=== PATIENT | male | born 1955 | race Caucasian/White ===

== ENCOUNTER 2020-02-04 09:23 | Outpatient (REF) | payer BC, SELFPAY ==
[2020-02-04 11:02] LABS: MANUAL DIFF FLAG NO
[2020-02-04 11:05] LABS: Basophils Percent Auto 0.7 % (0-2); Eosinophils Absolute Auto 0.2 X10*3/uL (0.0-0.4); Eosinophils Percent Auto 2.6 % (0-4); Hematocrit 45.9 % (42-52); Hemoglobin 15.1 g/dl (14.0-18.0); Imm Gran Abs Auto 0.02 X10*3/uL (0.00-0.03); Imm Gran Pct Auto 0.3 % (0.0-0.4); Lymphocytes Absolute Auto 1.7 X10*3/uL (1.2-4.9); Lymphocytes Percent Auto 28.7 % (20-40); Mean Corpuscular HGB Conc 32.9 g/dl (31.0-36.0); Mean Corpuscular Hemoglobin 30.3 pg (27.0-33.0); Mean Corpuscular Volume 92.2 fL (80-98); Mean Platelet Volume 10.2 fL (9.4-12.4); Monocytes Absolute Auto 0.4 X10*3/uL (0.1-1.2); Monocytes Percent Auto 7.5 % (2-11); Neutrophils Absolute Auto 3.5 X10*3/uL (2.0-8.3); Neutrophils Percent Auto 60.2 % (45-73); Platelet Count 211 X10*3/uL (160-400); Red Blood Count 4.98 X10*6/uL (4.60-5.80); Red Cell Distribution Width 12.8 % (11.0-16.0); White Blood Count 5.9 X10*3/uL (4.8-10.8)
[2020-02-04 11:53] LABS: Alanine Aminotransferase 28 U/L (0-40); Albumin Level 4.2 g/dL (3.5-5.0); Alkaline Phosphatase 70 U/L (39-117); Anion Gap 12 (12-20); Aspartate Amino Transferase 19 U/L (5-37); Bilirubin Total 1.1 mg/dL (0.0-1.0); Blood Urea Nitrogen 12 mg/dL (9-16); Calcium 8.8 mg/dL (8.4-10.2); Carbon Dioxide 27 mmol/L (22-29); Chloride 106 mmol/L (96-108); Cholesterol 238 mg/dL; Estimated Glomerular Filt Rate > 60; Glucose Fasting 109 mg/dL (60-99); HDL Cholesterol 40 mg/dL; LDL Cholesterol Calculated 152 mg/dl; Potassium 4.1 mmol/l (3.3-5.1); Sodium 141 mmol/L (135-145); Total Protein 6.6 g/dL (6.5-8.0); Triglycerides 233 mg/dL
[2020-02-04 12:15] LABS: Creatinine Urine 189.55 mg/dL; Microalbum/Creatinine Ratio Ur 2.6 ug/mg cr
[2020-02-04 12:16] LABS: Prostate Specific Antigen Scr 0.85 ng/mL (<0.05-4.0); TSH reflex Free T4 2.68 mIU/mL (0.32-4.0)
== END 2020-02-04 09:24 | disposition home or self-care (01) ==
LOC: HO.WFDLDS 09:23
PROVIDERS: Visit Provider Family Medicine
DX: K92.1 Melena (principal); Z00.00 Encounter for general adult medical examination without abnormal findings; E78.00 Pure hypercholesterolemia, unspecified; R73.03 Prediabetes; I10 Essential (primary) hypertension; Z12.5 Encounter for screening for malignant neoplasm of prostate
CPT/HCPCS: 36415; 80053; 80061; 82043; 84153; 84443; 85025

== ENCOUNTER 2020-03-07 10:31 | Outpatient (REF) | payer BC, SELFPAY | END 2020-03-07 10:32 | disposition home or self-care (01) | LOC: HO.LAB 10:31 | PROVIDERS: Visit Provider Internal Medicine | DX: Z20.822 Contact with and (suspected) exposure to COVID-19 (principal) | CPT/HCPCS: 36415; C9803; U0003 ==

== ENCOUNTER 2020-04-21 13:48 | Outpatient (REF) | payer BC, SELFPAY ==
[2020-04-21 14:44] LABS: Creatinine Urine 88.55 mg/dL; Microalbumin Urine < 5.0 mg/L
== END 2020-04-21 13:49 | disposition home or self-care (01) ==
LOC: HO.LNP 13:48
PROVIDERS: Visit Provider Family Medicine
DX: R73.03 Prediabetes (principal)
CPT/HCPCS: 82043

== ENCOUNTER 2020-07-22 12:37 | Outpatient (REF) | payer BC, SELFPAY ==
[2020-07-22 13:40] LABS: MANUAL DIFF FLAG NO
[2020-07-22 13:43] LABS: Basophils Percent Auto 0.5 % (0-2); Eosinophils Absolute Auto 0.1 X10*3/uL (0.0-0.4); Eosinophils Percent Auto 1.9 % (0-4); Hematocrit 45.3 % (42-52); Hemoglobin 14.9 g/dl (14.0-18.0); Imm Gran Abs Auto 0.02 X10*3/uL (0.00-0.03); Imm Gran Pct Auto 0.3 % (0.0-0.4); Lymphocytes Absolute Auto 1.7 X10*3/uL (1.2-4.9); Lymphocytes Percent Auto 28.6 % (20-40); Mean Corpuscular HGB Conc 32.9 g/dl (31.0-36.0); Mean Corpuscular Hemoglobin 29.9 pg (27.0-33.0); Mean Platelet Volume 10.4 fL (9.4-12.4); Monocytes Absolute Auto 0.4 X10*3/uL (0.1-1.2); Monocytes Percent Auto 7.3 % (2-11); Neutrophils Absolute Auto 3.6 X10*3/uL (2.0-8.3); Neutrophils Percent Auto 61.4 % (45-73); Platelet Count 185 X10*3/uL (160-400); Red Blood Count 4.98 X10*6/uL (4.60-5.80); Red Cell Distribution Width 13.1 % (11.0-16.0); White Blood Count 5.9 X10*3/uL (4.8-10.8)
[2020-07-22 13:53] LABS: Partial Thromboplastin Time 32.9 SEC (24.1-38.0)
[2020-07-22 14:18] LABS: Alanine Aminotransferase 42 U/L (0-40); Albumin Level 4.4 g/dL (3.5-5.0); Alkaline Phosphatase 79 U/L (39-117); Anion Gap 13 (12-20); Aspartate Amino Transferase 29 U/L (5-37); Bilirubin Total 1.3 mg/dL (0.0-1.0); Blood Urea Nitrogen 14 mg/dL (9-16); Calcium 9.4 mg/dL (8.4-10.2); Carbon Dioxide 27 mmol/L (22-29); Chloride 106 mmol/L (96-108); Cholesterol 157 mg/dL; Estimated Glomerular Filt Rate > 60; Glucose Random 108 mg/dL (60-115); HDL Cholesterol 49 mg/dL; LDL Cholesterol Calculated 81 mg/dl; Potassium 4.3 mmol/L (3.3-5.1); Sodium 142 mmol/L (135-145); Total Protein 6.9 g/dL (6.5-8.0); Triglycerides 137 mg/dL
[2020-07-23 07:37] LABS: LDL Cholesterol Direct 83 mg/dL (<100)
== END 2020-07-22 12:38 | disposition home or self-care (01) ==
LOC: HO.WFDLDS 12:37
PROVIDERS: Visit Provider Family Medicine
DX: Z01.810 Encounter for preprocedural cardiovascular examination (principal); E78.00 Pure hypercholesterolemia, unspecified
CPT/HCPCS: 36415; 80053; 80061; 83721; 85025; 85610; 85730

== ENCOUNTER 2022-02-12 09:05 | Outpatient (REF) | payer BC, SELFPAY ==
[2022-02-12 11:22] LABS: MANUAL DIFF FLAG NO
[2022-02-12 11:29] LABS: Basophils Percent Auto 0.8 % (0-2); Eosinophils Absolute Auto 0.2 X10*3/uL (0.0-0.4); Eosinophils Percent Auto 3.1 % (0-4); Hematocrit 43.2 % (42.0-52.0); Hemoglobin 14.2 g/dl (14.0-18.0); Imm Gran Abs Auto 0.03 X10*3/uL (0.00-0.03); Imm Gran Pct Auto 0.6 % (0.0-0.4); Lymphocytes Absolute Auto 1.5 X10*3/uL (1.2-4.9); Lymphocytes Percent Auto 28.5 % (20-40); Mean Corpuscular HGB Conc 32.9 g/dl (31.0-36.0); Mean Corpuscular Hemoglobin 29.8 pg (27.0-33.0); Mean Corpuscular Volume 90.8 fL (80.0-98.0); Mean Platelet Volume 10.9 fL (9.4-12.4); Monocytes Absolute Auto 0.4 X10*3/uL (0.1-1.2); Monocytes Percent Auto 7.6 % (2-11); Neutrophils Absolute Auto 3.1 x10*3/uL (2.0-8.3); Neutrophils Percent Auto 59.4 % (45-73); Platelet Count 215 X10*3/uL (160-400); Red Blood Count 4.76 X10*6/uL (4.60-5.80); Red Cell Distribution Width 12.9 % (11.0-16.0); White Blood Count 5.2 X10*3/uL (4.8-10.8)
[2022-02-12 11:31] LABS: Appearance Urine Clear; Color Urine Yellow; Glucose Urine UA Negative (Negative); Leukocyte Esterase Urine Negative (Negative); Nitrite Urine Negative (Negative); Urine Blood Negative (Negative); Urine Ketones Negative (Negative); Urine Protein Negative (Neg-Trace)
[2022-02-12 11:35] LABS: Estimated Average Glucose 117 mg/dL; Hemoglobin A1c % 5.7 %
[2022-02-12 12:07] LABS: Alanine Aminotransferase 42 U/L (0-40); Albumin Level 4.1 g/dL (3.5-5.0); Alkaline Phosphatase 71 U/L (39-117); Anion Gap 14 (12-20); Aspartate Amino Transferase 23 U/L (5-37); Bilirubin Total 1.1 mg/dL (0.0-1.0); Blood Urea Nitrogen 13 mg/dL (9-16); Carbon Dioxide 23 mmol/L (22-29); Chloride 109 mmol/L (96-108); Cholesterol 161 mg/dL; Estimated Glomerular Filt Rate > 60; Glucose Fasting 117 mg/dL (60-99); HDL Cholesterol 44 mg/dL; LDL Cholesterol Calculated 97 mg/dl; Potassium 4.1 mmol/L (3.3-5.1); Prostate Specific Antigen Scr 0.99 ng/mL (<0.05-4.0); Sodium 142 mmol/L (135-145); TSH reflex Free T4 3.09 uIU/mL (0.32-4.0); Total Protein 6.3 g/dL (6.5-8.0); Triglycerides 103 mg/dL
[2022-02-12 12:08] LABS: Creatinine Urine 158.46 mg/dL; Microalbum/Creatinine Ratio Ur 3.7 ug/mg cr
== END 2022-02-12 09:06 | disposition home or self-care (01) ==
LOC: HO.WFDLDS 09:05
PROVIDERS: Visit Provider Family Medicine
DX: Z00.00 Encounter for general adult medical examination without abnormal findings (principal); Z12.5 Encounter for screening for malignant neoplasm of prostate; R73.01 Impaired fasting glucose; I10 Essential (primary) hypertension
CPT/HCPCS: 36415; 80053; 80061; 81003; 82043; 83036; 84153; 84443; 85025

== ENCOUNTER 2022-03-03 13:49 | Outpatient (RCR) | payer BC, SELFPAY ==
--- NOTE | 2022-03-03 15:39 | MHC.PT.EP ---
[facility] [place] [facility] [place] [facility] [place] [facility] [address] Scarlett Moreno [address] [phone] F: [phone] F: [phone] F: [phone] F: [phone] Physical Therapy Plan of Care Date of Evaluation: Date of Surgery: NA Diagnosis: PAIN IN R SHOULDER Assessment: Pt IS 66 YO M REFERRED TO PT FROM DR MARTINEZ WITH R SHLDER PAIN. Pt REPORTS 3 DIFFERENT INSTANCES OF R SHLDER INJURIES S/P FALLS THE LAST ABOUT 1 MONTH AGO IN [facility]. PRESENTS WITH SIGNIFICANTLY DECREASED R SHLDER ROM, DECREASED CERVICAL ROM, R UE RADICULOPATHY (RADIAL DISTRIBUTION..OF NOTE, Pt FOLLOWED FOR POSSIBLE CTS), DECREASED R UE STRENGTH AND PAIN LIMITING ADLS. SPOKE WITH DR MARTINEZ ABOUT POSSIBLE REFERRAL TO ORTHO/CORTISONE INJECTION AND FOLLOW FOR POSSIBLE RADICULOPATHY/CERVICAL INVOLVEMENT. OF NOTE, Pt HAS 30 DOLLAR CO-PAY AND DID NOT WANT TO HAVE ALOT OF PT. AGREED TO FU IN 2 WKS TO ASSESS AND PROGRESS MEGAN Frequency and Duration: The patient will be seen 1X/WK X 6 WKS Short Term Goals: 1. INCREASED AWARENESS POSTURE AND SHLDER CARE 2. 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 I HEP WITH DC EX PLAN 2. INCREASED R SHLDER ROM 20-30 DEGREES FOR SHLDER FLEX AND ABDUCTION 3. DECREASED R SHLDER PAIN AT LEAST 50% WITH ADLS Treatment Plan: Modalities to reduce pain, spasms and effusion. Manual therapy to restore motion and function. Therapeutic exercise to improve strength and flexibility. Neuromuscular re-education for posture and balance. Therapeutic activities to return to functional activities of daily living. Electronically signed by: DANIEL STEIN PT Please sign and return to therapist. Thank you for your referral.
== END 2022-04-15 08:11 | disposition home or self-care (01) ==
LOC: HO.PTWFD 13:49
PROVIDERS: PCP Family Medicine; Visit Provider Family Medicine
DX: M25.511 Pain in right shoulder (principal)
CPT/HCPCS: 97110; 97162; 97535

== ENCOUNTER 2022-03-24 10:01 | Outpatient (REF) | payer BC, SELFPAY ==
--- NOTE | ~2022-03-24 | XR_ITS ---
EXAMINATION: XR HAND, RIGHT CLINICAL INFORMATION: Pain right hand COMPARISON: None TECHNIQUE: PA, lateral, and oblique views of the right hand. FINDINGS: There is loss of PIP, DIP and MCP joint space without bony erosive changes. There is an enthesophyte along the third metacarpal head. Tiny subchondral cystic spaces are seen along the first MCP joint. There is a soft tissue foreign body seen along the proximal phalanx first digit. No acute fracture or dislocation seen. XR/XR hand RT min 3V IMPRESSION: 1. Degenerative arthritic changes PIP, DIP and MCP joints. 2. There is a soft tissue radiopaque foreign body along the proximal phalanx first digit. 3. No acute fracture or dislocation seen. 4. Mild degenerative arthritic changes involving the right hand
== END 2022-03-24 10:02 | disposition home or self-care (01) ==
LOC: HO.HOSX 10:01
PROVIDERS: Visit Provider Orthopaedic Surgery
DX: G56.01 Carpal tunnel syndrome, right upper limb (principal); R20.0 Anesthesia of skin
CPT/HCPCS: 73130

== ENCOUNTER 2022-04-01 10:13 | Outpatient (REF) | payer BC, SELFPAY ==
--- NOTE | ~2022-04-01 | XR_ITS ---
EXAMINATION: XR SHOULDER, RIGHT CLINICAL INFORMATION: Right shoulder pain COMPARISON: None TECHNIQUE: AP external rotation, Grashey, scapular Y, and axillary views of the right shoulder. FINDINGS: No acute fracture or dislocation. Severe degenerative changes of the right shoulder joint with joint space narrowing and subchondral cystic changes. Severe degenerative changes of the acromioclavicular joint. XR/XR shoulder RT min 2V IMPRESSION: Severe degenerative changes of the right shoulder joint.
--- NOTE | ~2022-04-01 | US_ITS ---
EXAMINATION: US ABDOMEN LIMITED WITH LIVER ELASTOGRAPHY CLINICAL INFORMATION: Abnormal liver enzymes COMPARISON: Previous CT of the abdomen and pelvis July 2010 TECHNIQUE: Real-time imaging of the abdominal viscera. Noninvasive ultrasound liver fibrosis assessment is performed using Cyndi ElastPQ point quantification shear wave elastography (2D-SWE) with a C5-2 MHz transducer. Multiple elastography samples are obtained. FINDINGS: PANCREAS: The head of the pancreas is normal. The body and tail are not well visualized. LIVER: Normal. The liver demonstrates normal size, contour and echogenicity. No focal lesion or intrahepatic biliary duct dilatation. The right lobe measures 17 cm in length. The left lobe measures 11 cm in length. Portal flow is normal/hepatopedal Shear wave liver elastography median stiffness is 1.8 m/s (reference: normal median stiffness is 1.3 m/s or less). IQR/median stiffness to assess sampling precision is 0.06 (reference: good quality data set is IQR/median stiffness of 0.15 or less). GALLBLADDER: Normal. The gallbladder is physiologically distended without evidence of stones, sludge, polyps, wall thickening or pericholecystic fluid. COMMON BILE DUCT: Normal in caliber measuring 0.5 cm in diameter. RIGHT KIDNEY: Normal. No hydronephrosis. No renal calculi or focal parenchymal lesions. The kidney measures 12.3 cm in maximum dimension. FREE FLUID: None. US/US abdomen pizano w elastography IMPRESSION: 1. Impression: Morphologically normal liver. Limited visualization of the pancreas. 2. Liver elastography: Slightly elevated liver stiffness. Adequate liver sampling. REFERENCE: Society of Radiologists in Ultrasound Liver Stiffness Thresholds (2020): LIVER STIFFNESS THRESHOLDS: *Liver Stiffness equal or less than 1.3 m/s: High probability of being normal. *Liver Stiffness less than 1.7 m/s: In the absence of other known clinical signs, rules out compensated advanced chronic liver disease. *Liver Stiffness 1.7-2.1 m/s: Suggestive of compensated advanced chronic liver disease but need further test for confirmation. *Liver Stiffness over 2.1 m/s: Rules in compensated advanced chronic liver disease. *Liver Stiffness over 2.4 m/s: Suggestive of clinically significant portal hypertension. QUALITY OF DATA SET: *IQR/Median value equal or less than 0.15 implies a quality data set. *IQR/Median value over 0.15 implies a poor quality data set. SIGNIFICANT CHANGE FROM PRIOR EXAM: Significant change if liver stiffness measurement is 10% or greater from prior exam. OTHER CONSIDERATIONS: The stage of liver fibrosis may be overestimated in the setting of acute hepatitis, liver inflammation, elevated liver function tests, hepatic vascular congestion, obstructive cholestasis, non-fasting state, and infiltrative diseases such as amyloidosis and lymphoma. In some patients with NAFLD, the liver stiffness thresholds for compensated advanced chronic liver disease may be lower. In causes other than viral hepatitis and NAFLD, liver stiffness thresholds are not well established.
== END 2022-04-01 10:14 | disposition home or self-care (01) ==
LOC: HO.US 10:13
PROVIDERS: PCP Family Medicine; Visit Provider Family Medicine
DX: R74.8 Abnormal levels of other serum enzymes (principal); M25.511 Pain in right shoulder
CPT/HCPCS: 73030; 76705; 76981

== ENCOUNTER 2022-04-06 12:54 | Outpatient (REF) | payer BC, SELFPAY ==
[2022-04-06 15:21] LABS: Alanine Aminotransferase 109 U/L (0-40); Albumin Level 4.1 g/dL (3.5-5.0); Alkaline Phosphatase 85 U/L (39-117); Anion Gap 14 (12-20); Aspartate Amino Transferase 46 U/L (5-37); Bilirubin Total 1.3 mg/dL (0.0-1.0); Blood Urea Nitrogen 12 mg/dL (9-16); Calcium 8.9 mg/dL (8.4-10.2); Carbon Dioxide 24 mmol/L (22-29); Chloride 107 mmol/L (96-108); Estimated Glomerular Filt Rate > 60; Glucose Random 96 mg/dL (60-115); Potassium 4.2 mmol/L (3.3-5.1); Sodium 141 mmol/L (135-145); Total Protein 6.3 g/dL (6.5-8.0)
== END 2022-04-06 12:55 | disposition home or self-care (01) ==
LOC: HO.WFDLDS 12:54
PROVIDERS: Visit Provider Family Medicine
DX: R74.8 Abnormal levels of other serum enzymes (principal)
CPT/HCPCS: 36415; 80053

== ENCOUNTER → 2022-05-10 11:55 | Outpatient (BNVA) | payer BC, SELFPAY | PROVIDERS: PCP Family Medicine; Visit Provider Orthopaedic Surgery | DX: Z13.89 Encounter for screening for other disorder (principal) ==

== ENCOUNTER 2022-06-16 12:54 | Outpatient (REF) | payer BC, SELFPAY ==
--- NOTE | 2022-06-16 09:00 | EMG_ITS ---
Please see scanned EMG / Nerve Conduction Report. MTDD
== END 2022-06-16 12:55 | disposition home or self-care (01) ==
LOC: HO.NEURO 12:54
PROVIDERS: PCP Family Medicine; Visit Provider Orthopaedic Surgery
DX: R20.0 Anesthesia of skin (principal)
CPT/HCPCS: 95885; 95913

== ENCOUNTER 2022-06-17 11:14 | Day surgery (SDC) | payer BC, SELFPAY ==
--- NOTE | 2022-06-17 09:58 | W.PM.OPN ---
Operative Note Operative Note Date of Service: 06/17/22 Narrative: Preop diagnosis: 1. Right Carpal tunnel syndrome Postop diagnosis: same Procedure: 1. Right Carpal tunnel release Surgeon: Amanda Sanchez MD Anesthesia: local block using 1% lidocaine with epinephrine Findings: Thickened transverse carpal ligament. EBL: Less than 5 mL Specimens: None Complications: None Disposition: Brought to recovery room in stable condition Plan: Follow-up for 10-14 days for wound check and suture removal Indications: The patient is 66 years old, with right carpal tunnel syndrome that has been unresponsive to nonoperative management. The risks and benefits of operative treatment including but not limited to risk of damage to blood vessels, nerves, tendons, infection, persistent pain, persistent symptoms, or possible need for additional surgery were discussed with the patient and the patient wishes to proceed with surgery. Procedure: Once consent was obtained a local block was performed using a combination of 1% lidocaine with epinephrine. The patient was then brought back to the operating suite and placed on the operative table in supine position. The right upper extremity was prepped and draped in a standard surgical fashion. Once assured that we had a good block, a 2.0 cm longitudinal incision was made centered over the carpal tunnel. The incision was made through the skin to the subcutaneous tissues using a #15 blade. Dissection was made down to the level of the transverse carpal ligament with care being taken to protect the palmar cutaneous nerve. Once the transverse carpal ligament was clearly visualized, a longitudinal incision was made in the transverse carpal ligament 1st using a #15 blade, then using tenotomy scissors under direct visualization. Care was taken to look for and protect the motor branch of the median nerve when seen in this area. Once satisfied with our carpal tunnel release the wound was copiously irrigated with normal saline and hemostasis was obtained with a brief period of local pressure. The skin edges were reapproximated with some 5.0 nylon suture material and a sterile dressing was applied. The patient appears to have tolerated the procedure well and with no complications. All digits were well vascularized at the conclusion of the case.
[2022-06-17 11:47] VITALS: BMI 31.1
--- NOTE | 2022-06-17 13:15 | MHC.SHP ---
Pre-Procedural Eval Section A Date of Service: 06/17/22 The patient is an INPATIENT: No Changes since office visit: No Cold of Flu in the past 2 weeks, No New Medical Problems, No Changes in Medication and No Patient answered all questions The History & Physical has been completed within 30 days and I have reviewed it.: Yes Section B Chief Complaint: Carpal tunnel syndrome, right upper limb Allergies: Allergies Allergy/AdvReac Type Severity Reaction Status Date / Time No Known Allergies Allergy Verified 05/10/22 12:02 Plan I have reviewed the history and physical and performed a pertinent physical examination on my patient. No changes have occurred unless specified. Time Spent With Patient Time: Total time managing care of this patient today ____ minutes.
[2022-06-17 15:35] VITALS: BP 120/84; PULSE 65; RESP 18; TEMP 36.6; O2SAT 98
== END 2022-06-17 15:39 | disposition home or self-care (01) ==
PROVIDERS: PCP Family Medicine; Visit Provider Orthopaedic Surgery
PROC: (CPT 64721; principal; 2022-06-17 12:20)
DX: G56.01 Carpal tunnel syndrome, right upper limb (principal); M79.641 Pain in right hand; R20.0 Anesthesia of skin; R20.2 Paresthesia of skin
CPT/HCPCS: 64721; J0171

== ENCOUNTER → 2022-06-30 14:10 | Outpatient (BNVA) | payer BC, SELFPAY | PROVIDERS: PCP Family Medicine; Visit Provider Orthopaedic Surgery ==

== ENCOUNTER 2022-07-06 15:50 | Emergency (ER) | payer BC, SELFPAY ==
[2022-07-06 16:01] VITALS: BP 126/79; PULSE 71; RESP 18; TEMP 36.8; O2SAT 95; BMI 31.2
--- NOTE | 2022-07-06 16:15 | ED.GENADULT ---
HPI - General Adult General Chief complaint: Eye Problems Stated complaint: L eye redness Time Seen by Provider: 07/06/22 16:14 Source: patient Mode of arrival: ambulatory Limitations: no limitations History of Present Illness HPI narrative: Patient is a 66-year-old male presenting with left eye pain and redness since . He reports he was driving in his convertible on Tuesday and then woke with the irritation on morning. He states that Tuesday he felt as though his symptoms were improving but then Tuesday his eye became more painful again. He reports foreign body sensation to left eye. He has been using Visine eye drops with little change in symptoms. He reports some blurred vision in the affected eye which began yesterday. He does not use contacts for prescription glasses but does use reading glasses occasionally. He denies pain with eye movement. He denies any discharge or drainage from his eye. He reports that he has been rubbing his eye due to irritation. He went to his PCP earlier today for evaluation of the same symptoms but was referred here as his PCP did not have proper equipment for full evaluation. Related Data Previous Rx's Medication Instructions Recorded atorvastatin 20 mg tablet 20 mg PO DAILY 90 days #90 tabs 12/30/21 Brace,wrist (Wrist Brace - one) #1 ea 02/08/22 erythromycin 5 mg/gram (0.5 %) eye 1 appl ophthalmic-Left QID 5 days 07/06/22 ointment #3.5 grams Allergies Allergy/AdvReac Type Severity Reaction Status Date / Time No Known Allergies Allergy Verified 07/06/22 16:10 Review of Systems Review of Systems: As per HPI Yes all other systems are reviewed and are negative Constitutional: Constitutional: Reports as per HPI Eyes: Eyes: Reports blurry vision, Denies exophthalmos, Denies diplopia, Denies eye discharge, Denies floaters, Reports irritation, Reports eye pain, Denies requires corrective lenses, Denies seeing flashes and Denies spots in vision PMFSH Past Medical History Medical History (Updated 07/06/22 @ 16:40 by Madyson Fields NP) History of diverticulitis Surgical History History of bilateral knee replacement History of carpal tunnel release History of dental surgery History of inguinal hernia Family History Family History Father Unknown family medical history Mother Diabetes mellitus Brother No problems noted. Brother No problems noted. Sister No problems noted. Sister No problems noted. Sister No problems noted. Son No problems noted. Son No problems noted. Son No problems noted. 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 occupational exposures/hazards: No Cognitive needs: No Hearing needs: No Vision needs: No Physical Exam ED Vital Signs: Vital Signs - 24 hr 07/06/22 16:01 Temperature 98.3 F Pulse Rate 71 Respiratory Rate 18 Blood Pressure 126/79 Pulse Oximetry 95 Oxygen Delivery Method Room Air BMI result Body Mass Index 31.2 Const General: cooperative, healthy appearing and no acute distress Orientation/consciousness: oriented to person, oriented to place, oriented to time and patient oriented x3 Limitations: no limitations HENMT Head: Yes normocephalic and Yes atraumatic Ears: external ears normal General nose exam: Normal external nose present Face and sinus: Yes face symmetric Mouth: oropharynx normal and moist mucous membranes Throat: Yes uvula midline Eyes Visual Solorzano: normal visual solorzano by confrontation Alignment and Position: alignment normal and position normal Periorbital: periorbital findings normal Eyelids: Yes eyelids normal Conjunctivae: conjunctival abnormal left conjunctival injection diffuse Sclerae: scleral abnormal left scleral injection diffuse; not on the right Corneas: corneas abnormal on the left fluorescein used and abrasion at the following clock position (7:00); without dendrites present and fluorescein used Pupils: Equal, round and reactive pupils present, Pupils normal by confrontation and Pupil accommodation reflex normal EOM: EOMs intact bilaterally and No Nystagmus present Neck Neck: Yes normal visual inspection and Yes supple Resp Effort & Inspection: normal respiratory effort and able to speak in complete sentences Auscultation: clear to auscultation bilaterally Cardio Rate: regular rate Rhythm: regular rhythm Heart sounds: S1 normal heart sound present and S2 normal heart sound present Skin General skin exam: elasticity normal and turgor normal Neuro General: oriented to person, oriented to place, oriented to time, patient oriented x3, moves all extremities, no focal motor deficits and CN's II-XI intact bilaterally Cranial nerves: Yes Equal, round and reactive pupils present and No Nystagmus present Cognition (Neuro): normal cognition Extrem General: Yes full ROM Psych Mental Status: mental status grossly normal Affect: normal affect Thought process: Normal thought process present Medical Decision Making Medical Decision Making MDM Narrative: Patient is a 66-year-old male presenting with left eye pain and redness since . On exam patient is awake, A+Ox3, nontoxic appearing in no acute distress, left conjunctiva and sclera injected, with corneal abrasion visible at 7:00 on Daigle lamp exam under fluorescein stain. Visual acuity is WNL. Considered conjunctivitis, hordeolum, uveitis. No corneal ulcer visualized on exam, no dendritic lesions suggestive of herpes zoster ophthalmicus. Will discharge patient home with erythromycin ointment, instructed him to immediately discontinue use of Visine eyedrops, can apply cool compresses, avoid rubbing eye. Strict return precautions discussed at bedside. Differential Diagnosis Differential Diagnoses: The differential diagnosis associated with the presentation includes As above. External Record Review External record reviewed: Inpatient record, Office record and Outpatient record Prescription Management I considered prescription management with: Antibiotic (erythromycin ointment) Discharge Plan Discharge Clinical Impression: Abrasion, corneal Patient Disposition: Home, Self-Care Instructions: Corneal Abrasion (DC) Additional Instructions: You were evaluated in the emergency department for left eye redness and irritation. Your exam revealed that you have a corneal abrasion to your left eye. You are being prescribed an ointment to prevent infection but your cornea should heal on its own in a few days. Discontinue use of the Visine eyedrops. Avoid rubbing or touching your eye. Can apply cool compresses for relief of discomfort. Return to the emergency department if you develop worsening eye pain or changes in vision, discharge or drainage from your eye, or other concerning symptoms. Prescriptions: New erythromycin 5 mg/gram (0.5 %) ointment 1 appl ophthalmic-Left QID 5 Days Qty: 3.5 0RF No Action atorvastatin 20 mg tablet 20 mg PO DAILY 90 Days Qty: 90 3RF (DME) Wrist Brace - one Misc See Rx Instructions .Route Qty: 1 0RF Rx Instructions: Daily As directed, Large. 45 days
== END 2022-07-06 17:08 | disposition home or self-care (01) ==
PROVIDERS: Emergency Provider Emergency Medicine; PCP Nurse Practitioner Family
DX: S05.02XA Injury of conjunctiva and corneal abrasion without foreign body, left eye, initial encounter (principal); X58.XXXA Exposure to other specified factors, initial encounter; Y93.89 Activity, other specified; Y92.810 Car as the place of occurrence of the external cause; Y99.9 Unspecified external cause status; Z79.02 Long term (current) use of antithrombotics/antiplatelets; Z79.899 Other long term (current) drug therapy
CPT/HCPCS: 99282; 99283

== ENCOUNTER 2022-11-04 07:57 | Outpatient (REF) | payer BC, SELFPAY ==
[2022-11-04 12:25] LABS: Alanine Aminotransferase 28 U/L (0-40); Alkaline Phosphatase 75 U/L (39-117); Anion Gap 12 (12-20); Aspartate Amino Transferase 21 U/L (5-37); Bilirubin Total 0.9 mg/dL (0.0-1.0); Blood Urea Nitrogen 12 mg/dL (9-16); Calcium 9.5 mg/dL (8.4-10.2); Carbon Dioxide 26 mmol/L (22-29); Chloride 108 mmol/L (96-108); Cholesterol 137 mg/dL (<200); Estimated Glomerular Filt Rate > 60; Glucose Fasting 112 mg/dL (60-99); HDL Cholesterol 48 mg/dL (>40); LDL Cholesterol Calculated 71 mg/dL (<100); Potassium 4.4 mmol/L (3.3-5.1); Sodium 142 mmol/L (135-145); Total Protein 6.6 g/dL (6.5-8.0); Triglycerides 92 mg/dL (<150)
[2022-11-04 13:02] LABS: Creatinine Urine 156.56 mg/dL; Microalbumin Urine < 5.0 mg/L
== END 2022-11-04 07:58 | disposition home or self-care (01) ==
LOC: HO.WFDLDS 07:57
PROVIDERS: Visit Provider Family Medicine
DX: Z00.00 Encounter for general adult medical examination without abnormal findings (principal); I10 Essential (primary) hypertension
CPT/HCPCS: 36415; 80053; 80061; 82043; 82570

== ENCOUNTER 2022-11-10 10:26 | Outpatient (AMB) | payer BC, SELFPAY ==
[2022-11-10 10:34] VITALS: BP 124/72; PULSE 74; O2SAT 96; BMI 31.8
--- NOTE | 2022-11-10 10:34 | A.OFFPC_ITS ---
Vital Signs 11/10/22 10:34 Height 5 ft 8 in Weight 209 lb 4 oz BMI 31.8 BP 124/72 Blood Pressure Location Lt brachial Position Sitting Pulse 74 Pulse Source Pulse Oximeter Pulse Oximetry (%) 96 Intake Visit Reasons: f/u chronic conditions Intake Note: Patient is here to follow up on chronic conditions. He is concerned about testicles. he states he is also concerned about his right eye. Allergies No Known Allergies Allergy (Verified 11/10/22 10:39) Tobacco use date assessed: 11/10/22 Fall risk assessment: No Falls in past year Last assessed Fall Risk: 11/10/22 Dental Screening Dental Screen Date: 11/10/22 Did you have a dental visit in the last 12 months?: Yes Did you have a dental problem in the last 6 months where you did not have access to dental care?: No Was dental information given to patient?: Patient has dentist HPI f/u chronic conditions HPI Details 67 y/o male presents to f/u chronic [facility]. Pt reports corneal abrasion and had been sent to the ED. He notes he had been given a cream but he states emergency department had given him the wrong gel which his eye doctor said was the cause of his significant eye pain. He reports pain improved after eye doctor prescribed him another gel. Labs were drawn 11/04/22. Reviwed labs with pt. Triglycerides 92. TC 137. LDL 71. HDL 48. Elevated fasting glucose of 112 and hx of pre-diabetes. A1c today 11/10/22 is 6.1%. Pt reports mild scrotal pain. [facility] Medical History History of diverticulitis Surgical History History of carpal tunnel release History of dental surgery History of inguinal hernia History of bilateral knee replacement Family History Father Unknown family medical history Mother Diabetes mellitus Brother No problems noted. Brother No problems noted. Sister No problems noted. Sister No problems noted. Sister No problems noted. Son No problems noted. Son No problems noted. Son No problems noted. 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 Pastor Arce, Bushra Mars, Weston Hinton and colleagues, with an educational stefano from [employer]. Review of Systems Const Denies chills, Denies fatigue, Denies fever(s), Denies headache(s) and Denies weakness ENT Denies dizziness and Denies headache(s) Card Denies dyspnea Resp Denies cough, Denies dyspnea, Denies wheezing and Denies other (shortness of breath) Musc Denies numbness and Denies tingling Neuro Denies dizziness, Denies headache(s), Denies numbness, Denies tingling and Denies weakness Psych Denies anxiety and Denies depression Endo Denies fatigue Aller/Immun Denies wheezing Physical exam (Primary Care) Vital Signs: Last Vital Signs Pulse 74 11/10/22 10:34 BP 124/72 11/10/22 10:34 Pulse Ox 96 11/10/22 10:34 BMI result Body Mass Index 31.8 Tobacco/Smoking Status: Tobacco use Status Tobacco use date assessed 11/10/22 11/10/22 10:45 Patient Tobacco Use Status Never used Tobacco 11/10/22 10:45 e-Cigarette/Vaping Use Never Used 11/10/22 10:45 Thrive Assessment: Date of Thrive Assessment Date Thrive assessed 04/06/22 11/10/22 10:45 Const General: well developed; No acute distress Nutritional Appearance: well nourished Orientation/consciousness: patient oriented x3 HENMT Head: Yes normocephalic and Yes atraumatic Eyes General: appearance normal, both eyes and all related structures Pupils: Equal, round and reactive pupils present EOM: EOMs intact bilaterally Resp Effort & Inspection: normal respiratory effort Neuro General: patient oriented x3 and gait normal Cranial nerves: Yes Equal, round and reactive pupils present Psych Affect: normal affect Results AMB Hemoglobin A1c AMB Hemoglobin A1c 6.1 % Last Edit by Oksana Natarajan CMA on 11/10/22 11:40 Assessment and Plan Assessment & Plan (1) Hypercholesterolemia: Code(s): E78.00 - Pure hypercholesterolemia, unspecified Plan: Lipids appear well controlled on atorvastatin 20 mg daily Continue current medication (2) Pre-diabetes: Code(s): R73.03 - Prediabetes Plan: A1c has increased to 6.1%. Worsening pre diabetes Recommended working harder on diet low in sugars and starches Will continue to monitor (3) Scrotal pain: Code(s): N50.82 - Scrotal pain Plan: Mild Scrotal pain and swelling bilaterally Unclear cause. 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
== END 2022-11-10 11:32 | disposition home or self-care (01) ==
PROVIDERS: PCP Nurse Practitioner Family; Visit Provider Family Medicine
DX: E78.00 Pure hypercholesterolemia, unspecified (principal); R73.03 Prediabetes; N50.82 Scrotal pain; N50.89 Other specified disorders of the male genital organs; H57.10 Ocular pain, unspecified eye
CPT/HCPCS: 83036; 99214

== ENCOUNTER 2022-12-15 13:02 | Outpatient (AMB) | payer BC, SELFPAY ==
--- NOTE | 2022-12-15 13:06 | MHC.OFFVIS ---
Intake Intake Visit Reasons: Scrotal pain Intake Note: New Patient presents for initial visit for Scrotal Pain Urology Medications: none Blood Thinner: none Lining Brusher Required: No Allergies No Known Allergies Allergy (Verified 12/16/22 14:23) Medication List - Last Reconciled 12/16/22 by MARIBELL Robertson atorvastatin 20 mg PO DAILY 90 days Brace,wrist (Wrist Brace - one) Daily As directed, Large. 45 days HPI HPI Comments History of Present Illness Details Ke is a very pleasant 67-year-old male patient of . He has a past medical history of diverticulitis. He presents to the office today as a new patient for right-sided hydrocele. In discussion with the patient today reports to be doing and feeling well. He reports noting increased scrotal/testicular swelling for over a year. He discusses feeling the larger scrotum is getting it is affecting his ADLs and is experiencing pain at times. He denies any previous known trauma to the area. In assessment of the patient today moderate to large sized right-sided hydrocele. Discussed at length potential causes of hydroceles as well as further intervention with surveillance monitoring verses in office drainage verses surgical intervention. Discussed risks and benefits of these interventions at length. When asked patient does report episodes of nocturia as well as urinary frequency however does not find this bothersome as he feels it is self induced with fluid intake. He also reports feeling no sexual desire. He otherwise denies incontinence, hematuria, dysuria, foul smelling urine, changes to urinary stream, flank pain, fever, and or chills. He is happy with his current voiding parameters. [facility] Medical History History of diverticulitis Surgical History History of carpal tunnel release History of dental surgery History of inguinal hernia History of bilateral knee replacement Family History Father Unknown family medical history Mother Diabetes mellitus Brother No problems noted. Brother No problems noted. Sister No problems noted. Sister No problems noted. Sister No problems noted. Son No problems noted. Son No problems noted. Son No problems noted. 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 occupational exposures/hazards: No Cognitive needs: No Hearing needs: No Vision needs: No Review of Systems Const All systems reviewed & are unremarkable except as noted in HPI and below Physical Exam Const General: cooperative, healthy appearing, comfortable, no acute distress, well developed, alert and awake Orientation/consciousness: patient oriented x3 Limitations: no limitations HEENT Head: Yes normal to inspection, Yes normocephalic and Yes atraumatic Ears: hearing grossly normal bilaterally Eyes General: appearance normal, both eyes and all related structures Neck Neck: Yes normal visual inspection and Yes trachea midline Chest Chest palpation & inspection: normal inspection of the chest Resp Effort & Inspection: normal respiratory effort and able to speak in complete sentences Cardio Rate: regular rate GI Inspection: Yes normal to inspection General: Yes no CVA tenderness Penis: normal penis and circumcised Meatus: meatus normal Scrotum: Hydrocele present (moderate/large) on the right Back/Spine/Pelvis Back: no CVA tenderness Skin General skin exam: no rashes or lesions noted Neuro General: patient oriented x3 Extrem General: Yes normal to inspection Psych Appearance: grossly normal and well kempt Mental Status: mental status grossly normal Speech and movement: Normal speech and movement present and Clear speech present Affect: normal affect Attitude: cooperative Thought process: Normal thought process present Thought content: Normal thought content present Insight: Good insight present (Psych) Judgement: Good judgement present (Psych) Results AMB Urinalysis, Automated UA Leukoctes 0 Mari/uL Last Edit by Jack Martinez on 12/15/22 13:16 UA Nitrite Negative Last Edit by Jack Martinez on 12/15/22 13:16 UA Urobilinogen 0.2 mg/dL Last Edit by Jack Martinez on 12/15/22 13:16 UA Protein 0 mg/dL Last Edit by Jack Martinez on 12/15/22 13:16 UA pH 6.0 Last Edit by Jack Martinez on 12/15/22 13:16 UA Blood 0 Marcial/uL Last Edit by Jack Martinez on 12/15/22 13:16 UA Specific [place] 1.025 Last Edit by Jack Martinez on 12/15/22 13:16 UA Ketone Negative Last Edit by Jack Martinez on 12/15/22 13:16 UA Bilirubin 0 mg/dL Last Edit by Jack Martinez on 12/15/22 13:16 UA Glucose 0 mg/dL Last Edit by Jack Martinez on 12/15/22 13:16 Results Reviewed Results Reviewed: Laboratory Last Values Urine pH (Auto) 6.0 12/15/22 13:14 Specific [place] (Auto) 1.025 12/15/22 13:14 Urine Protein (Auto) 0 mg/dL 12/15/22 13:14 Glucose (UA)(Auto) 0 mg/dL 12/15/22 13:14 Urine Ketones (Auto) Negative 12/15/22 13:14 Urine Blood (Auto) 0 Marcial/uL 12/15/22 13:14 Urine Nitrite (Auto) Negative 12/15/22 13:14 Urine Bilirubin (Auto) 0 mg/dL 12/15/22 13:14 Urine Urobilinogen (Auto) 0.2 mg/dL 12/15/22 13:14 Leukocyte Esterase (Auto) 0 Mari/uL 12/15/22 13:14 Assessment & Plan Assessment & Plan (1) Low libido: Code(s): R68.82 - Decreased libido (2) Hydrocele: Code(s): N43.3 - Hydrocele, unspecified Plan: Risks, benefits and alternatives to therapy were discussed. These include but are not limited to infection, bleeding, damage to local organs and tissues, need for further interventions. ? Anesthetic risks regarding cardiac arrhythmia, blood clots, and potential mortality were discussed. The patient understands the typical recovery time and the outpatient nature of the procedure. After consideration of these risks the patient gives full informed consent and they wish to move ahead with the procedure. (3) Erectile dysfunction: Code(s): N52.9 - Male erectile dysfunction, unspecified Plan In office urinalysis results reviewed with the patient today; as noted above. Discussed at length potential causes of hydroceles. Discussed surveillance monitoring verses in office drainage verses right-sided hydrocelectomy; discussed risks and benefits of these interventions Patient denies any bothersome urinary issues He is happy with his current voiding parameters Will obtain testosterone for further assessment evaluation. Schedule for right-sided hydrocelectomy with Dr. Deluca as discussed Follow-up status post surgical intervention per Dr. Deluca's orders; or sooner with any issues, concerns, and or questions. Orders: Orders AMB Urinalysis Automated 12/15/22 Z13.9 - Encounter for screening, unspecified Testosterone, Free/Total 12/15/22 R68.82 - Decreased libido Patient Instructions: The patient had an opportunity to ask questions regarding the treatment plan. All questions were answered. Physical exam, labs, and imaging were discussed and reviewed in detail. As well as risks, benefits, and discussion of treatment choices. No major barriers to understanding were identified. The patient expressed understanding and agreement with the above treatment plan. The patient was made aware they should contact our office by phone for worsening of their current condition, the appearance of new symptoms, or with any questions or concerns. Compliance is encouraged with any medications and follow up testing that is ordered. It is a privilege to be allowed the opportunity to participate in? your urological care.? Again, if you have any questions or concerns If you have any questions or concerns please do not hesitate to contact me. The office is [phone]. This note is constructed using voice recognition software. While every effort has been made to ensure accuracy punching machine operator errors may have been included. Yours sincerely, MARIBELL Robertson Coding Level of Care Code New Pt Level 4 (51319) Diagnoses Low libido R68.82 Hydrocele N43.3 Erectile dysfunction N52.9
== END 2022-12-15 13:55 | disposition home or self-care (01) ==
PROVIDERS: PCP Nurse Practitioner Family; Visit Provider Nurse Practitioner Family
DX: R68.82 Decreased libido (principal); N43.3 Hydrocele, unspecified; N52.9 Male erectile dysfunction, unspecified
CPT/HCPCS: 99204

== ENCOUNTER → 2022-12-15 13:02 | Outpatient (BNVA) | payer BC, SELFPAY | PROVIDERS: PCP Nurse Practitioner Family; Visit Provider Nurse Practitioner Family | DX: R68.82 Decreased libido (principal); N43.3 Hydrocele, unspecified; N52.9 Male erectile dysfunction, unspecified | CPT/HCPCS: 81003 ==

== ENCOUNTER 2022-12-21 12:53 | Outpatient (REF) | payer BC, SELFPAY ==
--- NOTE | ~2022-12-21 | US_ITS ---
EXAMINATION: US SCROTUM CLINICAL INFORMATION: Scrotal pain. COMPARISON: None available. TECHNIQUE: A sonogram of the scrotum was performed assessing aguilar-scale appearance and color Doppler flow. Spectral Doppler analysis of the arterial and venous flow were performed in the testes bilaterally. FINDINGS: RIGHT: Right testicle measures 5.3 x 3.2 x 3.1 cm, volume 28.0 mL. No focal testicular parenchymal lesions are visualized. Spectral Doppler analysis of the arterial and venous flow is normal in the right testis. Echogenic focus characteristic of right testicular appendix. Right epididymal head is difficult to visualize due to moderate right hydrocele. No right varicocele is seen. Moderate right hydrocele. Right epididymal Doppler flow is normal. LEFT: Left testicle measures 3.9 x 2.4 x 3.1 cm, volume 14.5 mL. No focal testicular parenchymal lesions are visualized. Spectral Doppler analysis of the arterial and venous flow is normal in the left testis. Left tubular ectasia. Left epididymal head is normal in size. No left varicocele is seen. Small left hydrocele. Left epididymal Doppler flow is normal. US/US scrotum IMPRESSION: 1. Bilateral hydroceles, right greater than left. Right epididymis difficult to visualize due to the moderate right hydrocele. 2. Right testicular appendix. 3. Left tubular ectasia.
== END 2022-12-21 12:54 | disposition home or self-care (01) ==
LOC: HO.US 12:53
PROVIDERS: Visit Provider Family Medicine
DX: N50.82 Scrotal pain (principal); N50.89 Other specified disorders of the male genital organs
CPT/HCPCS: 76870

== ENCOUNTER 2023-01-31 11:17 | Day surgery (SDC) | payer BC, SELFPAY ==
--- NOTE | 2023-01-28 11:04 | HO.ANESPROP2 ---
Documented by User: Mitzi Gould NP 01/28/23 11:05 HPI - Anesthesia Eval Consult details Narrative: 67yo M for Hydrocele Repair PMFSH Active Problems Active Problems: All Active Problems (Updated 12/16/22 @ 14:31 by Mayra Andrade [facility]) Erectile dysfunction (Acute) Hydrocele (Acute) Low libido (Acute) Scrotal pain (Acute) Eye pain (Acute) Acute left eye pain (Acute) Carpal tunnel syndrome of left wrist (Acute) Osteoarthritis of right shoulder (Acute) Numbness of left hand (Acute) Carpal tunnel syndrome of right wrist (Acute) Urinary frequency (Acute) Elevated liver enzymes (Acute) Adult general medical examination (Acute) Hiatal hernia (Acute) GERD (gastroesophageal reflux disease) (Acute) Frequent urination (Acute) Right shoulder pain (Acute) Right wrist pain (Acute) Preop cardiovascular exam (Acute) Cervical radiculopathy (Acute) Blood in stool (Acute) Back strain (Acute) Screening for colon cancer (Acute) Screening for prostate cancer (Acute) Hypercholesterolemia (Acute) Pre-diabetes (Acute) Annual physical exam (Acute) Past Medical History Medical History (Updated 01/31/23 @ 11:43 by Kasia Pimentel RN) Elevated cholesterol History of diverticulitis Family History Family History Father Unknown family medical history Mother Diabetes mellitus Brother No problems noted. Brother No problems noted. Sister No problems noted. Sister No problems noted. Sister No problems noted. Son No problems noted. Son No problems noted. Son No problems noted. Surgical History Surgical History (Updated 01/31/23 @ 11:44 by Kasia Pimentel RN) H/O colonoscopy History of total right knee replacement History of carpal tunnel release History of dental surgery History of inguinal hernia Social History Social History Housing: House Alcohol intake: current Alcohol intake frequency: holidays/special occasions only Patient Tobacco Use Status: Never used Tobacco e-Cigarette/Vaping Use: Never Used Second Hand Smoke Exposure: No Use of substances other than those prescribed or required for medical reasons: Yes Substance Use Frequency: Occasionally Are you DNR?: No Advance Directives: No Advance Directives Information Provided: Yes 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 occupational exposures/hazards: No Cognitive needs: No Hearing needs: No Vision needs: No Meds Allergies Allergy/AdvReac Type Severity Reaction Status Date / Time No Known Allergies Allergy Verified 01/31/23 11:45 Home Medications Medication Instructions Recorded Confirmed Last Taken Type cholecalciferol (vitamin D3) 125 125 mcg PO DAILY 01/31/23 01/31/23 Unknown History mcg (5,000 unit) tablet (Vitamin D3) Exam Pertinent Lab Results Pertinent Lab Results: Laboratory Tests 02/12/22 11/04/22 09:10 07:59 WBC 5.2 Hgb 14.2 Hct 43.2 Plt Count 215 Sodium 142 Potassium 4.4 Chloride 108 Carbon Dioxide 26 BUN 12 Creatinine 0.77 Assessment and Plan Assessment Anesthesia Assessment: Chart Reviewed Documented by User: Pauly Wang MD 01/31/23 14:37 [facility] Past Medical History Medical History (Updated 01/31/23 @ 11:43 by Kasia Pimentel, RN) Elevated cholesterol History of diverticulitis Family History Family History Father Unknown family medical history Mother Diabetes mellitus Brother No problems noted. Brother No problems noted. Sister No problems noted. Sister No problems noted. Sister No problems noted. Son No problems noted. Son No problems noted. Son No problems noted. Family history of problems with anesthesia: No Surgical History Surgical History (Updated 01/31/23 @ 11:44 by Kasia Pimentel, RN) H/O colonoscopy History of total right knee replacement History of carpal tunnel release History of dental surgery History of inguinal hernia History of Problems with Anesthesia: No Social History Social History Housing: House Alcohol intake: current Alcohol intake frequency: holidays/special occasions only Patient Tobacco Use Status: Never used Tobacco e-Cigarette/Vaping Use: Never Used Second Hand Smoke Exposure: No Use of substances other than those prescribed or required for medical reasons: Yes Substance Use Frequency: Occasionally Are you DNR?: No Advance Directives: No Advance Directives Information Provided: Yes 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 occupational 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/hazards: No Cognitive needs: No Hearing needs: No Vision needs: No Meds Allergies Allergy/AdvReac Type Severity Reaction Status Date / Time No Known Allergies Allergy Verified 01/31/23 11:45 Home Medications Medication Instructions Recorded Confirmed Last Taken Type cholecalciferol (vitamin D3) 125 125 mcg PO DAILY 01/31/23 01/31/23 Unknown History mcg (5,000 unit) tablet (Vitamin D3) Exam Airway Mallampati Class: II (all implants) TM Dist: >3cm Neck ROM: Full Heart: rrr Lungs: cta Assessment and Plan Assessment Anesthesia Assessment: Anesthesia Plan Discussed Final Anesthetic Review Family History of Problems with Anesthesia: No History of Problems with Anesthesia: No NPO: Yes ASA Class: II Final Preanesthetic Review: No Changes in Pt Med Stat, Meds/Allgs Chart Reviewed and Consent Obtained/Reviewed Patient Risk: Intermediate Procedure Risk: Intermediate Anesthetic Plan Anesthetic Plan: GA Disposition: Standard PACU
[2023-01-31 11:46] VITALS: BMI 32.5
[2023-01-31 11:51] VITALS: BP 114/71; PULSE 57; RESP 15; TEMP 36.7; O2SAT 96
[2023-01-31] MEDS: Lactated Ringers 1,000 ML 100 ML IVCONT (12:04)
--- NOTE | 2023-01-31 14:28 | MHC.SHP ---
Pre-Procedural Eval Section A Date of Service: 01/31/23 The patient is an INPATIENT: No Changes since office visit: No Cold of Flu in the past 2 weeks, No New Medical Problems, No Changes in Medication and No Patient answered all questions The History & Physical has been completed within 30 days and I have reviewed it.: No Section B Chief Complaint: Hydrocele, unspecified Details of Present Illness: right hydrocele progressive Relevant Family History (Specify if Yes): No Relevant Social History: None Present Medications: see Short Stay Collaborative assessment Medical History: No relevant PMH History of Previous Operations: Relevant previous surgery/procedure and date(s) Allergies: Allergies Allergy/AdvReac Type Severity Reaction Status Date / Time No Known Allergies Allergy Verified 01/31/23 11:45 Review of Systems Sugical H&P ROS: Negative: Constitution, Cardiovascular, Respiratory, Neurological, Psychiatric, Hem-Onc, Allergic/Immunologic, Gastrointestinal, Genitourinary, Musculoskeletal, Integumentary, Endocrine and Eyes/Ears/Nose/Throat Exam Surgical H&P Exam: Normal: HEENT, Normal: Heart, Normal: Lungs, Normal: Extremities, Normal: Abdomen, Normal: Skin and Normal: Neurological Plan Diagnosis/Plan: Unchanged ( right hydrocelectomy) I have reviewed the history and physical and performed a pertinent physical examination on my patient. No changes have occurred unless specified. Time Spent With Patient Time: Total time managing care of this patient today ____ minutes.
[2023-01-31 15:38] VITALS: BP 112/70; PULSE 71; RESP 16; TEMP 36.8; O2SAT 95
[2023-01-31 15:43] VITALS: BP 115/70; PULSE 65; RESP 18; O2SAT 95
[2023-01-31 15:48] VITALS: BP 115/69; PULSE 72; RESP 20; TEMP 36.3; O2SAT 98
[2023-01-31] MEDS: oxyCODONE HCl Immed Release 5 MG TABLET PO (15:50)
[2023-01-31 15:53] VITALS: BP 113/72; PULSE 66; RESP 20; O2SAT 97
--- NOTE | 2023-01-31 16:01 | W.PM.OPN ---
Operative Note Operative Note Date of Service: 01/31/23 Narrative: PreOperative Diagnosis: right hydrocele Post Operative Diagnosis: right hydrocele Procedure: Hydrocelectomy Surgeon: Dr Ralph Deluca Anesthesia: General Indications for procedure: right hydrocele with persistent discomfort Procedure: After informed consent was verified the patient was brought to the operating room and placed in a supine position. Anesthesia was administered per protocol. Patient was appropriately shaved and genitals were prepped and draped in sterile fashion. Safety pause time-out was performed. Antibiotics being given. Local anesthetic was infiltrated under the skin in a horizontal fashion on the scrotum. Skin incision was made using a blade through the subdermal layer. The tunica around the testicle was elevated and dissected free from surrounding tissue. The avascular plane around the tunica was entered and using a wet sponge blunt dissection was performed. Any small bleeding perforators were cauterized. The testicle was delivered out of the scrotum and opened in a longitudinal fashion. 250 cc Fluid was removed. The testicle sac was inverted. Excess thickened sac was dissected and removed using a Thunderbeat cautery instrument to minimize porst procedure bleeding. A bottle neck procedure was performed to approximate edges using a running 3-0 Vicryl suture. Skin edges of the tunica were cauterized carefully in order to try to minimize postprocedure hematoma. Small accessory appendices were removed from the head of epididymis. The testicle with resected sac was placed back into a dependent portion of the scrotum. due to the size of the hydrocele a decision was made to place a [place] drain. The drain was brought through the dependent portion of the scrotum. 3 in was left within the scrotum. Overlying skin fascia layer was closed with a running 3-0 Vicryl suture. Skin was closed with interrupted 4-0 chromic sutures. Soft fluff sponges were placed with mesh pants as dressing. One of the soft sponges with someone to the drain to allow removal at home in 2 days. Local anesthetic was placed in inguinal cord for post procedure pain relief. Patient tolerated procedure well was extubated in operating room transferred in stable condition to the recovery area Pathology: Hydrocele sac Drains [place] Drain
[2023-01-31 16:08] VITALS: BP 119/77; PULSE 61; RESP 20; TEMP 36.1; O2SAT 95
== END 2023-01-31 16:30 | disposition home or self-care (01) ==
PROVIDERS: PCP Nurse Practitioner Family; Visit Provider Urology
PROC: (CPT 55060; principal; 2023-01-31 13:30)
DX: N43.3 Hydrocele, unspecified (principal); R68.82 Decreased libido; N52.9 Male erectile dysfunction, unspecified; N50.82 Scrotal pain; R73.03 Prediabetes; E78.00 Pure hypercholesterolemia, unspecified; K21.9 Gastro-esophageal reflux disease without esophagitis; Z79.02 Long term (current) use of antithrombotics/antiplatelets
CPT/HCPCS: 55040; 88302; J0131; J0690; J1100; J2405; J2704; J2795; J3010

== ENCOUNTER → 2023-01-31 11:17 | Outpatient (BNV) | payer BC, SELFPAY | PROVIDERS: PCP Nurse Practitioner Family; Visit Provider Urology | DX: N43.3 Hydrocele, unspecified (principal) | CPT/HCPCS: 55040 ==

== ENCOUNTER 2023-03-01 13:13 | Outpatient (AMB) | payer BC, SELFPAY ==
--- NOTE | 2023-03-01 13:19 | A.OFFVIS_ITS ---
Intake Intake Visit Reasons: S/P 4 weeks (hydrocelectomy) Intake Note: Patient presents for follow up visit for Scrotal Pain Urology Medications: none Blood Thinner: none Machine Tracer Required: No Accompanied by: Self / Same As Patient Allergies No Known Allergies Allergy (Verified 03/01/23 21:14) Medication List - Last Reconciled 03/01/23 by MARIBELL Robertson atorvastatin 20 mg PO DAILY 90 days Brace,wrist (Wrist Brace - one) Daily As directed, Large. 45 days cholecalciferol (vitamin D3) (Vitamin D3) 125 mcg PO DAILY naproxen 500 mg PO BID PRN 7 days oxycodone-acetaminophen 5-325 mg 1 tab PO Q4H PRN 7 days HPI HPI Comments History of Present Illness Details Ke is a very pleasant 67-year-old male patient of . He has a past medical history of diverticulitis. He presents to the office today for follow-up. Of note, patient underwent right-sided hydrocelectomy with Dr. Deluca on 01/31/2023. In discussion with the patient today he reports to be doing and feeling well. He reports to have had no issues since his surgical procedure. In assessment of the patient today incision to right side of the scrotum appears to be healing well. No open areas, redness, and or drainage noted. The right side of the scrotum is still mildly enlarged however discussed patient is 4 weeks status post procedure will continue with healing process. During initial office visit patient did report noting low libido and feeling no sexual desire. A testosterone was ordered for further assessment evaluation however patient did not have this test performed. He would like to undergo further workup. Will obtain testosterone as well as PSA for further assessment evaluation. He otherwise denies incontinence, hematuria, dysuria, foul smelling urine, changes to urinary stream, flank pain, fever, and or chills. He is happy with his current voiding parameters. In office urinaly sis results reviewed with the patient today. PFSH Medical History Elevated cholesterol History of diverticulitis Surgical History H/O colonoscopy History of total right knee replacement History of carpal tunnel release History of dental surgery History of inguinal hernia Family History Father Unknown family medical history Mother Diabetes mellitus Brother No problems noted. Brother No problems noted. Sister No problems noted. Sister No problems noted. Sister No problems noted. Son No problems noted. Son No problems noted. Son No problems noted. 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 occupational exposures/hazards: No Cognitive needs: No Hearing needs: No Vision needs: No Review of Systems Const All systems reviewed & are unremarkable except as noted in HPI and below Physical Exam Const General: cooperative, healthy appearing, comfortable, no acute distress, well developed, alert and awake Orientation/consciousness: patient oriented x3 Limitations: no limitations HEENT Head: Yes normal to inspection, Yes normocephalic and Yes atraumatic Ears: hearing grossly normal bilaterally Eyes General: appearance normal, both eyes and all related structures Neck Neck: Yes normal visual inspection and Yes trachea midline Chest Chest palpation & inspection: normal inspection of the chest Resp Effort & Inspection: normal respiratory effort and able to speak in complete sentences Cardio Rate: regular rate GI Inspection: Yes normal to inspection General: Yes no CVA tenderness Penis: normal penis and circumcised Meatus: meatus normal Scrotum: other (per HPI) Back/Spine/Pelvis Back: no CVA tenderness Skin General skin exam: no rashes or lesions noted Neuro General: patient oriented x3 Extrem General: Yes normal to inspection Psych Appearance: grossly normal and well kempt Mental Status: mental status grossly normal Speech and movement: Normal speech and movement present and Clear speech present Affect: normal affect Attitude: cooperative Thought process: Normal thought process present Thought content: Normal thought content present Insight: Good insight present (Psych) Judgement: Good judgement present (Psych) Results AMB Urinalysis, Automated UA Leukoctes 0 Mari/uL Last Edit by Kenji Junior on 03/01/23 13:30 UA Nitrite Negative Last Edit by Kenji Junior on 03/01/23 13:30 UA Urobilinogen 0.2 mg/dL Last Edit by Kenji Junior on 03/01/23 13:30 UA Protein 0 mg/dL Last Edit by Kenji Junior on 03/01/23 13:30 UA pH 5.5 Last Edit by Kenji Junior on 03/01/23 13:30 UA Blood 0 Marcial/uL Last Edit by Kenji Junior on 03/01/23 13:30 UA Specific [place] 1.015 Last Edit by Kenji Junior on 03/01/23 13:30 UA Ketone Negative Last Edit by Kenji Junior on 03/01/23 13:30 UA Bilirubin 1 mg/dL Last Edit by Kenji Junior on 03/01/23 13:30 UA Glucose 0 mg/dL Last Edit by Kenji Junior on 03/01/23 13:30 Results Reviewed Results Reviewed: Laboratory Last Values Urine pH (Auto) 5.5 03/01/23 13:20 Specific [place] (Auto) 1.015 03/01/23 13:20 Urine Protein (Auto) 0 mg/dL 03/01/23 13:20 Glucose (UA)(Auto) 0 mg/dL 03/01/23 13:20 Urine Ketones (Auto) Negative 03/01/23 13:20 Urine Blood (Auto) 0 Marcial/uL 03/01/23 13:20 Urine Nitrite (Auto) Negative 03/01/23 13:20 Urine Bilirubin (Auto) 1 mg/dL 03/01/23 13:20 Urine Urobilinogen (Auto) 0.2 mg/dL 03/01/23 13:20 Leukocyte Esterase (Auto) 0 Mari/uL 03/01/23 13:20 Assessment & Plan Assessment & Plan (1) Low libido: Code(s): R68.82 - Decreased libido (2) Hydrocele: Code(s): N43.3 - Hydrocele, unspecified Plan: ? (3) Erectile dysfunction: Code(s): N52.9 - Male erectile dysfunction, unspecified Plan In office urinalysis results reviewed with the patient today; as noted above. Patient denies any bothersome urinary issues He is happy with his current voiding parameters Denies any postsurgical issues or concerns Will obtain testosterone and PSA for further assessment evaluation. Right-sided hydrocelectomy appears to be healing well; no drainage, redness, and or redness noted. Reassurance provided. Follow-up in 1-2 months with lab to be completed prior; or sooner with any issues, concerns, and or questions. Orders: Orders AMB Urinalysis Automated Today Z13.9 - Encounter for screening, unspecified Prostate Specific Antigen Today N40.0 - Benign prostatic hyperplasia without lower urinary tract symptoms Patient Instructions: The patient had an opportunity to ask questions regarding the treatment plan. All questions were answered. Physical exam, labs, and imaging were discussed and reviewed in detail. As well as risks, benefits, and discussion of treatment choices. No major barriers to understanding were identified. The patient expressed understanding and agreement with the above treatment plan. The patient was made aware they should contact our office by phone for worsening of their current condition, the appearance of new symptoms, or with any questions or concerns. Compliance is encouraged with any medications and follow up testing that is ordered. It is a privilege to be allowed the opportunity to participate in? your urological care.? Again, if you have any questions or concerns If you have any questions or concerns please do not hesitate to contact me. The office is [phone]. This note is constructed using voice recognition software. While every effort has been made to ensure accuracy competitive intelligence analyst errors may have been included. Yours sincerely, MARIBELL Robertson Coding Level of Care Code Est Pt Level 3 (43079) Diagnoses Low libido R68.82 Hydrocele N43.3 Erectile dysfunction N52.9
== END 2023-03-01 14:00 | disposition home or self-care (01) ==
PROVIDERS: PCP Nurse Practitioner Family; Visit Provider Nurse Practitioner Family
DX: R68.82 Decreased libido (principal); N43.3 Hydrocele, unspecified; N52.9 Male erectile dysfunction, unspecified
CPT/HCPCS: 99024

== ENCOUNTER → 2023-03-01 13:13 | Outpatient (BNVA) | payer BC, SELFPAY | PROVIDERS: PCP Nurse Practitioner Family; Visit Provider Nurse Practitioner Family | DX: R68.82 Decreased libido (principal); N52.9 Male erectile dysfunction, unspecified; Z87.438 Personal history of other diseases of male genital organs; Z98.890 Other specified postprocedural states | CPT/HCPCS: 81003 ==

== ENCOUNTER 2023-03-11 11:18 | Outpatient (REF) | payer BC, SELFPAY ==
[2023-03-11 14:19] LABS: Prostate Specific Antigen 1.18 ng/mL (<0.05-4.0)
[2023-03-16 08:29] LABS: Testosterone, Free 104.5 pg/mL (35.0-155.0); Testosterone, Total 565 ng/dL (250-1100)
== END 2023-03-11 11:19 | disposition home or self-care (01) ==
LOC: HO.LAB 11:18
PROVIDERS: PCP Nurse Practitioner Family; Visit Provider Nurse Practitioner Family
DX: Z12.5 Encounter for screening for malignant neoplasm of prostate (principal); R68.82 Decreased libido; N40.0 Benign prostatic hyperplasia without lower urinary tract symptoms
CPT/HCPCS: 36415; 84153; 84402; 84403

== ENCOUNTER 2023-03-29 11:18 | Outpatient (AMB) | payer BC, SELFPAY ==
--- NOTE | 2023-03-29 12:08 | MHC.OFFVIS ---
Intake Intake Visit Reasons: 4w/testo Intake Note: Patient presents today for a follow-up Meds- None Allergies to Antibiotic- No Known Allergies Blood Thinner- None Executive Team Leader Required: No Accompanied by: Self / Same As Patient Allergies No Known Allergies Allergy (Verified 03/29/23 21:34) Medication List - Last Reconciled 03/29/23 by MARIBELL Robertson atorvastatin 20 mg PO DAILY 90 days Brace,wrist (Wrist Brace - one) Daily As directed, Large. 45 days cholecalciferol (vitamin D3) (Vitamin D3) 125 mcg PO DAILY naproxen 500 mg PO BID PRN 7 days HPI HPI Comments History of Present Illness Details Ke is a very pleasant 67-year-old male patient of . He has a past medical history of diverticulitis. He presents to the office today for follow-up. Of note, patient underwent right-sided hydrocelectomy with Dr. Deluca on 01/31/2023. He was last seen approximately 1 month ago status post right-sided hydrocelectomy at which time incision to right side of the scrotum appeared to be healing well there were no open areas, redness, and or drainage noted. The right side of the scrotum was still mildly enlarged however today this appears well healed and with minimal swelling. During last office visit patient reported low libido and sexual desire at which time a testosterone was ordered for further assessment evaluation. These results reviewed with the patient today. PSA 03/16--1.2 Total Testosterone 03/16--565 Free testosterone 03/16- 104.5 Discussed at length potential causes for low libido. Discuss further workup and or trial of medications however patient does not feel this is bothersome at this time. He otherwise denies any bothersome urinary issues or concerns. He denies incontinence, hematuria, dysuria, foul smelling urine, changes to urinary stream, flank pain, fever, and or chills. He is happy with his current voiding parameters. In office urinalysis results reviewed with the patient today. 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 He also reports to have just received a Peloton from his son and has been finding this helpful to assist with his endurance. He otherwise offers no other issues or concerns at this time. [facility] [place] Medical History Elevated cholesterol History of diverticulitis Surgical History H/O colonoscopy History of total right knee replacement History of carpal tunnel release History of dental surgery History of inguinal hernia Family History Father Unknown family medical history Mother Diabetes mellitus Brother No problems noted. Brother No problems noted. Sister No problems noted. Sister No problems noted. Sister No problems noted. Son No problems noted. Son No problems noted. Son No problems noted. 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 occupational exposures/hazards: No Cognitive needs: No Hearing needs: No Vision needs: No Review of Systems Const All systems reviewed & are unremarkable except as noted in HPI and below Physical Exam Const General: cooperative, healthy appearing, comfortable, no acute distress, well developed, alert and awake Orientation/consciousness: patient oriented x3 Limitations: no limitations HEENT Head: Yes normal to inspection, Yes normocephalic and Yes atraumatic Ears: hearing grossly normal bilaterally Eyes General: appearance normal, both eyes and all related structures Neck Neck: Yes normal visual inspection and Yes trachea midline Chest Chest palpation & inspection: normal inspection of the chest Resp Effort & Inspection: normal respiratory effort and able to speak in complete sentences Cardio Rate: regular rate GI Inspection: Yes normal to inspection General: Yes no CVA tenderness Penis: normal penis and circumcised Meatus: meatus normal Scrotum: other (per HPI) Back/Spine/Pelvis Back: no CVA tenderness Skin General skin exam: no rashes or lesions noted Neuro General: patient oriented x3 Extrem General: Yes normal to inspection Psych Appearance: grossly normal and well kempt Mental Status: mental status grossly normal Speech and movement: Normal speech and movement present and Clear speech present Affect: normal affect Attitude: cooperative Thought process: Normal thought process present Thought content: Normal thought content present Insight: Good insight present (Psych) Judgement: Good judgement present (Psych) Results AMB Urinalysis, Automated UA Leukoctes 0 Mari/uL Last Edit by [facility], [facility] on 03/29/23 12:12 UA Nitrite Negative Last Edit by [facility], [facility] on 03/29/23 12:12 UA Urobilinogen 0.2 mg/dL Last Edit by [facility], [facility] on 03/29/23 12:12 UA Protein 0 mg/dL Last Edit by [facility], [facility] on 03/29/23 12:12 UA pH 6.0 Last Edit by [facility], [facility] on 03/29/23 12:12 UA Blood 0 Marcial/uL Last Edit by [facility], [facility] on 03/29/23 12:12 UA Specific [place] 1.010 Last Edit by [facility], [facility] on 03/29/23 12:12 UA Ketone Negative Last Edit by [facility], [facility] on 03/29/23 12:12 UA Bilirubin 0 mg/dL Last Edit by [facility], [facility] on 03/29/23 12:12 UA Glucose 0 mg/dL Last Edit by [facility], [facility] on 03/29/23 12:12 Results Reviewed Results Reviewed: Laboratory Last Values Urine pH (Auto) 6.0 03/29/23 12:10 Specific [place] (Auto) 1.010 03/29/23 12:10 Urine Protein (Auto) 0 mg/dL 03/29/23 12:10 Glucose (UA)(Auto) 0 mg/dL 03/29/23 12:10 Urine Ketones (Auto) Negative 03/29/23 12:10 Urine Blood (Auto) 0 Marcial/uL 03/29/23 12:10 Urine Nitrite (Auto) Negative 03/29/23 12:10 Urine Bilirubin (Auto) 0 mg/dL 03/29/23 12:10 Urine Urobilinogen (Auto) 0.2 mg/dL 03/29/23 12:10 Leukocyte Esterase (Auto) 0 Mari/uL 03/29/23 12:10 Assessment & Plan Assessment & Plan (1) Hydrocele: Code(s): N43.3 - Hydrocele, unspecified (2) Low libido: Code(s): R68.82 - Decreased libido (3) Erectile dysfunction: Code(s): N52.9 - Male erectile dysfunction, unspecified Plan In office urinalysis results reviewed with the patient today; as noted above. Recent right-sided hydrocelectomy site appears well healed as noted per HPI. He currently denies any bothersome urinary issues. Recent testosterone and PSA results reviewed with the patient today; as noted above. Discussed at length potential causes for low libido and erectile dysfunction discussed further workup and or trial of medication however patient declines at this time as he does not feel this is bothersome. Patient reports be happy with current voiding parameters. Follow-up in 6 months; or sooner with any issues, concerns, and or questions. Orders: Orders AMB Urinalysis Automated Today R33.9 - Retention of urine, unspecified Patient Instructions: The patient had an opportunity to ask questions regarding the treatment plan. All questions were answered. Physical exam, labs, and imaging were discussed and reviewed in detail. As well as risks, benefits, and discussion of treatment choices. No major barriers to understanding were identified. The patient expressed understanding and agreement with the above treatment plan. The patient was made aware they should contact our office by phone for worsening of their current condition, the appearance of new symptoms, or with any questions or concerns. Compliance is encouraged with any medications and follow up testing that is ordered. It is a privilege to be allowed the opportunity to participate in? your urological care.? Again, if you have any questions or concerns If you have any questions or concerns please do not hesitate to contact me. The office is [phone]. This note is constructed using voice recognition software. While every effort has been made to ensure accuracy telephone lines repairer errors may have been included. Yours sincerely, MARIBELL Robertson Coding Level of Care Code Est Pt Level 3 (96205) Diagnoses Hydrocele N43.3 Low libido R68.82 Erectile dysfunction N52.9
== END 2023-03-29 12:28 | disposition home or self-care (01) ==
PROVIDERS: PCP Nurse Practitioner Family; Visit Provider Nurse Practitioner Family
DX: N43.3 Hydrocele, unspecified (principal); R68.82 Decreased libido; N52.9 Male erectile dysfunction, unspecified
CPT/HCPCS: 99024

== ENCOUNTER → 2023-03-29 11:18 | Outpatient (BNVA) | payer BC, SELFPAY | PROVIDERS: PCP Nurse Practitioner Family; Visit Provider Nurse Practitioner Family | DX: N52.9 Male erectile dysfunction, unspecified (principal); R68.82 Decreased libido; Z87.438 Personal history of other diseases of male genital organs | CPT/HCPCS: 81003 ==

== ENCOUNTER 2023-08-03 10:54 | Outpatient (REF) | payer BC, SELFPAY ==
[2023-08-03 14:40] LABS: MANUAL DIFF FLAG NO
[2023-08-03 14:45] LABS: Basophils Percent Auto 0.7 % (0-2); Eosinophils Absolute Auto 0.1 X10*3/uL (0.0-0.4); Eosinophils Percent Auto 1.1 % (0-4); Hematocrit 43.8 % (42.0-52.0); Hemoglobin 14.5 g/dl (14.0-18.0); Imm Gran Abs Auto 0.02 X10*3/uL (0.00-0.03); Imm Gran Pct Auto 0.4 % (0.0-0.4); Lymphocytes Absolute Auto 1.1 X10*3/uL (1.2-4.9); Lymphocytes Percent Auto 20.4 % (20-40); Mean Corpuscular HGB Conc 33.1 g/dl (31.0-36.0); Mean Corpuscular Volume 90.5 fL (80.0-98.0); Mean Platelet Volume 10.6 fL (9.4-12.4); Monocytes Absolute Auto 0.5 X10*3/uL (0.1-1.2); Monocytes Percent Auto 8.5 % (2-11); Neutrophils Absolute Auto 3.7 x10*3/uL (2.0-8.3); Neutrophils Percent Auto 68.9 % (45-73); Platelet Count 212 X10*3/uL (160-400); Red Blood Count 4.84 X10*6/uL (4.60-5.80); Red Cell Distribution Width 13.5 % (11.0-16.0); White Blood Count 5.4 X10*3/uL (4.8-10.8)
[2023-08-03 14:46] LABS: Appearance Urine Clear; Color Urine Yellow; Glucose Urine UA Negative (Negative); Leukocyte Esterase Urine Negative (Negative); Nitrite Urine Negative (Negative); Urine Blood Negative (Negative); Urine Ketones Negative (Negative); Urine Protein Negative (Neg-Trace)
[2023-08-03 15:02] LABS: Alanine Aminotransferase 30 U/L (0-40); Albumin Level 4.2 g/dL (3.5-5.0); Alkaline Phosphatase 69 U/L (39-117); Anion Gap 11 (12-20); Aspartate Amino Transferase 27 U/L (5-37); Bilirubin Total 1.2 mg/dL (0.0-1.0); Blood Urea Nitrogen 12 mg/dL (9-16); Carbon Dioxide 27 mmol/L (22-29); Chloride 107 mmol/L (96-108); Cholesterol 123 mg/dL (<200); Estimated Glomerular Filt Rate > 60; Glucose Fasting 120 mg/dL (60-99); HDL Cholesterol 49 mg/dL (>40); LDL Cholesterol Calculated 61 mg/dL (<100); Potassium 4.2 mmol/L (3.3-5.1); Sodium 141 mmol/L (135-145); Triglycerides 65 mg/dL (<150)
[2023-08-03 15:13] LABS: Prostate Specific Antigen Scr 1.39 ng/mL (<0.05-4.0)
[2023-08-03 15:17] LABS: TSH reflex Free T4 1.76 uIU/mL (0.32-4.0); Vitamin D 25-OH Total 59.8 ng/mL (>30)
[2023-08-03 15:24] LABS: Creatinine Urine 121.34 mg/dL; Microalbum/Creatinine Ratio Ur 7.4 ug/mg cr (<30)
== END 2023-08-03 10:55 | disposition home or self-care (01) ==
LOC: HO.WFDLDS 10:54
PROVIDERS: Visit Provider Family Medicine
DX: Z00.00 Encounter for general adult medical examination without abnormal findings (principal); E55.9 Vitamin D deficiency, unspecified; I10 Essential (primary) hypertension; Z12.5 Encounter for screening for malignant neoplasm of prostate
CPT/HCPCS: 36415; 80053; 80061; 81003; 82043; 82306; 82570; 84153; 84443; 85025

== ENCOUNTER 2023-08-05 08:54 | Outpatient (AMB) | payer BC, SELFPAY ==
[2023-08-05 08:57] VITALS: BP 116/70; PULSE 71; O2SAT 96; BMI 28.9
--- NOTE | 2023-08-05 08:57 | A.OFFPC_ITS ---
Vital Signs 08/05/23 08:57 Height 5 ft 8 in Weight 190 lb 6 oz BMI 28.9 BP 116/70 Blood Pressure Location Lt brachial Position Sitting Pulse 71 Pulse Source Pulse Oximeter Pulse Oximetry (%) 96 Oxygen Delivery Method Room Air Intake Visit Reasons: CPE Intake Note: Patient is here for his physical today. Patient states he fell in the end of March, and he hurt his lower left side back. Allergies No Known Allergies Allergy (Verified 08/05/23 08:59) Medication List - Last Reconciled 08/05/23 by Ke Mcelroy MD atorvastatin 20 mg PO DAILY 90 days Brace,wrist (Wrist Brace - one) Daily As directed, Large. 45 days cholecalciferol (vitamin D3) (Vitamin D3) 125 mcg PO DAILY naproxen 500 mg PO BID PRN 7 days Tobacco use date assessed: 08/05/23 Fall risk assessment: 1 Fall in past year Last assessed Fall Risk: 08/05/23 Dental Screening Dental Screen Date: 08/05/23 Did you have a dental visit in the last 12 months?: Yes Did you have a dental problem in the last 6 months where you did not have access to dental care?: No Was dental information given to patient?: Patient has dentist HPI CPE HPI Details 68 y/o male presents for a CPE with f/u labs and health maintenance. Labs were drawn 08/03/23. Reviewed labs with pt. Elevated fasting glucose of 120. TC 123. LDL 61. HDL 49. He is on artovastatin 20mg daily. Pt reports a fall at the end of March and reports left low back pain. A1c today 08/05/23 6.0% - prediabetes and has been in this range before. He gets plenty of exercise. [facility] Medical History Elevated cholesterol History of diverticulitis Surgical History H/O colonoscopy History of total right knee replacement History of carpal tunnel release History of dental surgery History of inguinal hernia Family History (Updated 08/05/23 @ 09:07 by Oksana Natarajan CMA) Father Unknown family medical history Mother Diabetes mellitus Brother No problems noted. Brother No problems noted. Sister No problems noted. Sister No problems noted. Sister No problems noted. Son No problems noted. Son No problems noted. Son No problems noted. 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 1. Little interest or pleasure in doing things: not at all 2. Feeling down, depressed, or hopeless: not at all 3. Trouble falling or staying asleep, or sleeping too much: not at all 4. Feeling tired or having little energy: not at all 5. Poor appetite or overeating: not at all 6. Feeling bad about yourself - or that you are a failure or have let yourself or your family down: not at all 7. Trouble concentrating on things, such as reading the newspaper or watching television: not at all 8. Moving or speaking so slowly that other people could have noticed. Or the opposite - being so fidgety or restless that you have been moving around a lot more than usual: not at all 9. Thoughts that you would be better off or of hurting yourself in some way: not at all Total score: 0 Depression Screening Interpretation: Negative Depression Screening Done: Yes 61173 - PHQ-9 Billing: Yes Source: Developed by Drs. Pastor Arce, Bushra Mars, Weston Hinton and colleagues, with an educational stefano from [employer]. Thrive Questionnaire Date Thrive assessed: 08/05/23 I am a: Patient What is your living situation today?: I have a steady place to live Within the past 12 months, did the food you bought not last and you didn't have the money to get more?: Never true Within the past 12 months, did you worry whether your food would run out before you got money to buy more?: Never true Do you have trouble paying for medicines?: No Do you have trouble getting transportation to medical appointments?: No Do you have trouble paying your heating and electricity bill?: No Do you have trouble taking care of your child, family member or friend?: No Do you have trouble with day-to-day activities such as bathing, preparing meals, shopping, managing finances, etc.?: No Are you currently unemployed and looking for a job?: No Are you interested in more education?: No THRIVE Score: 0 AUDIT C Alcohol Use Questionnaire (AUDIT-C) 1. How often do you have a drink containing alcohol?: Monthly or less 2. How many drinks containing alcohol do you have on a typical day when you are drinking?: 1 or 2 3. How often do you have six or more drinks on one occasion?: Never Total Score: 1 NILDA-7 AMB Questionnaire NILDA-7 Date NILDA - 7 assessed: 08/05/23 Feeling nervous, anxious, or on edge: 0 = Not at all Not being able to stop or control worryin = Not at all Worrying too much about different things: 0 = Not at all Trouble relaxin = Not at all Being so restless that it is hard to sit still: 0 = Not at all Becoming easily annoyed or irritable: 0 = Not at all Feeling afraid as if something awful might happen: 0 = Not at all Total NILDA-7 score (0-4 normal; 5-9 mild; 10-14 moderate; 15-21 severe): 0 Source: Developed by Drs. Pastor Arce, Bushra Mars, Weston Hinton and colleagues, with an educational stefano from [employer]. NILDA-7 Assessment Billing NILDA-7 Assessment Tool: NILDA-7 Assessment 59784 Review of Systems Const Denies chills, Denies fatigue, Denies fever(s), Denies headache(s) and Denies weakness Eyes Denies change in vision ENT Denies dizziness, Denies headache(s), Denies hearing loss, Denies nasal congestion, Denies sinus pain, Denies sinus pressure and Denies sore throat Card Denies chest pain, Denies lightheadedness, Denies dyspnea and Denies other (palpitations) Resp Denies cough, Denies dyspnea and Denies wheezing GI Denies abdominal pain, Denies melena, Denies hematochezia, Denies change in bowel habits, Denies dyspepsia and Denies nausea Denies hematuria and Denies dysuria Musc Denies abnormal gait, Denies myalgias, Denies arthralgias, Denies numbness and Denies tingling Skin/Breast Denies rash, Denies unusual bruising and Denies wounds Neuro Denies abnormal gait, Denies dizziness, Denies headache(s), Denies memory loss, Denies numbness, Denies Sensory deficit (Neuro), Denies tingling and Denies weakness Psych Denies anxiety, Denies depression and Denies memory loss Endo Denies cold intolerance, Denies fatigue, Denies heat intolerance, Denies polydipsia and Denies polyuria Yosef/Lymph Denies easy bleeding and Denies easy bruising Aller/Immun Denies wheezing Physical exam (Primary Care) Vital Signs: Last Vital Signs Pulse 71 08/05/23 08:57 BP 116/70 08/05/23 08:57 Pulse Ox 96 08/05/23 08:57 Oxygen Delivery Method Room Air 08/05/23 08:57 BMI result Body Mass Index 28.9 Tobacco/Smoking Status: Tobacco use Status Tobacco use date assessed 08/05/23 08/05/23 09:10 Patient Tobacco Use Status Never used Tobacco 08/05/23 08:58 e-Cigarette/Vaping Use Never Used 08/05/23 08:58 PHQ-9: PHQ-9 Score PHQ-9: Total score 0 08/05/23 09:21 Depression Screening Interpretation: Negative Thrive Assessment: Date of Thrive Assessment Date Thrive assessed 08/05/23 08/05/23 09:10 Const General: no acute distress, well developed, alert and awake Nutritional Appearance: well nourished Orientation/consciousness: patient oriented x3 HENMT Head: Yes normocephalic and Yes atraumatic Ears: hearing grossly normal bilaterally and TM's normal bilaterally General nose exam: Normal external nose present and Normal nares present Mouth: Normal oral and palatal mucosa present and moist mucous membranes Teeth and gingiva: dentition normal Throat: Yes posterior oropharynx normal Eyes General: appearance normal, both eyes and all related structures Pupils: Equal, round and reactive pupils present and Pupil accommodation reflex normal EOM: EOMs intact bilaterally Neck Neck: Yes normal visual inspection, Yes no lymphadenopathy and Yes trachea midline Thyroid: Thyroid normal Carotids: no bruits Lymphatic: no lymphadenopathy noted Chest Chest palpation & inspection: normal inspection of the chest Resp Effort & Inspection: normal respiratory effort Auscultation: clear to auscultation bilaterally Cardio Rate: regular rate Rhythm: regular rhythm Heart sounds: S1 normal heart sound present, S2 normal heart sound present, no gallops, no murmurs and no rubs Bruits: no abdominal aortic bruits and no carotid bruits GI Palpation (GI): No Abdominal aortic bruit present, Soft to palpation, nontender, No hepatosplenomegaly present and No Rebound tenderness present Auscultation: normal bowel sounds General: Yes no CVA tenderness Back/Spine/Pelvis Back: no CVA tenderness Cervical Spine: cervical ROM normal and No Cervical spine tenderness Thoracic/Lumbar Spine: thoraco-lumbar ROM normal, No pain with thoraco-lumbar ROM, No thoracic spinal tenderness and No lumbar spinal tenderness Skin Lesions: no lesions Rashes: no rashes Trauma: no lacerations or abrasions Wounds: no wounds Nails: normal Neuro General: patient oriented x3 Cranial nerves: Yes Equal, round and reactive pupils present Cognition (Neuro): normal cognition Gait exam (Neuro): Normal gait present Motor exam (neuro): 5/5 motor strength present throughout Sensory Exam: No Sensory deficit (Neuro) Deep tendon reflexes (DTR's): Right patellar reflex intensity grade: 2+ and Left patellar reflex intensity grade: 2+ Extrem General: Yes normal to inspection and No edema Psych Appearance: grossly normal Affect: normal affect Attitude: cooperative Thought process: Normal thought process present Results AMB Hemoglobin A1c AMB Hemoglobin A1c 6.0 % Last Edit by Oksana Natarajan CMA on 08/05/23 09:22 Results Reviewed Results Reviewed: Laboratory Last Values Hgb A1c (Clinic) 6.0 % (4.0-6.0) 08/05/23 09:19 Assessment and Plan Assessment & Plan (1) Adult general medical examination: Code(s): Z00.00 - Encounter for general adult medical examination without abnormal findings Plan: 68-year-old?male?presents?for?complete?physical?exam (2) Hypercholesterolemia: Code(s): E78.00 - Pure hypercholesterolemia, unspecified Plan: Lipids?appear?well?controlled. Continue?atorvastatin (3) Low back pain: Code(s): M54.50 - Low back pain, unspecified Plan: Patient?fell?onto?left?low?back?at?level?of?the?top?of?the?pelvic?crest Still?has?some?pain?and?also?some?ra diation?of?pain?into?leg?with?certain?movements. He?says?this?is?slowly?improving?but?has?not?stopped Check?x-rays Continue?using?heating?pad?and?Tylenol?or?NSAIDs?as?tolerated (4) Pre-diabetes: Code(s): R73.03 - Prediabetes Plan: Encouraged?diet?lower?in?sugars?and?starches Encouraged?further?weight?loss?and?exercise (5) Elevated liver enzymes: Code(s): R74.8 - Abnormal levels of other serum enzymes Plan: Patient?had?had?elevated?liver?enzymes?in?the?past?but?more?recently?had?normali zed?and?they?remain?normalized?at?most?recent?labs. (6) Screening for colon cancer: Code(s): Z12.11 - Encounter for screening for malignant neoplasm of colon Plan: Due?for?colonoscopy -?referred?back?to??Michael (7) Screening for prostate cancer: Code(s): Z12.5 - Encounter for screening for malignant neoplasm of prostate Plan: PSA?within?normal?range Patient?is?followed?by?Urology Orders: Orders XR lumbar spine 2-3V Today M54.50 - Low back pain, unspecified XR pelvis 1-2V Today M54.50 - Low back pain, unspecified AMB Hemoglobin A1c Today Z13.9 - Encounter for screening, unspecified Coding Level of Care Code Est Pt Level 3 (84566) Est Pt Prev Care >65y(97556) Diagnoses Adult general medical examination Z00.00 Hypercholesterolemia E78.00 Low back pain M54.50 Pre-diabetes R73.03 Elevated liver enzymes R74.8 Screening for colon cancer Z12.11 Screening for prostate cancer Z12.5 Additional Codes NILDA-7 Assessment Billing - NILDA-7 Assessment Tool: NILDA-7 Assessment 63508 ([id number])
== END 2023-08-05 09:45 | disposition home or self-care (01) ==
PROVIDERS: PCP Family Medicine; Visit Provider Family Medicine
DX: Z00.00 Encounter for general adult medical examination without abnormal findings (principal); M54.50 Low back pain, unspecified; E78.00 Pure hypercholesterolemia, unspecified; R73.03 Prediabetes; R74.8 Abnormal levels of other serum enzymes; Z12.11 Encounter for screening for malignant neoplasm of colon; Z12.5 Encounter for screening for malignant neoplasm of prostate
CPT/HCPCS: 83036; 99213; 99397

== ENCOUNTER 2023-09-26 11:31 | Outpatient (AMB) | payer BC, SELFPAY ==
--- NOTE | 2023-09-26 11:32 | MHC.OFFVIS ---
Intake Visit Reasons: 6m/PVR Intake Note: Patient presents today for follow up on: erectile dysfunction, hydrocele, and low libido Urology Meds: None Allergies to Antibiotic: No Known Allergies Blood Thinner: None PVR: Wagon Driver Required: No Accompanied by: Self / Same As Patient Allergies No Known Allergies Allergy (Verified 09/26/23 13:19) Medication List - Last Reconciled 09/26/23 by MARIBELL Robertson atorvastatin 20 mg PO DAILY 90 days Brace,wrist (Wrist Brace - one) Daily As directed, Large. 45 days cholecalciferol (vitamin D3) (Vitamin D3) 125 mcg PO DAILY naproxen 500 mg PO BID PRN 7 days tadalafil (Cialis) 5 mg PO DAILY 90 days tadalafil (Cialis) 20 mg PO .prn 90 days HPI Comments Details: Ke is a very pleasant 68-year-old male patient of . He has a past medical history of diverticulitis and hypercholesteremia. He presents to the office today for follow-up of his hydrocelectomy as well as erectile dysfunction. Of note, patient underwent right-sided hydrocelectomy with Dr. Deluca on 01/31/2023. With the patient today he reports to be doing and feeling well. Reports since his last office visit here 6 months ago he has had no bothersome urinary issues or concerns. He does however discuss his ongoing issues with maintaining his erections. Previous workup has included labs as noted and trended below: PSA 03/16--1.2 Total Testosterone 03/16--565 Free testosterone 03/16- 104.5 Discussed potential causes of erectile dysfunction as well as further treatment options. Risks and benefits of these interventions were discussed at length. He discusses recovering from his recent back injury in April. He denies incontinence, hematuria, dysuria, foul smelling urine, changes to urinary stream, flank pain, fever, and or chills. He is happy with his current voiding parameters. In office urinalysis results reviewed with the patient today. He discusses having lost approximately 25 lb in the last 6 months as he has been attempting to lose weight. He otherwise offers no other issues or concerns at this time. [facility] Medical History Elevated cholesterol History of diverticulitis Surgical History H/O colonoscopy History of total right knee replacement History of carpal tunnel release History of dental surgery History of inguinal hernia Family History Father Unknown family medical history Mother Diabetes mellitus Brother No problems noted. Brother No problems noted. Sister No problems noted. Sister No problems noted. Sister No problems noted. Son No problems noted. Son No problems noted. Son No problems noted. 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 occupational exposures/hazards: No Cognitive needs: No Hearing needs: No Vision needs: No Review of Systems Const All systems reviewed & are unremarkable except as noted in HPI and below Physical Exam Const General: cooperative, healthy appearing, comfortable, no acute distress, well developed, alert and awake Orientation/consciousness: patient oriented x3 Limitations: no limitations HEENT Head: Yes normal to inspection, Yes normocephalic and Yes atraumatic Ears: hearing grossly normal bilaterally Eyes General: appearance normal, both eyes and all related structures Neck Neck: Yes normal visual inspection and Yes trachea midline Chest Chest palpation & inspection: normal inspection of the chest Resp Effort & Inspection: normal respiratory effort and able to speak in complete sentences Cardio Rate: regular rate GI Inspection: Yes normal to inspection General: Yes no CVA tenderness Penis: normal penis and circumcised Meatus: meatus normal Scrotum: other (per HPI) Back/Spine/Pelvis Back: no CVA tenderness Skin General skin exam: no rashes or lesions noted Neuro General: patient oriented x3 Extrem General: Yes normal to inspection Psych Appearance: grossly normal and well kempt Mental Status: mental status grossly normal Speech and movement: Normal speech and movement present and Clear speech present Affect: normal affect Attitude: cooperative Thought process: Normal thought process present Thought content: Normal thought content present Insight: Good insight present (Psych) Judgement: Good judgement present (Psych) Office Procedures Post Void Residual Post Residual Void Post Void Residual (PVR): 12 36336-[id number] Void Residual by ultrasound Results AMB Urinalysis, Automated UA Leukoctes 0 Mari/uL Last Edit by Kenji Junior on 09/26/23 11:52 UA Nitrite Last Edit by Kenji Junior on 09/26/23 11:52 UA Urobilinogen 0.2 mg/dL Last Edit by Kenji Junior on 09/26/23 11:52 UA Protein 0 mg/dL Last Edit by Kenji Junior on 09/26/23 11:52 UA pH 6.0 Last Edit by Kenji Junior on 09/26/23 11:52 UA Blood 0 Marcial/uL Last Edit by Kenji Junior on 09/26/23 11:52 UA Specific [place] 1.020 Last Edit by Kenji Junior on 09/26/23 11:52 UA Ketone Negative Last Edit by Kenji Junior on 09/26/23 11:52 UA Bilirubin 0 mg/dL Last Edit by Kenji Junior on 09/26/23 11:52 UA Glucose 0 mg/dL Last Edit by Kenji Junior on 09/26/23 11:52 Results Reviewed Results Reviewed: Laboratory Last Values Urine pH (Auto) 6.0 09/26/23 11:39 Specific [place] (Auto) 1.020 09/26/23 11:39 Urine Protein (Auto) 0 mg/dL 09/26/23 11:39 Glucose (UA)(Auto) 0 mg/dL 09/26/23 11:39 Urine Ketones (Auto) Negative 09/26/23 11:39 Urine Blood (Auto) 0 Marcial/uL 09/26/23 11:39 Urine Bilirubin (Auto) 0 mg/dL 09/26/23 11:39 Urine Urobilinogen (Auto) 0.2 mg/dL 09/26/23 11:39 Leukocyte Esterase (Auto) 0 Mari/uL 09/26/23 11:39 Assessment & Plan Assessment & Plan (1) Hydrocele: Code(s): N43.3 - Hydrocele, unspecified Category: Medical (2) Low libido: Code(s): R68.82 - Decreased libido Category: Medical (3) Erectile dysfunction: Code(s): N52.9 - Male erectile dysfunction, unspecified Category: Medical Plan In office urinalysis results reviewed with the patient today; as noted above. Recent right-sided hydrocelectomy site appears well healed. He currently denies any bothersome urinary issues. Discussed at length potential causes for erectile dysfunction as well as further treatment options; risks and benefits of these interventions were discussed. All questions were answered. Start Cialis 5 mg daily as discussed and prescribed. Prescription provided for p.r.n. dosing 1 hour prior to sexual activity Patient reports be happy with current voiding parameters. Follow-up in 6 months; or sooner with any issues, concerns, and or questions. Orders: Orders AMB Urinalysis Automated Today Z13.9 - Encounter for screening, unspecified AMB Post Void Residual by ultrasound Today N40.0 - Benign prostatic hyperplasia without lower urinary tract symptoms Medications: New tadalafil (Cialis) [id number] [id number] 5 mg PO DAILY 90 tabs 1RF 90 days tadalafil (Cialis) Take 1 tablet as needed 1 hour prior to sexual activity not to exceed more than 3 times per week [id number] [facility] [id number] 20 mg PO .prn 45 tabs 1RF 90 days Patient Instructions: The patient had an opportunity to ask questions regarding the treatment plan. All questions were answered. Physical exam, labs, and imaging were discussed and reviewed in detail. As well as risks, benefits, and discussion of treatment choices. No major barriers to understanding were identified. The patient expressed understanding and agreement with the above treatment plan. The patient was made aware they should contact our office by phone for worsening of their current condition, the appearance of new symptoms, or with any questions or concerns. Compliance is encouraged with any medications and follow up testing that is ordered. It is a privilege to be allowed the opportunity to participate in? your urological care.? Again, if you have any questions or concerns If you have any questions or concerns please do not hesitate to contact me. The office is [phone]. This note is constructed using voice recognition software. While every effort has been made to ensure accuracy sample card maker errors may have been included. Yours sincerely, MARIBELL Robertson Coding Level of Care Code Est Pt Level 4 (09676) Complex EM visit Add On G2211 Diagnoses Hydrocele N43.3 Low libido R68.82 Erectile dysfunction N52.9 CPT Codes Post Residual Void - PVR CPT Code: 32299-Opzw Void Residual by ultrasound ([id number])
== END 2023-09-26 12:23 | disposition home or self-care (01) ==
PROVIDERS: PCP Nurse Practitioner Family; Visit Provider Nurse Practitioner Family
DX: N43.3 Hydrocele, unspecified (principal); R68.82 Decreased libido; N52.9 Male erectile dysfunction, unspecified; Z13.9 Encounter for screening, unspecified
CPT/HCPCS: 99214

== ENCOUNTER → 2023-09-26 11:31 | Outpatient (BNVA) | payer BC, SELFPAY | PROVIDERS: PCP Nurse Practitioner Family; Visit Provider Nurse Practitioner Family | DX: N52.9 Male erectile dysfunction, unspecified (principal); R68.82 Decreased libido; Z87.438 Personal history of other diseases of male genital organs | CPT/HCPCS: 51798; 81003 ==

== ENCOUNTER 2023-11-07 10:40 | Outpatient (AMB) | payer BC, SELFPAY ==
--- NOTE | 2023-11-07 10:45 | A.OFFPC_ITS ---
Vital Signs 11/07/23 10:49 Height 5 ft 8 in Weight 183 lb 4 oz BMI 27.9 BP 110/70 Blood Pressure Location Rt brachial Position Sitting Respiration 12 Pulse 61 Pulse Source Pulse Oximeter Temp 97.6 F Temp Source Tympanic Pulse Oximetry (%) 97 Oxygen Delivery Method Room Air Intake Visit Reasons: f/u hypertension, chronic conditions Intake Note: f/u HTN chronic conditions Allergies No Known Allergies Allergy (Verified 11/07/23 10:46) Medication List - Last Reconciled 11/07/23 by Ke Mcelroy MD atorvastatin 20 mg PO DAILY 90 days Brace,wrist (Wrist Brace - one) Daily As directed, Large. 45 days cholecalciferol (vitamin D3) (Vitamin D3) 125 mcg PO DAILY ibuprofen 800 mg PO Q8H PRN 14 days lidocaine 5% 1 patch topical DAILY 30 days naproxen 500 mg PO BID PRN 7 days tadalafil (Cialis) 5 mg PO DAILY 90 days tadalafil (Cialis) 20 mg PO .prn 90 days Tobacco use date assessed: 08/05/23 Dental Screening Dental Screen Date: 08/05/23 HPI f/u hypertension, chronic conditions HPI Details 68 y/o male presents to f/u pre-diabetes , chronic conditions. Last A1c 08/05/23 6.0% - pre-diabetes. A1c today 11/07/23 5.9%. Blood pressure today 110/70. 61p. Ongoing issues of back pain due to a fall. Had gotten x-rays done at an outside facility. L4-L5 spondylolisthesis. [facility] Medical History Elevated cholesterol History of diverticulitis Surgical History H/O colonoscopy History of total right knee replacement History of carpal tunnel release History of dental surgery History of inguinal hernia Family History Father Unknown family medical history Mother Diabetes mellitus Brother No problems noted. Brother No problems noted. Sister No problems noted. Sister No problems noted. Sister No problems noted. Son No problems noted. Son No problems noted. Son No problems noted. 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 How many drinks containing alcohol do you have on a typical day when you are drinking?: 1 or 2 3. How often do you have six or more drinks on one occasion?: Never Total Score: 0 NILDA-7 AMB Questionnaire NILDA-7 Date NILDA - 7 assessed: 08/05/23 Source: Developed by Drs. Pastor Arce, Bushra Mars, Weston Hinton and colleagues, with an educational stefano from [employer]. Review of Systems Const Denies chills, Denies fatigue, Denies fever(s), Denies headache(s) and Denies weakness ENT Denies dizziness and Denies headache(s) Card Denies dyspnea Resp Denies cough, Denies dyspnea, Denies wheezing and Denies other (shortness of breath) Musc Reports back pain, Denies numbness and Denies tingling Neuro Denies dizziness, Denies headache(s), Denies numbness, Denies tingling and Denies weakness Psych Denies anxiety and Denies depression Endo Denies fatigue Aller/Immun Denies wheezing Physical exam (Primary Care) Vital Signs: Last Vital Signs Temp 97.6 F 11/07/23 10:49 Pulse 61 11/07/23 10:49 Resp 12 11/07/23 10:49 BP 110/70 11/07/23 10:49 Pulse Ox 97 11/07/23 10:49 Oxygen Delivery Method Room Air 11/07/23 10:49 BMI result Body Mass Index 27.9 Tobacco/Smoking Status: Tobacco use Status Tobacco use date assessed 08/05/23 11/07/23 10:53 Patient Tobacco Use Status Never used Tobacco 11/07/23 10:53 e-Cigarette/Vaping Use Never Used 11/07/23 10:53 Thrive Assessment: Date of Thrive Assessment Date Thrive assessed 08/05/23 11/07/23 10:53 Const General: well developed; No acute distress Nutritional Appearance: well nourished Orientation/consciousness: patient oriented x3 [facility] Head: Yes normocephalic and Yes atraumatic Eyes General: appearance normal, both eyes and all related structures Pupils: Equal, round and reactive pupils present EOM: EOMs intact bilaterally Resp Effort & Inspection: normal respiratory effort Neuro General: patient oriented x3 and gait normal Cranial nerves: Yes Equal, round and reactive pupils present Psych Affect: normal affect Assessment and Plan Assessment & Plan (1) Pre-diabetes: Code(s): R73.03 - Prediabetes Plan: A1c?has?improved?from?6.0%?to?5.9%.??Still?in?pre?diabetes?range?though?slightly ?improved. Continue?working?at?diet?low?in?sugars?and?starches Exercise?as?tolerated (2) Low back pain: Code(s): M54.50 - Low back pain, unspecified Plan: See?prior?visit?note. Patient?had?a?fall?and?I?had?ordered?x-rays. Patient?did?not?get?x- rays?done?through?[facility]?but?did?get?them?done?at?an?outside?facility. He?has?brought?in?a?copy?of?1 lateral?image?of?lumbar?spine?which?appears?to?show?an?L4-5?spondylolisthesis. Also?shows?significant?degenerative?changes?with?diminished?disc?heights and?endplate?spurring. Not?original?image?and poor?quality?reproduction. Will?need?original?images?and?or?reports. Given?that?mechanism?of?injury?was?a?fall?in?a?68-year-old, and?image?shows?likely?spondylolisthesis, this?appears?to?be?a?traumatic?injury. Should?get?MRI?and will?try?to?get?this?despite?his other?healthcare?provider?being?told?he?would?need?physical?therapy?1st.??This?a ppears?to?be?a?trauma?and?should?not?require?physical?therapy?1st. Will?refer?to?orthopedics Advised?he?continue?NSAIDs?as?tolerated Orders: Orders MR lumbar spine wo con Today M43.17 - Spondylolisthesis, lumbosacral region, M48.36 - Traumatic spondylopathy, lumbar region, M54.40 - Lumbago with sciatica, unspecified side Referrals Orthopedics Referral M43.17 - Spondylolisthesis, lumbosacral region, M54.40 - Lumbago with sciatica, unspecified side Medications: Refilled lidocaine 5% leave on most painful area for up to 12 hrs 1 patch topical DAILY 30 days 30 ea 3RF Coding Level of Care Code Est Pt Level 3 (66430) Diagnoses Pre-diabetes R73.03 Low back pain M54.50
[2023-11-07 10:49] VITALS: BP 110/70; PULSE 61; RESP 12; TEMP 36.4; O2SAT 97; BMI 27.9
== END 2023-11-07 11:43 | disposition home or self-care (01) ==
PROVIDERS: PCP Nurse Practitioner Family; Visit Provider Family Medicine
DX: R73.03 Prediabetes (principal); M54.50 Low back pain, unspecified

== ENCOUNTER → 2023-11-07 10:40 | Outpatient (BNVA) | payer BC, SELFPAY | PROVIDERS: PCP Nurse Practitioner Family; Visit Provider Family Medicine | DX: R73.03 Prediabetes (principal); M54.50 Low back pain, unspecified ==

== ENCOUNTER 2023-12-13 17:53 | Outpatient (REF) | payer BC, SELFPAY ==
--- NOTE | ~2023-12-13 | MR_ITS ---
EXAMINATION: MR LUMBAR SPINE WITHOUT CONTRAST CLINICAL INFORMATION: Low back, with sciatica, unspecified site. COMPARISON: None available. TECHNIQUE: MRI of the lumbar spine was obtained using routine sequences without contrast. FINDINGS: Submitted for interpretation on January 13, 2024. Last rib-bearing vertebra labeled T12. There is a subtle bone marrow STIR signal involving the posterior inferior endplates of L4 and the posterior spinous process of L4 as well as posterior superior endplate of L5 and lamina. Multilevel marginal osteophyte formation and disc desiccation more conspicuous at L2-3 and L3-4 levels. Multilevel Modic type II endplate changes more conspicuous at L3-4. Grade 1 anterolisthesis, L4-5. Grade 1 retrolisthesis, L2-3 and L3-4. Fatty bone marrow signal in the sacrum. Conus medullaris and sad superior endplate of T12 with normal signal. T12-L1: No compression upon neural elements. L1-2: Broad-based disc bulging. Facet joint hypertrophy. Decreased AP diameter of the thecal sac. Bilateral neuroforamina narrowing more conspicuous on the left side. L2-3: Broad-based disc bulging. Facet joint and ligamentum flavum hypertrophy. Reduced AP diameter of the thecal sac and bilateral neuroforamina narrowing. L3-4: Broad-based disc bulging. Facet joint and ligamentum flavum hypertrophy. Reduced AP diameter of the thecal sac. Bilateral neuroforamina stenosis likely encroaching the neural elements. L4-5: Grade 1 anterolisthesis. Facet joint and ligamentum flavum hypertrophy resulting in CSF effacement of the thecal sac and central spinal canal and bilateral neuroforamina stenosis likely compressing the neural elements. L5-S1: Broad-based disc bulging. Facet joint hypertrophy. Reduced AP diameter of the thecal sac. Bilateral neuroforamina narrowing. No prevertebral compartment hematoma, mass or fluid collection. MR/MR lumbar spine wo con IMPRESSION: Multilevel spondylosis resulting in grade 1 anterolisthesis L4-5 with central spinal canal and bilateral neuroforamina stenosis compressing the neural elements both thecal sac and the exiting nerve roots. Electronically signed by: Deni Meléndez MD 01/13/2024 10:03 AM EST
== END 2023-12-13 17:54 | disposition home or self-care (01) ==
LOC: HO.MRI 17:53
PROVIDERS: PCP Family Medicine; Visit Provider Family Medicine
DX: M54.40 Lumbago with sciatica, unspecified side (principal); M43.17 Spondylolisthesis, lumbosacral region; M48.36 Traumatic spondylopathy, lumbar region
CPT/HCPCS: 72148

== ENCOUNTER → 2023-12-13 18:04 | Outpatient (BNV) | payer BC, SELFPAY | PROVIDERS: PCP Family Medicine; Visit Provider Radiology Diagnostic Radiology | DX: M54.40 Lumbago with sciatica, unspecified side (principal) | CPT/HCPCS: 72148 ==

== ENCOUNTER → 2024-01-16 10:56 | Outpatient (AMB) | payer BC, SELFPAY ==
--- NOTE | 2024-01-16 11:08 | MHC.PC.OV ---
Intake Visit Reasons: going over mri Allergies No Known Allergies Allergy (Verified 01/16/24 11:40) Tobacco use date assessed: 08/05/23 Dental Screening Dental Screen Date: 08/05/23 HPI going over mri HPI Details Telemedicine?appointment.??Patient?would?like?to?review?results?of?his?MRI?for?low?back?pain?after?a?fall. MRI?shows?spondylosis?and?spondylolisthesis?at?L4-L5?with?central?canal?and?foraminal?stenoses?and?compression. PFSH Medical History Elevated cholesterol History of diverticulitis Surgical History H/O colonoscopy History of total right knee replacement History of carpal tunnel release History of dental surgery History of inguinal hernia Family History Father Unknown family medical history Mother Diabetes mellitus Brother No problems noted. Brother No problems noted. Sister No problems noted. Sister No problems noted. Sister No problems noted. Son No problems noted. Son No problems noted. Son No problems noted. 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 Pastor Arce, Bushra Mars, Weston Hinton and colleagues, with an educational stefano from [employer]. Review of Systems Const Denies chills, Denies fatigue, Denies fever(s), Denies headache(s) and Denies weakness ENT Denies dizziness and Denies headache(s) Card Denies chest pain, Denies lightheadedness, Denies dyspnea and Denies other (Palpitations) Resp Denies cough, Denies dyspnea, Denies wheezing and Denies other ( shortness of breath) Musc Details: Low?back?pain Denies numbness and Denies tingling Neuro Denies dizziness, Denies headache(s), Denies numbness, Denies tingling, Denies paresthesias and Denies weakness Psych Denies anxiety and Denies depression Endo Denies fatigue Aller/Immun Denies wheezing Physical exam (Primary Care) Tobacco/Smoking Status: Tobacco use Status Tobacco use date assessed 08/05/23 01/16/24 11:10 Patient Tobacco Use Status Never used Tobacco 01/16/24 11:10 e-Cigarette/Vaping Use Never Used 01/16/24 11:10 Thrive Assessment: Date of Thrive Assessment Date Thrive assessed 08/05/23 01/16/24 11:10 Telehealth Telehealth Telehealth Platform: Telephone Location of provider rendering services: practice address Location of patient: address on file Patient Identification confirmed using: Name, : Yes Telehealth method: voice only Patient verbally consented to treatment: Yes Patient verbally consented to billing insurance company: Yes Patient informed of any privacy concerns related to visit: Yes Minutes spent on Phone/Video with Pt.: 5 Coding Level of Care Code Tele Est Pt Level 2 (13823) Diagnoses Acquired spondylolisthesis of lumbosacral region M43.17 Assessment & Plan Assessment & Plan (1) Acquired spondylolisthesis of lumbosacral region: Code(s): M43.17 - Spondylolisthesis, lumbosacral region Category: Medical Plan: Ongoing?low?back?pain, worsened?after?fall. MRIs?shows?spondylolisthesis?L4-L5?with?central?canal?stenosis?and?foraminal?stenoses?as?well. Referred[facility]to[facility]
== END ==
LOC: HO.HMCFM 10:56
PROVIDERS: PCP Family Medicine; Visit Provider Family Medicine
DX: M43.17 Spondylolisthesis, lumbosacral region (principal)

== ENCOUNTER 2024-02-01 11:56 | Day surgery (SDC) | payer BC, SELFPAY ==
--- NOTE | 2024-01-31 10:33 | P.CONAN_ITS ---
Documented by User: Mitzi Gould NP 01/31/24 10:34 HPI - Anesthesia Eval Consult details Narrative: 68yo M for Colonoscopy ERBE Jet 2 PMFSH Active Problems Active Problems: All Active Problems Traumatic spondylopathy, lumbar region (Acute) Acquired spondylolisthesis of lumbosacral region (Acute) Low back pain with sciatica (Acute) Low back pain (Acute) BPH (benign prostatic hyperplasia) (Acute) Erectile dysfunction (Acute) Hydrocele (Acute) Low libido (Acute) Scrotal pain (Acute) Eye pain (Acute) Acute left eye pain (Acute) Carpal tunnel syndrome of left wrist (Acute) Osteoarthritis of right shoulder (Acute) Numbness of left hand (Acute) Carpal tunnel syndrome of right wrist (Acute) Urinary frequency (Acute) Elevated liver enzymes (Acute) Adult general medical examination (Acute) Hiatal hernia (Acute) GERD (gastroesophageal reflux disease) (Acute) Frequent urination (Acute) Right shoulder pain (Acute) Right wrist pain (Acute) Preop cardiovascular exam (Acute) Cervical radiculopathy (Acute) Blood in stool (Acute) Back strain (Acute) Screening for colon cancer (Acute) Screening for prostate cancer (Acute) Hypercholesterolemia (Acute) Pre-diabetes (Acute) Annual physical exam (Acute) Past Medical History Medical History Elevated cholesterol History of diverticulitis Family History Family History Father Unknown family medical history Mother Diabetes mellitus Brother No problems noted. Brother No problems noted. Sister No problems noted. Sister No problems noted. Sister No problems noted. Son No problems noted. Son No problems noted. Son No problems noted. Family history of problems with anesthesia: No Surgical History Surgical History H/O colonoscopy History of total right knee replacement History of carpal tunnel release History of dental surgery History of inguinal hernia History of Problems with Anesthesia: No Social History Social History Housing: House Are you a primary child care director to a significant other at home: No Do you presently have visiting nurse or other home services: No Alcohol intake: current Alcohol intake frequency: holidays/special occasions only Comment: NONE Patient Tobacco Use Status: Never used Tobacco e-Cigarette/Vaping Use: Never Used Second Hand Smoke Exposure: No Use of substances other than those prescribed or required for medical reasons: Yes Substance Use Frequency: Occasionally Have you been hit, kicked, punched, or otherwise hurt by someone within the past year? If so, by whom?: No Are you DNR?: No Advance Directives: No Advance Directives Information Provided: Yes Recently lost weight without trying: No Nutrition Risks: No Nutritional Risk Current occupational status: employed and retired Current occupation: [employer] Current occupational exposures/hazards: No Cognitive needs: No Hearing needs: No Vision needs: No Meds Allergies Allergy/AdvReac Type Severity Reaction Status Date / Time No Known Allergies Allergy Verified 01/16/24 11:40 Home Medications ?Medication ?Instructions ?Recorded ?Confirmed ?Last Taken ?Type cholecalciferol (vitamin D3) 125 125 mcg PO DAILY 01/31/23 11/07/23 Unknown History mcg (5,000 unit) tablet (Vitamin D3) Assessment and Plan Assessment Anesthesia Assessment: Chart Reviewed Final Anesthetic Review Family History of Problems with Anesthesia: No History of Problems with Anesthesia: No Documented by User: Keshav Amezcua MD 02/01/24 12:57 [facility] Past Medical History Medical History Elevated cholesterol History of diverticulitis Family History Family History Father Unknown family medical history Mother Diabetes mellitus Brother No problems noted. Brother No problems noted. Sister No problems noted. Sister No problems noted. Sister No problems noted. Son No problems noted. Son No problems noted. Son No problems noted. Surgical History Surgical History H/O colonoscopy History of total right knee replacement History of carpal tunnel release History of dental surgery History of inguinal hernia Social History Social History Housing: House Are you a primary child care director to a significant other at home: No Do you presently have visiting nurse or other home services: No Alcohol intake: current Alcohol intake frequency: holidays/special occasions only Comment: NONE Patient Tobacco Use Status: Never used Tobacco e-Cigarette/Vaping Use: Never Used Second Hand Smoke Exposure: No Use of substances other than those prescribed or required for medical reasons: Yes Substance Use Frequency: Occasionally Have you been hit, kicked, punched, or otherwise hurt by someone within the past year? 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
--- NOTE | 2024-02-01 12:06 | MHC.SHP ---
Pre-Procedural Eval Section A - 24 Hr Update-Section A only Date of Service: 02/01/24 The patient is an INPATIENT: No Changes since office visit: No Cold of Flu in the past 2 weeks, No New Medical Problems, No Changes in Medication and No Patient answered all questions The patient has been examined within 24 hours of the surgical procedure. The History & Physical has been completed within 30 days and I have reviewed it.: Yes Section B - Complete if H&P > 30 days Chief Complaint: screening Allergies: Allergies Allergy/AdvReac Type Severity Reaction Status Date / Time No Known Allergies Allergy Verified 01/16/24 11:40 Plan I have reviewed the history and physical and performed a pertinent physical examination on my patient. No changes have occurred unless specified. Time Spent With Patient Time: Total time managing care of this patient today ____ minutes.
[2024-02-01 12:08] VITALS: BMI 28.0
[2024-02-01 12:25] VITALS: BP 112/76; PULSE 63; RESP 16; TEMP 36.4; O2SAT 97
[2024-02-01] MEDS: Lactated Ringers 1,000 ML 100 ML IVCONT (12:36)
[2024-02-01 13:40] VITALS: BP 107/64; PULSE 61; RESP 16; TEMP 36.4; O2SAT 97
--- NOTE | 2024-02-01 13:54 | OP_ITS ---
DATE OF SERVICE: 02/01/2024 SURGEON: Ankur Rodriguez MD INDICATIONS: Colon cancer screening and prior history of adenomatous colon polyps. PREOPERATIVE DIAGNOSIS: POSTOPERATIVE DIAGNOSIS: PROCEDURE PERFORMED: Colonoscopy to the terminal ileum with biopsy. ESTIMATED BLOOD LOSS: COMPLICATIONS: ANESTHESIA: Monitored anesthesia care. ASSISTANTS: SPECIMENS: DESCRIPTION OF PROCEDURE: A history and physical was performed. The risks and benefits of the procedure were explained to the patient and informed consent was obtained. The patient was placed in the left lateral decubitus position. A digital rectal exam was performed and was found to be normal. The Olympus pediatric video colonoscope was introduced into the rectum and advanced to the cecum. The cecum was identified by transillumination, palpation, and identification of the ileocecal valve. Examination was performed and the scope was removed. He tolerated the procedure well and was returned to recovery area in stable condition. FINDINGS: The terminal ileum was examined and appeared normal. The visualized colonic mucosa was normal. The quality of the prep was good. There was some liquid stool, which was washed and suctioned. There was mild sigmoid diverticulosis. Two polyps were identified, both measured less than 5 mm and removed with biopsy forceps. These were located in the cecum just above the ileocecal valve and at 20 cm. Retroflexed examination showed moderate-sized internal hemorrhoids. IMPRESSION: Colon polyps. RECOMMENDATION: Follow up the biopsy results. MD WILIAN James/KAY / [id number]
[2024-02-01 13:55] VITALS: BP 118/67; PULSE 61; RESP 17; TEMP 36.7; O2SAT 98
--- OUTSIDE RECORDS SUMMARY | 2024-02-02 01:55 | XMS_ITS ---
Author Organization [facility] Address [address] [place] [id number] Care Team Providers Care Flying Squad Salesperson Name Role Phone Ke Mcelroy Primary Care Provider Unavailab Ankur Chavez Jr [phone] ALLERGIES No Known Allergies REASON FOR VISIT Patient presents today for a recall colonoscopy MEDICATIONS Medication SIG (Take, Route, Frequency, Duration) Notes Start Date End Date Status Vitamin D 50 MCG (1999) 1 tablet Oral ly Once a day for 30 day(s) 01/23/2024 Active MiraLax (colon prep) 17 GM/SCOOP mixed with Gatorade or Crystal Light Orally begin at 5:00 p.m. the day before the procedure for 1 day 01/23/2024 Active Atorvastatin Calcium 20 MG Oral for 90 Active IMMUNIZATIONS Vaccine Route Administration Date Status Comme nts Influenza Unknown 01/23/2024 Refused PROBLEMS Problem Type ICD Code Onset Dates Problem Status W/U Status Risk SNOMED Code Notes Problem Hemorrhoids, unspecified hemorrhoid type (K64.9) Active confirmed 99293214 VITAL SIGNS BMI 29.08 kg/m2 01/23/2024 Blood pressure systolic 000 mm Hg 01/23/20 24 Blood pressure diastolic 00 mm Hg 024 Height 68 in 01/23/2024 Temperature 97.5 degrees Fahrenheit 01/23/20 24 Weight 191 lb 4 oz lbs 01/23/2024 Encounters Encounter Location Date Provider Diagnosis [facility] [address] [place] [id number] 01/23/2024 Ankur Rodriguez Jr Colon cancer screening Z12.11 and Hemorrhoids, unspecified hemorrhoid type K64.9 ASSESSMENTS Encounter Date Diagnosis Assessment Notes Treatment Notes Treatment Clinical Notes 01/23/2024 Colon cancer screening (ICD-10 - Z12.11) Colonoscopy material was printed 01/23/2024 Hemorrhoids, unspecified hemorrhoid type (ICD-10 - K64.9) PLAN OF TREATMENT Medication Medication Name Sig Start Date Stop Date Notes MiraLax (colon prep) 17 GM/SCOOP mixed with Gatorade or Crystal Light Orally begin at 5:00 p.m. the day before the procedure for 1 day 01/23/2024 Treatment Notes Assessment Notes Colon cancer screening Colonoscopy mater ial was printed Future Test Test Name Order Date COLONOSCOPY 01/23/2024 Next Appt Details Follow Up: 1 Year, Reason: Progress Notes * Examination Category Sub-Category Detail Notes General Examination GENERAL APPEARANCE: in no ac harris distress HEAD: normocephalic EYES: sclera non-icteric NECK/THYROID: no lymphadenopathy HEART: S1, S2 normal, no mu rmurs CHEST: normal shape and exp ansion LUNGS: clear to auscultatio n bilaterally ABDOMEN: soft, nontender, non distended, bowel sounds present, no organomegaly SKIN: anicteric EXTREMITIES: no clubbing, cyanosi s, or edema PSYCH: cognitive function i ntact ORAL CAVITY: mucosa moist
--- OUTSIDE RECORDS SUMMARY | 2024-02-02 01:55 | XMS_ITS ---
Author Organization [facility] Address [address] [place] [address] Care Team Providers Care Decision Science Analyst Name Role Phone Ke Mcelroy Primary Care Provider Unavailab Ankur Chavez Jr REASON FOR VISIT screening MEDICATIONS Medication SIG (Take, Route, Frequency, Duration) Notes Start Date End Date Status MiraLax (colon prep) 17 GM/SCOOP mixed with Gatorade or Crystal Light Orally begin at 5:00 p.m. the day before the procedure for 1 day 01/23/2024 Active Vitamin D 50 MCG (1999 UT) 1 tablet Oral ly Once a day for 30 day(s) 01/23/2024 Active Atorvastatin Calcium 20 MG Oral for 90 Active Encounters Encounter Location Date Provider Diagnosis [facility] [address], [place] [id number] 02/01/2024 Ankur Rodriguez Jr PLAN OF TREATMENT No Information
--- OUTSIDE RECORDS SUMMARY | 2024-02-02 01:55 | XMS_ITS | Encounter Summary ---
Author Name [facility] [place] [facility] [place] Address [address] [place] [id number] Care Team Providers Care Public Policy Manager Name Role Phone JESSICA GOODMAN Primary Care Provider ANGUS Castillo Primary Care Provider Unava ilable Insurance Providers: All historical and current Section Date Range: From patient's date of to the date document was created. This section includes the names of all active insurance providers for the patient. Insurance Provider Type of Coverage Plan Name Start of Policy Coverage End of Policy Coverage Group Number Member ID Insurance Provider's Telephone Number Policy Duran's Name Patient's Relationship to Policy Duran ISAAC BCBS CT FEDERAL PREFERRED PROVIDER ORGANIZAT ION (PPO) BASIC SELF+ ONE Feb 22, 2020 [id number] [phone] SUHAIL BOLDEN SR PATIENT ISACA BCBS CT FEDERAL PREFERRED PROVIDER ORGANIZAT ION (PPO) BASIC SELF Feb 27, 2005 [id number] [phone] SUHAIL BOLDEN SR PATIENT [place]BS [place] PREFERRED PROVIDER ORGANIZAT ION (PPO) BASIC SELF PLUS ONE Feb 22, 2020 113 [id number] [phone] BOLD[address]IL Escobar SR PATIENT BCBS JESSICA FEP PREFERRED PROVIDER ORGANIZAT ION (PPO) BASIC INDIV IDUAL Feb 27, 2005 [id number] [phone] SUHAIL BOLDEN SR PATIENT [place] FEPRX PLAN PRESCRIPT ION CAREM ARK FEPRX Feb 21, 2010 [id number] SUHAIL BOLDEN SR PATIENT CAREWILDER-F EP BCBS PRESCRIPT ION FEP KELSEY ARK Feb 21, 2010 [id number] SUHAIL BOLDEN SR PATIENT Selected Encounter This section includes the information on record at [place] for the Encounter. Date/Time Encounter Type Encounter Description Reason Pro vider Source Nov 29, 2023 12:00 AM Outpatient Encounter EVENT (HISTORICAL) IHE Encounter Template Text not used by [place] Plan of Treatment: Future Appointments (+ 6 months) and Future Tests (+/- 45 days) The Plan of Treatment section includes future care activities for the patient from all [place] treatmentfacilities. This section includes future appointments and future orders which are active, pending or scheduled. Future Appointments This section includes appointments that were scheduled to occur 6 months from the date of the Encounter, up to a maximum of 20 appointments. The data comes from all [place] treatment facilities. Appointment Date/Time Appointment Type Appointme nt Facility Name Dec 12, 2023 10:45 AM [facility] Dec 12, 2023 11:00 AM AMBULAT[facility] - MEDICINE [facility] Lab Results: +/- 30 days of the encounter This section includes the Chemistry and Hematology Lab Results on record with [place] for the patient. Radiology Reports and Pathology Reports are provided separately, in subsequent sections. Lab Results This section contains the Chemistry/Hematology Results that were resulted 30 days before or 30 daysafter the date of the Encounter. Date/Time Source Result Type Result - Unit Interpretation Reference Range Comment Dec 12, 2023 01:55 PM [place] URINE ALBUMIN, SPOT PROFILE Specimen Ty pe: URINE No comment entered. Ordering Provider: JESSICA GOODMAN Report Released Date/Time: Dec 20, 2022 01:42 PM Reporting Lab: [address] [address] Performing Lab: [address] [address] Urine ALB/CRE,SPOT-R ATIO 5 mg/g{creat} 0-29 Urine ALBUMIN,SPOT-Q NT 0.6 mg/dL CREATININE, URINE RANDOM 128.7 mg/dL >=20.0 Dec 12, 2023 01:55 PM [place] URINALYSIS,ROUTINE/ADMISSION Specimen T ype: URINE No comment entered. Ordering Provider: JESSICA GOODMAN Report Released Date/Time: Dec 20, 2022 01:42 PM Reporting Lab: [address] [address] Performing Lab: [address] [address] URINE COLOR Light-Yellow YELLOW SPECIFIC GRAVITY 1.020 1.001-1.035 UROBILINOGEN NORMAL mg/dL NORMAL URINE BILIRUBIN NEGATIVE Neg URINE KETONES NEGATIVE Neg URINE GLUCOSE NEGATIVE Neg URINE PROTEIN NEGATIVE Neg URINE pH 5.5 [pH] 5.0-8.0 APPEARANCE Clear CLEAR URINE BLOOD NEGATIVE Neg NITRITE, URINE NEGATIVE Neg LEUKOCYTE ESTERASE NEGATIVE Neg Dec 12, 2023 10:45 AM [place] HEP B SURF AB Specimen Type: SERUM Comment: Hepatitis C Ab: No HCV antibody detected. If recent infection is suspected or other evidence suggests HCV infection, consider HCV nucleic acid testing. HIV Ab/ P24 Ag Combo: A 'Nonreactive' result does not exclude acute infection. If acute HIV is suspected, consider HIV viral load testing. Hep B Surface Ab: The immune status of the individual should be further assessed by considering other factors, such as clinical status, follow-up testing, associated risk factors and use of additional diagnostic information. Ordering Provider: JESSICA GOODMAN Report Released Date/Time: Dec 20, 2022 01:42 PM Reporting Lab: [address] [address] Performing Lab: [address] [address] HEP B SURF AB GRAYZONE Non Reactive Dec 12, 2023 10:45 AM [place] HEPATITIS C Ab Specimen Type: SERUM Comment: Hepatitis C Ab: No HCV antibody detected. If recent infection is suspected or other evidence suggests HCV infection, consider HCV nucleic acid testing. HIV Ab/ P24 Ag Combo: A 'Nonreactive' result does not exclude acute infection. If acute HIV is suspected, consider HIV viral load testing. Ordering Provider: JESSICA GOODMAN Report Released Date/Time: Dec 20, 2022 01:42 PM Reporting Lab: [address] [address] Performing Lab: [address] [address] HEPATITIS C Ab Non Reactive No n Reactive Dec 12, 2023 10:45 AM [place] HIV AB/ P24 AG COMBO(HIV SCREEN) Specim en Type: SERUM Comment: Hepatitis C Ab: No HCV antibody detected. If recent infection is suspected or other evidence suggests HCV infection, consider HCV nucleic acid testing. HIV Ab/ P24 Ag Combo: A 'Nonreactive' result does not exclude acute infection. If acute HIV is suspected, consider HIV viral load testing. Ordering Provider: JESSICA GOODMAN Report Released Date/Time: Dec 20, 2022 01:42 PM Reporting Lab: [facility] [address] [address] Performing Lab: [facility] [address] [address] HIV AB/ P24 AG COMBO(HIV SCREEN) Non Reactive Non Reactive Dec 12, 2023 10:45 AM [place] CBC W/ AUTO DIFF Specimen Type: BLOOD No comment entered. Ordering Provider: JESSICA GOODMAN Report Released Date/Time: Dec 20, 2022 01:42 PM Reporting Lab: [address] [address] Performing Lab: [address] [address] WBC 5.2 10*3/uL 4.5-11.0 RBC 4.70 10*6/uL 4.23-5.66 HGB 13.7 g/dL 12.8-17.0 HCT 42.2 39.2-50.4 MCV 90 fL 82-99 MCH 29.1 pg 26.2-32.6 MCHC 32.5 g/dL 30.8-35.1 PLT 221 10*3/uL 140-360 MPV 10.1 fL 9.2-12.4 RDW 13 12-16 LYMPH % 24.3 14.0-42.3 NEUT % 62.9 43.7-75.8 MONO % 8.0 5.1-13.7 EOSIN % 3.6 0.4-6.8 BASO % 1.0 0.1-2.0 ABSOLUTE LYMPHOCYTE COUNT 1.3 10*3/uL 1.0-3.2 ABSOLUTE NEUTROPHIL COUNT 3.3 10*3/uL 2.2-7.6 IMMATURE GRAN % 0.2 0.0-0.7 NRBC/100WBC 0.0 /100{WBCs} 0.0-0.0 Dec 12, 2023 10:45 AM [facility] CHEM 7 Specimen Type: SERUM Comment: 5.7 - 6.4% Prediabetes >= 6.5% Diabetic range. If the patient has not yet been diagnosed with T2DM, see [place]/[facility] Clinical Practice Guideline for Management of T2DM (dated 05/2016) for more guidance. For patients already diagnosed with T2DM, target HbA1c values should be individualized using a Shared Decision-Making process. Ref: https://www.[facility]quality.al.gov /guidelines/CD/d iabetes/ Values obtained from A1C measurements can vary. For typical A1C assays, a reported value of 7.0 could actually be between 6.72 and 7.28 if measured by a reference method. A reported value of 9.0 could actually be between 8.73 and 9.27. Ref: [email or web address]://ngsp.org /CAPdata.asp Ordering Provider: JESSICA GOODMAN Report Released Date/Time: Dec 20, 2022 01:42 PM Reporting Lab: [address] [address] Performing Lab: [address] [address] CREATININE,SER UM 0.75 mg/dL 0.5-1.5 UREA NITROGEN, BLOOD 8 mg/dL 7-25 GLUCOSE,RANDOM 115 mg/dL H 65-100 SODIUM 141 mmol/L 135-145 POTASSIUM 4.3 mmol/L 3.5-5.0 CHLORIDE 110 mmol/L 100-110 CO2 24 meq/L 20-30 ANION GAP 7 meq/L 6-16 eGFR(CKD-EPI 2020) >90 mL/min >=60 Dec 12, 2023 10:45 AM [facility]Svbt[facility] LIVER PROFILE Specimen Type: SERUM Comment: 5.7 - 6.4% Prediabetes >= 6.5% Diabetic range. If the patient has not yet been diagnosed with T2DM, see [place] Clinical Practice Guideline for Management of T2DM (dated 05/2016) for more guidance. For patients already diagnosed with T2DM, target HbA1c values should be individualized using a Shared Decision-Making process. Ref: https://www.[facility] systemality.al.gov /guidelines/CD/d iabetes/ Values obtained from A1C measurements can vary. For typical A1C assays, a reported value of 7.0 could actually be between 6.72 and 7.28 if measured by a reference method. A reported value of 9.0 could actually be between 8.73 and 9.27. Ref: https://ngsp.org /CAPdata.asp Ordering Provider: JESSICA GOODMAN Report Released Date/Time: Dec 20, 2022 01:42 PM Reporting Lab: [place] [address] [facility] [address] Performing Lab: [address] [address] ALBUMIN 3.7 g/dL 3.5-5.0 TOT. BILIRUBIN 1.0 mg/dL 0.2-1.2 DIR. BILIRUBIN 0.4 mg/dL 0.0-0.5 ALKALINE PHOSPHATASE 67 U/L 40-150 ALT 34 U/L 7-52 AST 25 U/L 5-40 Dec 12, 2023 10:45 AM [place] LIPOPROTEIN PROFILE Specimen Type: SERUM Comment: 5.7 - 6.4% Prediabetes >= 6.5% Diabetic range. If the patient has not yet been diagnosed with T2DM, see [place] Clinical Practice Guideline for Management of T2DM (dated 05/2016) for more guidance. For patients already diagnosed with T2DM, target HbA1c values should be individualized using a Shared Decision-Making process. Ref: https://www.[facility] hospitalquality.va.gov /guidelines/CD/d iabetes/ Values obtained from A1C measurements can vary. For typical A1C assays, a reported value of 7.0 could actually be between 6.72 and 7.28 if measured by a reference method. A reported value of 9.0 could actually be between 8.73 and 9.27. Ref: [email or web address]://ngsp.org /CAPdata.asp Ordering Provider: JESSICA GOODMAN Report Released Date/Time: Dec 20, 2022 01:42 PM Reporting Lab: [place] [address] [facility] [address] Performing Lab: [address] [address] CHOLESTEROL 128 mg/dL 0-199 TRIGLYCERIDE 51 mg/dL 0-199 HDL 45 mg/dL >=40 LDL 73 mg/dL 0-129 Dec 12, 2023 10:45 AM [facility] CALCIUM PROFILE Specimen Type: SERUM Comment: 5.7 - 6.4% Prediabetes >= 6.5% Diabetic range. If the patient has not yet been diagnosed with T2DM, see [place]/[facility] Clinical Practice Guideline for Management of T2DM (dated 05/2016) for more guidance. For patients already diagnosed with T2DM, target HbA1c values should be individualized using a Shared Decision-Making process. Ref: https://www.[facility]al thquality.va.gov /guidelines/CD/d iabetes/ Values obtained from A1C measurements can vary. For typical A1C assays, a reported value of 7.0 could actually be between 6.72 and 7.28 if measured by a reference method. A reported value of 9.0 could actually be between 8.73 and 9.27. Ref: https://ngsp.org /CAPdata.asp Ordering Provider: JESSICA GOODMAN Report Released Date/Time: Dec 20, 2022 01:42 PM Reporting Lab: [address] [address] Performing Lab: [address] [address] CALCIUM 9.0 mg/dL 8.5-10.5 PO4,SERUM 3.1 mg/dL 2.5-5.0 PROTEIN,TOTAL 6.1 g/dL 6.0-8.5 ALBUMIN 3.7 g/dL 3.5-5.0 Dec 12, 2023 10:45 AM [place] MAGNESIUM Specimen Type: SERUM No comment entered. Ordering Provider: JESSICA GOODMAN Report Released Date/Time: Dec 20, 2022 01:42 PM Reporting Lab: [address] [address] Performing Lab: [address] [address] MAGNESIUM 1.9 mg/dL 1.6-2.6 Dec 12, 2023 10:45 AM [place] PO4,SERUM Specimen Type: SERUM No comment entered. Ordering Provider: JESSICA GOODMAN Report Released Date/Time: Dec 20, 2022 01:42 PM Reporting Lab: [address] [address] Performing Lab: [address] [address] PO4,SERUM 3.1 mg/dL 2.5-5.0 Dec 12, 2023 10:45 AM [place] TSH Specimen Type: SERUM Comment: For TSH values between 4.00 mIU/mL and 10.00 mIU/mL, be aware TSH is known to naturally increase in winter, with age, and with certain nonthyroidal illnesses. It is recommended to retest patients with mild abnormalities in two to three months. Effective 12/06/12 - Vitamin D, Total (Screen) test should not be used when single dose 50,000 IU D2 is administered. Ordering Provider: JESSICA GOODMAN Report Released Date/Time: Dec 20, 2022 01:42 PM Reporting Lab: [address] [address] Performing Lab: [address] [address] TSH 1.92 m[IU]/mL 0.35-5.00 Dec 12, 2023 10:45 AM [place] HEMOGLOBIN A1C PANEL Specimen Type: BLOOD Comment: 5.7 - 6.4% Prediabetes >= 6.5% Diabetic range. If the patient has not yet been diagnosed with T2DM, see [place]/[facility] Clinical Practice Guideline for Management of T2DM (dated 05/2016) for more guidance. For patients already diagnosed with T2DM, target HbA1c values should be individualized using a Shared Decision-Making process. Ref: https://www.[facility] thquality.va.gov /guidelines/CD/d iabetes/ Values obtained from A1C measurements can vary. For typical A1C assays, a reported value of 7.0 could actually be between 6.72 and 7.28 if measured by a reference method. A reported value of 9.0 could actually be between 8.73 and 9.27. Ref: https://ngsp.org /CAPdata.asp Ordering Provider: JESSICA GOODMAN Report Released Date/Time: Dec 20, 2022 01:42 PM Reporting Lab: [address] [address] Performing Lab: [address] [address] HEMOGLOBIN A1C 5.6 <=5.6 EST.AVERAGE GLUCOSE 114 mg/dL Dec 12, 2023 10:45 AM [place] PROSTATIC SPECIFIC ANTIGEN Specimen Typ e: SERUM Comment: For TSH values between 4.00 mIU/mL and 10.00 mIU/mL, be aware TSH is known to naturally increase in winter, with age, and with certain nonthyroidal illnesses. It is recommended to retest patients with mild abnormalities in two to three months. Effective 12/06/12 - Vitamin D, Total (Screen) test should not be used when single dose 50,000 IU D2 is administered. Ordering Provider: JESSICA GOODMAN Report Released Date/Time: Dec 20, 2022 01:42 PM Reporting Lab: [address] [address] Performing Lab: [address] [address] PROSTATIC SPECIFIC ANTIGEN 1.05 ng/mL 0.00-4.00 Dec 12, 2023 10:45 AM [facility] B12 Specimen Type: SERUM Comment: For TSH values between 4.00 mIU/mL and 10.00 mIU/mL, be aware TSH is known to naturally increase in winter, with age, and with certain nonthyroidal illnesses. It is recommended to retest patients with mild abnormalities in two to three months. Effective 12/06/12 - Vitamin D, Total (Screen) test should not be used when single dose 50,000 IU D2 is administered. Ordering Provider: JESSICA GOODMAN Report Released Date/Time: Dec 20, 2022 01:42 PM Reporting Lab: [address] [address] Performing Lab: [address] [address] B12 439 pg/mL 300-900 Dec 12, 2023 10:45 AM [place] FOLATE,SERUM Specimen Type: SERUM Comment: For TSH values between 4.00 mIU/mL and 10.00 mIU/mL, be aware TSH is known to naturally increase in winter, with age, and with certain nonthyroidal illnesses. It is recommended to retest patients with mild abnormalities in two to three months. Effective 12/06/12 - Vitamin D, Total (Screen) test should not be used when single dose 50,000 IU D2 is administered. Ordering Provider: JESSICA GOODMAN Report Released Date/Time: Dec 20, 2022 01:42 PM Reporting Lab: [address] [address] Performing Lab: [address] [address] FOLATE,SERUM 8.5 ng/mL >=5.2 Dec 12, 2023 10:45 AM [facility] VITAMIN D TOTAL(SCREEN) Specimen Type: SERUM Comment: For TSH values between 4.00 mIU/mL and 10.00 mIU/mL, be aware TSH is known to naturally increase in winter, with age, and with certain nonthyroidal illnesses. It is recommended to retest patients with mild abnormalities in two to three months. Effective 12/06/12 - Vitamin D, Total (Screen) test should not be used when single dose 50,000 IU D2 is administered. Ordering Provider: JESSICA GOODMAN Report Released Date/Time: Dec 20, 2022 01:42 PM Reporting Lab: [address] [address] Performing Lab: [address] [address] VITAMIN D TOTAL(SCREEN) 47.6 ng/mL 20.0-50.0 Advance Directives: All historical and current Section Date Range: From patient's date of to the date document was created. This section includes ALL of a patient's completed or amended [place] Advance and Rescinded Directives. The entries below indicate that a directive exists for the patient, but an actual copy is not included with this document. The data comes from all [place] facilities. Date Advance Directives Provider Source Nov 01, 2017 ADVANCE DIRECTIVE CHIKA RICHARDSON [facility]
--- OUTSIDE RECORDS SUMMARY | 2024-02-02 01:55 | XMS_ITS | Continuity of Care Document ---
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 It does not include entries that were removed or entered in error. Problem Status Onset Date Problem Type Date of Resolution Comments Source Backache Active Condition [facility] Backache (SNOMED CT 116592478) Active Condition [facility] Polyps (ICD-9-CM 211.3) Active Condition [facility] ELD Diverticulosis, Colonic * (ICD-9-CM 562.10) Active Condition [facility] IELD Hearing loss Active Condition [facility] History of colonic polyp Active Condition [facility] Hyperlipidemia Active Condition [facility] ON Hyperlipidemia (SNOMED CT 51006528) Active Condition [facility] Low back pain Active Condition [facility] Osteoarthritis * (ICD-9-CM 715.90) [address] [facility] Osteopenia Active [facility] [place] [facility] PMD Dr. Weaver Active Condition [facility] LD Prediabetes (SNOMED CT 666185442) Active Condition July 16, 2010 Entered By: AUDREY HANEY Comment: 2008 + polyp repeat 5 yrsFeb 2011 Entered By: AUDREY HANEY Comment: 10/2010 colonoscopy + polyps [facility] Tinea pedis Active Condition [facility] Tinnitus Active Condition [facility] Tinnitus * (ICD-9-CM 388.30) Active Condition 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 Medication Details Route Status Patient Instructions Prescription Expires Prescription Number Last Dispense Date Ordering Provider Order Date Order Qty Source ATORVASTATI N CA 40MG TAB TAKE ONE-HALF TABLET BY MOUTH EVERY EVENING ORAL ACTIVE ZOLTAN GOODMAN 2023 [place] CHOLECALCIF AROLDO 25MCG (1,000UNIT) TAB TAKE TWO TABLETS BY MOUTH EVERY MORNING ORAL ACTIVE ZOLTAN GOODMAN 2023 [place] IBUPROFEN 800MG TAB TAKE ONE TABLET BY MOUTH EVERY 8 HOURS NEEDED FOR PAIN ORAL ACTIVE 01/03/2025 [id number] ZOLTAN GOODMAN 2023 21 [place] IBUPROFEN 800MG TAB TAKE ONE TABLET BY MOUTH EVERY 8 HOURS NEEDED FOR PAIN ORAL DISCONT INUED 10/06/2023 [id number] LISA CAMPOS 2023 21 [place] LIDOCAINE 5% PATCH APPLY 2 PATCHES TO SKIN ONCE DAILY FOR PAIN *APPLY BY PRESSING FIRMLY 10-15 SECONDS( KEEP ON UP TO 12HOURS and REMOVE FOR 12HOURS) TRANSD ERMAL 10/06/2023 [id number] LISA CAMPOS 2023 30 [place] LIDOCAINE 5% PATCH APPLY 1 PATCH TO SKIN ONCE DAILY TRANSD ERMAL ACTIVE ZOLTAN GOODMAN 2023 [place] Allergies, Adverse Reactions, Alerts Combined list of allergies from Department of Defense and Veterans Affairs facilities. It does not include entries that were removed or entered in error. Substance Category Reaction Severity Reaction type Status Date Reported Comments Source ATORVASTATIN Propensity to adverse reactions to drug (finding) active 2 [facility] Immunizations Combined list of available immunizations from the Department of Defense and Veterans Affairs facilities. Immunization Series Date Given Administered By Site Reaction Lot Number CVX Code Drug Seat Scooper Machine Status Comments Source COVID-19 (MODERNA), MRNA, LNP-S, PF, 100 MCG/0.5 ML DOSE 2 2020 207 complet ed [facility] COVID-19 (MODERNA), MRNA, LNP-S, PF, 100 MCG/0.5 ML DOSE 1 2020 207 complet ed [facility] DTAP, UNSPECIFIED FORMULATION 2012 107 complet ed Site: Right Deltoid [place] Results Combined list of recent chemistry, hematology and other laboratory results from Department of Defense and Veterans Affairs, ranging from 15 months to all on record, depending upon the facility. Order Name Results Value Reference Range Date Interpretation Specimen Comments Source URINALYS IS,ROUTI NE/ADMIS LETY COLOR OF URINE Light-Ye llow 12/11 Specimen Type: URINE No comment entered. Ordering Provider: MARLENY GOODMAN Report Released Date/Time: Dec 20, 2022 01:42 PM Reporting Lab: [place] [address] Performing Lab: [address] URINALYS IS,ROUTI NE/ADMIS LETY SPECIFIC GRAVITY OF URINE 1.020 1.001 - 1.035 12/11 Specimen Type: URINE No comment entered. Ordering Provider: MARLENY GOODMAN Elidia Report Released Date/Time: Dec 20, 2022 01:42 PM Reporting Lab: [place] [address] Performing Lab: [address] URINALYS IS,ROUTI NE/ADMIS LETY UROBILINOG EN [UNITS/VOL UME] IN URINE NORMALmg /dL 12/11 Specimen Type: URINE No comment entered. Ordering Provider: MARLENY GOODMAN Elidia Report Released Date/Time: Dec 20, 2022 01:42 PM Reporting Lab: [place] [address] Performing Lab: [address] URINALYS IS,ROUTI NE/ADMIS LETY BILIRUBIN. TOTAL [PRESENCE] IN URINE BY TEST STRIP NEGATIVE 12/11 Specimen Type: URINE No comment entered. Ordering Provider: MARLENY GOODMAN Elidia Report Released Date/Time: Dec 20, 2022 01:42 PM Reporting Lab: [place] [address] Performing Lab: [address] URINALYS IS,ROUTI NE/ADMIS LETY KETONES [PRESENCE] IN URINE NEGATIVE 12/11 Specimen Type: URINE No comment entered. Ordering Provider: MARLENY GOODMAN Report Released Date/Time: Dec 20, 2022 01:42 PM Reporting Lab: [place] [address] Performing Lab: [address] URINALYS IS,ROUTI NE/ADMIS LETY GLUCOSE [PRESENCE] IN URINE BY TEST STRIP NEGATIVE 12/11 Specimen Type: URINE No comment entered. Ordering Provider: MARLENY GOODMAN Elidia Report Released Date/Time: Dec 20, 2022 01:42 PM Reporting Lab: [place] [address] Performing Lab: [address] URINALYS IS,ROUTI NE/ADMIS LETY PROTEIN [MASS/VOLU ME] IN URINE BY TEST STRIP NEGATIVE 12/11 Specimen Type: URINE No comment entered. Ordering Provider: MARLENY GOODMAN Report Released Date/Time: Dec 20, 2022 01:42 PM Reporting Lab: [place] [address] Performing Lab: [address] URINALYS IS,ROUTI NE/ADMIS LETY PH OF BODY FLUID 5.5 [pH] 5.0 - 8.0 12/11 Specimen Type: URINE No comment entered. Ordering Provider: MARLENY GOODMAN Report Released Date/Time: Dec 20, 2022 01:42 PM Reporting Lab: [place] [address] Performing Lab: [address] URINALYS IS,ROUTI NE/ADMIS LETY APPEARANCE OF URINE Clear 12/11 Specimen Type: URINE No comment entered. Ordering Provider: MARLENY GOODMAN Report Released Date/Time: Dec 20, 2022 01:42 PM Reporting Lab: [place] [address] Performing Lab: [address] URINALYS IS,ROUTI NE/ADMIS LETY HEMOGLOBIN [PRESENCE] IN URINE BY TEST STRIP NEGATIVE 12/11 Specimen Type: URINE No comment entered. Ordering Provider: MARLENY GOODMAN Report Released Date/Time: Dec 20, 2022 01:42 PM Reporting Lab: [address] Performing Lab: [address] URINALYS IS,ROUTI NE/ADMIS LETY NITRITE [PRESENCE] IN URINE BY TEST STRIP NEGATIVE 12/11 Specimen Type: URINE No comment entered. Ordering Provider: MARLENY GOODMAN Elidia Report Released Date/Time: Dec 20, 2022 01:42 PM Reporting Lab: [place] [address] Performing Lab: [address] URINALYS IS,ROUTI NE/ADMIS LETY LEUKOCYTE ESTERASE [PRESENCE] IN URINE BY TEST STRIP NEGATIVE 12/11 Specimen Type: URINE No comment entered. Ordering Provider: MARLENY GOODMAN Report Released Date/Time: Dec 20, 2022 01:42 PM Reporting Lab: [address] Performing Lab: [address] URINE ALBUMIN, SPOT PROFILE MICROALBUM IN/CREATIN INE [MASS RATIO] IN URINE 5 mg/g{cre at} 0 - 29 12/11 Specimen Type: URINE No comment entered. Ordering Provider: MARLENY GOODMAN Report Released Date/Time: Dec 20, 2022 01:42 PM Reporting Lab: [place] [address] Performing Lab: [address] URINE ALBUMIN, SPOT PROFILE MICROALBUM IN [MASS/VOLU ME] IN URINE 0.6 mg/dL 12/11 Specimen Type: URINE No comment entered. Ordering Provider: MARLENY GOODMAN Report Released Date/Time: Dec 20, 2022 01:42 PM Reporting Lab: [address] Performing Lab: [address] URINE ALBUMIN, SPOT PROFILE CREATININE [MASS/VOLU ME] IN URINE 128.7 mg/dL 20.0 12/11 Specimen Type: URINE No comment entered. Ordering Provider: MARLENY GOODMAN Report Released Date/Time: Dec 20, 2022 01:42 PM Reporting Lab: [facility] [address] [facility] [place] [address] Performing Lab: [address] [id number] [place] [address] CALCIUM PROFILE CALCIUM [MASS/VOLU ME] IN SERUM OR PLASMA 9.0 mg/dL 8.5 - 10.5 12/11 Specimen Type: SERUM Comment: 5.7 - 6.4% Prediabetes >= 6.5% Diabetic range. If the patient has not yet been diagnosed with T2DM, see [facility] Clinical Practice Guideline for Management of T2DM (dated 05/2016) for more guidance. For patients already diagnosed with T2DM, target HbA1c values should be individuali zed using a Shared Decision-Ma bayron process. Ref: https://www .healthqual ity.pr.gov/ guidelines/ CD/diabetes / Values obtained from A1C measurement s can vary. For typical A1C assays, a reported value of 7.0 could actually be between 6.72 and 7.28 if measured by a reference method. A reported value of 9.0 could actually be between 8.73 and 9.27. Ref: [email or web address] [email or web address] Ordering Provider: MARLENY GOODMAN Report Released Date/Time: Dec 20, 2022 01:42 PM Reporting Lab: [address] [address] Performing Lab: [address] [address] [facility] CALCIUM PROFILE PHOSPHATE [MASS/VOLU ME] IN SERUM OR PLASMA 3.1 mg/dL 2.5 - 5.0 12/11 Specimen Type: SERUM Comment: 5.7 - 6.4% Prediabetes >= 6.5% Diabetic range. If the patient has not yet been diagnosed with T2DM, see [facility] Practice Guideline for Management of T2DM (dated 05/2016) for more guidance. For patients already diagnosed with T2DM, target HbA1c values should be individuali zed using a Shared Decision-Ma bayron process. Ref: https://www .healthqual ity.pr.gov/ guidelines/ CD/diabetes / Values obtained from A1C measurement s can vary. For typical A1C assays, a reported value of 7.0 could actually be between 6.72 and 7.28 if measured by a reference method. A reported value of 9.0 could actually be between 8.73 and 9.27. Ref: [email or web address] [email or web address] Ordering Provider: MARLENY GOODMAN Report Released Date/Time: Dec 20, 2022 01:42 PM Reporting Lab: [address] [address] Performing Lab: [address] [address] [facility] CALCIUM PROFILE PROTEIN [MASS/VOLU ME] IN SERUM OR PLASMA 6.1 g/dL 6.0 - 8.5 12/11 Specimen Type: SERUM Comment: 5.7 - 6.4% Prediabetes >= 6.5% Diabetic range. If the patient has not yet been diagnosed with T2DM, see [facility] Practice Guideline for Management of T2DM (dated 05/2016) for more guidance. For patients already diagnosed with T2DM, target HbA1c values should be individuali zed using a Shared Decision-Ma bayron process. Ref: https://www .[facility].pr.gov/ guidelines/ CD/diabetes / Values obtained from A1C measurement s can vary. For typical A1C assays, a reported value of 7.0 could actually be between 6.72 and 7.28 if measured by a reference method. A reported value of 9.0 could actually be between 8.73 and 9.27. Ref: [email or web address] [email or web address] Ordering Provider: MARLENY GOODMAN Report Released Date/Time: Dec 20, 2022 01:42 PM Reporting Lab: [address] [address] Performing Lab: [address] [address] [facility] CALCIUM PROFILE ALBUMIN [MASS/VOLU ME] IN SERUM OR PLASMA 3.7 g/dL 3.5 - 5.0 12/11 Specimen Type: SERUM Comment: 5.7 - 6.4% Prediabetes >= 6.5% Diabetic range. If the patient has not yet been diagnosed with T2DM, see [facility] Practice Guideline for Management of T2DM (dated 05/2016) for more guidance. For patients already diagnosed with T2DM, target HbA1c values should be individuali zed using a Shared Decision-Ma bayron process. Ref: https://www .healthqual ity.va.gov/ guidelines/ CD/diabetes / Values obtained from A1C measurement s can vary. For typical A1C assays, a reported value of 7.0 could actually be between 6.72 and 7.28 if measured by a reference method. A reported value of 9.0 could actually be between 8.73 and 9.27. Ref: [email or web address] [email or web address] Ordering Provider: MARLENY GOODMAN Report Released Date/Time: Dec 20, 2022 01:42 PM Reporting Lab: [place] [address] Performing Lab: [address] CBC W/ AUTO DIFF LEUKOCYTES [#/VOLUME] IN BLOOD BY AUTOMATED COUNT 5.2 10*3/uL 4.5 - 11.0 12/11 Specimen Type: BLOOD No comment entered. Ordering Provider: MARLENY GOODMAN Report Released Date/Time: Dec 20, 2022 01:42 PM Reporting Lab: [address] [address] Performing Lab: [address] CBC W/ AUTO DIFF ERYTHROCYT ES [#/VOLUME] IN BLOOD BY AUTOMATED COUNT 4.70 10*6/uL 4.23 - 5.66 12/11 Specimen Type: BLOOD No comment entered. Ordering Provider: MARLENY GOODMAN Report Released Date/Time: Dec 20, 2022 01:42 PM Reporting Lab: [address] [address] Performing Lab: [address] CBC W/ AUTO DIFF HEMOGLOBIN [MASS/VOLU ME] IN ARTERIAL BLOOD 13.7 g/dL 12.8 - 17.0 12/11 Specimen Type: BLOOD No comment entered. Ordering Provider: MARLENY GOODMAN Elidia Report Released Date/Time: Dec 20, 2022 01:42 PM Reporting Lab: [address] [address] Performing Lab: [address] CBC W/ AUTO DIFF HEMATOCRIT [VOLUME FRACTION] OF BLOOD BY AUTOMATED COUNT 42.2 39.2 - 50.4 12/11 Specimen Type: BLOOD No comment entered. Ordering Provider: MARLENY GOODMAN Report Released Date/Time: Dec 20, 2022 01:42 PM Reporting Lab: [place] [address] Performing Lab: [address] CBC W/ AUTO DIFF MCV [ENTITIC VOLUME] BY AUTOMATED COUNT 90 fL 82 - 99 12/11 Specimen Type: BLOOD No comment entered. Ordering Provider: MARLENY GOODMAN Report Released Date/Time: Dec 20, 2022 01:42 PM Reporting Lab: [place] [address] Performing Lab: [address] CBC W/ AUTO DIFF MCH [ENTITIC MASS] BY AUTOMATED COUNT 29.1 pg 26.2 - 32.6 12/11 Specimen Type: BLOOD No comment entered. Ordering Provider: MARLENY GOODMAN Report Released Date/Time: Dec 20, 2022 01:42 PM Reporting Lab: [place] [address] Performing Lab: [address] CBC W/ AUTO DIFF MCHC [MASS/VOLU ME] BY AUTOMATED COUNT 32.5 g/dL 30.8 - 35.1 12/11 Specimen Type: BLOOD No comment entered. Ordering Provider: MARLENY GOODMAN Report Released Date/Time: Dec 20, 2022 01:42 PM Reporting Lab: [place] [address] Performing Lab: [address] CBC W/ AUTO DIFF PLATELETS [#/VOLUME] IN BLOOD BY AUTOMATED COUNT 221 10*3/uL 140 - 360 12/11 Specimen Type: BLOOD No comment entered. Ordering Provider: MARLENY GOODMAN Report Released Date/Time: Dec 20, 2022 01:42 PM Reporting Lab: [place] [address] Performing Lab: [place] [phone] [place] [address] CBC W/ AUTO DIFF PLATELET MEAN VOLUME [ENTITIC VOLUME] IN BLOOD BY AUTOMATED COUNT 10.1 fL 9.2 - 12.4 12/11 Specimen Type: BLOOD No comment entered. Ordering Provider: MARLENY GOODMAN Report Released Date/Time: Dec 20, 2022 01:42 PM Reporting Lab: [place] [address] Performing Lab: [address] CBC W/ AUTO DIFF ERYTHROCYT E DISTRIBUTI ON WIDTH [RATIO] BY AUTOMATED COUNT 13 12 - 16 12/11 Specimen Type: BLOOD No comment entered. Ordering Provider: MARLENY GOODMAN Report Released Date/Time: Dec 20, 2022 01:42 PM Reporting Lab: [place] [address] Performing Lab: [address] CBC W/ AUTO DIFF LYMPHOCYTE S/100 LEUKOCYTES IN BLOOD BY AUTOMATED COUNT 24.3 14.0 - 42.3 12/11 Specimen Type: BLOOD No comment entered. Ordering Provider: MARLENY GOODMAN Report Released Date/Time: Dec 20, 2022 01:42 PM Reporting Lab: [place] [address] Performing Lab: [address] CBC W/ AUTO DIFF NEUTROPHIL S/100 LEUKOCYTES IN BLOOD BY AUTOMATED COUNT 62.9 43.7 - 75.8 12/11 Specimen Type: BLOOD No comment entered. Ordering Provider: MARLENY GOODMAN Report Released Date/Time: Dec 20, 2022 01:42 PM Reporting Lab: [address] Performing Lab: [address] CBC W/ AUTO DIFF MONOCYTES/ 100 LEUKOCYTES IN BLOOD BY AUTOMATED COUNT 8.0 5.1 - 13.7 12/11 Specimen Type: BLOOD No comment entered. Ordering Provider: MARLENY GOODMAN Report Released Date/Time: Dec 20, 2022 01:42 PM Reporting Lab: [place] [address] Performing Lab: [address] CBC W/ AUTO DIFF EOSINOPHIL S/100 LEUKOCYTES IN BLOOD BY AUTOMATED COUNT 3.6 0.4 - 6.8 12/11 Specimen Type: BLOOD No comment entered. Ordering Provider: MARLENY GOODMAN Report Released Date/Time: Dec 20, 2022 01:42 PM Reporting Lab: [place] [address] Performing Lab: [address] CBC W/ AUTO DIFF BASOPHILS/ 100 LEUKOCYTES IN BLOOD BY AUTOMATED COUNT 1.0 0.1 - 2.0 12/11 Specimen Type: BLOOD No comment entered. Ordering Provider: MARLENY GOODMAN Report Released Date/Time: Dec 20, 2022 01:42 PM Reporting Lab: [place] [address] Performing Lab: [address] CBC W/ AUTO DIFF LYMPHOCYTE S [#/VOLUME] IN BLOOD BY AUTOMATED COUNT 1.3 10*3/uL 1.0 - 3.2 12/11 Specimen Type: BLOOD No comment entered. Ordering Provider: MARLENY GOODMAN Report Released Date/Time: Dec 20, 2022 01:42 PM Reporting Lab: [place] [address] Performing Lab: [address] CBC W/ AUTO DIFF NEUTROPHIL S [#/VOLUME] IN BLOOD BY AUTOMATED COUNT 3.3 10*3/uL 2.2 - 7.6 12/11 Specimen Type: BLOOD No comment entered. Ordering Provider: MARLENY GOODMAN Report Released Date/Time: Dec 20, 2022 01:42 PM Reporting Lab: [place] [address] Performing Lab: [address] CBC W/ AUTO DIFF IMMATURE GRANULOCYT ES/100 LEUKOCYTES IN BLOOD BY AUTOMATED COUNT 0.2 0.0 - 0.7 12/11 Specimen Type: BLOOD No comment entered. Ordering Provider: MARLENY GOODMAN Report Released Date/Time: Dec 20, 2022 01:42 PM Reporting Lab: [address] [address] Performing Lab: [address] [address] [facility] CBC W/ AUTO DIFF NUCLEATED ERYTHROCYT ES/100 LEUKOCYTES [RATIO] IN BLOOD BY AUTOMATED COUNT 0.0 /100{WBC s} 0.0 - 0.0 12/11 Specimen Type: BLOOD No comment entered. Ordering Provider: MARLENY GOODMAN Elidia Report Released Date/Time: Dec 20, 2022 01:42 PM Reporting Lab: [address] [address] Performing Lab: [address] [address] [facility] CHEM 7 CREATININE [MASS/VOLU ME] IN SERUM OR PLASMA 0.75 mg/dL 0.5 - 1.5 12/11 Specimen Type: SERUM Comment: 5.7 - 6.4% Prediabetes >= 6.5% Diabetic range. If the patient has not yet been diagnosed with T2DM, see [facility] Guideline for Management of T2DM (dated 05/2016) for more guidance. For patients already diagnosed with T2DM, target HbA1c values should be individuali zed using a Shared Decision-Ma bayron process. Ref: https://www .healthqual ity.va.gov/ guidelines/ CD/diabetes / Values obtained from A1C measurement s can vary. For typical A1C assays, a reported value of 7.0 could actually be between 6.72 and 7.28 if measured by a reference method. A reported value of 9.0 could actually be between 8.73 and 9.27. Ref: [email or web address] Ordering Provider: MARLENY GOODMAN Report Released Date/Time: Dec 20, 2022 01:42 PM Reporting Lab: [address] [address] Performing Lab: [address] [address] [facility] CHEM 7 UREA NITROGEN [MASS/VOLU ME] IN SERUM OR PLASMA 8 mg/dL 7 - 25 12/11 Specimen Type: SERUM Comment: 5.7 - 6.4% Prediabetes >= 6.5% Diabetic range. If the patient has not yet been diagnosed with T2DM, see [facility] Clinical Practice Guideline for Management of T2DM (dated 05/2016) for more guidance. For patients already diagnosed with T2DM, target HbA1c values should be individuali zed using a Shared Decision-Ma bayron process. Ref: https://www .[facility] it[facility].pr.gov/ guidelines/ CD/diabetes / Values obtained from A1C measurement s can vary. For typical A1C assays, a reported value of 7.0 could actually be between 6.72 and 7.28 if measured by a reference method. A reported value of 9.0 could actually be between 8.73 and 9.27. Ref: [email or web address] Ordering Provider: MARLENY GOODMAN Report Released Date/Time: Dec 20, 2022 01:42 PM Reporting Lab: [address] [address] Performing Lab: [address] [address] [employer] [employer] CHEM 7 GLUCOSE [MASS/VOLU ME] IN SERUM OR PLASMA 115 mg/dL 65 - 100 12/11 H Specimen Type: SERUM Comment: 5.7 - 6.4% Prediabetes >= 6.5% Diabetic range. If the patient has not yet been diagnosed with T2DM, see [facility] Practice Guideline for Management of T2DM (dated 05/2016) for more guidance. For patients already diagnosed with T2DM, target HbA1c values should be individuali zed using a Shared Decision-Ma bayron process. Ref: https://www .[facility] it[facility].pr.gov/ guidelines/ CD/diabetes / Values obtained from A1C measurement s can vary. For typical A1C assays, a reported value of 7.0 could actually be between 6.72 and 7.28 if measured by a reference method. A reported value of 9.0 could actually be between 8.73 and 9.27. Ref: [email or web address] Ordering Provider: MARLENY GOODMAN Report Released Date/Time: Dec 20, 2022 01:42 PM Reporting Lab: [address] [address] Performing Lab: [address] [address] [employer] [employer] [facility] CHEM 7 SODIUM [MOLES/VOL UME] IN SERUM OR PLASMA 141 mmol/L 135 - 145 12/11 Specimen Type: SERUM Comment: 5.7 - 6.4% Prediabetes >= 6.5% Diabetic range. If the patient has not yet been diagnosed with T2DM, see [facility] Clinical Practice Guideline for Management of T2DM (dated 05/2016) for more guidance. For patients already diagnosed with T2DM, target HbA1c values should be individuali zed using a Shared Decision-Ma bayron process. Ref: https://www .healthqual ity.pr.gov/ guidelines/ CD/diabetes / Values obtained from A1C measurement s can vary. For typical A1C assays, a reported value of 7.0 could actually be between 6.72 and 7.28 if measured by a reference method. A reported value of 9.0 could actually be between 8.73 and 9.27. Ref: [email or web address] Ordering Provider: MARLENY GOODMAN Report Released Date/Time: Dec 20, 2022 01:42 PM Reporting Lab: [address] [address] Performing Lab: [address] [address] [facility] CHEM 7 POTASSIUM [MOLES/VOL UME] IN SERUM OR PLASMA 4.3 mmol/L 3.5 - 5.0 12/11 Specimen Type: SERUM Comment: 5.7 - 6.4% Prediabetes >= 6.5% Diabetic range. If the patient has not yet been diagnosed with T2DM, see [facility] Clinical Practice Guideline for Management of T2DM (dated 05/2016) for more guidance. For patients already diagnosed with T2DM, target HbA1c values should be individuali zed using a Shared Decision-Ma bayron process. Ref: https://www .[facility].pr.gov/ guidelines/ CD/diabetes / Values obtained from A1C measurement s can vary. For typical A1C assays, a reported value of 7.0 could actually be between 6.72 and 7.28 if measured by a reference method. A reported value of 9.0 could actually be between 8.73 and 9.27. Ref: [email or web address] [email or web address] Ordering Provider: MARLENY GOODMAN Report Released Date/Time: Dec 20, 2022 01:42 PM Reporting Lab: [address] [address] Performing Lab: [address] [address] [place] CHEM 7 CHLORIDE [MOLES/VOL UME] IN SERUM OR PLASMA 110 mmol/L 100 - 110 12/11 Specimen Type: SERUM Comment: 5.7 - 6.4% Prediabetes >= 6.5% Diabetic range. If the patient has not yet been diagnosed with T2DM, see [facility] Clinical Practice Guideline for Management of T2DM (dated 05/2016) for more guidance. For patients already diagnosed with T2DM, target HbA1c values should be individuali zed using a Shared Decision-Ma bayron process. Ref: https://www .healthqual ity.va.gov/ guidelines/ CD/diabetes / Values obtained from A1C measurement s can vary. For typical A1C assays, a reported value of 7.0 could actually be between 6.72 and 7.28 if measured by a reference method. A reported value of 9.0 could actually be between 8.73 and 9.27. Ref: [email or web address] Ordering Provider: MARLENY GOODMAN Report Released Date/Time: Dec 20, 2022 01:42 PM Reporting Lab: [address] [address] Performing Lab: [address] [address] [facility] CHEM 7 CARBON DIOXIDE, TOTAL [MOLES/VOL UME] IN SERUM OR PLASMA 24 meq/L 20 - 30 12/11 Specimen Type: SERUM Comment: 5.7 - 6.4% Prediabetes >= 6.5% Diabetic range. If the patient has not yet been diagnosed with T2DM, see [facility] Guideline for Management of T2DM (dated 05/2016) for more guidance. For patients already diagnosed with T2DM, target HbA1c values should be individuali zed using a Shared Decision-Ma bayron process. Ref: https://www .healthqual ity.va.gov/ guidelines/ CD/diabetes / Values obtained from A1C measurement s can vary. For typical A1C assays, a reported value of 7.0 could actually be between 6.72 and 7.28 if measured by a reference method. A reported value of 9.0 could actually be between 8.73 and 9.27. Ref: [email or web address] Ordering Provider: MARLENY GOODMAN Report Released Date/Time: Dec 20, 2022 01:42 PM Reporting Lab: [address] [address] Performing Lab: [address] [address] [place] CHEM 7 ANION GAP IN SERUM OR PLASMA 7 meq/L 6 - 16 12/11 Specimen Type: SERUM Comment: 5.7 - 6.4% Prediabetes >= 6.5% Diabetic range. If the patient has not yet been diagnosed with T2DM, see [facility] Guideline for Management of T2DM (dated 05/2016) for more guidance. For patients already diagnosed with T2DM, target HbA1c values should be individuali zed using a Shared Decision-Jessica verma process. Ref: https://www .[employer].al ity.pr.gov/ guidelines/ CD/diabetes / Values obtained from A1C measurement s can vary. For typical A1C assays, a reported value of 7.0 could actually be between 6.72 and 7.28 if measured by a reference method. A reported value of 9.0 could actually be between 8.73 and 9.27. Ref: [email or web address] Ordering Provider: MARLENY GOODMAN Report Released Date/Time: Dec 20, 2022 01:42 PM Reporting Lab: [address] [address] Performing Lab: [address] [address] [facility] CHEM 7 GLOMERULAR FILTRATION RATE/1.73 SQ M.PREDICTE D [VOLUME RATE/AREA] IN SERUM, PLASMA OR BLOOD BY CREATININE -BASED FORMULA (CKD-EPI 2020) >90mL/mi n 60 12/11 Specimen Type: SERUM Comment: 5.7 - 6.4% Prediabetes >= 6.5% Diabetic range. If the patient has not yet been diagnosed with T2DM, see [facility] Guideline for Management of T2DM (dated 05/2016) for more guidance. For patients already diagnosed with T2DM, target HbA1c values should be individuali zed using a Shared Decision-Jessica verma process. Ref: https://www .[employer].al ity.pr.gov/ guidelines/ CD/diabetes / Values obtained from A1C measurement s can vary. For typical A1C assays, a reported value of 7.0 could actually be between 6.72 and 7.28 if measured by a reference method. A reported value of 9.0 could actually be between 8.73 and 9.27. Ref: [email or web address] Ordering Provider: MARLENY GOODMAN Report Released Date/Time: Dec 20, 2022 01:42 PM Reporting Lab: [address] [address] Performing Lab: [address] [address] [facility] HEP B SURF AB HEPATITIS B VIRUS SURFACE AB [PRESENCE] IN SERUM BY IMMUNOASSA Y GRAYZONE 12/11 Specimen Type: SERUM Comment: Hepatitis C Ab: No HCV antibody detected. If recent infection is suspected or other evidence suggests HCV infection, consider HCV nucleic acid testing. HIV Ab/ P24 Ag Combo: A 'Nonreactiv e' result does not exclude acute infection. If acute HIV is suspected, consider HIV viral load testing. Hep B Surface Ab: The immune status of the individual should be further assessed by considering other factors, such as clinical status, follow-up testing, associated risk factors and use of additional diagnostic information . Ordering Provider: MARLENY GOODMAN Report Released Date/Time: Dec 20, 2022 01:42 PM Reporting Lab: [address] [address] Performing Lab: [address] [address] [facility] HEPATITI S C Ab HEPATITIS C VIRUS AB [PRESENCE] IN SERUM OR PLASMA BY IMMUNOASSA Y Non Reactive 12/11 Specimen Type: SERUM Comment: Hepatitis C Ab: No HCV antibody detected. If recent infection is suspected or other evidence suggests HCV infection, consider HCV nucleic acid testing. HIV Ab/ P24 Ag Combo: A 'Nonreactiv e' result does not exclude acute infection. If acute HIV is suspected, consider HIV viral load testing. Ordering Provider: MARLENY GOODMAN Report Released Date/Time: Dec 20, 2022 01:42 PM Reporting Lab: [address] [address] Performing Lab: [address] [address] [facility] HIV AB/ P24 AG COMBO(HI V SCREEN) HIV 1+2 AB [PRESENCE] IN SERUM Non Reactive 12/11 Specimen Type: SERUM Comment: Hepatitis C Ab: No HCV antibody detected. If recent infection is suspected or other evidence suggests HCV infection, consider HCV nucleic acid testing. HIV Ab/ P24 Ag Combo: A 'Nonreactiv e' result does not exclude acute infection. If acute HIV is suspected, consider HIV viral load testing. Ordering Provider: MARLENY GOODMAN Report Released Date/Time: Dec 20, 2022 01:42 PM Reporting Lab: [facility] [address] [facility] [address] Performing Lab: [facility] [address] [facility] [address] [facility] LIPOPROT EIN PROFILE CHOLESTERO L [MASS/VOLU ME] IN SERUM OR PLASMA 128 mg/dL 0 - 199 12/11 Specimen Type: SERUM Comment: 5.7 - 6.4% Prediabetes >= 6.5% Diabetic range. If the patient has not yet been diagnosed with T2DM, see [facility] Guideline for Management of T2DM (dated 05/2016) for more guidance. For patients already diagnosed with T2DM, target HbA1c values should be individuali zed using a Shared Decision-Ma bayron process. Ref: https://www .healthqual ity.va.gov/ guidelines/ CD/diabetes / Values obtained from A1C measurement s can vary. For typical A1C assays, a reported value of 7.0 could actually be between 6.72 and 7.28 if measured by a reference method. A reported value of 9.0 could actually be between 8.73 and 9.27. Ref: [email or web address] Ordering Provider: MARLENY GOODMAN Report Released Date/Time: Dec 20, 2022 01:42 PM Reporting Lab: [address] [address] Performing Lab: [address] [address] [facility] LIPOPROT EIN PROFILE TRIGLYCERI DE [MASS/VOLU ME] IN SERUM OR PLASMA 51 mg/dL 0 - 199 12/11 Specimen Type: SERUM Comment: 5.7 - 6.4% Prediabetes >= 6.5% Diabetic range. If the patient has not yet been diagnosed with T2DM, see [facility] Guideline for Management of T2DM (dated 05/2016) for more guidance. For patients already diagnosed with T2DM, target HbA1c values should be individuali zed using a Shared Decision-Ma bayron process. Ref: https://www .[facility].pr.gov/ guidelines/ CD/diabetes / Values obtained from A1C measurement s can vary. For typical A1C assays, a reported value of 7.0 could actually be between 6.72 and 7.28 if measured by a reference method. A reported value of 9.0 could actually be between 8.73 and 9.27. Ref: [email or web address] Ordering Provider: MARLENY GOODMAN Report Released Date/Time: Dec 20, 2022 01:42 PM Reporting Lab: [address] [address] Performing Lab: [address] [address] [facility] LIPOPROT EIN PROFILE CHOLESTERO L IN HDL [MASS/VOLU ME] IN SERUM OR PLASMA 45 mg/dL 40 12/11 Specimen Type: SERUM Comment: 5.7 - 6.4% Prediabetes >= 6.5% Diabetic range. If the patient has not yet been diagnosed with T2DM, see [facility] Guideline for Management of T2DM (dated 05/2016) for more guidance. For patients already diagnosed with T2DM, target HbA1c values should be individuali zed using a Shared Decision-Ma bayron process. Ref: https://www .[facility] it[facility].pr.gov/ guidelines/ CD/diabetes / Values obtained from A1C measurement s can vary. For typical A1C assays, a reported value of 7.0 could actually be between 6.72 and 7.28 if measured by a reference method. A reported value of 9.0 could actually be between 8.73 and 9.27. Ref: [email or web address] Ordering Provider: MARLENY GOODMAN Report Released Date/Time: Dec 20, 2022 01:42 PM Reporting Lab: [address] [address] Performing Lab: [address] [address] [facility] LIPOPROT EIN PROFILE CHOLESTERO L IN LDL [MASS/VOLU ME] IN SERUM OR PLASMA 73 mg/dL 0 - 129 12/11 Specimen Type: SERUM Comment: 5.7 - 6.4% Prediabetes >= 6.5% Diabetic range. If the patient has not yet been diagnosed with T2DM, see [facility] Guideline for Management of T2DM (dated 05/2016) for more guidance. For patients already diagnosed with T2DM, target HbA1c values should be individuali zed using a Shared Decision-Ma bayron process. Ref: https://www .healthqual ity.pr.gov/ guidelines/ CD/diabetes / Values obtained from A1C measurement s can vary. For typical A1C assays, a reported value of 7.0 could actually be between 6.72 and 7.28 if measured by a reference method. A reported value of 9.0 could actually be between 8.73 and 9.27. Ref: [email or web address] Ordering Provider: MARLENY GOODMAN Report Released Date/Time: Dec 20, 2022 01:42 PM Reporting Lab: [address] [address] Performing Lab: [address] [address] [facility] LIVER PROFILE ALBUMIN [MASS/VOLU ME] IN SERUM OR PLASMA 3.7 g/dL 3.5 - 5.0 12/11 Specimen Type: SERUM Comment: 5.7 - 6.4% Prediabetes >= 6.5% Diabetic range. If the patient has not yet been diagnosed with T2DM, see [facility] Guideline for Management of T2DM (dated 05/2016) for more guidance. For patients already diagnosed with T2DM, target HbA1c values should be individuali zed using a Shared Decision-Ma bayron process. Ref: https://www .[facility].pr.gov/ guidelines/ CD/diabetes / Values obtained from A1C measurement s can vary. For typical A1C assays, a reported value of 7.0 could actually be between 6.72 and 7.28 if measured by a reference method. A reported value of 9.0 could actually be between 8.73 and 9.27. Ref: [email or web address] Ordering Provider: MARLENY GOODMAN Report Released Date/Time: Dec 20, 2022 01:42 PM Reporting Lab: [address] [address] Performing Lab: [address] [address] [facility] LIVER PROFILE BILIRUBIN. TOTAL [MASS/VOLU ME] IN SERUM OR PLASMA 1.0 mg/dL 0.2 - 1.2 12/11 Specimen Type: SERUM Comment: 5.7 - 6.4% Prediabetes >= 6.5% Diabetic range. If the patient has not yet been diagnosed with T2DM, see [facility] Guideline for Management of T2DM (dated 05/2016) for more guidance. For patients already diagnosed with T2DM, target HbA1c values should be individuali zed using a Shared Decision-Ma bayron process. Ref: https://www .healthqual ity.va.gov/ guidelines/ CD/diabetes / Values obtained from A1C measurement s can vary. For typical A1C assays, a reported value of 7.0 could actually be between 6.72 and 7.28 if measured by a reference method. A reported value of 9.0 could actually be between 8.73 and 9.27. Ref: [email or web address] Ordering Provider: MARLENY GOODMAN [facility] Elidia Report Released Date/Time: Dec 20, 2022 01:42 PM Reporting Lab: [address] [address] Performing Lab: [address] [address] [facility] LIVER PROFILE BILIRUBIN. DIRECT [MASS/VOLU ME] IN SERUM OR PLASMA 0.4 mg/dL 0.0 - 0.5 12/11 Specimen Type: SERUM Comment: 5.7 - 6.4% Prediabetes >= 6.5% Diabetic range. If the patient has not yet been diagnosed with T2DM, see [facility] Guideline for Management of T2DM (dated 05/2016) for more guidance. For patients already diagnosed with T2DM, target HbA1c values should be individuali zed using a Shared Decision-Ma bayron process. Ref: https://www .[employer] ity.pr.gov/ guidelines/ CD/diabetes / Values obtained from A1C measurement s can vary. For typical A1C assays, a reported value of 7.0 could actually be between 6.72 and 7.28 if measured by a reference method. A reported value of 9.0 could actually be between 8.73 and 9.27. Ref: [email or web address] Ordering Provider: MARLENY GOODMAN Report Released Date/Time: Dec 20, 2022 01:42 PM Reporting Lab: [address] [address] Performing Lab: [phone] [place] [address] LIVER PROFILE ALKALINE PHOSPHATAS E [ENZYMATIC ACTIVITY/V OLUME] IN SERUM OR PLASMA 67 U/L 40 - 150 12/11 Specimen Type: SERUM Comment: 5.7 - 6.4% Prediabetes >= 6.5% Diabetic range. If the patient has not yet been diagnosed with T2DM, see [facility] Practice Guideline for Management of T2DM (dated 05/2016) for more guidance. For patients already diagnosed with T2DM, target HbA1c values should be individuali zed using a Shared Decision-Ma bayron process. Ref: https://www .healthqual ity.pr.gov/ guidelines/ CD/diabetes / Values obtained from A1C measurement s can vary. For typical A1C assays, a reported value of 7.0 could actually be between 6.72 and 7.28 if measured by a reference method. A reported value of 9.0 could actually be between 8.73 and 9.27. Ref: [email or web address] Ordering Provider: MARLENY GOODMAN Report Released Date/Time: Dec 20, 2022 01:42 PM Reporting Lab: [address] [address] Performing Lab: [address] [address] [facility] LIVER PROFILE ALANINE AMINOTRANS FERASE [ENZYMATIC ACTIVITY/V OLUME] IN SERUM OR PLASMA 34 U/L 7 - 52 12/11 Specimen Type: SERUM Comment: 5.7 - 6.4% Prediabetes >= 6.5% Diabetic range. If the patient has not yet been diagnosed with T2DM, see [facility] Guideline for Management of T2DM (dated 05/2016) for more guidance. For patients already diagnosed with T2DM, target HbA1c values should be individuali zed using a Shared Decision-Ma bayron process. Ref: https://www .healthqual ity.pr.gov/ guidelines/ CD/diabetes / Values obtained from A1C measurement s can vary. For typical A1C assays, a reported value of 7.0 could actually be between 6.72 and 7.28 if measured by a reference method. A reported value of 9.0 could actually be between 8.73 and 9.27. Ref: [email or web address] Ordering Provider: MARLENY GOODMAN Report Released Date/Time: Dec 20, 2022 01:42 PM Reporting Lab: [address] [address] Performing Lab: [address] [address] [facility] LIVER PROFILE ASPARTATE AMINOTRANS FERASE [ENZYMATIC ACTIVITY/V OLUME] IN SERUM OR PLASMA 25 U/L 5 - 40 12/11 Specimen Type: SERUM Comment: 5.7 - 6.4% Prediabetes >= 6.5% Diabetic range. If the patient has not yet been diagnosed with T2DM, see [facility] Guideline for Management of T2DM (dated 05/2016) for more guidance. For patients already diagnosed with T2DM, target HbA1c values should be individuali zed using a Shared Decision-Jessica verma process. Ref: https://www .healthqual ity.va.gov/ guidelines/ CD/diabetes / Values obtained from A1C measurement s can vary. For typical A1C assays, a reported value of 7.0 could actually be between 6.72 and 7.28 if measured by a reference method. A reported value of 9.0 could actually be between 8.73 and 9.27. Ref: [email or web address] Ordering Provider: MARLENY GOODMAN Report Released Date/Time: Dec 20, 2022 01:42 PM Reporting Lab: [address] [address] Performing Lab: [address] [address] [facility] Vital Signs Combined list of inpatient and outpatient Vital Signs from Department of Defense and Veterans Affairs, ranging from 12 months to all on record, depending upon the facility. Vital Sign Value Date Comments Source SYSTOLIC BLOOD PRESSURE 119 12/12/2023 10:57:24 [place] DIASTOLIC BLOOD PRESSURE 72 12/12/2023 10:57:24 [place] PULSE OXIMETRY 99 12/12/2023 10:57:24 [place] WEIGHT 187 12/12/2023 10:57:24 [place] BMI 28kg/m2 12/12/2023 10:57:24 [place] PAIN 8 12/12/2023 10:57:24 [place] TEMPERATURE 97 12/12/2023 10:57:24 [place] [facility] PULSE 58 12/12/2023 10:57:24 [place] RESPIRATION 18 12/12/2023 10:57:24 [place] [facility] SYSTOLIC BLOOD PRESSURE 132 11/29/2023 11:27:39 [place] DIASTOLIC BLOOD PRESSURE 50 11/29/2023 11:27:39 [place] PULSE OXIMETRY 99 11/29/2023 11:27:39 [place] WEIGHT 189 11/29/2023 11:27:39 [place] BMI 28kg/m2 11/29/2023 11:27:39 [place] PAIN 7 11/29/2023 11:27:39 [place] HEIGHT 69 11/29/2023 11:27:39 [place] TEMPERATURE 98.2 11/29/2023 11:27:39 [place] PULSE 43 11/29/2023 11:27:39 [place] RESPIRATION 18 11/29/2023 11:27:39 [place] SYSTOLIC BLOOD PRESSURE 117 09/06/2023 14:06:00 [place] DIASTOLIC BLOOD PRESSURE 72 09/06/2023 14:06:00 [place] PAIN 8 09/06/2023 14:06:00 [place] TEMPERATURE 97.8 09/06/2023 14:06:00 [place] PULSE 57 09/06/2023 14:06:00 [place] RESPIRATION 16 09/06/2023 14:06:00 [facility] Encounters Combined list of: 1) Encounters from Department of Veterans Affairs facilities going back up to thelast 18 months. 2) Encounters from the Department of Defense facilities going back up to 280 months. 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
JUSTIN GOODMAN 12/20 [place] [facility] O/P EST MOD 30 MIN [id number] Diagnos is: ICD-10- CM H40.013 Open angle with borderl ine finding s, low risk, bilater al
YENY MARCOS 08/29 [place] [facility] Outpatient Encounter [id number] 09/05 [facility] NURSING ASSESSMENT /EVALUATN [id number] Diagnos is: ICD-10- CM M54.50 Low back pain, unspeci fied
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
JUSTIN GOODMAN 12/11 [place] [facility] Outpatient Encounter [id number] 01/02 [facility] Outpatient Encounter [id number] 01/05 [facility] Outpatient Encounter [id number] 01/15 [facility] Social History Combined list of available smoking, tobacco, and other social history from Department of Defense and Veterans Affairs facilities. Social History Type Response Date Comment [facility] e Tobacco smoking status [facility] VA-TOBACCO NEVER USED 11/29/2023 [facility] History of tobacco use [facility]-TO[facility]AC[facility] NEVER USED 12/20/2022 [facility] History of tobacco use [facility] FORMER US[facility] 11/05/2021 [facility] History of tobacco use [facility] NEVER USED 10/09/2020 [facility] History of tobacco use QUIT TOBACCO USE > 7 YEARS AGO 09/19/2017 quit 30 yeasr ago [facility] History of tobacco use QUIT TOBACCO USE > 7 YEARS AGO 07/15/2015 quit 30 yrs ago [facility] History of tobacco use QUIT TOBACCO USE > 7 YEARS AGO 09/03/2008 [facility] Advance Directives List of completed, amended, or rescinded Advance Directives on record at Department of Veterans Affairs facilities. An actual copy of the Directive is not included. Date Advance Directive Provider Source 11/01/2017 ADVANCE DIRECTIVE CHIKA RICHARDSON [facility]
--- OUTSIDE RECORDS SUMMARY | 2024-02-02 01:55 | XMS_ITS | Encounter Summary ---
Author Name [facility] [facility] [place] [facility] [place] Address [address] [place] [address] Care Team Providers Care Director Of Financial Aid Name Role Phone WASHINGTON GOODMAN Primary Care Provider ANGUS Castillo Primary [...] BASIC SELF+ ONE Feb 22, 2020 113 [id number] [phone] SUHAIL BOLDEN SR PATIENT ISAAC BCBS CT FEDERAL PREFERRED PROVIDER ORGANIZAT ION (PPO) BASIC SELF Feb 27, 2005 111 [id number] [phone] SUHAIL BOLDEN SR PATIENT BCBS [place] FEP PREFERRED PROVIDER ORGANIZAT ION (PPO) BASIC SELF PLUS ONE Feb 22, 2020 113 [id number] SUHAIL BOLDEN SR PATIENT BCBS JESSICA FEP PREFERRED PROVIDER ORGANIZAT ION (PPO) BASIC INDIV IDUAL Feb 27, 2005 111 [id number] [phone] SUHAIL BOLDEN SR PATIENT CAREMARK FEPRX PLAN PRESCRIPT ION KELSEY ARK FEPRX Feb 21, 2010 [id number] SUHAIL BOLDEN SR PATIENT DANGELO-F EP BCBS PRESCRIPT ION FEP CAREM ARK Feb 21, 2010 [id number] SUHAIL BOLDEN SR PATIENT Selected Encounter This section includes the information on record at [place] for the Encounter. Date/Time Encounter Type Encounter Description Reason Pro vider Source Jan 03, 2024 07:09 AM Outpatient Encounter ADMIN PAT ACTIVTIES (MASNONCT) IHE Encounter Template Text not used by [facility] Lab Results: +/- 30 days of the encounter This section includes the Chemistry and Hematology Lab Results on record with [facility] for the patient. Radiology Reports and Pathology Reports are provided separately, in subsequent sections. Lab Results This section contains the Chemistry/Hematology Results that were resulted 30 days before or 30 daysafter the date of the Encounter. Date/Time Source Result Type Result - Unit Interpretation Reference Range Comment Dec 12, 2023 01:55 PM [facility] URINE ALBUMIN, SPOT PROFILE Specimen Ty pe: URINE No comment entered. Ordering Provider: WASHINGTON GOODMAN Report Released Date/Time: Dec 20, 2022 01:42 PM Reporting Lab: [address] [address] Performing Lab: [address] [address] Urine ALB/CRE,SPOT-R ATIO 5 mg/g{creat} 0-29 Urine ALBUMIN,SPOT-Q NT 0.6 mg/dL CREATININE, URINE RANDOM 128.7 mg/dL >=20.0 Dec 12, 2023 01:55 PM [facility] URINALYSIS,ROUTINE/ADMISSION Specimen T ype: URINE No comment entered. Ordering Provider: WASHINGTON GOODMAN Report Released Date/Time: Dec 20, 2022 01:42 PM Reporting Lab: [address] [address] Performing Lab: [address] [address] URINE COLOR Light-Yellow YELLOW SPECIFIC GRAVITY 1.020 1.001-1.035 UROBILINOGEN NORMAL mg/dL NORMAL URINE BILIRUBIN NEGATIVE Neg URINE KETONES NEGATIVE Neg URINE GLUCOSE NEGATIVE Neg URINE PROTEIN NEGATIVE Neg URINE pH 5.5 [pH] 5.0-8.0 APPEARANCE Clear CLEAR URINE BLOOD NEGATIVE Neg NITRITE, URINE NEGATIVE Neg LEUKOCYTE ESTERASE NEGATIVE Neg Dec 12, 2023 10:45 AM [facility] HEP B SURF AB Specimen Type: SERUM [...] use of additional diagnostic information. Ordering Provider: WASHINGTON GOODMAN Report Released Date/Time: Dec 20, 2022 01:42 PM Reporting Lab: [address] [address] Performing Lab: [address] [address] HEP B SURF AB GRAYZONE Non Reactive Dec 12, 2023 10:45 AM [facility] HEPATITIS C Ab Specimen Type: SERUM Comment: Hepatitis C Ab: No HCV antibody detected. If recent infection is suspected or other evidence suggests HCV infection, consider HCV nucleic acid testing. HIV Ab/ P24 Ag Combo: A 'Nonreactive' result does not exclude acute infection. If acute HIV is suspected, consider HIV viral load testing. Ordering Provider: WASHINGTON GOODMAN Report Released Date/Time: Dec 20, 2022 01:42 PM Reporting Lab: [address] [address] Performing Lab: [address] [address] HEPATITIS C Ab Non Reactive No n Reactive Dec 12, 2023 10:45 AM [facility] HIV AB/ P24 AG COMBO(HIV SCREEN) Specim en Type: SERUM Comment: Hepatitis C Ab: No HCV antibody detected. If recent infection is suspected or other evidence suggests HCV infection, consider HCV nucleic acid testing. HIV Ab/ P24 Ag Combo: A 'Nonreactive' result does not exclude acute infection. If acute HIV is suspected, consider HIV viral load testing. Ordering Provider: WASHINGTON GOODMAN Report Released Date/Time: Dec 20, 2022 01:42 PM Reporting Lab: [address] [address] Performing Lab: [address] [address] HIV AB/ P24 AG COMBO(HIV SCREEN) Non Reactive Non Reactive Dec 12, 2023 10:45 AM [employer] CBC W/ AUTO DIFF Specimen Type: BLOOD No comment entered. Ordering Provider: WASHINGTON GOODMAN Report Released Date/Time: Dec 20, 2022 01:42 PM Reporting Lab: [address] [address] Performing Lab: [address] [address] WBC 5.2 10*3/uL 4.5-11.0 RBC 4.70 10*6/uL [...] /100{WBCs} 0.0-0.0 Dec 12, 2023 10:45 AM [employer] CHEM 7 Specimen Type: SERUM Comment: 5.7 - 6.4% Prediabetes >= 6.5% Diabetic range. If the patient has not yet been diagnosed with T2DM, see [facility] Clinical Practice Guideline for Management of T2DM (dated 05/2016) for more guidance. For patients already diagnosed with T2DM, target HbA1c values should be individualized using a Shared Decision-Making process. Ref: https://www.[facility] thquality.va.gov /guidelines/CD/d iabetes/ Values obtained from A1C measurements can vary. For typical A1C assays, a reported value of 7.0 could actually be between 6.72 and 7.28 if measured by a reference method. A reported value of 9.0 could actually be between 8.73 and 9.27. Ref: https://ngsp.org /CAPdata.asp Ordering Provider: WASHINGTON GOODMAN Report Released Date/Time: Dec 20, 2022 01:42 PM Reporting Lab: [address] [address] Performing Lab: [place] [address] CREATININE,SER UM 0.75 mg/dL 0.5-1.5 UREA NITROGEN, BLOOD 8 mg/dL 7-25 GLUCOSE,RANDOM 115 mg/dL H 65-100 SODIUM 141 mmol/L 135-145 POTASSIUM 4.3 mmol/L 3.5-5.0 CHLORIDE 110 mmol/L 100-110 CO2 24 meq/L 20-30 ANION GAP 7 meq/L 6-16 eGFR(CKD-EPI 2020) >90 mL/min >=60 Dec 12, 2023 10:45 AM [facility] LIVER PROFILE Specimen Type: SERUM Comment: 5.7 - 6.4% Prediabetes >= 6.5% Diabetic range. If the patient has not yet been diagnosed with T2DM, see [place] Clinical Practice Guideline for Management of T2DM (dated 05/2016) for more guidance. For patients already diagnosed with T2DM, target HbA1c values should be individualized using a Shared Decision-Making process. Ref: https://www.[facility].va.gov /guidelines/CD/d iabetes/ Values obtained from A1C measurements can vary. For typical A1C assays, a reported value of 7.0 could actually be between 6.72 and 7.28 if measured by a reference method. A reported value of 9.0 could actually be between 8.73 and 9.27. Ref: https://ngsp.org /CAPdata.asp Ordering Provider: WASHINGTON GOODMAN Report Released Date/Time: Dec 20, 2022 01:42 PM Reporting Lab: [address] [address] Performing Lab: [address] [address] ALBUMIN 3.7 g/dL 3.5-5.0 TOT. BILIRUBIN 1.0 mg/dL 0.2-1.2 DIR. BILIRUBIN 0.4 mg/dL 0.0-0.5 ALKALINE PHOSPHATASE 67 U/L 40-150 ALT 34 U/L 7-52 AST 25 U/L 5-40 Dec 12, 2023 10:45 AM [facility] LIPOPROTEIN PROFILE Specimen Type: SERUM Comment: 5.7 - 6.4% Prediabetes >= 6.5% Diabetic range. If the patient has not yet been diagnosed with T2DM, see [place] Clinical Practice Guideline for Management of T2DM (dated 05/2016) for more guidance. For patients already diagnosed with T2DM, target HbA1c values should be individualized using a Shared Decision-Making process. Ref: https://www.[facility].ct.gov /guidelines/CD/d iabetes/ Values obtained from A1C measurements can vary. For typical A1C assays, a reported value of 7.0 could actually be between 6.72 and 7.28 if measured by a reference method. A reported value of 9.0 could actually be between 8.73 and 9.27. Ref: https://ngsp.org /CAPdata.asp Ordering Provider: WASHINGTON GOODMAN Report Released Date/Time: Dec 20, 2022 01:42 PM Reporting Lab: [address] [address] Performing Lab: [address] [address] CHOLESTEROL 128 mg/dL 0-199 TRIGLYCERIDE 51 mg/dL 0-199 HDL 45 mg/dL >=40 LDL 73 mg/dL 0-129 Dec 12, 2023 10:45 AM [facility] CALCIUM PROFILE Specimen Type: SERUM Comment: 5.7 - 6.4% Prediabetes >= 6.5% Diabetic range. If the patient has not yet been diagnosed with T2DM, see [place] Clinical Practice Guideline for Management of T2DM (dated 05/2016) for more guidance. For patients already diagnosed with T2DM, target HbA1c values should be individualized using a Shared Decision-Making process. Ref: https://www.[facility].ct.gov /guidelines/CD/d iabetes/ Values obtained from A1C measurements can vary. For typical A1C assays, a reported value of 7.0 could actually be between 6.72 and 7.28 if measured by a reference method. A reported value of 9.0 could actually be between 8.73 and 9.27. Ref: https://ngsp.org /CAPdata.asp Ordering Provider: WASHINGTON GOODMAN Report Released Date/Time: Dec 20, 2022 01:42 PM Reporting Lab: [place] [phone] Performing Lab: [address] CALCIUM 9.0 mg/dL 8.5-10.5 PO4,SERUM 3.1 mg/dL 2.5-5.0 PROTEIN,TOTAL 6.1 g/dL 6.0-8.5 ALBUMIN 3.7 g/dL 3.5-5.0 Dec 12, 2023 10:45 AM [facility] MAGNESIUM Specimen Type: SERUM No comment entered. Ordering Provider: WASHINGTON GOODMAN Report Released Date/Time: Dec 20, 2022 01:42 PM Reporting Lab: [place] [phone] Performing Lab: [place] [phone] MAGNESIUM 1.9 mg/dL 1.6-2.6 Dec 12, 2023 10:45 AM [facility] PO4,SERUM Specimen Type: SERUM No comment entered. Ordering Provider: WASHINGTON GOODMAN Report Released Date/Time: Dec 20, 2022 01:42 PM Reporting Lab: [address] [address] Performing Lab: [place] [phone] PO4,SERUM 3.1 mg/dL 2.5-5.0 Dec 12, 2023 10:45 AM [facility] TSH Specimen Type: SERUM Comment: For TSH [...] 50,000 IU D2 is administered. Ordering Provider: WASHINGTON GOODMAN Report Released Date/Time: Dec 20, 2022 01:42 PM Reporting Lab: [address] [address] Performing Lab: [place] [address] TSH 1.92 m[IU]/mL 0.35-5.00 Dec 12, 2023 10:45 AM [facility] HEMOGLOBIN A1C PANEL Specimen Type: BLOOD Comment: 5.7 - 6.4% Prediabetes >= 6.5% Diabetic range. If the patient has not yet been diagnosed with T2DM, see [place] Clinical Practice Guideline for Management of T2DM (dated 05/2016) for more guidance. For patients already diagnosed with T2DM, target HbA1c values should be individualized using a Shared Decision-Making process. Ref: https://www.[facility].ct.gov /guidelines/CD/d iabetes/ Values obtained from A1C measurements can vary. For typical A1C assays, a reported value of 7.0 could actually be between 6.72 and 7.28 if measured by a reference method. A reported value of 9.0 could actually be between 8.73 and 9.27. Ref: https://ngsp.org /CAPdata.asp Ordering Provider: WASHINGTON GOODMAN Report Released Date/Time: Dec 20, 2022 01:42 PM Reporting Lab: [address] [address] Performing Lab: [address] [address] HEMOGLOBIN A1C 5.6 <=5.6 EST.AVERAGE GLUCOSE 114 mg/dL Dec 12, 2023 10:45 AM [facility] PROSTATIC SPECIFIC ANTIGEN Specimen Typ e: SERUM [...] 50,000 IU D2 is administered. Ordering Provider: WASHINGTON GOODMAN Report Released Date/Time: Dec 20, 2022 01:42 PM Reporting Lab: [address] [address] Performing Lab: [address] [address] PROSTATIC SPECIFIC ANTIGEN 1.05 ng/mL 0.00-4.00 Dec 12, 2023 10:45 AM [facility] B12 Specimen Type: SERUM Comment: For TSH [...] 50,000 IU D2 is administered. Ordering Provider: WASHINGTON GOODMAN Report Released Date/Time: Dec 20, 2022 01:42 PM Reporting Lab: [address] [address] Performing Lab: [address] [address] B12 439 pg/mL 300-900 Dec 12, 2023 10:45 AM [facility] FOLATE,SERUM Specimen Type: SERUM Comment: For TSH [...] 50,000 IU D2 is administered. Ordering Provider: WASHINGTON GOODMAN Report Released Date/Time: Dec 20, 2022 01:42 PM Reporting Lab: [address] [address] Performing Lab: [address] [address] FOLATE,SERUM 8.5 ng/mL >=5.2 Dec 12, 2023 10:45 AM [facility] VITAMIN D TOTAL(SCREEN) Specimen Type: SERUM Comment: [...] 50,000 IU D2 is administered. Ordering Provider: WASHINGTON GOODMAN Report Released Date/Time: Dec 20, 2022 01:42 PM Reporting Lab: [address] [address] Performing Lab: [address] [address] VITAMIN D TOTAL(SCREEN) 47.6 ng/mL 20.0-50.0 Advance [...] this document. The data comes from all [place] facilities. Date Advance Directives Provider Source Nov 01, 2017 ADVANCE DIRECTIVE CHIKA RICHARDSON [facility] Encounter Notes: All associated encounter notes This section contains the clinical notes associated to the Encounter. Date/Time Encounter Note(s) Provider Source Jan 03, 2024 07:10 AM ADDENDUM: LOCAL TITLE: Addendum STANDARD TITLE: ADDENDUM DATE OF NOTE: JAN 03, 2024@07:10:15 ENTRY DATE: JAN 03, 2024@07:10:16 AUTHOR: SHANTE THIBODEAUX EXP COSIGNER: URGENCY: STATUS: COMPLETED Patient received this medication from urgent care on 09/06/23 and would like to continue. Would primary care assist with renewal? /macho/ SHANTE THIBODEAUX [facility] Referral Manager, [place]/Pharmacy Customer Care Signed: 01/03/2024 07:10 Receipt Acknowledged By: 01/03/2024 08:46 /es/ HOA ESQUIVEL, RN REGISTERED NURSE for EJ CUMMINSLEOLA 01/03/2024 08:32 /es/ washington goodman md resident care aide --- Original Document --- 01/03/24 V1 PHARMACY CUSTOMER CARE MEDICATION RENEWAL: Date: Dec Division: [place] Pt referred by Pharmacy Call Center for medication renewal: Non-controlled/maintenance medication Medications requested: [id number] IBUPROFEN 800MG TAB Defer to primary care provider To be mailed . Please review and renew if appropriate. *This note was generated by [facility]/[place] Pharmacy Customer Care. If you have any questions or need assistance, do not contact this author. Please refer all questions to your local, on-site pharmacy departments. /harriett THIBODEAUX [facility] Referral Manager, [place]/Pharmacy Customer Care Signed: 01/03/2024 07:09 Receipt Acknowledged By: 01/03/2024 08:45 /harriett ESQUIVEL RN REGISTERED NURSE for EJ Burt APOSTOLIDIS 01/03/2024 08:32 /macho/ washington goodman md resident care aide SHANTE THIBODEAUX [facility] Jan 03, 2024 07:09 AM PHARMACY NOTE: LOCAL TITLE: V1 PHARMACY CUSTOMER CARE MEDICATION RENEWAL STANDARD TITLE: PHARMACY NOTE DATE OF NOTE: JAN 03, 2024@07:09 ENTRY DATE: JAN 03, 2024@07:09:12 AUTHOR: SHANTE THIBODEAUX EXP COSIGNER: URGENCY: STATUS: COMPLETED V1 PHARMACY CUSTOMER CARE MEDICATION RENEWAL Has ADDENDA Date: Dec Division: [place] Pt referred by Pharmacy Call Center for medication renewal: Non-controlled/maintenance medication Medications requested: [id number] IBUPROFEN 800MG TAB Defer to primary care provider To be mailed . Please review and renew if appropriate. *This note was generated by [facility]/[place] Pharmacy Customer Care. If you have any questions or need assistance, do not contact this author. Please refer all questions to your local, on-site pharmacy departments. /harriett THIBODEAUX [facility] Referral Manager, [place]/Pharmacy Customer Care Signed: 01/03/2024 07:09 Receipt Acknowledged By: 01/03/2024 08:45 /harriett ESQUIVEL RN REGISTERED NURSE for EJ Burt APOSTOLIDIS 01/03/2024 08:32 /harriett goodman md resident care aide 01/03/2024 ADDENDUM STATUS: COMPLETED Patient received this medication from urgent care on 09/06/23 and would like to continue. Would primary care assist with renewal? /harriett THIBODEAUX [facility] Referral Manager, [place]/Pharmacy Customer Care Signed: 01/03/2024 07:10 Receipt Acknowledged By: * AWAITING SIGNATURE * EJ NOEL 01/03/2024 08:32 /harriett goodman md resident care aide SHANTE THIBODEAUX [facility]
--- OUTSIDE RECORDS SUMMARY | 2024-02-02 01:55 | XMS_ITS ---
Author Organization [facility] Address [address] [place] [address] Care Team Providers Care Investment Underwriter Name Role Phone Ke Mcelroy Primary Care Provider Unavailab Ankur Chavez Jr [phone] REASON FOR VISIT H & P Encounters Encounter Location Date Provider Diagnosis [facility] [address] [place] [address] 01/31/2024 Ankur Rodriguez Jr PLAN OF TREATMENT No Information
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
--- OUTSIDE RECORDS SUMMARY | 2024-02-02 01:55 | XMS_ITS | Patient Health Record ---
Author Organization [facility] Address [address] [place] [phone] Care Team Providers Care Parking Lot Manager Name Role Phone Ke Mcelroy Primary Care Provider Ankur Hutchinson Jr Unavailable [phone] ALLERGIES No Known Allergies REASON FOR REFERRAL No Information MEDICATIONS Medication SIG (Take, Route, Frequency, Duration) [...] Status Comme nts Influenza Unknown 01/23/2024 Refused SOCIAL HISTORY Sex Assigned At : Social History Observation Description Sex Assigned At Unknown PROBLEMS Problem Type ICD Code Onset Dates Problem Status W/U Status Risk SNOMED Code Notes Problem Colon cancer screening (Z12.11) Active confirmed 358161657 Problem Rectal bleeding (K62.5) Active confirmed 61469418 Problem Diverticulosis of colon without hemorrhage (K57.30) Active confirmed 550370128 Problem Hemorrhoids, unspecified hemorrhoid type (K64.9) Active confirmed 14026253 VITAL SIGNS Temperature 97.5 degrees Fahrenheit 01/23/2024 Blood pressure diastolic 00 mm Hg 01/23/2024 Height 68 in 01/23/2024 Blood pressure systolic 000 mm Hg 01/23/2024 Weight 191 lb 4 oz lbs 01/23/2024 BMI 29.08 kg/m2 01/23/2024 Encounters Encounter Location Date Provider Diagnosis [facility] [place] Outpatient [address], [place] [phone] 02/01/2024 Ankur Rodriguez Jr [facility] [address] [place] [phone] 01/23/2024 Ankur Rodriguez Jr Colon cancer screening Z12.11 and Hemorrhoids, unspecified hemorrhoid type K64.9 [facility] [address] [place] [phone] 12/01/2023 Ankur Rodriguez Jr [facility] [address] [place] [phone] 01/05/2024 Ankur Rodriguez Jr [facility] [address] [place] [phone] 01/31/2024 Ankur Rodriguez Jr ASSESSMENTS Encounter Date Diagnosis Assessment Notes Treatment Notes Treatment Clinical Notes 01/23/2024 Colon cancer screening (ICD-10 - Z12.11) Colonoscopy material was printed 01/23/2024 Hemorrhoids, unspecified hemorrhoid type (ICD-10 - K64.9) PLAN OF TREATMENT Pending Test Test Name Order Date COLONOSCOPY WITH BIOPSY 12/09/2010 COLONOSCOPY REMOVAL OF LESION SNARE TECH NIQUE 12/09/2010 Future Test Test Name Order Date COLONOSCOPY 01/23/2024 Insurance Providers Payer Name Payer Address Payer Phone Subscriber Number Group Number Insured Name Patient Relationship to Insured Coverage Start Date Coverage End Date [facility] [address] [place], [place] [id number] [phone] [id number] KE BOLDEN Self - patient is the insured MEDICAL (GENERAL) HISTORY Medical History History ICD Code Colonoscopy 08/06, diverticul osis, five-year followup for personal history of adenomatous Back pain Degenerative joint disease Hyperlipidemia BPH Prediabetes Surgical History Surgery Date(Month/Year) knee surgery Carpal total repair, right
--- OUTSIDE RECORDS SUMMARY | 2024-02-02 01:55 | XMS_ITS | Encounter Summary ---
Author Name [facility] [place] [facility] [place] [facility] [place] Address [address] [place] [address] Care Team Providers Care Eddy Current Inspector Name Role Phone JESSICA GOODMAN Primary Care [...] BASIC SELF+ ONE Feb 22, 2020 113 [id number] [phone] SUHAIL BOLDEN SR PATIENT ESTEBANEM BCBS CT FEDERAL PREFERRED PROVIDER ORGANIZAT ION (PPO) BASIC SELF Feb 27, 2005 111 [id number] [phone] BOLDEN SR,SUHAIL PATIENT BCBS [place] FEP PREFERRED PROVIDER ORGANIZAT ION (PPO) BASIC SELF PLUS ONE Feb 22, 2020 113 [id number] [phone] BOLDEN SUHAIL LING PATIENT BCBS JESSICA FEP PREFERRED PROVIDER ORGANIZAT ION (PPO) BASIC INDIV IDUAL Feb 27, 2005 111 [id number] [phone] SUHAIL BOLDEN SR PATIENT CAREMARK FEPRX PLAN PRESCRIPT ION CAREM ARK FEPRX Feb 21, 2010 [id number] SUHAIL BOLDEN SR PATIENT CAREWILDER-F EP BCBS PRESCRIPT ION SYED COLE ARK Feb 21, 2010 [id number] SUHAIL BOLDEN SR PATIENT Selected Encounter This section includes the information on record at [place] for the Encounter. Date/Time Encounter Type Encounter Description Reason Pro vider Source Sep 09, 2023 01:49 PM Outpatient Encounter PHYSICAL THERAPY IHE Encounter Template Text not used by [place] Plan of Treatment: Future Appointments (+ 6 months) and Future Tests (+/- 45 days) The Plan of Treatment section includes future care activities for the patient from all [place] treatmentfacilities. This section includes future appointments and future orders which are active, pending or scheduled. Future Appointments This section includes appointments that were scheduled to occur 6 months from the date of the Encounter, up to a maximum of 20 appointments. The data comes from all [place] treatment facilities. Appointment Date/Time Appointment Type Appointme nt Facility Name Nov 29, 2023 11:30 AM AMBULATORY - MEDICINE [facility] Dec 12, 2023 10:45 AM [facility] Dec 12, 2023 11:00 AM [facility]UL[facility] - MEDICINE [facility] Advance Directives: All historical and current Section Date Range: From patient's date of to the date document was created. This section includes ALL of a patient's completed or amended [place] Advance and Rescinded Directives. The entries below indicate that a directive exists for the patient, but an actual copy is not included with this document. The data comes from all [place] facilities. Date Advance Directives Provider Source Nov [...] the Encounter. The data comes from all [place] treatment facilities. Date/Time Radiology Report Provider Source Sep 06, 2023 04:10 PM SPINE LUMBOSACRAL MIN 2 VIEWS: SUHAIL BOLDEN [id number] -1955 M Exm Date: SEP 06, 2023@16:10 Req Phys: LEONARD CAMPOS Carmel Pat Loc: NEW URGENT CARE (Req'g Loc) [facility] Service: Unknown [place] , (Case 800 COMPLETE) SPINE LUMBOSACRAL MIN 2 VIEWS (RAD Detailed) CPT:22028 Reason for Study: lower back pain Clinical History: PROVIDER CONTACT INFORMATION:6419 Report Status: Verified Date Reported: SEP 06, 2023 Date Verified: SEP 06, 2023 Demand Planning Manager E-Sig:/ES/IAN ANGEL MD Report: LUMBOSACRAL SPINE, FRONTAL, [...] changes are seen, overall increased since prior, rnvhzrok-it-fxrezs at L3-L4, moderate at L4-L5, mild at other lumbar levels. Multilevel bridging enthesophytes/osteophytes are noted. Impression: No evidence of acute fracture or traumatic subluxation. Degenerative changes of the lumbar spine, kihxbnru-tr-xfnbuv at L3-L4 and moderate at L4-L5, mildly increased since 2018. Primary Diagnostic Code: No Immediate Attention Required Primary Interpreting Staff: IAN ANGEL MD, Staff Neuroradiologist (Demand Planning Manager) /IAN SAGASTUME Encounter Notes: All associated encounter notes This section contains the clinical notes associated to the Encounter. Date/Time Encounter Note(s) Provider Source Sep 09, 2023 01:49 PM LETTERS: LOCAL TITLE: Pm&r Patient Letter (neil) STANDARD TITLE: LETTERS DATE OF NOTE: SEP 09, 2023@13:49 ENTRY DATE: SEP 09, 2023@13:49:48 AUTHOR: SHANTI WOODRUFF COSIGNER: URGENCY: STATUS: COMPLETED Suhail Chua Bolden [address] [place] [address] Date:SEP 09, 2023 Dear Suhail Bolden, We have a request from your Provider to see you in the Physical Medicine & Rehabilitation Department at the [facility]. Please call us at [phone] ext. [phone] so we can schedule an appointment that will be convenient for you OR please stop by the clinic in Building 2E, 3rd floor, room 3101 during normal duty hours Tuesday - Tuesday 8:00am - 4:30pm. If you do NOT wish to receive an appointment at this time, please call the telephone number listed above. If we are unable to answer, please leave a brief message with your first and last name and last 4 of your SSN. If we do not hear from you by Sep, we will assume you are not interested or available at this time and we will cancel the consult. Sincerely, Physical Medicine & Rehabilitation [facility] SHANTI WOODRUFF
--- OUTSIDE RECORDS SUMMARY | 2024-02-02 01:55 | XMS_ITS | Encounter Summary ---
Author Name [facility] [place] [facility] [place] [facility] [place] Address [address] [place] [address] Care Team Providers Care Metal Spinner Name Role Phone JESSICA GOODMAN Primary Care [...] BASIC SELF+ ONE Feb 22, 2020 113 [id number] [phone] SUHAIL BOLDEN SR PATIENT ISAAC BCBS CT FEDERAL PREFERRED PROVIDER ORGANIZAT ION (PPO) BASIC SELF Feb 27, 2005 111 [id number] [phone] SUHAIL BOLDEN SR PATIENT BCBS [place] FEP PREFERRED PROVIDER ORGANIZAT ION (PPO) BASIC SELF PLUS ONE Feb 22, 2020 113 [id number] SUHAIL BOLDEN SR PATIENT BCBS JESSICA FEP PREFERRED PROVIDER ORGANIZAT ION (PPO) BASIC INDIV IDUAL Feb 27, 2005 [id number] [phone] SUHAIL BOLDEN SR PATIENT CAREMARK FEPRX PLAN PRESCRIPT ION KELSEY ARK FEPRX Feb 21, 2010 [id number] SUHAIL BOLDEN SR PATIENT DANGELO-F EP BCBS PRESCRIPT ION FEP KELSEY ARK Feb 21, 2010 [id number] SUHAIL BOLDEN SR PATIENT Selected Encounter This section includes the information on record at [place] for the Encounter. Date/Time Encounter Type Encounter Description Reason Pro vider Source Sep 07, 2023 01:30 PM Outpatient Encounter ADMIN PAT ACTIVTIES (MASNONCT) IHE Encounter Template Text not used by [place] Plan of Treatment: Future Appointments (+ 6 months) and Future Tests (+/- 45 days) The Plan of Treatment section includes future care activities for the patient from all [place] treatmentfacilities. This section includes future appointments and future orders which are active, pending or scheduled. Future Appointments This section includes appointments that were scheduled to occur 6 months from the date of the Encounter, up to a maximum of 20 appointments. The data comes from all [place] treatment facilities. Appointment Date/Time Appointment Type Appointme nt Facility Name Nov 29, 2023 11:30 AM AM[facility]ULATORY - [facility]ICINE [facility] Dec 12, 2023 10:45 AM [facility] Dec 12, 2023 11:00 AM AM[facility]ULATORY - MEDICINE [facility] Advance Directives: All historical and current Section Date Range: From patient's date of to the date document was created. This section includes ALL of a patient's completed or amended [place] Advance and Rescinded Directives. The entries below indicate that a directive exists for the patient, but an actual copy is not included with this document. The data comes from all [place] facilities. Date Advance Directives Provider Source Nov 01, 2017 ADVANCE DIRECTIVE [facility] Radiology Reports: +/- 30 days of [...] the Encounter. The data comes from all [place] treatment facilities. Date/Time Radiology Report Provider Source Sep 06, 2023 04:10 PM SPINE LUMBOSACRAL MIN 2 VIEWS: SUHAIL BOLDEN [id number] -1955 M Exm Date: SEP 06, 2023@16:10 Req Phys: LEONARD CAMPOS Carmel Pat Loc: NEW URGENT CARE (Req'g Loc) Img Loc: RADIOLOGY ([facility]) Service: Unknown [place] , (Case 800 COMPLETE) SPINE LUMBOSACRAL MIN 2 VIEWS (RAD Detailed) CPT:08477 Reason for Study: lower back pain Clinical History: PROVIDER CONTACT INFORMATION:6419 Report Status: Verified Date Reported: SEP 06, 2023 Date Verified: SEP 06, 2023 Kitchen Food Server E-Sig:/MACHO/IAN ANGEL MD Report: LUMBOSACRAL SPINE, FRONTAL, LATERAL, [...] changes are seen, overall increased since prior, pnfzdqfk-gj-vcthuz at L3-L4, moderate at L4-L5, mild at other lumbar levels. Multilevel bridging enthesophytes/osteophytes are noted. Impression: No evidence of acute fracture or traumatic subluxation. Degenerative changes of the lumbar spine, xdrwycqf-fk-cgfoyh at L3-L4 and moderate at L4-L5, mildly increased since 2018. Primary Diagnostic Code: No Immediate Attention Required Primary Interpreting Staff: IAN ANGEL MD, Staff Neuroradiologist (Kitchen Food Server) /IAN SAGASTUME Encounter Notes: All associated encounter notes This section contains the clinical notes associated to the Encounter. Date/Time Encounter Note(s) Provider Source Sep 08, 2023 10:19 AM ADDENDUM: LOCAL TITLE: Addendum STANDARD TITLE: ADDENDUM DATE OF NOTE: SEP 08, 2023@10:19:17 ENTRY DATE: SEP 08, 2023@10:19:18 AUTHOR: HIGINIO NOEL EXP COSIGNER: URGENCY: STATUS: COMPLETED Spoke with pt and explained above Pt agreeable to PT referral /es/ EJ NOEL RN, MSN REGISTERED NURSE Signed: 09/08/2023 10:19 Receipt Acknowledged By: 09/08/2023 10:40 /macho/ ROJAS [place] APRN REVIVAL CLERK --- Original Document --- 09/07/23 CCC: SCHEDULING ADMINISTRATION: Patient Demographics Patient Name: SUHAIL BOLDEN Patient Primary Phone: [phone] Patient Primary [address]: [address] [place] [address] [place] [address] Patient : 1955 Patient Age: 68 Caller/Recipient Relation to Patient: Self Administrative Administrative Note Reason: Other Administrative Note Comments: IS REQ A CB TO DISCUSS DEGENERATIVE DISCS AND THE NEED FOR AN MRI. HE IS EXPERIENCING AN INCREASE IN DISCOMFORT AND WENT TO [facility] YESTERDAY WHERE HE WAS TOLD HE NEEDED AN MRI. PLEASE CALL TO ASSIST. Notes Notes & Information: IS REQ A CB TO DISCUSS DEGENERATIVE DISCS AND THE NEED FOR AN MRI. HE IS EXPERIENCING AN INCREASE IN DISCOMFORT AND WENT TO [facility] YESTERDAY WHERE HE WAS TOLD HE NEEDED AN MRI. PLEASE CALL TO ASSIST. /macho/ LILIA ALTAMIRANO 1 [facility] AMSA Signed: 09/07/2023 13:30 Receipt Acknowledged By: 09/07/2023 16:21 /harriett NOEL RN, MSN REGISTERED NURSE 09/07/2023 16:05 /macho/ ROJAS [place] APRN REVIVAL CLERK 09/07/2023 ADDENDUM STATUS: COMPLETED would only advise MRI if pt considering surgery or epidural steroid injections or was experiencing significant radicular sx (leg pain, weakness, numbness tingling). Otherwise would recommend trial of PT prior to obtaining advanced imaging. /harriett [place] APRN REVIVAL CLERK Signed: 09/07/2023 16:06 Receipt Acknowledged By: * AWAITING SIGNATURE * APOSTEJ HASKINS TSAMPIKA M [facility] Sep 07, 2023 04:05 PM ADDENDUM: LOCAL TITLE: Addendum STANDARD TITLE: ADDENDUM DATE OF NOTE: SEP 07, 2023@16:05:23 ENTRY DATE: SEP 07, 2023@16:05:24 AUTHOR: ROJAS [place] COSIGNER: URGENCY: STATUS: COMPLETED would only advise MRI if pt considering surgery or epidural steroid injections or was experiencing significant radicular sx (leg pain, weakness, numbness tingling). Otherwise would recommend trial of PT prior to obtaining advanced imaging. /es/ ROJAS [place] APRN REVIVAL CLERK Signed: 09/07/2023 16:06 Receipt Acknowledged By: 09/08/2023 11:52 /macho/ EJ NOEL RN, MSN REGISTERED NURSE --- Original Document --- 09/07/23 CCC: SCHEDULING ADMINISTRATION: Patient Demographics Patient Name: SUHAIL BOLDEN Patient Primary Phone: [phone] Patient Primary [address]: [address] [place] [address] Patient : 1955 Patient Age: 68 Caller/Recipient Relation to Patient: Self Administrative Administrative Note Reason: Other Administrative Note Comments: IS REQ A CB TO DISCUSS DEGENERATIVE DISCS AND THE NEED FOR AN MRI. HE IS EXPERIENCING AN INCREASE IN DISCOMFORT AND WENT TO [facility] YESTERDAY WHERE HE WAS TOLD HE NEEDED AN MRI. PLEASE CALL TO ASSIST. Notes Notes & Information: IS REQ A CB TO DISCUSS DEGENERATIVE DISCS AND THE NEED FOR AN MRI. HE IS EXPERIENCING AN INCREASE IN DISCOMFORT AND WENT TO [facility] YESTERDAY WHERE HE WAS TOLD HE NEEDED AN MRI. PLEASE CALL TO ASSIST. /es/ LILIA ALTAMIRANO 1 [facility] AMSA Signed: 09/07/2023 13:30 Receipt Acknowledged By: 09/07/2023 16:21 /macho/ EJ NOEL RN, MSN REGISTERED NURSE 09/07/2023 16:05 /harriett [place] APRN REVIVAL CLERK 09/08/2023 ADDENDUM STATUS: COMPLETED Spoke with pt and explained above Pt agreeable to PT referral /harriett NOEL RN, MSN REGISTERED NURSE Signed: 09/08/2023 10:19 Receipt Acknowledged By: 09/08/2023 10:40 /harriett [place] APRN REVIVAL CLERK ROJAS [facility] Sep 07, 2023 01:30 PM ADMINISTRATIVE NOT E: LOCAL TITLE: CCC: SCHEDULING ADMINISTRATION STANDARD TITLE: ADMINISTRATIVE NOTE DATE OF NOTE: SEP 07, 2023@13:30:20 ENTRY DATE: SEP 07, 2023@13:30:21 AUTHOR: LILIA KIDD [place] COSIGNER: URGENCY: STATUS: COMPLETED CCC: SCHEDULING ADMINISTRATION Has ADDENDA Patient Demographics Patient Name: SUHAIL BOLDEN Patient Primary Phone: [phone] Patient Primary Address: [address] [place] [address] Patient : 1955 Patient Age: 68 Caller/Recipient Relation to Patient: Self Administrative Administrative Note Reason: Other Administrative Note Comments: IS REQ A CB TO DISCUSS DEGENERATIVE DISCS AND THE NEED FOR AN MRI. HE IS EXPERIENCING AN INCREASE IN DISCOMFORT AND WENT TO [facility] YESTERDAY WHERE HE WAS TOLD HE NEEDED AN MRI. PLEASE CALL TO ASSIST. Notes Notes & Information: IS REQ A CB TO DISCUSS DEGENERATIVE DISCS AND THE NEED FOR AN MRI. HE IS EXPERIENCING AN INCREASE IN DISCOMFORT AND WENT TO [facility] YESTERDAY WHERE HE WAS TOLD HE NEEDED AN MRI. PLEASE CALL TO ASSIST. /macho/ LILIA KIDD [facility] 1 [facility] AMSA Signed: 09/07/2023 13:30 Receipt Acknowledged By: 09/07/2023 16:21 /harriett NOEL RN, MSN REGISTERED NURSE 09/07/2023 16:05 /harriett [place] APRN REVIVAL CLERK 09/07/2023 ADDENDUM STATUS: COMPLETED would only advise MRI if pt considering surgery or epidural steroid injections or was experiencing significant radicular sx (leg pain, weakness, numbness tingling). Otherwise would recommend trial of PT prior to obtaining advanced imaging. /macho/ ROJAS [place] APRN REVIVAL CLERK Signed: 09/07/2023 16:06 Receipt Acknowledged By: * AWAITING SIGNATURE * EJ NOEL 09/08/2023 ADDENDUM STATUS: COMPLETED Spoke with pt and explained above Pt agreeable to PT referral /macho/ EJ NOEL, RN, MSN REGISTERED NURSE Signed: 09/08/2023 10:19 Receipt Acknowledged By: * AWAITING SIGNATURE * ROJAS [facility]
--- OUTSIDE RECORDS SUMMARY | 2024-02-02 01:55 | XMS_ITS | Encounter Summary ---
Author Name [facility] [place] Address [address] [place] [address] Care Team Providers Care Sales Exhibitor Name Role Phone WASHINGTON GOODMAN Primary Care [...] BASIC SELF+ ONE Feb 22, 2020 113 [id number] [phone] SUHAIL BOLDEN SR PATIENT ISAAC BCBS CT FEDERAL PREFERRED PROVIDER ORGANIZAT ION (PPO) BASIC SELF Feb 27, 2005 [id number] SUHAIL BOLDEN SR PATIENT BCBS [place] FEP PREFERRED PROVIDER ORGANIZAT ION (PPO) BASIC SELF PLUS ONE Feb 22, 2020 113 [id number] SUHAIL BOLDEN SR PATIENT BCBS JESSICA FEP PREFERRED PROVIDER ORGANIZAT ION (PPO) BASIC INDIV IDUAL Feb 27, 2005 [id number] SUHAIL BOLDEN SR PATIENT CAREMARK FEPRX PLAN PRESCRIPT ION KELSEY ARK FEPRX Feb 21, 2010 [id number] SUHAIL BOLDEN SR PATIENT DANGELO-F EP BCBS PRESCRIPT ION FEP KELSEY ARK Feb 21, 2010 [id number] SUHAIL BOLDEN SR PATIENT Selected Encounter This section includes the information on record at [place] for the Encounter. Date/Time Encounter Type Encounter Description Reason Pro vider Source Sep 15, 2023 10:23 AM Outpatient Encounter ADMIN PAT ACTIVTIES (MASNONCT) IHE Encounter Template Text not used by [place] Plan of Treatment: Future Appointments (+ 6 months) and Future Tests (+/- 45 days) The Plan of Treatment section includes future care activities for the patient from all [place] treatmentfacilities. This section includes future appointments and future orders which are active, pending or scheduled. Future Appointments This section includes appointments that were scheduled to occur 6 months from the date of the Encounter, up to a maximum of 20 appointments. The data comes from all [place] treatment facilities. Appointment Date/Time Appointment Type Appointme nt Facility Name Nov 29, 2023 11:30 AM [facility]UL[facility]ORY [facility] Dec 12, 2023 10:45 [facility] Dec 12, 2023 11:00 AM [facility] Advance Directives: All historical and current Section Date Range: From patient's date of to the date document was created. This section includes ALL of a patient's completed or amended [place] Advance and Rescinded Directives. The entries below indicate that a directive exists for the patient, but an actual copy is not included with this document. The data comes from all [place] facilities. Date Advance Directives Provider Source Nov 01, 2017 ADVANCE DIRECTIVE [facility] Radiology Reports: +/- 30 days of [...] the Encounter. The data comes from all [place] treatment facilities. Date/Time Radiology Report Provider Source Sep 06, 2023 04:10 PM SPINE LUMBOSACRAL MIN 2 VIEWS: SUHAIL BOLDEN [id number] -1955 M Exm Date: SEP 06, 2023@16:10 Req Phys: LEONARD CAMPOS Carmel Pat Loc: NEW URGENT CARE (Req'g Loc) Img Loc: RADIOLOGY ([facility]) Service: Unknown [place] , (Case 800 COMPLETE) SPINE LUMBOSACRAL MIN 2 VIEWS (RAD Detailed) CPT:85373 Reason for Study: lower back pain Clinical History: PROVIDER CONTACT INFORMATION:6419 Report Status: Verified Date Reported: SEP 06, 2023 Date Verified: SEP 06, 2023 Aircraft Manager E-Sig:/ES/IAN ANGEL MD Report: LUMBOSACRAL SPINE, [...] changes are seen, overall increased since prior, ndctysqe-cm-capgoo at L3-L4, moderate at L4-L5, mild at other lumbar levels. Multilevel bridging enthesophytes/osteophytes are noted. Impression: No evidence of acute fracture or traumatic subluxation. Degenerative changes of the lumbar spine, adgwdqin-hd-yvsywk at L3-L4 and moderate at L4-L5, mildly increased since 2018. Primary Diagnostic Code: No Immediate Attention Required Primary Interpreting Staff: IAN ANGEL MD, Staff Neuroradiologist (Aircraft Manager) /IAN SAGASTUME Encounter Notes: All associated encounter notes This section contains the clinical notes associated to the Encounter. Date/Time Encounter Note(s) Provider Source Sep 15, 2023 10:23 AM ADMINISTRATIVE NOT E: LOCAL TITLE: CCC: SCHEDULING ADMINISTRATION STANDARD TITLE: ADMINISTRATIVE NOTE DATE OF NOTE: SEP 15, 2023@10:23:11 ENTRY DATE: SEP 15, 2023@10:23:12 AUTHOR: RITCHIE ZENG COSIGNER: URGENCY: STATUS: COMPLETED CCC: SCHEDULING ADMINISTRATION Has ADDENDA Patient Demographics Patient Name: SUHAIL BOLDEN Patient Primary Phone: [phone] Patient Primary Address: [address] [place] [address] Patient : 1955 Patient Age: 68 Caller/Recipient Relation to Patient: Self Administrative Administrative Note Reason: Outside Care Performed Administrative Note Comments: Pt was seen in almost 2 weeks ago for another flare up of back pain. He said this is a chronic issue and he has done PT multiple times throughout the years. He does all of these types of exercises and uses his pool to continue what he learned in PT over the years. Pt was told there might be an MRI as well. He is agreeable to starting PT again if there is anything new they can teach him that will help manage this issue. Traveling to [place] so if he could do PT closer to home he is agreeable to that. Please call him to discuss this and if/ when the MRI would be appropriate as well. /macho/ RITCHIE ALTAMIRANO 1 [facility] Signed: 09/15/2023 10:23 Receipt Acknowledged By: 09/16/2023 08:45 /macho/ EJ NOEL RN, MSN REGISTERED NURSE 09/16/2023 09:09 /es/ LILLY TURNER LPN LICENSED PRACTICAL NURSE 09/16/2023 13:45 /macho/ washington goodman md home care aide 09/16/2023 ADDENDUM STATUS: COMPLETED Spoke with pt regarding PT referral ?MRI Pt will seek out PT referral from nonVA PCP All questions addressed at this time /harriett NOEL RN, MSN REGISTERED NURSE Signed: 09/16/2023 08:45 RITCHIE ZENG [facility]
--- OUTSIDE RECORDS SUMMARY | 2024-02-02 01:55 | XMS_ITS | Encounter Summary ---
Author Name [facility] [place] [facility] [place] [facility] [place] Address [address] [place] [address] Care Team Providers Care Blister Pack Operator Name Role Phone JESSICA GOODMAN Primary Care [...] BASIC SELF+ ONE Feb 22, 2020 113 [id number] [phone] SUHAIL BOLDEN SR PATIENT ISAAC BCBS CT FEDERAL PREFERRED PROVIDER ORGANIZAT ION (PPO) BASIC SELF Feb 27, 2005 111 [id number] [phone] SUHAIL BOLDEN SR PATIENT BCBS [place] FEP PREFERRED PROVIDER ORGANIZAT ION (PPO) BASIC SELF PLUS ONE Feb 22, 2020 113 [id number] SUHAIL BOLDEN SR PATIENT BCBS JESSICA FEP PREFERRED PROVIDER ORGANIZAT ION (PPO) BASIC INDIV IDUAL Feb 27, 2005 111 [id number] SUHAIL BOLDEN SR PATIENT [employer]ARK FEPRX PLAN PRESCRIPT ION KELSEY ARK FEPRX Feb 21, 2010 [id number] SUHAIL BOLDEN SR PATIENT DANGELO-F EP BCBS PRESCRIPT ION FEP CAREM ARK Feb 21, 2010 [id number] [phone] SUHAIL BOLDEN SR PATIENT Selected Encounter This section includes the information on record at [place] for the Encounter. Date/Time Encounter Type Encounter Description Reason Pro vider Source Jan 06, 2024 12:00 AM Outpatient Encounter ADMIN PAT ACTIVTIES (MASNONCT) [...] Range Comment Dec 12, 2023 01:55 PM [facility] URINE ALBUMIN, SPOT PROFILE Specimen Ty pe: URINE No comment entered. Ordering Provider: JESSICA GOODMAN Report Released Date/Time: Dec 20, 2022 01:42 PM Reporting Lab: [address] [address] Performing Lab: [address] [address] Urine ALB/CRE,SPOT-R ATIO 5 mg/g{creat} 0-29 Urine ALBUMIN,SPOT-Q NT 0.6 mg/dL CREATININE, URINE RANDOM 128.7 mg/dL >=20.0 Dec 12, 2023 01:55 PM [facility] URINALYSIS,ROUTINE/ADMISSION Specimen T ype: URINE No comment entered. Ordering Provider: JESSICA GOODMAN Report Released Date/Time: Dec 20, 2022 01:42 PM Reporting Lab: [address] [address] Performing Lab: [address] [address] URINE COLOR Light-Yellow YELLOW SPECIFIC GRAVITY 1.020 1.001-1.035 UROBILINOGEN NORMAL mg/dL NORMAL URINE BILIRUBIN NEGATIVE Neg URINE KETONES NEGATIVE Neg URINE GLUCOSE NEGATIVE Neg URINE PROTEIN NEGATIVE Neg URINE pH 5.5 [pH] 5.0-8.0 APPEARANCE Clear CLEAR URINE BLOOD NEGATIVE Neg NITRITE, URINE NEGATIVE Neg LEUKOCYTE ESTERASE NEGATIVE Neg Dec 12, 2023 10:45 AM [facility] HEP B SURF AB Specimen Type: SERUM [...] Dec 20, 2022 01:42 PM Reporting Lab: [address] [phone] Performing Lab: [address] [address] HEP B SURF AB GRAYZONE Non Reactive Dec 12, 2023 10:45 AM [facility] HEPATITIS C Ab Specimen Type: SERUM Comment: [...] Dec 20, 2022 01:42 PM Reporting Lab: [address] [address] Performing Lab: [address] [address] HEPATITIS C Ab Non Reactive No n Reactive Dec 12, 2023 10:45 AM [facility] HIV AB/ P24 AG COMBO(HIV SCREEN) Specim [...] Dec 20, 2022 01:42 PM Reporting Lab: [address] [address] Performing Lab: [address] [address] HIV AB/ P24 AG COMBO(HIV SCREEN) Non Reactive Non Reactive Dec 12, 2023 10:45 AM [facility] CBC W/ AUTO DIFF Specimen Type: BLOOD No comment entered. Ordering Provider: JESSICA GOODMAN Report Released Date/Time: Dec 20, 2022 01:42 PM Reporting Lab: [address] [address] Performing Lab: [address] [address] WBC 5.2 10*3/uL 4.5-11.0 RBC 4.70 10*6/uL [...] /100{WBCs} 0.0-0.0 Dec 12, 2023 10:45 AM [facility] CHEM 7 Specimen Type: SERUM Comment: 5.7 - 6.4% Prediabetes >= 6.5% Diabetic range. If the patient has not yet been diagnosed with T2DM, see [facility] Clinical Practice Guideline for Management of T2DM (dated 05/2016) for more guidance. For patients already diagnosed with T2DM, target HbA1c values should be individualized using a Shared Decision-Making process. Ref: https://www.[facility] thquality.[place].gov /guidelines/CD/d iabetes/ Values obtained from A1C measurements can vary. For typical A1C assays, a reported value of 7.0 could actually be between 6.72 and 7.28 if measured by a reference method. A reported value of 9.0 could actually be between 8.73 and 9.27. Ref: [email or web address]://ngsp.org /CAPdata.asp Ordering Provider: JESSICA GOODMAN Report Released Date/Time: Dec 20, 2022 01:42 PM Reporting Lab: [address] [address] Performing Lab: [place] [address] CREATININE,SER UM 0.75 mg/dL 0.5-1.5 UREA NITROGEN, BLOOD 8 mg/dL 7-25 GLUCOSE,RANDOM 115 mg/dL H 65-100 SODIUM 141 mmol/L 135-145 POTASSIUM 4.3 mmol/L 3.5-5.0 CHLORIDE 110 mmol/L 100-110 CO2 24 meq/L 20-30 ANION GAP 7 meq/L 6-16 eGFR(CKD-EPI 2020) >90 mL/min >=60 Dec 12, 2023 10:45 AM [facility] LIVER PROFILE Specimen Type: SERUM Comment: 5.7 - 6.4% Prediabetes >= 6.5% Diabetic range. If the patient has not yet been diagnosed with T2DM, see [place] Clinical Practice Guideline for Management of T2DM (dated 05/2016) for more guidance. For patients already diagnosed with T2DM, target HbA1c values should be individualized using a Shared Decision-Making process. Ref: https://www.[facility].[place].gov /guidelines/CD/d iabetes/ Values obtained from A1C measurements can vary. For typical A1C assays, a reported value of 7.0 could actually be between 6.72 and 7.28 if measured by a reference method. A reported value of 9.0 could actually be between 8.73 and 9.27. Ref: [email or web address]://ngsp.org /CAPdata.[email or web address] Ordering Provider: JESSICA GOODMAN Report Released Date/Time: Dec 20, 2022 01:42 PM Reporting Lab: [address] [address] Performing Lab: [address] [address] ALBUMIN 3.7 g/dL 3.5-5.0 TOT. BILIRUBIN 1.0 mg/dL 0.2-1.2 DIR. BILIRUBIN 0.4 mg/dL 0.0-0.5 ALKALINE PHOSPHATASE 67 U/L 40-150 ALT 34 U/L 7-52 AST 25 U/L 5-40 Dec 12, 2023 10:45 AM [facility] LIPOPROTEIN PROFILE Specimen Type: SERUM Comment: 5.7 - 6.4% Prediabetes >= 6.5% Diabetic range. If the patient has not yet been diagnosed with T2DM, see [place] Clinical Practice Guideline for Management of T2DM (dated 05/2016) for more guidance. For patients already diagnosed with T2DM, target HbA1c values should be individualized using a Shared Decision-Making process. Ref: https://www.[facility].[place].gov /guidelines/CD/d iabetes/ Values obtained from A1C measurements can vary. For typical A1C assays, a reported value of 7.0 could actually be between 6.72 and 7.28 if measured by a reference method. A reported value of 9.0 could actually be between 8.73 and 9.27. Ref: [email or web address]://ngsp.org /CAPdata.asp Ordering Provider: JESSICA GOODMAN Report Released Date/Time: Dec 20, 2022 01:42 PM Reporting Lab: [address] [address] Performing Lab: [address] [address] CHOLESTEROL 128 mg/dL 0-199 TRIGLYCERIDE 51 mg/dL 0-199 HDL 45 mg/dL >=40 LDL 73 mg/dL 0-129 Dec 12, 2023 10:45 AM [facility] CALCIUM PROFILE Specimen Type: SERUM Comment: 5.7 - 6.4% Prediabetes >= 6.5% Diabetic range. If the patient has not yet been diagnosed with T2DM, see [place] Clinical Practice Guideline for Management of T2DM (dated 05/2016) for more guidance. For patients already diagnosed with T2DM, target HbA1c values should be individualized using a Shared Decision-Making process. Ref: https://www.[facility].[place].gov /guidelines/CD/d iabetes/ Values obtained from A1C measurements can vary. For typical A1C assays, a reported value of 7.0 could actually be between 6.72 and 7.28 if measured by a reference method. A reported value of 9.0 could actually be between 8.73 and 9.27. Ref: [email or web address]://ngsp.org /CAPdata.asp Ordering Provider: JESSICA GOODMAN Report Released Date/Time: Dec 20, 2022 01:42 PM Reporting Lab: [place] [phone] Performing Lab: [address] CALCIUM 9.0 mg/dL 8.5-10.5 PO4,SERUM 3.1 mg/dL 2.5-5.0 PROTEIN,TOTAL 6.1 g/dL 6.0-8.5 ALBUMIN 3.7 g/dL 3.5-5.0 Dec 12, 2023 10:45 AM [facility] MAGNESIUM Specimen Type: SERUM No comment entered. Ordering Provider: JESSICA GOODMAN Report Released Date/Time: Dec 20, 2022 01:42 PM Reporting Lab: [place] [phone] Performing Lab: [place] [phone] MAGNESIUM 1.9 mg/dL 1.6-2.6 Dec 12, 2023 10:45 AM [facility] PO4,SERUM Specimen Type: SERUM No comment entered. Ordering Provider: JESSICA GOODMAN Report Released Date/Time: Dec 20, 2022 01:42 PM Reporting Lab: [address] [address] Performing Lab: [place] [phone] PO4,SERUM 3.1 mg/dL 2.5-5.0 Dec 12, 2023 10:45 AM [facility] TSH Specimen Type: SERUM Comment: For TSH [...] Dec 20, 2022 01:42 PM Reporting Lab: [address] [address] Performing Lab: [place] [address] TSH 1.92 m[IU]/mL 0.35-5.00 Dec 12, 2023 10:45 AM [facility] HEMOGLOBIN A1C PANEL Specimen Type: BLOOD Comment: 5.7 - 6.4% Prediabetes >= 6.5% Diabetic range. If the patient has not yet been diagnosed with T2DM, see [place] Clinical Practice Guideline for Management of T2DM (dated 05/2016) for more guidance. For patients already diagnosed with T2DM, target HbA1c values should be individualized using a Shared Decision-Making process. Ref: https://[facility].[place].gov /guidelines/CD/d iabetes/ Values obtained from A1C measurements can vary. For typical A1C assays, a reported value of 7.0 could actually be between 6.72 and 7.28 if measured by a reference method. A reported value of 9.0 could actually be between 8.73 and 9.27. Ref: https://ngsp.org /CAPdata.asp Ordering Provider: JESSICA GOODMAN Report Released Date/Time: Dec 20, 2022 01:42 PM Reporting Lab: [address] [address] Performing Lab: [address] [address] HEMOGLOBIN A1C 5.6 <=5.6 EST.AVERAGE GLUCOSE 114 mg/dL Dec 12, 2023 10:45 AM [facility] PROSTATIC SPECIFIC ANTIGEN Specimen Typ e: SERUM [...] Dec 20, 2022 01:42 PM Reporting Lab: [address] [address] Performing Lab: [address] [address] PROSTATIC SPECIFIC ANTIGEN 1.05 ng/mL 0.00-4.00 Dec 12, 2023 10:45 AM [facility] B12 Specimen Type: SERUM Comment: For TSH [...] Dec 20, 2022 01:42 PM Reporting Lab: [address] [address] Performing Lab: [address] [address] B12 439 pg/mL 300-900 Dec 12, 2023 10:45 AM [facility] FOLATE,SERUM Specimen Type: SERUM Comment: For TSH [...] Dec 20, 2022 01:42 PM Reporting Lab: [address] [address] Performing Lab: [address] [address] FOLATE,SERUM 8.5 ng/mL >=5.2 Dec 12, 2023 10:45 AM [facility] VITAMIN D TOTAL(SCREEN) Specimen Type: SERUM Comment: [...] Dec 20, 2022 01:42 PM Reporting Lab: [address] [address] Performing Lab: [address] [address] VITAMIN D TOTAL(SCREEN) 47.6 ng/mL 20.0-50.0 Advance [...] this document. The data comes from all [place] facilities. Date Advance Directives Provider Source Nov 01, 2017 ADVANCE DIRECTIVE CHIKA RICHARDSON [facility] Encounter Notes: All associated encounter notes This section contains the clinical notes associated to the Encounter. Date/Time Encounter Note(s) Provider Source Jan 06, 2024 12:00 AM PRIMARY CARE E & M NOTE: LOCAL TITLE: FEE-BASIS OUTPATIENT RECORDS RECEIVED STANDARD TITLE: PRIMARY CARE E & M NOTE DATE OF NOTE: JAN 06, 2024 ENTRY DATE: JAN 10, 2024@13:42:02 AUTHOR: MELVA JUNIOR EXP COSIGNER: URGENCY: STATUS: COMPLETED VistA Imaging - Scanned Document SCANNED DOCUMENT SIGNATURE NOT REQUIRED Electronically Filed: 01/10/2024 by: MELVA DOAN [facility]
--- OUTSIDE RECORDS SUMMARY | 2024-02-02 01:55 | XMS_ITS | Encounter Summary ---
Author Name [facility] [place] [facility] [place] Address [address] [place] [address] Care Team Providers Care Portfolio Director Name Role Phone WASHINGTON GOODMAN Primary Care [...] BASIC SELF+ ONE Feb 22, 2020 113 [id number] [phone] SUHAIL BOLDEN SR PATIENT ISAAC BCBS CT FEDERAL PREFERRED PROVIDER ORGANIZAT ION (PPO) BASIC SELF Feb 27, 2005 [id number] [phone] SUHAIL BOLDEN SR PATIENT BCBS MA FEP PREFERRED PROVIDER ORGANIZAT ION (PPO) BASIC SELF PLUS ONE Feb 22, 2020 113 [id number] SUHAIL BOLDEN SR PATIENT BCBS JESSICA FEP PREFERRED PROVIDER ORGANIZAT ION (PPO) BASIC INDIV IDUAL Feb 27, 2005 111 [id number] [phone] SUHAIL BOLDEN SR PATIENT [employer] FEPRX PLAN PRESCRIPT CURTIS COLE ARK FEPRX Feb 21, 2010 [id number] SUHAIL BOLDEN SR PATIENT DANGELO-F EP BCBS PRESCRIPT ION FEP KELSEY ARK Feb 21, 2010 [id number] [phone] [id number] SUHAIL BOLDEN SR PATIENT Selected Encounter This section includes the information on record at [place] for the Encounter. Date/Time Encounter Type Encounter Description Reason Pro vider Source Jan 16, 2024 10:06 AM Outpatient Encounter ADMIN PAT ACTIVTIES (MASNONCT) IHE Encounter Template Text not used by [place] Advance Directives: All historical and current Section Date Range: From patient's date of to the date document was created. This section includes ALL of a patient's completed or amended [place] Advance and Rescinded Directives. The entries below indicate that a directive exists for the patient, but an actual copy is not included with this document. The data comes from all [place] facilities. Date Advance Directives Provider Source Nov 01, 2017 ADVANCE DIRECTIVE CHIKA RICHARDSON [facility] Encounter Notes: All associated encounter notes This section contains the clinical notes associated to the Encounter. Date/Time Encounter Note(s) Provider Source Jan 16, 2024 12:25 PM ADDENDUM: LOCAL TITLE: Addendum STANDARD TITLE: ADDENDUM DATE OF NOTE: JAN 16, 2024@12:25:17 ENTRY DATE: JAN 16, 2024@12:25:18 AUTHOR: WASHINGTON GOODMAN EXP COSIGNER: URGENCY: STATUS: COMPLETED pact rn to clarify/discuss w/ pt. /macho/ washington goodman md care process manager Signed: 01/16/2024 12:25 Receipt Acknowledged By: 01/16/2024 13:20 /macho/ EJ NOEL, KIRA, MSN REGISTERED NURSE --- Original Document --- 01/16/24 CCC: SCHEDULING ADMINISTRATION: Patient Demographics Patient Name: SUHAIL BOLDEN Patient Primary Phone: [phone] Patient Primary Address: [address] [place] [address] Patient : 1955 Patient Age: 68 Call Back Number: Caller/Recipient Relation to Patient: Self Caller Name: SUHAIL BOLDEN Administrative Administrative Note Reason: Lab / Imaging Results Administrative Note Comments: . RESULTS REQUEST: MRI / SPINE/LOWER BACK RE: PATIENT STATES HE COMPLETED MRI @ [facility] (C/O OUTSIDE PROVIDER DR. BENDER) ABOUT 6 WEEKS AGO. PATIENT SEEKING RESULTS. PLEASE RETURN CALL TO PATIENT WITH RESULTS OR IF MRI PAPERWORK HAS NOT BEEN RECEIVED. PATIENT REQUESTING/AUTHORIZING [facility] TO LEAVE DETAILED VOICEMAIL MESSAGE, IF PATIENT NOT AVAILABLE. . IMPORTANT: This note was created by [facility] Clinical Contact Center staff. Please do not alert the staff member by adding them as a signer for future communications. Alerts are not monitored by this user. /macho/ ADILIA ALTAMIRANO 1 [facility] AMS[facility] Signed: 01/16/2024 10:06 Receipt Acknowledged By: 01/16/2024 13:20 /macho/ EJ NOEL, KIRA, MSN REGISTERED NURSE * AWAITING SIGNATURE * LILLY TURNER 01/16/2024 12:25 /macho/ washington goodman md care process manager 01/16/2024 ADDENDUM STATUS: COMPLETED Spoke with pt States he is having conference call with MRI ordering physican this afternoon regarding results Will request to have MRI results faxed to the [place] All questions addressed at this time /harriett NOEL, RN, MSN REGISTERED NURSE Signed: 01/16/2024 13:20 WASHINGTON GOODMAN [facility] Jan 16, 2024 10:06 AM ADMINISTRATIVE NOT E: LOCAL TITLE: CCC: SCHEDULING ADMINISTRATION STANDARD TITLE: ADMINISTRATIVE NOTE DATE OF NOTE: JAN 16, 2024@10:06:25 ENTRY DATE: JAN 16, 2024@10:06:25 AUTHOR: ADILIA CABRAL EXP COSIGNER: URGENCY: STATUS: COMPLETED CCC: SCHEDULING ADMINISTRATION Has ADDENDA Patient Demographics Patient Name: SUHAIL BOLDEN Patient Primary Phone: [phone] Patient Primary Address: [address] [place] [address] Patient : 1955 Patient Age: 68 Call Back Number: Caller/Recipient Relation to Patient: Self Caller Name: SUHAIL BOLDEN Administrative Administrative Note Reason: Lab / Imaging Results Administrative Note Comments: . RESULTS REQUEST: MRI / SPINE/LOWER BACK RE: PATIENT STATES HE COMPLETED MRI @ [facility] (C/O OUTSIDE PROVIDER DR. BENDER) ABOUT 6 WEEKS AGO. PATIENT SEEKING RESULTS. PLEASE RETURN CALL TO PATIENT WITH RESULTS OR IF MRI PAPERWORK HAS NOT BEEN RECEIVED. PATIENT REQUESTING/AUTHORIZING [facility] TO LEAVE DETAILED VOICEMAIL MESSAGE, IF PATIENT NOT AVAILABLE. . IMPORTANT: This note was created by [facility] Clinical Contact Center staff. Please do not alert the staff member by adding them as a signer for future communications. Alerts are not monitored by this user. /macho/ ADILIA HANCOCKN 1 [facility] Signed: 01/16/2024 10:06 Receipt Acknowledged By: 01/16/2024 13:20 /macho/ EJ NOEL, RN, MSN REGISTERED NURSE * AWAITING SIGNATURE * LILLY TURNER 01/16/2024 12:25 /macho/ washington goodman md care process manager 01/16/2024 ADDENDUM STATUS: COMPLETED pact rn to clarify/discuss w/ pt. /harriett goodman md care process manager Signed: 01/16/2024 12:25 Receipt Acknowledged By: 01/16/2024 13:20 /macho/ EJ NOEL, RN, MSN REGISTERED NURSE 01/16/2024 ADDENDUM STATUS: COMPLETED Spoke with pt States he is having conference call with MRI ordering physican this afternoon regarding results Will request to have MRI results faxed to the [place] All questions addressed at this time /harriett NOEL, RN, MSN REGISTERED NURSE Signed: 01/16/2024 13:20 ADILIA CABRALWV [facility]
--- OUTSIDE RECORDS SUMMARY | 2024-02-02 01:55 | XMS_ITS | Encounter Summary ---
Author Name [facility] [place] [facility] [place] Address [address] [place] [id number] Care Team Providers Care Paper Mill Manager Name Role Phone WASHINGTON GOODMAN Primary Care [...] BASIC SELF+ ONE Feb 22, 2020 [id number] [phone] SUHAIL BOLDEN SR PATIENT ISAAC BCBS CT FEDERAL PREFERRED PROVIDER ORGANIZAT ION (PPO) BASIC SELF Feb 27, 2005 111 [id number] [phone] SUHAIL BOLDEN SR PATIENT BCBS MA FEP PREFERRED PROVIDER ORGANIZAT ION (PPO) BASIC SELF PLUS ONE Feb 22, 2020 113 [id number] SUHAIL BOLDEN SR PATIENT BCBS JESSICA FEP PREFERRED PROVIDER ORGANIZAT ION (PPO) BASIC INDIV IDUAL Feb 27, 2005 111 [id number] [phone] SUHAIL BOLDEN SR PATIENT [place] FEPRX PLAN PRESCRIPT ION CAREM ARK FEPRX Feb 21, 2010 [id number] SUHAIL BOLDEN SR PATIENT CAREWILDER-F EP BCBS PRESCRIPT ION FEP KELSEY ARK Feb 21, 2010 [id number] SUHAIL BOLDEN SR PATIENT Selected Encounter This section includes the information on record at [place] for the Encounter. Date/Time Encounter Type Encounter Description Reason Provider Source Nov 29, 2023 11:30 AM OFFICE O/P EST LOW 20 MIN PRIMARY CARE/MEDICINE ICD-10-CM M54.51 Vertebrogenic low back pain OCTAVIA GOODMAN Luz Encounter Template Text not used by [facility] Assessments - Encounter Diagnoses This section includes the primary and secondary diagnoses documented for the Encounter. Date/Time Primary/Secondary Diagnosis Diagnosis Name Provider Source Nov 29, 2023 12:11 PM PRIMARY Vertebrogenic low back pain WASHINGTON GOODMAN Plan of Treatment: Future Appointments (+ 6 months) and Future Tests (+/- 45 days) The Plan of Treatment section includes future care activities for the patient from all [place] treatmentfacilities. This section includes future appointments and future orders which are active, pending or scheduled. Future Appointments This section includes appointments that were scheduled to occur 6 months from the date of the Encounter, up to a maximum of 20 appointments. The data comes from all [place] treatment facilities. Appointment Date/Time Appointment Type Appointme nt Facility Name Dec 12, 2023 10:45 AM AMBULATORY - NONE [facility] Dec 12, 2023 11:00 AM AMBULATORY - MEDICINE [facility] Lab Results: +/- 30 days of the encounter This section includes the Chemistry and Hematology Lab Results on record with [place] for the patient. Radiology Reports and Pathology Reports are provided separately, in subsequent sections. Lab Results This section contains the Chemistry/Hematology Results that were resulted 30 days before or 30 daysafter the date of the Encounter. Date/Time Source Result Type Result - Unit Interpretation Reference Range Comment Dec 12, 2023 01:55 PM [facility] URINE ALBUMIN, SPOT PROFILE Specimen Ty pe: URINE No comment entered. Ordering Provider: WASHINGTON GOODMAN Report Released Date/Time: Dec 20, 2022 01:42 PM Reporting Lab: [address] [address] Performing Lab: [address] [address] Urine ALB/CRE,SPOT-R ATIO 5 mg/g{creat} 0-29 Urine ALBUMIN,SPOT-Q NT 0.6 mg/dL CREATININE, URINE RANDOM 128.7 mg/dL >=20.0 Dec 12, 2023 01:55 PM [facility] URINALYSIS,ROUTINE/ADMISSION Specimen T ype: URINE No comment entered. Ordering Provider: WASHINGTON GOODMAN Report Released Date/Time: Dec 20, 2022 01:42 PM Reporting Lab: [address] [address] Performing Lab: [address] [address] URINE COLOR Light-Yellow YELLOW SPECIFIC GRAVITY 1.020 1.001-1.035 UROBILINOGEN NORMAL mg/dL NORMAL URINE BILIRUBIN NEGATIVE Neg URINE KETONES NEGATIVE Neg URINE GLUCOSE NEGATIVE Neg URINE PROTEIN NEGATIVE Neg URINE pH 5.5 [pH] 5.0-8.0 APPEARANCE Clear CLEAR URINE BLOOD NEGATIVE Neg NITRITE, URINE NEGATIVE Neg LEUKOCYTE ESTERASE NEGATIVE Neg Dec 12, 2023 10:45 AM [facility] HEP B SURF AB Specimen Type: SERUM [...] Dec 20, 2022 01:42 PM Reporting Lab: [address] [address] Performing Lab: [address] [address] HEP B SURF AB GRAYZONE Non Reactive Dec 12, 2023 10:45 AM [facility] HEPATITIS C Ab Specimen Type: SERUM Comment: [...] Dec 20, 2022 01:42 PM Reporting Lab: [address] [address] Performing Lab: [address] [address] HEPATITIS C Ab Non Reactive No n Reactive Dec 12, 2023 10:45 AM [facility] HIV AB/ P24 AG COMBO(HIV SCREEN) Specim [...] Dec 20, 2022 01:42 PM Reporting Lab: [address] [address] Performing Lab: [address] [address] HIV AB/ P24 AG COMBO(HIV SCREEN) Non Reactive Non Reactive Dec 12, 2023 10:45 AM [facility] CBC W/ AUTO DIFF Specimen Type: BLOOD No comment entered. Ordering Provider: WASHINGTON GOODMAN Report Released Date/Time: Dec 20, 2022 01:42 PM Reporting Lab: [address] [address] Performing Lab: [address] [address] WBC 5.2 10*3/uL 4.5-11.0 RBC 4.70 10*6/uL [...] /100{WBCs} 0.0-0.0 Dec 12, 2023 10:45 AM [facility] CHEM 7 Specimen Type: SERUM Comment: 5.7 - 6.4% Prediabetes >= 6.5% Diabetic range. If the patient has not yet been diagnosed with T2DM, see [place]/[facility] Clinical Practice Guideline for Management of T2DM (dated 05/2016) for more guidance. For patients already diagnosed with T2DM, target HbA1c values should be individualized using a Shared Decision-Making process. Ref: https://www.[facility] centerquality.ca.gov /guidelines/CD/d iabetes/ Values obtained from A1C measurements can vary. For typical A1C assays, a reported value of 7.0 could actually be between 6.72 and 7.28 if measured by a reference method. A reported value of 9.0 could actually be between 8.73 and 9.27. Ref: https://ngsp.org /CAPdata.asp Ordering Provider: WASHINGTON GOODMAN Report Released Date/Time: Dec 20, 2022 01:42 PM Reporting Lab: [address] [address] Performing Lab: [address] [address] CREATININE,SER UM 0.75 mg/dL 0.5-1.5 UREA NITROGEN, BLOOD 8 mg/dL 7-25 GLUCOSE,RANDOM 115 mg/dL H 65-100 SODIUM 141 mmol/L 135-145 POTASSIUM 4.3 mmol/L 3.5-5.0 CHLORIDE 110 mmol/L 100-110 CO2 24 meq/L 20-30 ANION GAP 7 meq/L 6-16 eGFR(CKD-EPI 2020) >90 mL/min >=60 Dec 12, 2023 10:45 AM Incipient LIVER PROFILE Specimen Type: SERUM Comment: 5.7 - 6.4% Prediabetes >= 6.5% Diabetic range. If the patient has not yet been diagnosed with T2DM, see [place] Clinical Practice Guideline for Management of T2DM (dated 05/2016) for more guidance. For patients already diagnosed with T2DM, target HbA1c values should be individualized using a Shared Decision-Making process. Ref: https://www.[facility]quality.ca.gov /guidelines/CD/d iabetes/ Values obtained from A1C measurements can vary. For typical A1C assays, a reported value of 7.0 could actually be between 6.72 and 7.28 if measured by a reference method. A reported value of 9.0 could actually be between 8.73 and 9.27. Ref: https://ngsp.org /CAPdata.asp Ordering Provider: WASHINGTON GOODMAN Report Released Date/Time: Dec 20, 2022 01:42 PM Reporting Lab: [address] [address] Performing Lab: [address] [address] ALBUMIN 3.7 g/dL 3.5-5.0 TOT. BILIRUBIN 1.0 mg/dL 0.2-1.2 DIR. BILIRUBIN 0.4 mg/dL 0.0-0.5 ALKALINE PHOSPHATASE 67 U/L 40-150 ALT 34 U/L 7-52 AST 25 U/L 5-40 Dec 12, 2023 10:45 AM [facility] LIPOPROTEIN PROFILE Specimen Type: SERUM Comment: 5.7 - 6.4% Prediabetes >= 6.5% Diabetic range. If the patient has not yet been diagnosed with T2DM, see [place] Clinical Practice Guideline for Management of T2DM (dated 05/2016) for more guidance. For patients already diagnosed with T2DM, target HbA1c values should be individualized using a Shared Decision-Making process. Ref: https://www.[facility] centerquality.ca.gov /guidelines/CD/d iabetes/ Values obtained from A1C measurements can vary. For typical A1C assays, a reported value of 7.0 could actually be between 6.72 and 7.28 if measured by a reference method. A reported value of 9.0 could actually be between 8.73 and 9.27. Ref: https://ngsp.org /CAPdata.asp Ordering Provider: WASHINGTON GOODMAN Report Released Date/Time: Dec 20, 2022 01:42 PM Reporting Lab: [address] [address] Performing Lab: [address] [address] CHOLESTEROL 128 mg/dL 0-199 TRIGLYCERIDE 51 mg/dL 0-199 HDL 45 mg/dL >=40 LDL 73 mg/dL 0-129 Dec 12, 2023 10:45 AM [facility] CALCIUM PROFILE Specimen Type: SERUM Comment: 5.7 - 6.4% Prediabetes >= 6.5% Diabetic range. If the patient has not yet been diagnosed with T2DM, see [place] Clinical Practice Guideline for Management of T2DM (dated 05/2016) for more guidance. For patients already diagnosed with T2DM, target HbA1c values should be individualized using a Shared Decision-Making process. Ref: https://www.[facility]quality.ca.gov /guidelines/CD/d iabetes/ Values obtained from A1C measurements can vary. For typical A1C assays, a reported value of 7.0 could actually be between 6.72 and 7.28 if measured by a reference method. A reported value of 9.0 could actually be between 8.73 and 9.27. Ref: https://ngsp.org /CAPdata.asp Ordering Provider: WASHINGTON GOODMAN Report Released Date/Time: Dec 20, 2022 01:42 PM Reporting Lab: [address] [address] Performing Lab: [address] [address] CALCIUM 9.0 mg/dL 8.5-10.5 PO4,SERUM 3.1 mg/dL 2.5-5.0 PROTEIN,TOTAL 6.1 g/dL 6.0-8.5 ALBUMIN 3.7 g/dL 3.5-5.0 Dec 12, 2023 10:45 AM [facility] MAGNESIUM Specimen Type: SERUM No comment entered. Ordering Provider: WASHINGTON GOODMAN Report Released Date/Time: Dec 20, 2022 01:42 PM Reporting Lab: [address] [address] Performing Lab: [address] [address] MAGNESIUM 1.9 mg/dL 1.6-2.6 Dec 12, 2023 10:45 AM [facility] PO4,SERUM Specimen Type: SERUM No comment entered. Ordering Provider: WASHINGTON GOODMAN Report Released Date/Time: Dec 20, 2022 01:42 PM Reporting Lab: [address] [address] Performing Lab: [address] [address] PO4,SERUM 3.1 mg/dL 2.5-5.0 Dec 12, 2023 10:45 AM [facility] TSH Specimen Type: SERUM Comment: For TSH [...] Dec 20, 2022 01:42 PM Reporting Lab: [address] [address] Performing Lab: [address] [address] TSH 1.92 m[IU]/mL 0.35-5.00 Dec 12, 2023 10:45 AM [facility] HEMOGLOBIN A1C PANEL Specimen Type: BLOOD Comment: 5.7 - 6.4% Prediabetes >= 6.5% Diabetic range. If the patient has not yet been diagnosed with T2DM, see [place] Clinical Practice Guideline for Management of T2DM (dated 05/2016) for more guidance. For patients already diagnosed with T2DM, target HbA1c values should be individualized using a Shared Decision-Making process. Ref: https://www.[facility]quality.[place].gov /guidelines/CD/d iabetes/ Values obtained from A1C measurements can vary. For typical A1C assays, a reported value of 7.0 could actually be between 6.72 and 7.28 if measured by a reference method. A reported value of 9.0 could actually be between 8.73 and 9.27. Ref: https://ngsp.org /CAPdata.asp Ordering Provider: WASHINGTON GOODMAN Report Released Date/Time: Dec 20, 2022 01:42 PM Reporting Lab: [address] [address] Performing Lab: [address] [address] HEMOGLOBIN A1C 5.6 <=5.6 EST.AVERAGE GLUCOSE 114 mg/dL Dec 12, 2023 10:45 AM [facility] PROSTATIC SPECIFIC ANTIGEN Specimen Typ e: SERUM [...] Dec 20, 2022 01:42 PM Reporting Lab: [address] [address] Performing Lab: [address] [address] PROSTATIC SPECIFIC ANTIGEN 1.05 ng/mL 0.00-4.00 Dec 12, 2023 10:45 AM [facility] B12 Specimen Type: SERUM Comment: For TSH [...] Dec 20, 2022 01:42 PM Reporting Lab: [address] [address] Performing Lab: [address] [address] B12 439 pg/mL 300-900 Dec 12, 2023 10:45 AM [facility] FOLATE,SERUM Specimen Type: SERUM Comment: For TSH [...] Dec 20, 2022 01:42 PM Reporting Lab: [address] [address] Performing Lab: [address] [address] FOLATE,SERUM 8.5 ng/mL >=5.2 Dec 12, 2023 10:45 AM [facility] VITAMIN D TOTAL(SCREEN) Specimen Type: SERUM Comment: [...] Dec 20, 2022 01:42 PM Reporting Lab: [address] [address] Performing Lab: [address] [address] VITAMIN D TOTAL(SCREEN) 47.6 ng/mL 20.0-50.0 Vital Signs: All taken on the encounter date This section contains inpatient and outpatient Vital Signs collected on the date of the Encounter. Date/Time Temperature Pulse Blood Pressure Respiratory Rate SP02 Pain Height Weight Body Mass Index Source Nov 29, 2023 11:27 AM 98.2 43 132/50 18 99 7 69 189 28 [place] Social History: Smoking Status (Most current) and Tobacco Use (All prior to encounter date) This section includes the most current, and the historical, smoking and tobacco- related health factors from the [place] facility where the Encounter took place. Current Smoking Status This section includes the most current smoking, or tobacco-related health factor, from the [place] facility where the Encounter took place. Date/Time Current Smoking Status Comment Ashley ity Nov 29, 2023 11:30 AM VA-TOBACCO NEVER USED [facility] Tobacco Use History This section includes a history of the smoking, or tobacco-related health factors, that were collected on or before the date of the Encounter. The data comes from the [place] facility where the Encounter took place. Date/Time Smoking Status/Tobacco Use Comment F acility Dec 20, 2022 01:00 PM VA-TOBACCO NEVER USED [facility] Nov 05, 2021 01:00 PM VA-TOBACCO FORMER USER [facility] Nov 05, 2021 01:00 PM VA-TOBACCO QUIT 15 YRS OR MORE [facility] Oct 09, 2020 01:00 PM VA-TOBACCO NEVER USED [place] Advance Directives: All historical and current Section Date Range: From patient's date of to the date document was created. This section includes ALL of a patient's completed or amended [place] Advance and Rescinded Directives. The entries below indicate that a directive exists for the patient, but an actual copy is not included with this document. The data comes from all [place] facilities. Date Advance Directives Provider Source Nov 01, 2017 ADVANCE DIRECTIVE CHIKA RICHARDSON [employer] Encounter Notes: All associated encounter notes This section contains the clinical notes associated to the Encounter. Date/Time Encounter Note(s) Provider Source Nov 29, 2023 11:50 AM PRIMARY CARE OUTPA TIENT NOTE: LOCAL TITLE: PRIMARY CARE CLINIC VISIT STANDARD TITLE: PRIMARY CARE OUTPATIENT NOTE DATE OF NOTE: NOV 29, 2023@11:50:30 ENTRY DATE: NOV 29, 2023@11:50:32 AUTHOR: WASHINGTON GOODMAN COSIGNER: URGENCY: STATUS: COMPLETED interval visit. recall pcc appt due-end of 11/2023. cc-post ed visit f/up (back pain). pt seen in urgent care here s/p fall (mechanical)-08/2023.pt requesting mri of his spine.pt seen by his non-va pcp (progress note not available).pt did not go for trial pf physical therapy (w/o having mri). reports lower back pain w/ pain/paresthesias-b/l lower ext (left >right).no bladder/bowel control problems. 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 imp-lbp/ls radiculopathy. plan-schedule lumbar spine mri. obtain non-va records.pt to sign eitan today. keep schd appt-later this month. rtc-keep schd appt-12/12/2023.labs prior. Depression Screening: Perform PHQ-2 A PHQ-2 screen was performed. The score was 0 which is a negative screen for depression. Over the past two weeks, how often have you been bothered by the following problems? 1. Little interest or pleasure in doing things Not at all 2. Feeling down, depressed, or hopeless Not at all. Herpes Zoster (Shingles) Vaccine: The patient declines to receive the recommended dose of zoster (shingles) vaccine. Immunization: ZOSTER RECOMBINANT Refusal Reason: PATIENT DECISION Patient refuses all immunization(s) in the ZOSTER group Date Documented: 11/29/23 11:57 Influenza Immunization: Deferral / Refusal The patient declines to receive the recommended dose of seasonal influenza vaccine. Immunization: INFLUENZA, UNSPECIFIED FORMULATION Refusal Reason: PATIENT DECISION Patient refuses all immunization(s) in the FLU group Date Documented: 11/29/23 11:57 Pneumococcal Conjugate Vaccine (PCV15/PCV20): Refuses PCV vaccine Immunization: PNEUMOCOCCAL CONJUGATE, UNSPECIFIED FORMULATION Refusal Reason: PATIENT DECISION Patient refuses all immunization(s) in the PneumoPCV group Date Documented: 11/29/23 11:58 Tdap Immunization: The patient declines to receive the recommended dose of Tdap vaccine. Immunization: TDAP Refusal Reason: PATIENT DECISION Patient refuses all immunization(s) in the TDAP group Date Documented: 11/29/23 11:58 Return to Clinic: No new return to clinic order needed. Will keep the future appointment/recall date. FIRM 1 Medication Reconciliation: Outpatient: Has the patient been taking medications as documented in the EMLR? YES: The patient has been taking medications as documented in the EMLR. Essential Medication List for Review used to complete this medication reconciliation. INCLUDED IN THIS LIST: Alphabetical list of active outpatient prescriptions dispensed from this [place] (local) and dispensed from another [place] or [facility] facility (remote) as well as inpatient orders (local, pending and active), local clinic medications, locally documented non-VA medications, and local prescriptions that have or been discontinued in the past 90 days. - All changes in medications, including all non-VA/Herbal/OTC medications were entered into CPRS. - If there were any medications the patient should no longer take, they were discontinued. - The patient/caregiver was instructed to update this list, discard old lists, and take this list to the next appointment, whether with a VA or non-VA provider. Avg Risk Colorectal Cancer Screen: AVERAGE RISK colorectal cancer screening is due based on information available to this clinical reminder Patient has arranged or is choosing to arrange this care independent of and without assistance from this [place]. /macho/ [facility] provider Signed: 11/29/2023 12:11 WASHINGTON GOODMAN Nov 29, 2023 11:19 AM PRIMARY CARE NOTE: LOCAL TITLE: PRIMARY CARE PREVENTATIVE HEALTH MAINTENANCE NOTE STANDARD TITLE: PRIMARY CARE NOTE DATE OF NOTE: NOV 29, 2023@11:19 ENTRY DATE: NOV 29, 2023@11:19:31 AUTHOR: KARINA TAVAREZ COSIGNER: URGENCY: STATUS: COMPLETED Alcohol Use Screen (AUDIT-C): Alcohol Screen: SCREEN FOR ALCOHOL (AUDIT-C) An alcohol screening test (AUDIT-C) was negative (score=1). 1. How often did you have a drink containing alcohol in the past year? Consider a drink to be a 12 ounce can or bottle of regular beer, 8 ounces of malt liquor, a 5 ounce glass of table wine, or a 1.5 ounce shot of liquor (like scotch, gin, or vodka). Monthly or less 2. How many drinks containing alcohol did you have on a typical day when you were drinking in the past year? One or two drinks 3. How often did you have six or more drinks on one occasion in the past year? Never Tobacco Use Screening: The patient has never used tobacco. Advance Directive Screen MH AD: The patient has an Advance Directive on file at another [facility] that may require updating with the assistance of Social Work Service. A consult to Social Work Service has been entered. (See Orders) The patient received education about Advance Directives and written notification of his/her rights. Sexual Orientation: The patient thinks of their sexual orientation as: Straight or Heterosexual This information will be added to your demographics sheet and visible to// any staff or individual appropriately accessing your medical record or// [facility] // /macho/ KARINA TAVAREZ [employer] Signed: 11/29/2023 11:29 KARINA TAVAREZ
--- OUTSIDE RECORDS SUMMARY | 2024-02-02 01:55 | XMS_ITS | Encounter Summary ---
Author Name [facility] Address [address] [place] [id number] Care Team Providers Care Winter Sports Manager Name Role Phone JESSICA GOODMAN Primary [...] Name Patient's Relationship to Policy Duran ISAAC BC CT FEDERAL PREFERRED PROVIDER ORGANIZAT ION (PPO) BASIC SELF+ ONE Feb 22, 2020 [id number] [phone] SUHAIL BOLDEN SR PATIENT ISAAC BCBS CT FEDERAL PREFERRED PROVIDER ORGANIZAT ION (PPO) BASIC SELF Feb 27, 2005 [id number] [phone] SUHAIL BOLDEN SR PATIENT BCBS [place] FEP PREFERRED PROVIDER ORGANIZAT ION (PPO) BASIC SELF PLUS ONE Feb 22, 2020 [id number] SUHAIL BOLDEN SR PATIENT BCBS JESSICA FEP PREFERRED PROVIDER ORGANIZAT ION (PPO) BASIC INDIV IDUAL Feb 27, 2005 [id number] SUHAIL BOLDEN SR PATIENT [place] FEPRX PLAN PRESCRIPT ION CAREM ARK FEPRX Feb 21, 2010 [id number] SUHAIL BOLDEN SR PATIENT DANGELO-Judy EP BCBS PRESCRIPT ION FEP KELSEY ARK Feb 21, 2010 [id number] SUHAIL BOLDEN SR PATIENT Selected Encounter This section includes the information on record at [place] for the Encounter. Date/Time Encounter Type Encounter Description Reason Provider Source Aug 30, 2023 01:00 PM OFFICE O/P EST MOD 30 MIN OPTOMETRY ICD-10-CM H40.013 Open angle with borderline findings, low risk, bilateral JACQUELINE MARCOS Encounter Template Text not used by [facility] Assessments - Encounter Diagnoses This section includes the primary and secondary diagnoses documented for the Encounter. Date/Time Primary/Secondary Diagnosis Diagnosis Name Provider Source Sep 12, 2023 04:24 PM PRIMARY Open angle with borderline findings, low risk, bilateral JACQUELINE MARCOS Sep 12, 2023 04:24 PM SECONDARY Age-related nuclear cataract, bilateral JACQUELINE MARCOS Sep 12, 2023 04:24 PM SECONDARY Presbyopia JACQUELINE MARCOS Plan of Treatment: Future Appointments (+ 6 months) and Future Tests (+/- 45 days) The Plan of Treatment section includes future care activities for the patient from all VA treatmentfacilities. This section includes future appointments and future orders which are active, pending or scheduled. Future Appointments This section includes appointments that were scheduled to occur 6 months from the date of the Encounter, up to a maximum of 20 appointments. The data comes from all [place] treatment facilities. Appointment Date/Time Appointment Type Appointme nt Facility Name Sep 06, 2023 02:03 PM [facility] - MEDICINE [facility] Nov 29, 2023 11:30 AM AMBULATORY - MEDICINE [facility] Dec 12, 2023 10:45 AM [facility] Dec 12, 2023 11:00 AM AMBULATORY - MEDICINE [facility] Social History: Smoking Status (Most current) and Tobacco Use (All prior to encounter date) This section includes the most current, and the historical, smoking and tobacco- related health factors from the [facility] facility where the Encounter took place. Current Smoking Status This section includes the most current smoking, or tobacco-related health factor, from the VA facility where the Encounter took place. Date/Time Current Smoking Status Comment Facil [facility] Dec 20, 2022 01:00 PM VA-TOBACCO NEVER USED [facility] Tobacco Use History This section includes a history of the smoking, or tobacco-related health factors, that were collected on or before the date of the Encounter. The data comes from the [place] facility where the Encounter took place. Date/Time Smoking Status/Tobacco Use Comment F acility Nov 05, 2021 01:00 PM VA-TOBACCO FORMER USER [facility] Nov 05, 2021 01:00 PM VA-TOBACCO QUIT 15 YRS OR MORE [facility] Oct 09, 2020 01:00 PM VA-TOBACCO NEVER USED [facility] Advance Directives: All historical and current Section Date Range: From patient's date of to the date document was created. This section includes ALL of a patient's completed or amended VA Advance and Rescinded Directives. The entries below indicate that a directive exists for the patient, but an actual copy is not included with this document. The data comes from all [place] facilities. Date Advance Directives Provider Source Nov 01, 2017 ADVANCE DIRECTIVE CHIKA RICHARDSON [facility] Radiology Reports: +/- 30 days of the [...] the Encounter. The data comes from all [place] treatment facilities. Date/Time Radiology Report Provider Source Sep 06, 2023 04:10 PM SPINE LUMBOSACRAL MIN 2 VIEWS: SUHAIL BOLDEN [id number] -[id number] M Exm Date: SEP 06, 2023@16:10 Req Phys: LEONARD CAMPOS Pat Loc: [facility] (Req'g Loc) Img Loc: RADIOLOGY ([facility]) Service: Unknown NEIL , (Case [id number] COMPLETE) SPINE LUMBOSACRAL MIN 2 VIEWS (RAD Detailed) CPT:34902 Reason for Study: lower back pain Clinical History: PROVIDER CONTACT INFORMATION:6419 Report Status: Verified Date Reported: SEP 06, 2023 Date Verified: SEP 06, 2023 Slip Mixer E-Sig:/ES/IAN ANGEL MD Report: LUMBOSACRAL SPINE, FRONTAL, [...] changes are seen, overall increased since prior, habbjwab-gs-qraymo at L3-L4, moderate at L4-L5, mild at other lumbar levels. Multilevel bridging enthesophytes/osteophytes are noted. Impression: No evidence of acute fracture or traumatic subluxation. Degenerative changes of the lumbar spine, mnnnogqr-mq-ldsuyf at L3-L4 and moderate at L4-L5, mildly increased since 2018. Primary Diagnostic Code: No Immediate Attention Required Primary Interpreting Staff: IAN ANGEL MD, Staff Neuroradiologist (Slip Mixer) /IAN SAGASTUME Encounter Notes: All associated encounter notes This section contains the clinical notes associated to the Encounter. Date/Time Encounter Note(s) Provider Source Aug 30, 2023 04:09 PM OPTOMETRY NOTE: LOCAL TITLE: OPTOMETRY ATTENDING NOTE STANDARD TITLE: OPTOMETRY NOTE DATE OF NOTE: AUG 30, 2023@16:09 ENTRY DATE: AUG 30, 2023@16:09:21 AUTHOR: JACQUELINE MARCOS EXP COSIGNER: URGENCY: STATUS: COMPLETED RODOLFO: 1 year ago - consult CC/HPI: 68 Yo MALE reports to clinic for annual CEE/ DFE. Monitored for low risk POAG suspect, cataracts, and refractive error. Patient reports blurred vision at distance and would like same frame DVO and NVO. Patient reports no changes in vision since last CEE. Pt consents to dilation. 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 FOHx: (-) GLC, BLINDNESS, ARMD, OTHER EYE DISEASES MHx: osteopenia,hlp,colonic polyps/diverticulosis of colon,lbp/anterolisthesis L4-5/djd,,compression fractures of thoracic spine/kyphosis,hearing loss/tinnitus,catarcts/glaucoma,predi abetes,hydrocele,covid-19 infection~ 05/2019. ( - ) Smoker Systemic Medications/Ocular Medications: Active Outpatient Medications (excluding Supplies): Active Non-VA Medications Status 1) Non-VA ASCORBIC ACID 500MG TAB 500MG MOUTH ONCE DAILY ACTIVE 2) Non-VA ATORVASTATIN TAB MOUTH ACTIVE 3) Non-VA OTHER,NON-VA MED CAP/TAB VITAMIN D-?? DOSE ACTIVE MOUTH ONCE DAILY allergies: ATORVASTATIN Last Blood Pressure: 132/68 (12/20/2022 13:14) Pertinent Labs: Recent A1C's (last four) No selection items chosen for this component. Current Rx: OD +1.00 Sph OS +1.00 -0.75 x055 Add: +2.50 DVA cc: OD 20/25 OS 20/25 Pupils: PERRL APD- EOMs: SAFE OU (-) pain/diplopia CFF: FULL TO FINGER COUNTING ALL QUADS OD/OS Subj: OD +1.25 Sph 20/20 OS +1.25 -0.75 x055 20/20 Add: +2.50 SLE: ADNEXAE/FACE/LIDS: Normal observation Lids/Lashes: 1+ Blepharitis OU, +1 MGD Conjunctiva: Pinguecula N&T OU Corneas: TBUT < 5 sec, (-)SPK Iris: Old post synechiae OS, flat and intact OU Anterior Chamber: deep and quiet Angles: >1:1 N/T by VH OD/OS TAP OD 14 mmHg OS 14 mmHg @ CONSENT: The patient was educated about the need for pupil dilation as well as the potential side effects including light sensitivity and blurred vision. The patient voiced understanding and gave consent to proceed with the dilation. Dilating Drops: 2 gtt 1% tropic OD/OS @ 1:30; Lens: OD 2+ NS, +1 ACC vacuole, trc PSC OS 2+ NS, +1 ACC vacuole, trc PSC, Old synechiae S, N and T Vitreous: OD syneresis, PVD OS syneresis, PVD C/D OD 0.55V x 0.50H, (+)deep lamina OS 0.60r, (+)deep lamina DISC OD pink, distinct, (-) drance heme OS pink, distinct, (-) drance heme Macula OD flat, intact, OS flat, intact, Post Pole OD flat, intact, OS flat, intact, A/V: A/V [place] SUP and INF OU 2/3, NORMAL CALIBER OU Periphery: OD flat, intact, no holes, breaks or tears 360 OS Dense Vitreous plug Temp (-) hole, flat, intact, no holes, breaks or tears 360 ADDITIONAL TESTING: RNFL OCT: BASELINE (09/13) OD SS 8/10. AVG RNFL 93. AVG C/D 0.60. [place] RNFL (-)glaucomatous damage OS SS 8/10. AVG RNFL 92. AVG C/D 0.68. [place] RNFL (-)glaucomatous damage ASSESSMENT/PLAN: 1. Low risk POAG Suspect 2 to moderate cupping OU - IOP today 14/14. LIOP 01/30 - Tmax: Unknown - (-)FHx - Stable ONH cupping OU - RNFL OCT: BASELINE (09/13) OD AVG RNFL 93. AVG C/D 0.60. [place] RNFL (-)glaucomatous damage OS AVG RNFL 92. AVG C/D 0.68. [place] RNFL (-)glaucomatous damage - Pt educated on findings. Overall low risk based on (-)FHx, healthy appearance of ONH and normal IOP. No tx indicated at this time. - Pt educated on overall condition, risk factors present, potential for irreversible peripheral vision loss if not monitored. Pt verbalized understanding of importance of regular f/u. - Monitor yearly with RNFL OCT 2. Mild Age related Nuclear Sclerotic Cataract OU - BCVA stable 20/20 OD/OS - Patient is asymptomatic of glare while night driving or visual disturbances / changes - Not affecting ADLs at this time - Surgical intervention is not indicated at this time - Edu on the use of UV protection to slow down the progression of cataract and to limit night time driving. Pt expressed understanding. - Edu to RTC if any changes in vision, if not, monitor annually with DFE 3. Refractive Error w/ Presbyopia - glasses updated/ordered today - pt educated glasses will be mailed in 3 weeks - monitor changes at next visit in 1 year ==== RTC 1 year for CEE / DFE and OCT RNFL ==== ( ) risk/benefits of AREDS recommendation or other nutritional supplementation/life style modification discussed with pt as indicated by disease severity. Also reviewed use of home Amsler grid and importance of monitoring ( ) patient educated about prevention of disease progression related to diabetes i.e good control of glucose levels, regular eye exams/teleretinal imaging ( x ) patient educated about use of glaucoma medications and/or need for follow- up to monitor condition No barriers to pt ed identified( x ) Pt educated verbally Preferred method of learning: (X) verbal () written () demonstration Patient's response: (X) could repeat significant material (X)asked pertinent questions (X) able to demonstrate skills learned () printed educational materials given Medication use Dosing, Installation technique and Duration discussed (x) Side effects and prevention discussed (x) Proper storage discussed (x) OPHTHALMIC MEDICATION RECONCILIATION COMPLETED Medication Reconciliation: Outpatient: Has the patient been taking medications as documented in the EMLR? YES: The patient has been taking medications as documented in the EMLR. Essential Medication List for Review used to complete this medication reconciliation. INCLUDED IN THIS LIST: Alphabetical list of active outpatient prescriptions dispensed from this [facility] (local) and dispensed from another [place] or [facility] facility (remote) as well as inpatient orders [...] whether with a VA or non-VA provider. /macho/ JACQUELINE MARCOS OD OPTOMETRY ATTENDING Signed: 08/30/2023 16:11 JACQUELINE MARCOS Aug 30, 2023 02:33 PM OPTOMETRY CONSULT: LOCAL TITLE: OPTOMETRY IMAGING CONSULT NOTE ([facility]) STANDARD TITLE: OPTOMETRY CONSULT DATE OF NOTE: AUG 30, 2023@14:33 ENTRY DATE: AUG 30, 2023@14:33:18 AUTHOR: TRACI BRITT EXP COSIGNER: URGENCY: STATUS: COMPLETED Optometry Image can be viewed in [employer]. /macho/ TRACI BRITT CAR REPAIRER HELPER Signed: 08/30/2023 14:33 TRACI BRITT Aug 30, 2023 01:05 PM OPTOMETRY NOTE: LOCAL TITLE: SOLAR PROJECT COORDINATION SPECIALIST PROGRESS NOTE STANDARD TITLE: OPTOMETRY NOTE DATE OF NOTE: AUG 30, 2023@13:05 ENTRY DATE: AUG 31, 2023@09:05:28 AUTHOR: CADY ISAAC EXP COSIGNER: JACQUELINE MARCOS URGENCY: STATUS: COMPLETED Per student, pt requested same frame/lenses, 3 pair. Pair #1 (DVO) The quote provided below is for informational purposes only. Please verify prior to the creation of a purchase order. SUHAIL BOLDEN 7720 RX INFORMATION OD +1.25 0.00 X Add:0.00 Pzm:0.00 Dir: Prz2:0.00 Dir2: OS +1.25 -0.75 X55 Add:0.00 Pzm:0.00 Dir: Prz2:0.00 Dir2: FITTING INFORMATION FPD:71 NPD:68 [place]:R: L: SEG HT:R: L: Tint:None Shade:None VA Billable Items FRAME: CHRISTIANA ZAMARRIPAMETRICKI Right Lens: POLY SINGLE VISION 1.586 POLY Left Lens: POLY SINGLE VISION 1.586 POLY KLEAR ANTI-REFLECTIVE COATING Delivery instructions: Deliver to Wallis's home address: [address] [place] [address] Pair #2 (DVO suns) The quote provided below is for informational purposes only. Please verify prior to the creation of a purchase order. SUHAIL BOLDEN 7720 RX INFORMATION OD +1.25 0.00 X Add:0.00 Pzm:0.00 Dir: Prz2:0.00 Dir2: OS +1.25 -0.75 X55 Add:0.00 Pzm:0.00 Dir: Prz2:0.00 Dir2: FITTING INFORMATION FPD:71 NPD:68 [place]:R: L: SEG HT:R: L: Tint:V[place]O Shade:3 VA Billable Items FRAME: SUHAIL SANCHEZ Right Lens: TRIVEX SINGLE VISION TRIVEX Left Lens: TRIVEX SINGLE VISION TRIVEX SOLID TINT Delivery instructions: Deliver to 's home address: [address] [place] [address] Pair #3 (NVO) The quote provided below is for informational purposes only. Please verify prior to the creation of a purchase order. SUHAIL BOLDEN 7720 RX INFORMATION OD +3.75 0.00 X Add:0.00 Pzm:0.00 Dir: Prz2:0.00 Dir2: OS +3.75 -0.75 X55 Add:0.00 Pzm:0.00 Dir: Prz2:0.00 Dir2: FITTING INFORMATION FPD:68 NPD:65 [place]:R: L: SEG HT:R: L: Tint:None Shade:None VA Billable Items FRAME: [id number] BLACK CRYSTAL Right Lens: POLY SINGLE VISION 1.586 POLY Left Lens: POLY SINGLE VISION 1.586 POLY KLEAR ANTI-REFLECTIVE COATING Delivery instructions: Deliver to 's home address: [address] [place] [phone] /macho/ CADY ISAAC Business Development Analyst Signed: 08/31/2023 09:08 /macho/ JACQUELINE MARCOS OD OPTOMETRY ATTENDING Cosigned: 09/06/2023 08:47 Receipt Acknowledged By: 09/06/2023 13:20 /macho/ YAO CA OPTOMETRY CHINCHILLA MACHINE OPERATOR CADY ISAAC Aug 30, 2023 12:56 PM OPTOMETRY NOTE: LOCAL TITLE: OPTOMETRY PROGRESS NOTE - FULL EXAM (T) STANDARD TITLE: OPTOMETRY NOTE DATE OF NOTE: AUG 30, 2023@12:56 ENTRY DATE: AUG 30, 2023@12:57:13 AUTHOR: YAO CA EXP COSIGNER: JACQUELINE MARCOS URGENCY: STATUS: COMPLETED The information included in this progress note was authored by the Optometry student who participated in the care of this patient. Please see the Optometry Attending/Grinder Set Up Operator Universal note for this date which will be the official medical record for this examination and which contains the Attendings history, examination and Assessment and Plan. RODOLFO: 1 year ago - consult CC/HPI: 68 Yo MALE reports to clinic for annual CEE/ DFE. Monitored for low risk POAG suspect, cataracts, and refractive error. Patient reports blurred vision at distance and would like same frame DVO and NVO. Patient reports no changes in vision since last CEE. Pt consents to dilation. EYE MEDS: none OHx: ( - ) Pain: ( - ) BARAJAS: ( - ) Diplopia: ( - ) Flashes: ( + ) Floaters: longstanding ( - ) Amaurosis Fugax/Tia's: ( - ) Eye Injury: ( - ) Eye Surgery: ( - ) TBI ( + ) Low risk Primary Open angle glaucoma suspect 2' to moderate cupping OU - IOP (09/12) 01/30 ( + ) Hx Anterior Uveitis OS - History (09/12) most consistent with an Iritis that was diagnosed initially as abrasion by ED given patient's history. FOHx: (-) GLC, BLINDNESS, ARMD, OTHER EYE DISEASES MHx: osteopenia,hlp,colonic polyps/diverticulosis of colon,lbp/anterolisthesis L4-5/djd,,compression fractures of thoracic spine/kyphosis,hearing loss/tinnitus,catarcts/glaucoma,predi abetes,hydrocele,covid-19 infection~ 05/2019. ( - ) Smoker Systemic Medications/Ocular Medications: Active Outpatient Medications (excluding Supplies): Active Non-VA Medications Status 1) Non-VA ASCORBIC ACID 500MG TAB 500MG MOUTH ONCE DAILY ACTIVE 2) Non-VA ATORVASTATIN TAB MOUTH ACTIVE 3) Non-VA OTHER,NON-VA MED CAP/TAB VITAMIN D-?? DOSE ACTIVE MOUTH ONCE DAILY allergies: ATORVASTATIN Last Blood Pressure: 132/68 (12/20/2022 13:14) Pertinent Labs: Recent A1C's (last four) No selection items chosen for this component. Current Rx: OD +1.00 Sph OS +1.00 -0.75 x055 Add: +2.50 DVA cc: OD 20/25 OS 20/25 Pupils: PERRL APD- EOMs: SAFE OU (-) pain/diplopia CFF: FULL TO FINGER COUNTING ALL QUADS OD/OS Subj: OD +1.25 Sph 20/20 OS +1.25 -0.75 x055 20/20 Add: +2.50 SLE: ADNEXAE/FACE/LIDS: Normal observation Lids/Lashes: 1+ Blepharitis OU, +1 MGD Conjunctiva: Pinguecula N&T OU Corneas: TBUT < 5 sec, (-)SPK Iris: Old post synechiae OS, flat and intact OU Anterior Chamber: deep and quiet Angles: >1:1 N/T by VH OD/OS TAP OD 14 mmHg OS 14 mmHg @ CONSENT: The patient was educated about the need for pupil dilation as well as the potential side effects including light sensitivity and blurred vision. The patient voiced understanding and gave consent to proceed with the dilation. Dilating Drops: 2 gtt 1% tropic OD/OS @ 1:30; Lens: OD 2+ NS, +1 ACC vacuole, trc PSC OS 2+ NS, +1 ACC vacuole, trc PSC, Old synechiae S, N and T Vitreous: OD syneresis, PVD OS syneresis, PVD C/D OD 0.55V x 0.50H, (+)deep lamina OS 0.60r, (+)deep lamina DISC OD pink, distinct, (-) drance heme OS pink, distinct, (-) drance heme Macula OD flat, intact, OS flat, intact, Post Pole OD flat, intact, OS flat, intact, A/V: A/V [place] SUP and INF OU 2/3, NORMAL CALIBER OU Periphery: OD flat, intact, no holes, breaks or tears 360 OS Dense Vitreous plug Temp (-) hole, flat, intact, no holes, breaks or tears 360 ADDITIONAL TESTING: RNFL OCT: BASELINE (09/13) OD SS 8/10. AVG RNFL 93. AVG C/D 0.60. [place] RNFL (-)glaucomatous damage OS SS 8/10. AVG RNFL 92. AVG C/D 0.68. [place] RNFL (-)glaucomatous damage ASSESSMENT/PLAN: 1. Low risk POAG Suspect 2 to moderate cupping OU - IOP today . LIOP 01/30 - Tmax: Unknown - (-)FHx - Stable ONH cupping OU - RNFL OCT: BASELINE (09/13) OD AVG RNFL 93. AVG C/D 0.60. [place] RNFL (-)glaucomatous damage OS AVG RNFL 92. AVG C/D 0.68. [place] RNFL (-)glaucomatous damage - Pt educated on findings. Overall low risk based on (-)FHx, healthy appearance of ONH and normal IOP. No tx indicated at this time. - Pt educated on overall condition, risk factors present, potential for irreversible peripheral vision loss if not monitored. Pt verbalized understanding of importance of regular f/u. - Monitor yearly with RNFL OCT 2. Mild Age related Nuclear Sclerotic Cataract OU - BCVA stable 20/20 OD/OS - Patient is asymptomatic of glare while night driving or visual disturbances / changes - Not affecting ADLs at this time - Surgical intervention is not indicated at this time - Edu on the use of UV protection to slow down the progression of cataract and to limit night time driving. Pt expressed understanding. - Edu to RTC if any changes in vision, if not, monitor annually with DFE 3. Refractive Error w/ Presbyopia - glasses updated/ordered today - pt educated glasses will be mailed in 3 weeks - monitor changes at next visit in 1 year ==== RTC 1 year for CEE / DFE and OCT RNFL ==== ( ) risk/benefits of AREDS recommendation or other nutritional supplementation/life style modification discussed with pt as indicated by disease severity. Also reviewed use of home Amsler grid and importance of monitoring ( ) patient educated about prevention of disease progression related to diabetes i.e good control of glucose levels, regular eye exams/teleretinal imaging ( x ) patient educated about use of glaucoma medications and/or need for follow- up to monitor condition No barriers to pt ed identified( x ) Pt educated verbally Preferred method of learning: (X) verbal () written () demonstration Patient's response: (X) could repeat significant material (X)asked pertinent questions (X) able to demonstrate skills learned () printed educational materials given Medication use Dosing, Installation technique and Duration discussed (x) Side effects and prevention discussed (x) Proper storage discussed (x) OPHTHALMIC MEDICATION RECONCILIATION COMPLETED Medication Reconciliation: Outpatient: Has the patient been taking medications as documented in the EMLR? YES: The patient has been taking medications as documented in the EMLR. Essential Medication List for Review used to complete this medication reconciliation. INCLUDED IN THIS LIST: Alphabetical list of active outpatient prescriptions dispensed from this [facility] ([facility]) and dispensed from another [place] or [facility] facility (remote) as well as inpatient orders [...] whether with a VA or non-VA provider. /macho/ YAO CA OPTOMETRY CHINCHILLA MACHINE OPERATOR Signed: 08/30/2023 16:15 /macho/ JACQUELINE MARCOS OD OPTOMETRY ATTENDING Cosigned: 09/06/2023 08:47 YAO CA
--- OUTSIDE RECORDS SUMMARY | 2024-02-02 01:55 | XMS_ITS | Encounter Summary ---
Author Name [facility] Address [address] [address] Care Team Providers Care Instruction Dean Name Role Phone WASHINGTON GOODMAN Primary Care [...] BASIC SELF+ ONE Feb 22, 2020 [id number] [phone] SHADE BOLDEN SR PATIENT ISAAC BCBS CT FEDERAL PREFERRED PROVIDER ORGANIZAT ION (PPO) BASIC SELF Feb 27, 2005 111 [id number] [phone] SHADE BOLDEN SR PATIENT BCBS [place] FEP PREFERRED PROVIDER ORGANIZAT ION (PPO) BASIC SELF PLUS ONE Feb 22, 2020 113 [id number] SHADE BOLDEN SR PATIENT BCBS JESSICA FEP PREFERRED PROVIDER ORGANIZAT ION (PPO) BASIC INDIV IDUAL Feb 27, 2005 111 [id number] [phone] SHADE BOLDEN SR PATIENT [place] FEPRX PLAN PRESCRIPT ION CAREM ARK FEPRX Feb 21, 2010 [id number] SHADE BOLDEN SR PATIENT CAREWILDER-F EP BCBS PRESCRIPT ION FEP CAREM ARK Feb 21, 2010 [id number] SHADE BOLDEN SR PATIENT Selected Encounter This section includes the information on record at [facility] for the Encounter. Date/Time Encounter Type Encounter Description Reason Provider Source Dec 12, 2023 11:00 AM OFFICE O/P EST LOW 20 MIN PRIMARY CARE/MEDICINE ICD-10-CM M54.51 Vertebrogenic low back pain OCTAVIA GOODMAN Luz Encounter Template Text not used by [facility] Assessments - Encounter Diagnoses This section includes the primary and secondary diagnoses documented for the Encounter. Date/Time Primary/Secondary Diagnosis Diagnosis Name Provider Source Dec 12, 2023 11:41 AM PRIMARY Vertebrogenic low back pain WASHINGTON GOODMAN Dec 12, 2023 11:41 AM SECONDARY Hyperlipidemia, unspecified WASHINGTON GOODMAN Dec 12, 2023 11:41 AM SECONDARY Sensorineural hearing loss, bilateral WASHINGTON GOODMAN Lab Results: +/- 30 days of the [...] Range Comment Dec 12, 2023 01:55 PM [facility] URINE ALBUMIN, SPOT PROFILE Specimen Ty pe: URINE No comment entered. Ordering Provider: WASHINGTON GOODMAN Report Released Date/Time: Dec 20, 2022 01:42 PM Reporting Lab: [address] [address] Performing Lab: [address] [address] Urine ALB/CRE,SPOT-R ATIO 5 mg/g{creat} 0-29 Urine ALBUMIN,SPOT-Q NT 0.6 mg/dL CREATININE, URINE RANDOM 128.7 mg/dL >=20.0 Dec 12, 2023 01:55 PM [facility] URINALYSIS,ROUTINE/ADMISSION Specimen T ype: URINE No comment entered. Ordering Provider: WASHINGTON GOODMAN Report Released Date/Time: Dec 20, 2022 01:42 PM Reporting Lab: [address] [address] Performing Lab: [address] [address] URINE COLOR Light-Yellow YELLOW SPECIFIC GRAVITY 1.020 1.001-1.035 UROBILINOGEN NORMAL mg/dL NORMAL URINE BILIRUBIN NEGATIVE Neg URINE KETONES NEGATIVE Neg URINE GLUCOSE NEGATIVE Neg URINE PROTEIN NEGATIVE Neg URINE pH 5.5 [pH] 5.0-8.0 APPEARANCE Clear CLEAR URINE BLOOD NEGATIVE Neg NITRITE, URINE NEGATIVE Neg LEUKOCYTE ESTERASE NEGATIVE Neg Dec 12, 2023 10:45 AM [facility] HEP B SURF AB Specimen Type: SERUM [...] Dec 20, 2022 01:42 PM Reporting Lab: [address] [address] Performing Lab: [address] [address] HEP B SURF AB GRAYZONE Non Reactive Dec 12, 2023 10:45 AM [facility] HEPATITIS C Ab Specimen Type: SERUM Comment: [...] Dec 20, 2022 01:42 PM Reporting Lab: [address] [address] Performing Lab: [address] [address] HEPATITIS C Ab Non Reactive No n Reactive Dec 12, 2023 10:45 AM [facility] HIV AB/ P24 AG COMBO(HIV SCREEN) Specim [...] Dec 20, 2022 01:42 PM Reporting Lab: [facility] [address] [facility] [address] Performing Lab: [facility] [address] [address] HIV AB/ P24 AG COMBO(HIV SCREEN) Non Reactive Non Reactive Dec 12, 2023 10:45 AM [facility] ([employer]) CBC W/ AUTO DIFF Specimen Type: BLOOD No comment entered. Ordering Provider: WASHINGTON GOODMAN Report Released Date/Time: Dec 20, 2022 01:42 PM Reporting Lab: [address] [address] Performing Lab: [address] [address] WBC 5.2 10*3/uL 4.5-11.0 RBC 4.70 10*6/uL [...] /100{WBCs} 0.0-0.0 Dec 12, 2023 10:45 AM [facility] ([employer]) CHEM 7 Specimen Type: SERUM Comment: 5.7 - 6.4% Prediabetes >= 6.5% Diabetic range. If the patient has not yet been diagnosed with T2DM, see [place] Clinical Practice Guideline for Management of T2DM (dated 05/2016) for more guidance. For patients already diagnosed with T2DM, target HbA1c values should be individualized using a Shared Decision-Making process. Ref: https://www.[facility].[place].gov /guidelines/CD/d iabetes/ Values obtained from A1C measurements can vary. For typical A1C assays, a reported value of 7.0 could actually be between 6.72 and 7.28 if measured by a reference method. A reported value of 9.0 could actually be between 8.73 and 9.27. Ref: https://ngsp.org /CAPdata.asp Ordering Provider: WASHINGTON GOODMAN Report Released Date/Time: Dec 20, 2022 01:42 PM Reporting Lab: [address] [address] Performing Lab: [address] [address] CREATININE,SER UM 0.75 mg/dL 0.5-1.5 UREA NITROGEN, BLOOD 8 mg/dL 7-25 GLUCOSE,RANDOM 115 mg/dL H 65-100 SODIUM 141 mmol/L 135-145 POTASSIUM 4.3 mmol/L 3.5-5.0 CHLORIDE 110 mmol/L 100-110 CO2 24 meq/L 20-30 ANION GAP 7 meq/L 6-16 eGFR(CKD-EPI 2020) >90 mL/min >=60 Dec 12, 2023 10:45 AM [facility] LIVER PROFILE Specimen Type: SERUM Comment: 5.7 - 6.4% Prediabetes >= 6.5% Diabetic range. If the patient has not yet been diagnosed with T2DM, see [place] Clinical Practice Guideline for Management of T2DM (dated 05/2016) for more guidance. For patients already diagnosed with T2DM, target HbA1c values should be individualized using a Shared Decision-Making process. Ref: https://www.[facility].mn.gov /guidelines/CD/d iabetes/ Values obtained from A1C measurements can vary. For typical A1C assays, a reported value of 7.0 could actually be between 6.72 and 7.28 if measured by a reference method. A reported value of 9.0 could actually be between 8.73 and 9.27. Ref: https://ngsp.org /CAPdata.asp Ordering Provider: WASHINGTON GOODMAN Report Released Date/Time: Dec 20, 2022 01:42 PM Reporting Lab: [address] [address] Performing Lab: [address] [address] ALBUMIN 3.7 g/dL 3.5-5.0 TOT. BILIRUBIN 1.0 mg/dL 0.2-1.2 DIR. BILIRUBIN 0.4 mg/dL 0.0-0.5 ALKALINE PHOSPHATASE 67 U/L 40-150 ALT 34 U/L 7-52 AST 25 U/L 5-40 Dec 12, 2023 10:45 AM [facility] LIPOPROTEIN PROFILE Specimen Type: SERUM Comment: 5.7 - 6.4% Prediabetes >= 6.5% Diabetic range. If the patient has not yet been diagnosed with T2DM, see [place] Clinical Practice Guideline for Management of T2DM (dated 05/2016) for more guidance. For patients already diagnosed with T2DM, target HbA1c values should be individualized using a Shared Decision-Making process. Ref: https://www.[facility].[place].gov /guidelines/CD/d iabetes/ Values obtained from A1C measurements can vary. For typical A1C assays, a reported value of 7.0 could actually be between 6.72 and 7.28 if measured by a reference method. A reported value of 9.0 could actually be between 8.73 and 9.27. Ref: https://ngsp.org /CAPdata.asp Ordering Provider: WASHINGTON GOODMAN Report Released Date/Time: Dec 20, 2022 01:42 PM Reporting Lab: [address] [address] Performing Lab: [address] [address] CHOLESTEROL 128 mg/dL 0-199 TRIGLYCERIDE 51 mg/dL 0-199 HDL 45 mg/dL >=40 LDL 73 mg/dL 0-129 Dec 12, 2023 10:45 AM [facility] CALCIUM PROFILE Specimen Type: SERUM Comment: 5.7 - 6.4% Prediabetes >= 6.5% Diabetic range. If the patient has not yet been diagnosed with T2DM, see [place] Clinical Practice Guideline for Management of T2DM (dated 05/2016) for more guidance. For patients already diagnosed with T2DM, target HbA1c values should be individualized using a Shared Decision-Making process. Ref: https://www.[facility].[place].gov /guidelines/CD/d iabetes/ Values obtained from A1C measurements can vary. For typical A1C assays, a reported value of 7.0 could actually be between 6.72 and 7.28 if measured by a reference method. A reported value of 9.0 could actually be between 8.73 and 9.27. Ref: https://ngsp.org /CAPdata.asp Ordering Provider: WASHINGTON GOODMAN Report Released Date/Time: Dec 20, 2022 01:42 PM Reporting Lab: [address] [address] Performing Lab: [address] [address] CALCIUM 9.0 mg/dL 8.5-10.5 PO4,SERUM 3.1 mg/dL 2.5-5.0 PROTEIN,TOTAL 6.1 g/dL 6.0-8.5 ALBUMIN 3.7 g/dL 3.5-5.0 Dec 12, 2023 10:45 AM [facility] MAGNESIUM Specimen Type: SERUM No comment entered. Ordering Provider: WASHINGTON GOODMAN Report Released Date/Time: Dec 20, 2022 01:42 PM Reporting Lab: [address] [address] Performing Lab: [address] [address] MAGNESIUM 1.9 mg/dL 1.6-2.6 Dec 12, 2023 10:45 AM [facility] PO4,SERUM Specimen Type: SERUM No comment entered. Ordering Provider: WASHINGTON GOODMAN Report Released Date/Time: Dec 20, 2022 01:42 PM Reporting Lab: [address] [address] Performing Lab: [address] [address] PO4,SERUM 3.1 mg/dL 2.5-5.0 Dec 12, 2023 10:45 AM [facility] TSH Specimen Type: SERUM Comment: For TSH values between 4.00 mIU/mL and 10.00 mIU/mL, be aware TSH is known to naturally increase in winter, with age, and with certain nonthyroidal illnesses. It is recommended to retest patients with mild abnormalities in two to three months. Effective 10 - Vitamin D, Total (Screen) test should not be used when single dose 50,000 IU D2 is administered. Ordering Provider: WASHINGTON GOODMAN Report Released Date/Time: Dec 20, 2022 01:42 PM Reporting Lab: [address] [address] Performing Lab: [address] [address] TSH 1.92 m[IU]/mL 0.35-5.00 Dec 12, 2023 10:45 AM [facility] HEMOGLOBIN A1C PANEL Specimen Type: BLOOD Comment: 5.7 - 6.4% Prediabetes >= 6.5% Diabetic range. If the patient has not yet been diagnosed with T2DM, see [place] Clinical Practice Guideline for Management of T2DM (dated 05/2016) for more guidance. For patients already diagnosed with T2DM, target HbA1c values should be individualized using a Shared Decision-Making process. Ref: https://www.[facility].[place].gov /guidelines/CD/d iabetes/ Values obtained from A1C measurements can vary. For typical A1C assays, a reported value of 7.0 could actually be between 6.72 and 7.28 if measured by a reference method. A reported value of 9.0 could actually be between 8.73 and 9.27. Ref: https://ngsp.org /CAPdata.asp Ordering Provider: WASHINGTON GOODMAN Report Released Date/Time: Dec 20, 2022 01:42 PM Reporting Lab: [address] [address] Performing Lab: [address] [address] HEMOGLOBIN A1C 5.6 <=5.6 EST.AVERAGE GLUCOSE 114 mg/dL Dec 12, 2023 10:45 AM [facility] PROSTATIC SPECIFIC ANTIGEN Specimen Typ e: SERUM [...] Dec 20, 2022 01:42 PM Reporting Lab: [address] [address] Performing Lab: [address] [address] PROSTATIC SPECIFIC ANTIGEN 1.05 ng/mL 0.00-4.00 Dec 12, 2023 10:45 AM [facility] B12 Specimen Type: SERUM Comment: For TSH [...] Dec 20, 2022 01:42 PM Reporting Lab: [address] [address] Performing Lab: [address] [address] B12 439 pg/mL 300-900 Dec 12, 2023 10:45 AM [facility] FOLATE,SERUM Specimen Type: SERUM Comment: For TSH [...] Dec 20, 2022 01:42 PM Reporting Lab: [address] [address] Performing Lab: [address] [address] FOLATE,SERUM 8.5 ng/mL >=5.2 Dec 12, 2023 10:45 AM [facility] VITAMIN D TOTAL(SCREEN) Specimen Type: SERUM Comment: [...] Dec 20, 2022 01:42 PM Reporting Lab: [address] [address] Performing Lab: [address] [address] VITAMIN D TOTAL(SCREEN) 47.6 ng/mL 20.0-50.0 Vital Signs: All taken on the encounter date This section contains inpatient and outpatient Vital Signs collected on the date of the Encounter. Date/Time Temperature Pulse Blood Pressure Respiratory Rate SP02 Pain Height Weight Body Mass Index Source Dec 12, 2023 10:57 AM 97 58 119/72 18 99 8 187 28 [place] Social History: Smoking Status (Most current) and Tobacco Use (All prior to encounter date) This section includes the most current, and the historical, smoking and tobacco- related health factors from the [place] facility where the Encounter took place. Current Smoking Status This section includes the most current smoking, or tobacco-related health factor, from the [place] facility where the Encounter took place. Date/Time Current Smoking Status Comment Facil ity Nov 29, 2023 11:30 AM VA-TOBACCO NEVER USED [facility] Tobacco Use History This section includes a history of the smoking, or tobacco-related health factors, that were collected on or before the date of the Encounter. The data comes from the [place] facility where the Encounter took place. Date/Time Smoking Status/Tobacco Use Comment F acility Dec 20, 2022 01:00 PM VA-TOBACCO NEVER USED [facility] Nov 05, 2021 01:00 PM VA-TOBACCO FORMER USER [facility] Nov 05, 2021 01:00 PM VA-TOBACCO QUIT 15 YRS OR MORE [facility] Oct 09, 2020 01:00 PM VA-TOBACCO NEVER USED [facility] Advance Directives: All historical and current Section Date Range: From patient's date of to the date document was created. This section includes ALL of a patient's completed or amended VA Advance and Rescinded Directives. The entries below indicate that a directive exists for the patient, but an actual copy is not included with this document. The data comes from all [place] facilities. Date Advance Directives Provider Source Nov 01, 2017 ADVANCE DIRECTIVE [facility] Encounter Notes: All associated encounter notes This section contains the clinical notes associated to the Encounter. Date/Time Encounter Note(s) Provider Source Dec 12, 2023 11:04 AM PRIMARY CARE OUTPA TIENT NOTE: LOCAL TITLE: PRIMARY CARE CLINIC VISIT STANDARD TITLE: PRIMARY CARE OUTPATIENT NOTE DATE OF NOTE: DEC 12, 2023@11:04:33 ENTRY DATE: DEC 12, 2023@11:04:34 AUTHOR: WASHINGTON GOODMAN EXP COSIGNER: URGENCY: STATUS: COMPLETED PRIMARY CARE CLINIC VISIT Has ADDENDA 40% sc (audiol issue/spinal condition). dual care pt-primarily managed in non-va setting. pt is here for his annual f/up appt.unaccompanied.voices no acute concerns during this visit. interim hx reportedly unremarkable except seen in urgent care for acute exacerbation of chr lbp.awaiting ls spine mri (now plans to have it done in non- va setting)-ordered by his non-va pcp. allegedly had hydrocelectomy ~06/2023 (details unknown) pcp-dr shade mcdowell ([phone]) gi-dr rod hand surg-dr lia noel. urol-dr lobo galeano pmhx-osteopenia,hlp,colonic polyps/diverticulosis of colon,lbp/anterolisthesis L4-5/djd,,compression fractures of thoracic spine/kyphosis,hearing loss/tinnitus,catarcts/glaucoma,pred iabetes,hydrocele,covid-19 infection~05/2019. 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 family hx-mother/brother-diab. brother -ca prostate in his 60's. hx-[employer] ([phone]) allerg/adr's-atorva(joint pains)-allegedly tolerating now. ros gen-no generalised weakness/jaundice/fatigue/nightsweat s/fever/wt loss/loss of appetite. skin-no chronic persistent rash/pruritus. ent-b/l hearing loss/tinnitus. endo-no heat/cold intolerance. resp-no chr persistent cough/hemoptysis/wheezing/pleuritic chest pains. cardiol-no palpitation/anginal sx/pnd/orthop/jansen. gi-no abd pain/n/v/d/constipation.no hematemesis/melena/hematochezia.no recent chng in bowel habits. gu-no prostatism/urethral discharge/urinary incontinence.no dysuria/hematuria. neuro-no tia's/tirado/diplopia. rheum-no myalgias/jnt swelling.chr back pain. ext-no pedal edema. pysch-denies being depressed. WT:187 lb [84.82 kg] (12/12/2023 10:57) HT: 69 in [175.3 cm] (11/29/2023 11:27); BMI: BODY MASS INDEX DEC 12, 2023@10:57:24 27.7 T: 97 F [36.1 C] (12/12/2023 10:57) P: 58 (12/12/2023 10:57); BP: 119/72 (12/12/2023 10:57); REPEAT: p/e-pt amb,nad.hard of hearing (not using his hearing aids). short thick neck. no anemia/thyromeg/carotid bruits. oroph clear.edentulous.artificial dentures. heent perrla/eomi. partial right cerumen impaction-disimpacted. right cerumen impaction-disimpacted.b/l tm's dull/retracted. supple neck.no cerv adenopathy. lungs clear. cv-reg/jocelyn.no cardiomeg/m/r. abd soft,nontender.no abnormal palp lumps/om/free fluids. neuro grossly nonfocal.clear cognition.gait normal.wasting left thenar eminence. spine ess unrem except upper dorasl kyphosis.no focal deformity/tenderness. ext-no c/c/e.periph pulses normally palp. mus/skeletal exam ess unrem.healthy surg scar right ant knee (s/p tkr). Active Outpatient Medications (excluding Supplies): Active Non-VA Medications Status = 1) Non-VA ASCORBIC ACID 500MG TAB 500MG MOUTH ONCE DAILY ACTIVE 2) Non-VA ATORVASTATIN TAB MOUTH ACTIVE 3) Non-VA OTHER,NON-VA MED CAP/TAB VITAMIN D-?? DOSE ACTIVE MOUTH ONCE DAILY lab results-pending. a/p hx of paresthesthesia/numbness-right hand.s/p right carpal tunnel release-in non-va setting. wasting left thenar imminence (distant hx of injury)-stable. osteopenia (bmd allegedly done in 2018-other [facility] facility)-claims to takes otc vit d. hlp-optimal control.on atorva from his non-va pcp-->pt had stopped due to jnt pains.was not re-challenged w/ any other statins afterwards-->but claims to have re-tried atorva-->allegedly tolerating now.f/up w/ his non-va pcp. hx of lower back pain w/ paresthesias-b/l lower ext (left >right)-s/p eval in urgent care.awaiting mri spine (non-va setting).plain fims-08/2023-no evidence of acute fracture or traumatic subluxation.degenerative changes of the lumbar spine, ovzpvdwv-hr-kpqhab at L3-L4 and moderate at L4-L5,mildly increased since 2018.on lodocaine patch (from pcp). colonic polyps/diverticulosis of colon-s/p colonoscopy~2018-report not available.pt to f/up w/ his non-va gi. lbp/anterolisthesis L4-5/djd (sc disabilty)-stable.takes otc aleve prn. hx of compression fractures of thoracic spine (T6-T10)/kyphosis (upper thoracic area)-as per remote data.no concerns at this time.pt plans to apply for increase inj his sc disability ratings-->directed to [facility]. hyperbilirubinemia-? etiol/duration.likely benign. hearing loss/tinnitus (sc disability)-non-compliant w/ hearing aids.self ref to audiol. cataracts/glaucoma-being managed by [facility]. prediabetes-f/up a1c results-pending.dietary/life modification. b/l hydrocele (right >>left)-claims to have been evaluated by non-va urol in distant past.had hydrocelectomy~06/2023 (details unavailable).no concerns during this visit. b/l t.pedis-pedal hygiene.pt stopped otc topical antifungals. pshx-left inguinal hernia repair,circumcision,s/p tkr-right.s/p colonoscopy/polypectomy-2010 and ?? 2018 (report not available).hydrocelectomy. -s/p colonoscopy~2017 (details unknown)-surveillance colonoscopy as per non-va gi provider.psa screening as per non-va pcp.psa was due-11/2024.ldct not indicated.had deferred aaa screening to his non-va pcp (has not done yet)-pt to discuss w/ his non-va pcp.pt defers all age appropriate immnuzations-pending verification of prior immunizations. rtc:1 year w/ fasting labs one week prior to pcc visit. future labs: consults: future imaging: nursing instructions. Influenza Immunization: Deferral / Refusal The patient declines to receive the recommended dose of seasonal influenza vaccine. Immunization: INFLUENZA, UNSPECIFIED FORMULATION Refusal Reason: PATIENT DECISION Patient refuses all immunization(s) in the FLU group Date Documented: 12/12/23 11:24 Medication Reconciliation: Outpatient: Has the patient been taking medications as documented in the EMLR? YES: The patient has been taking medications as documented in the EMLR. Essential Medication List for Review used to complete this medication reconciliation. INCLUDED IN THIS LIST: Alphabetical list of active outpatient prescriptions dispensed from this [facility] (local) and dispensed from another VA or [facility] facility (remote) as well as inpatient orders [...] with a VA or non-VA provider. /macho/ washington goodman md intensive care nurse Signed: 12/12/2023 11:42 12/12/2023 ADDENDUM STATUS: COMPLETED recent lab results/rx plan discussed w/ pt.f/up w/ his non-va pcp. /macho/ washington goodman md intensive care nurse Signed: 12/12/2023 15:57 WASHINGTON GOODMAN
--- OUTSIDE RECORDS SUMMARY | 2024-02-02 01:55 | XMS_ITS | Encounter Summary ---
Author Name [facility] [place] Organization [facility] [place] Address [address] [place] [id number] Care Team Providers Care Addiction Medicine Physician Name Role Phone JESSICA GOODMAN Primary Care [...] Duran's Name Patient's Relationship to Policy Duran ESTEBANMOLYL BCBS CT FEDERAL PREFERRED PROVIDER ORGANIZAT ION (PPO) BASIC SELF+ ONE Feb 22, 2020 [id number] [phone] SUHAIL BOLDEN SR PATIENT ISAAC BCBS CT FEDERAL PREFERRED PROVIDER ORGANIZAT ION (PPO) BASIC SELF Feb 27, 2005 [id number] [phone] SUHAIL BOLDEN SR PATIENT BCBS [place] FEP PREFERRED PROVIDER ORGANIZAT ION (PPO) BASIC SELF PLUS ONE Feb 22, 2020 113 [id number] [phone] SUHAIL BOLDEN SR PATIENT BCBS JESSICA FEP PREFERRED PROVIDER ORGANIZAT ION (PPO) BASIC INDIV IDUAL Feb 27, 2005 [id number] SUHAIL BOLDEN SR PATIENT [place] FEPRX PLAN PRESCRIPT ION CAREM ARK FEPRX Feb 21, 2010 [id number] SUHAIL BOLDEN SR PATIENT CAREMARK-F EP BCBS PRESCRIPT ION FEP KELSEY ARK Feb 21, 2010 [id number] [phone] SUHAIL BOLDEN SR PATIENT Selected Encounter This section includes the information on record at [place] for the Encounter. Date/Time Encounter Type Encounter Description Reason Provider Source Sep 06, 2023 02:03 PM NURSING ASSESSMENT/EVAL [facility] ICD-10-CM M54.50 Low back pain, unspecified LEONARD CAMPOS Encounter Template Text not used by VA Assessments - Encounter Diagnoses This section includes the primary and secondary diagnoses documented for the Encounter. Date/Time Primary/Secondary Diagnosis Diagnosis Name Provider Source Sep 06, 2023 04:50 PM PRIMARY Low back pain, unspecified LEONARD CAMPOS Plan of Treatment: Future Appointments (+ 6 months) and Future Tests (+/- 45 days) The Plan of Treatment section includes future care activities for the patient from all [place] treatmentfacilities. This section includes future appointments and future orders which are active, pending or scheduled. Future Appointments This section includes appointments that were scheduled to occur 6 months from the date of the Encounter, up to a maximum of 20 appointments. The data comes from all [place] treatment facilities. Appointment Date/Time Appointment Type Appointme nt Facility Name Nov 29, 2023 11:30 AM AMBULATORY - MEDICINE [facility] Dec 12, 2023 10:45 AM [facility] Dec 12, 2023 11:00 AM AM[facility]ATORY - MEDICINE [facility] Vital Signs: All taken on the encounter date This section contains inpatient and outpatient Vital Signs collected on the date of the Encounter. Date/Time Temperature Pulse Blood Pressure Respiratory Rate SP02 Pain Height Weight Body Mass Index Source Sep 06, 2023 02:28 PM 8 [place] Sep 06, 2023 02:06 PM 97.8 57 117/72 16 8 [place] Social History: Smoking Status (Most current) and Tobacco Use (All prior to encounter date) This section includes the most current, and the historical, smoking and tobacco- related health factors from the [place] facility where the Encounter took place. Current Smoking Status This section includes the most current smoking, or tobacco-related health factor, from the [facility] facility where the Encounter took place. Date/Time Current Smoking Status Comment Facil ravi Dec 20, 2022 01:00 PM VA-TOBACCO NEVER USED [facility] Tobacco Use History This section includes a history of the smoking, or tobacco-related health factors, that were collected on or before the date of the Encounter. The data comes from the [place] facility where the Encounter took place. Date/Time Smoking Status/Tobacco Use Comment F acility Nov 05, 2021 01:00 PM VA-TOBACCO FORMER USER [facility] Nov 05, 2021 01:00 PM VA-TOBACCO QUIT 15 YRS OR MORE [facility] Oct 09, 2020 01:00 PM VA-TOBACCO NEVER USED [facility] Advance Directives: All historical and current Section Date Range: From patient's date of to the date document was created. This section includes ALL of a patient's completed or amended VA Advance and Rescinded Directives. The entries below indicate that a directive exists for the patient, but an actual copy is not included with this document. The data comes from all [place] facilities. Date Advance Directives Provider Source Nov 01, 2017 ADVANCE DIRECTIVE [facility] Radiology Reports: +/- 30 days [...] the Encounter. The data comes from all [place] treatment facilities. Date/Time Radiology Report Provider Source Sep 06, 2023 04:10 PM SPINE LUMBOSACRAL MIN 2 VIEWS: SUHAIL BOLDEN [id number] -[phone] M Exm Date: SEP 06, 2023@16:10 Req Phys: LEONARD CAMPOS Loc: [facility] (Req'g Loc) Img Loc: RADIOLOGY ([facility]) Service: Unknown NEIL , (Case [phone] COMPLETE) SPINE LUMBOSACRAL MIN 2 VIEWS (RAD Detailed) CPT:35021 Reason for Study: lower back pain Clinical History: PROVIDER CONTACT INFORMATION:6419 Report Status: Verified Date Reported: SEP 06, 2023 Date Verified: SEP 06, 2023 Assessment Counselor E-Sig:/ES/IAN ANGEL MD Report: LUMBOSACRAL SPINE, FRONTAL, [...] changes are seen, overall increased since prior, rcwrpelb-vo-uqjdtc at L3-L4, moderate at L4-L5, mild at other lumbar levels. Multilevel bridging enthesophytes/osteophytes are noted. Impression: No evidence of acute fracture or traumatic subluxation. Degenerative changes of the lumbar spine, nhhrmsuz-qr-xnbtot at L3-L4 and moderate at L4-L5, mildly increased since 2018. Primary Diagnostic Code: No Immediate Attention Required Primary Interpreting Staff: IAN ANGEL MD, Staff Neuroradiologist (Assessment Counselor) /IAN SAGASTUME Encounter Notes: All associated encounter notes This section contains the clinical notes associated to the Encounter. Date/Time Encounter Note(s) Provider Source Sep 06, 2023 04:50 PM NURSING NOTE: LOCAL TITLE: NURSING URGENT CARE DISCHARGE NOTE STANDARD TITLE: NURSING NOTE DATE OF NOTE: SEP 06, 2023@16:50 ENTRY DATE: SEP 06, 2023@16:54:48 AUTHOR: ADILIA ROMERO COSIGNER: URGENCY: STATUS: COMPLETED Nursing Urgent Care Discharge Note Date and time of discharge: Aug@16:50 Discharged to: home Vital signs at time of discharge: VITALS Measurement DT TEMP PULSE RESP BP HT WT F(C) IN(CM) LB(KG)[BMI] ---- ----- ---- -- ------ 09/06/2023 14:06 97.8(36.6) 57 16 117/72 Measurement DT CVP POx CG CMH20(MMHG) (L/MIN)(%) IN(CM) ------ No data Measurement DT Pain ---- 09/06/2023 14:28 8 09/06/2023 14:06 8 Are vital signs within normal limits? Yes Education provided: [facility] attending provided patient with discharge instructions. Discharge instructions given? Yes Discharge instructions provided to: Patient /macho/ ADILIA ROMERO RN REGISTERED NURSE Signed: 09/06/2023 16:55 ADILIA ROMERO Sep 06, 2023 04:45 PM PHYSICIAN DISCHARG E NOTE: LOCAL TITLE: PATIENT DISCHARGE INSTRUCTION (T) STANDARD TITLE: PHYSICIAN DISCHARGE NOTE DATE OF NOTE: SEP 06, 2023@16:45 ENTRY DATE: SEP 06, 2023@16:45:12 AUTHOR: LEONARD CAMPOS COSIGNER: URGENCY: STATUS: COMPLETED Facility Treating Specialty: TREATMENT ROOM Your ATTENDING PHYSICIAN during your hospital stay was: consuelo Discharge Diagnosis: back pain motrin for pain and inflamation follow up primary care FINDINGS: For numbering purposes, the caudal-most well-formed disc space is designated L5-S1, and there are rudimentary ribs at T12. There is grade 1 anterolisthesis of L4 on L5, likely degenerative, stable. There is no evidence of fracture or acute subluxation. Multilevel degenerative changes are seen, overall increased since prior, twqreull-hc-bgnmls at L3-L4, moderate at L4-L5, mild at other lumbar levels. Multilevel bridging enthesophytes/osteophytes are noted. Impression: No evidence of acute fracture or traumatic subluxation. Degenerative changes of the lumbar spine, ujebeutx-fs-cmhfuu at L3-L4 and moderate at L4-L5, mildly increased since 2018. Discharge To: Home Type of discharge: Regular Specific Directions for Selection: Medications: Non-VA ASCORBIC ACID 500MG TAB 500MG MOUTH ONCE DAILY ACTIVE # Refills: Quantity: Issue Date: Provider: Non-VA ATORVASTATIN TAB MOUTH ACTIVE # Refills: Quantity: Issue Date: Provider: IBUPROFEN 800MG TAB TAKE ONE TABLET BY MOUTH EVERY 8 HOURS PENDING NEEDED # Refills: Quantity: 21 Issue Date: Provider: Non-VA OTHER,NON-VA MED CAP/TAB VITAMIN D-?? DOSE MOUTH ACTIVE ONCE DAILY # Refills: Quantity: Issue Date: Provider: Comments: Medications you were taking before that have been stopped during this hospitalization: None Medications with changed dosage during this hospitalization: No New medications during this hospitalization: Yes - Active = Current medication. - Pending = This medication is being processed in Pharmacy. - Hold = Current medication. Refill not needed at this time. - Suspended = Patient has requested a refill. - Non-VA Med = Any current medication from any source not filled at [facility] including: Another VA, Private, Over the counter, and herbals. Medication Education 1. Take medications in the exact amount ordered by the clinician. Do not take more or less. Do not take your old medication unless the doctor orders you to do so. 2. Take medications at the prescribed times. 3. Keep each medication in its original and separate container. 4. Verbalize an understanding of the food/drug interactions of the medications prescribed. Return Appointments: 12/12/2023 10:45 NEW PHLEBOTOMY AM 12/12/2023 11:00 NEW PACT 1 JACQUIE LU 08/28/2024 13:00 NEW OPTOMETRY ESTABLISHED Please call MD if you experience: Postdischarge Contacts: If you experience problems contact: If you feel the medications are making you sick, your symptoms worsen or you are experiencing problems contact: PCMM Primary Provider: JESSICA GOODMAN PCMM Team: MARJORIE DHILLON Phone #: Other: Patient has received, understands in agrees with the discharge planned in continuing care instructions. /es/ LEONARD CAMPOS MD AOD Signed: 09/06/2023 16:56 LEONARD CAMPOS Sep 06, 2023 03:44 PM URGENT CARE NOTE: LOCAL TITLE: [facility] NOTE STANDARD TITLE: URGENT CARE NOTE DATE OF NOTE: SEP 06, 2023@15:44 ENTRY DATE: SEP 06, 2023@15:44:23 AUTHOR: LEONARD CAMPOS EXP COSIGNER: URGENCY: STATUS: COMPLETED HEIGHT: 69 in [175.3 cm] (12/20/2022 13:14) WEIGHT: 208 lb [94.35 kg] (12/20/2022 13:14) CC: back pain Triage note:Hx of chronic back pain. States he has intermittent back pain all of the time that usually resolves on its own. States when he stands up feels like a knife is in my back . Reports pain is radiating down both legs. Using Tylenol and sports cream with no relief. c/o 8 out of 10 pain HPI: 68 yo male with hx of back pain, here with increase sharp pain to back, pt reports increase pain with standing. pt goes down both legs. no leg weakness reported, no urinary or bowel issues reported. no new trauma. using OTC meds with no relief. pt reports has been worked up in past for back pain. ROS:10 point review of systems performed with the pertinent positives and negatives as listed above in the HPI, otherwise unremarkable. PAST MEDICAL HISTORY:(per records - reviewed) pmhx-osteopenia,hlp,colonic polyps/diverticulosis of colon,lbp/anterolisthesis L4-5/djd,,compression fractures of thoracic spine/kyphosis,hearing loss/tinnitus,catarcts/glaucom a,prediabetes,hydrocele,covid- 19 infection~05/2019. pshx-left inguinal hernia repair,circumcision,s/p tkr-right.s/p colonoscopy/polypectomy-2010.s /p glass injury-left ant wrist.s/p right ct release~06/2022. SH:reviewed pertinent listed in HPI, else not pertinent FH:reviewed and not pertinent MEDS:Active Outpatient Medications (excluding Supplies): Active Non-VA Medications Status 1) Non-VA ASCORBIC ACID 500MG TAB 500MG MOUTH ONCE DAILY ACTIVE 2) Non-VA ATORVASTATIN TAB MOUTH ACTIVE 3) Non-VA OTHER,NON-VA MED CAP/TAB VITAMIN D-?? DOSE ACTIVE MOUTH ONCE DAILY ALLERGIES:ATORVASTATIN PHYSICAL EXAM: VITAL SIGNS:117/72 (09/06/2023 14:06)57 (09/06/2023 14:06)97.8 F [36.6 C] (09/06/2023 14:06) No data available GENERAL:wd,wn in nad HEENT:normocephalic NECK:supple VASC:+pulses BACK:tenderness lower lumbar and paralumbar region NEURO:alert and oriented, no motor weakness BLE> PSYCH:cooperative EXTEMITIES:no cce SKIN:intact no old xrays found in CT CPRS, plain LS spine xray noted from [place] from 2018 in [facility] RAD[facility] ORDERED AND REVIEWED FINDINGS: For numbering purposes, the caudal-most well-formed disc space is designated L5-S1, and there are rudimentary ribs at T12. There is grade 1 anterolisthesis of L4 on L5, likely degenerative, stable. There is no evidence of fracture or acute subluxation. Multilevel degenerative changes are seen, overall increased since prior, wwzaebqs-xp-gjngfn at L3-L4, moderate at L4-L5, mild at other lumbar levels. Multilevel bridging enthesophytes/osteophytes are noted. Impression: No evidence of acute fracture or traumatic subluxation. Degenerative changes of the lumbar spine, kisxojaq-mq-jszbsq at L3-L4 and moderate at L4-L5, mildly increased since 2018. IMPRESSION:back pain DISPOSITION:home CONDITION ON DISPOSITION:stable /es/ LEONARD CAMPOS MD AOD Signed: 09/09/2023 08:58 LEONARD CAMPOS Sep 06, 2023 02:10 PM NURSING NOTE: LOCAL TITLE: [facility] NURSING PHASE ONE-URGENT CARE NOTE STANDARD TITLE: NURSING NOTE DATE OF NOTE: SEP 06, 2023@14:10 ENTRY DATE: SEP 06, 2023@14:27:34 AUTHOR: ADILIA ROMERO COSIGNER: URGENCY: STATUS: COMPLETED [facility] NURSING PHASE ONE-URGENT CARE NOTE Has ADDENDA GENERAL INFORMATION ID was placed on patient using 2 unique identifiers. Yes SEX: MALE AGE: 68 HEIGHT: 69 in [175.3 cm] (12/20/2022 13:14) ALLERGIES: ATORVASTATIN Current Allergies not documented above: see chart INITIAL VITAL SIGNS: Blood Pressure: 117/72 (09/06/2023 14:06) Pulse: 57 (09/06/2023 14:06) Respirations: 16 (09/06/2023 14:06) Temperature: 97.8 F [36.6 C] (09/06/2023 14:06) Pulse Oximetry: No data available MEDICATION REVIEW: Medications were reviewed previously in triage. MENTAL/NEURO STATUS: Awake, alert and oriented to person/place/date? Yes Awake, Oriented Does patient exhibit any of the following? Agitation No Combative No Hallucinating No DOMESTIC VIOLENCE (DV)/INTIMATE PARTNER VIOLENCE (IVP): Family/farm or ranch animal caretaker/partner Not present at bed side. Has your family/farm or ranch animal caretaker/partner ever physically hurt you in the past 12 months? Never Has your family/farm or ranch animal caretaker/partner ever insulted you in the past 12 months? Never Has your family/farm or ranch animal caretaker/partner ever threatened to harm you in the past 12 months? Never Has your family/farm or ranch animal caretaker/partner ever screamed or cursed at you in the past 12 months? Never Has your family/farm or ranch animal caretaker/partner ever forced you to have sexual activities in the past 12 months? Never RESPIRATORY: Breathing easily without distress on room air? Yes Shortness of breath: No Breathing easily CARDIOVASCULAR: Heart Rate/radial pulse: Regular On telemetry, aviation ordnance officer: rhythm: Patient's acceptable pain goal: 0 No pain Are you currently experiencing pain? Yes - DVPRS scale used to assess Location: back Defense and Veterans Pain Rating Scale (DVPRS): 8 Awful, hard to do anything Pain Score: 8 ADLS: pain with ambulation, weight bearing WANDERING/ELOPEMENT RISK SCREENING: Risk factors (check all that apply): -------- INTERVENTIONS DURING URGENT CARE VISIT -------- see triage note for details. /es/ ADILIA ROMERO RN REGISTERED NURSE Signed: 09/06/2023 14:28 09/06/2023 ADDENDUM STATUS: COMPLETED 1410 hrs: First patient contact, after exchanging pleasentries, patients CC reviewed, patient positioned for comfort, given status update/explanation of wait, patient verbalized understanding. 1505 hrs: Patient given status update, explanation of wait, patient verbalized understanding. 1548 hrs: [facility] attending at patient bedside conducting assessment;/examination. 1605 hrs: Patient out of [facility] dept to radiology dept. 1630 hrs: Patient returned to [facility] dept. 1635 hrs: [facility] attending at patient bedside. 1650 hrs: [facility] attending provided patient with discharge instructions.patient education, reviewed plan of care, all patients questions/concerns answered/addressed, patients ID band removed/destroyed. patient discharged from [facility] dept ambulating on own. /macho/ ADILIA ROMERO RN REGISTERED NURSE Signed: 09/06/2023 16:54 ADILIA ROMERO Sep 06, 2023 02:06 PM NURSING NOTE: LOCAL TITLE: NURSING [facility] TRIAGE NOTE STANDARD TITLE: NURSING NOTE DATE OF NOTE: SEP 06, 2023@14:06 ENTRY DATE: SEP 06, 2023@14:06:33 AUTHOR: CHIARA LAWRENCE COSIGNER: URGENCY: STATUS: COMPLETED Emergency Department/Urgent Care Center Triage Patient age:68 Sex: MALE On arrival patient was: AMBULATORY Patient phone number: PATIENT PHONE Allergies: ATORVASTATIN Subjective/Chief Complaint: Hx of chronic back pain. States he has intermittent back pain all of the time that usually resolves on its own. States when he stands up feels like a knife is in my back . Reports pain is radiating down both legs. Using Tylenol and sports cream with no relief. c/o 8 out of 10 pain -------- KINDER 1 Fall Risk Screen If any of the below answers are YES, patient is deemed HIGH FALL RISK -------- Presented to Emergency Department because of falls? No Age greater than 70? No Altered mental status? -- No Impaired mobility? -- No Nurse Judgment: -- The patient is not a fall risk. Vital Signs * Temperature 97.8 F (36.6 C) Pulse 57 Respirations 16 Blood Pressure 117/72 Pain scale recorded: 8 Pulse Oximetry 99 Emergency Severity Index (KAVITHA) level Level 3 Current Medications: Active Outpatient Medications (excluding Supplies): Active Non-VA Medications Status 1) Non-VA ASCORBIC ACID 500MG TAB 500MG MOUTH ONCE DAILY ACTIVE 2) Non-VA ATORVASTATIN TAB MOUTH ACTIVE 3) Non-VA OTHER,NON-VA MED CAP/TAB VITAMIN D-?? DOSE ACTIVE MOUTH ONCE DAILY Current Problems: ACTIVE PROBLEMS Suicide Screen: [place] Suicide Severity Rating Scale (C-SSRS) screener 1. Over the past month, have you wished you were or wished you could go to sleep and not wake up? No 2. Over the past month, have you had any actual thoughts of killing yourself? No 3. Over the past month, have you been thinking about how you might do this? Response not required due to responses to other questions. 4. Over the past month, have you had these thoughts and had some intention of acting on them? Response not required due to responses to other questions. 5. Over the past month, have you started to work out or worked out the details of how to kill yourself? Response not required due to responses to other questions. 6. If yes, at any time in the past month did you intend to carry out this plan? Response not required due to responses to other questions. 7. In your lifetime, have you ever done anything, started to do anything, or prepared to do anything to end your life (for example, collected pills, obtained a gun, gave away valuables, went to the roof but didn't jump)? No 8. If YES, was this within the past 3 months? Response not required due to responses to other questions. Are two or more of the following present in addition to a suspected source of infection? Respirations greater than or equal to 22 breaths per minute Altered mental status Systolic Blood Pressure less than or equal to 100 mm Hg No-Sepsis Screen is negative /macho/ TOBI LAWRENCE REGISTERED NURSE Signed: 09/06/2023 14:14 TOBI LAWRENCE
== END 2024-02-01 14:40 | disposition home or self-care (01) ==
PROVIDERS: PCP Family Medicine; Visit Provider Internal Medicine Gastroenterology
PROC: 0DJD8ZZ Inspection of Lower Intestinal Tract, Via Natural or Artificial Opening Endoscopic (ICD-10-PCS; CPT 45378; principal; 2024-02-01 13:10)
DX: Z12.11 Encounter for screening for malignant neoplasm of colon (principal); Z86.0101 Personal history of adenomatous and serrated colon polyps; D12.0 Benign neoplasm of cecum; K63.5 Polyp of colon; K57.30 Diverticulosis of large intestine without perforation or abscess without bleeding; K64.8 Other hemorrhoids; E78.5 Hyperlipidemia, unspecified; R73.03 Prediabetes; N40.0 Benign prostatic hyperplasia without lower urinary tract symptoms; Z79.899 Other long term (current) drug therapy; Z98.890 Other specified postprocedural states
CPT/HCPCS: 45380; 88305; J2003; J2704

== ENCOUNTER 2024-02-03 09:47 | Outpatient (AMB) | payer BC, SELFPAY ==
--- OUTSIDE RECORDS SUMMARY | 2024-02-03 09:51 | XMS_ITS ---
Author Organization [facility] Address [address] [place] [address] Care Team Providers Care Volunteer Assistant Name Role Phone Ke Mcelroy Primary Care Provider Unavailab Ankur Chavez Jr [phone] REASON FOR VISIT H & P Encounters Encounter Location Date Provider Diagnosis [facility] [address] [place] [address] 01/31/2024 Ankur Rodriguez Jr PLAN OF TREATMENT No Information
--- OUTSIDE RECORDS SUMMARY | 2024-02-03 09:51 | XMS_ITS ---
Author Organization [facility] Address [address] [place] [address] Care Team Providers Care Tub Tender Name Role Phone Ke Mcelroy Primary Care Provider Unavailab Ankur Chavez Jr Unavailable [phone] REASON FOR VISIT screening MEDICATIONS Medication SIG [...] Active Encounters Encounter Location Date Provider Diagnosis [facility] [address] [place], [place] [id number] 02/01/2024 Ankur Rodriguez Jr Colon cancer screening Z12.11 ; Personal history of colonic polyps Z86.0100 and Colon polyps K63.5 ASSESSMENTS Encounter Date Diagnosis Assessment Notes Treatment Notes Treatment Clinical Notes 02/01/2024 Colon cancer screening (ICD-10 - Z12.11) 02/01/2024 Personal history of colonic polyps (ICD-10 - Z86.0100) 02/01/2024 Colon polyps (ICD-10 - K63.5) PLAN OF TREATMENT No Information
--- OUTSIDE RECORDS SUMMARY | 2024-02-03 09:52 | XMS_ITS | Encounter Summary ---
Author Name [facility] [facility] [place] Address [address] [place] [address] Care Team Providers Care Sewer Cleaner Name Role Phone JESSICA GOODMAN Primary Care [...] Policy Duran's Name Patient's Relationship to Policy Durna ISAAC BCBS CT FEDERAL PREFERRED PROVIDER ORGANIZAT ION (PPO) BASIC SELF+ ONE Feb 22, 2020 113 [id number] [phone] SUHAIL BOLDEN SR PATIENT ESTEBANEM BCBS CT FEDERAL PREFERRED PROVIDER ORGANIZAT ION (PPO) BASIC SELF Feb 27, 2005 [id number] [phone] BOLDEN SR,SUHAIL PATIENT BCBS [place] FEP PREFERRED PROVIDER ORGANIZAT ION (PPO) BASIC SELF PLUS ONE Feb 22, 2020 113 [id number] [phone] BOLDEN SUHAIL LING PATIENT BCBS JESSICA FEP PREFERRED PROVIDER ORGANIZAT ION (PPO) BASIC INDIV IDUAL Feb 27, 2005 111 [id number] [phone] SUHAIL BOLDEN SR PATIENT [place] FEPRX PLAN PRESCRIPT ION CAREM ARK FEPRX Feb 21, 2010 [id number] SUHAIL BOLDEN SR PATIENT CAREWILDER-F EP BCBS PRESCRIPT ION SYED COLE ARK Feb 21, 2010 [id number] SUHAIL BOLDEN SR PATIENT Selected Encounter [...] 29, 2023 11:30 AM AMBULATORY - MEDICINE [facility] Dec 12, 2023 10:45 AM [facility] Dec 12, 2023 11:00 AM AMBULATORY - MEDICINE [facility] Advance Directives: All historical and current Section [...] Nov 01, 2017 ADVANCE DIRECTIVE CHIKA RICHARDSON [facility] Radiology Reports: +/- 30 days of [...] SPINE LUMBOSACRAL MIN 2 VIEWS: SUHAIL BOLDEN [id number] [phone] M Exm Date: SEP 06, 2023@16:10 Req Phys: LEONARD CAMPOS Carmel Pat Loc: NEW URGENT CARE (Req'g Loc) Img [facility] Service: Unknown NEIL , (Case [id number] COMPLETE) SPINE LUMBOSACRAL MIN 2 VIEWS (RAD Detailed) CPT:31706 Reason for Study: lower back pain Clinical History: PROVIDER CONTACT INFORMATION:[id number] Report Status: Verified Date Reported: SEP 06, 2023 Date Verified: SEP 06, 2023 Corporate Communications Intern E-Sig:/ES/IAN NAGEL MD Report: LUMBOSACRAL SPINE, FRONTAL, LATERAL, AND [...] changes are seen, overall increased since prior, auefzjsb-yc-wdaciy at L3-L4, moderate at L4-L5, mild at other lumbar levels. Multilevel bridging enthesophytes/osteophytes are noted. Impression: No evidence of acute fracture or traumatic subluxation. Degenerative changes of the lumbar spine, idhkmznf-jl-cpkoqt at L3-L4 and moderate at L4-L5, mildly increased since 2018. Primary Diagnostic Code: No Immediate Attention Required Primary Interpreting Staff: IAN ANGEL MD, Staff Neuroradiologist (Corporate Communications Intern) /IAN SAGASTUME Encounter Notes: All associated encounter notes This section contains the clinical notes associated to the Encounter. Date/Time Encounter Note(s) Provider Source Sep 09, 2023 01:49 PM LETTERS: LOCAL TITLE: Pm&r Patient Letter (neil) STANDARD TITLE: LETTERS DATE OF NOTE: SEP 09, 2023@13:49 ENTRY DATE: SEP 09, 2023@13:49:48 AUTHOR: SHANTI WOODRUFF COSIGNER: URGENCY: STATUS: COMPLETED Suhail Chua Bolden [address] [place] [address] Date:SEP 09, 2023 Dear Suhail Bolden, We have a request from your Provider to see you in the Physical Medicine & Rehabilitation Department at the [facility]. Please call us at [phone]. [phone] so we can schedule an appointment that [...] the consult. Sincerely, Physical Medicine & Rehabilitation [facility] SHANTI WOODRUFF
--- OUTSIDE RECORDS SUMMARY | 2024-02-03 09:52 | XMS_ITS | Encounter Summary ---
Author Name [facility] [place] [facility] [place] [facility] [place] Address [address] [place] [address] Care Team Providers Care Fuel [place] Attendant Name Role Phone WASHINGTON GOODMAN Primary Care [...] BASIC SELF+ ONE Feb 22, 2020 113 [id number] [phone] SUHAIL BOLDEN SR PATIENT ISAAC BCBS CT FEDERAL PREFERRED PROVIDER ORGANIZAT ION (PPO) BASIC SELF Feb 27, 2005 111 [id number] [phone] SUHAIL BOLDEN SR PATIENT BCBS [place] FEP PREFERRED PROVIDER ORGANIZAT ION (PPO) BASIC SELF PLUS ONE Feb 22, 2020 113 [id number] SUHAIL BOLDEN SR PATIENT BCBS JESSICA FEP PREFERRED PROVIDER ORGANIZAT ION (PPO) BASIC INDIV IDUAL Feb 27, 2005 111 [id number] [phone] SUHAIL BOLDEN SR PATIENT CAR[place]ARK FEPRX PLAN PRESCRIPT ION KELSEY ARK FEPRX Feb 21, 2010 [id number] SUHAIL BOLDEN SR PATIENT DANGELO-F EP BCBS PRESCRIPT ION FEP CAREM ARK Feb 21, 2010 [id number] SUHAIL BOLDEN SR PATIENT Selected Encounter This section includes the information on record at [place] for the Encounter. Date/Time Encounter Type Encounter [...] Range Comment Dec 12, 2023 01:55 PM [facility] URINE ALBUMIN, SPOT PROFILE Specimen Ty pe: URINE No comment entered. Ordering Provider: WASHINGTON GOODMAN Report Released Date/Time: Dec 20, 2022 01:42 PM Reporting Lab: [address] [address] Performing Lab: [address] [address] Urine ALB/CRE,SPOT-R ATIO 5 mg/g{creat} 0-29 Urine ALBUMIN,SPOT-Q NT 0.6 mg/dL CREATININE, URINE RANDOM 128.7 mg/dL >=20.0 Dec 12, 2023 01:55 PM [facility] URINALYSIS,ROUTINE/ADMISSION Specimen T ype: URINE No comment entered. Ordering Provider: WASHINGTON GOODMAN Report Released Date/Time: Dec 20, 2022 01:42 PM Reporting Lab: [address] [address] Performing Lab: [address] [address] URINE COLOR Light-Yellow YELLOW SPECIFIC GRAVITY 1.020 1.001-1.035 UROBILINOGEN NORMAL mg/dL NORMAL URINE BILIRUBIN NEGATIVE Neg URINE KETONES NEGATIVE Neg URINE GLUCOSE NEGATIVE Neg URINE PROTEIN NEGATIVE Neg URINE pH 5.5 [pH] 5.0-8.0 APPEARANCE Clear CLEAR URINE BLOOD NEGATIVE Neg NITRITE, URINE NEGATIVE Neg LEUKOCYTE ESTERASE NEGATIVE Neg Dec 12, 2023 10:45 AM [facility] HEP B SURF AB Specimen Type: SERUM [...] Dec 20, 2022 01:42 PM Reporting Lab: [address] [address] Performing Lab: [address] [address] HEP B SURF AB GRAYZONE Non Reactive Dec 12, 2023 10:45 AM [facility] HEPATITIS C Ab Specimen Type: SERUM Comment: [...] Dec 20, 2022 01:42 PM Reporting Lab: [address] [address] Performing Lab: [address] [address] HEPATITIS C Ab Non Reactive No n Reactive Dec 12, 2023 10:45 AM [facility] HIV AB/ P24 AG COMBO(HIV SCREEN) Specim [...] Dec 20, 2022 01:42 PM Reporting Lab: [address] [address] Performing Lab: [address] [address] HIV AB/ P24 AG COMBO(HIV SCREEN) Non Reactive Non Reactive Dec 12, 2023 10:45 AM [facility] CBC W/ AUTO DIFF Specimen Type: BLOOD No comment entered. Ordering Provider: WASHINGTON GOODMAN Report Released Date/Time: Dec 20, 2022 01:42 PM Reporting Lab: [address] [address] Performing Lab: [address] [address] WBC 5.2 10*3/uL 4.5-11.0 RBC 4.70 10*6/uL [...] /100{WBCs} 0.0-0.0 Dec 12, 2023 10:45 AM [facility] CHEM 7 Specimen Type: SERUM Comment: 5.7 - 6.4% Prediabetes >= 6.5% Diabetic range. If the patient has not yet been diagnosed with T2DM, see [facility] Clinical Practice Guideline for Management of T2DM (dated 05/2016) for more guidance. For patients already diagnosed with T2DM, target HbA1c values should be individualized using a Shared Decision-Making process. Ref: https://www.[facility] thquality.va.gov /guidelines/CD/d iabetes/ Values obtained from A1C measurements can vary. For typical A1C assays, a reported value of 7.0 could actually be between 6.72 and 7.28 if measured by a reference method. A reported value of 9.0 could actually be between 8.73 and 9.27. Ref: https://ngsp.org /CAPdata.asp Ordering Provider: WASHINGTON GOODMAN Report Released Date/Time: Dec 20, 2022 01:42 PM Reporting Lab: [address] [address] Performing Lab: [place] [address] CREATININE,SER UM 0.75 mg/dL 0.5-1.5 UREA NITROGEN, BLOOD 8 mg/dL 7-25 GLUCOSE,RANDOM 115 mg/dL H 65-100 SODIUM 141 mmol/L 135-145 POTASSIUM 4.3 mmol/L 3.5-5.0 CHLORIDE 110 mmol/L 100-110 CO2 24 meq/L 20-30 ANION GAP 7 meq/L 6-16 eGFR(CKD-EPI 2020) >90 mL/min >=60 Dec 12, 2023 10:45 AM [facility] LIVER PROFILE Specimen Type: SERUM Comment: 5.7 - 6.4% Prediabetes >= 6.5% Diabetic range. If the patient has not yet been diagnosed with T2DM, see [place] Clinical Practice Guideline for Management of T2DM (dated 05/2016) for more guidance. For patients already diagnosed with T2DM, target HbA1c values should be individualized using a Shared Decision-Making process. Ref: https://www.[facility] hospitalquality.va.gov /guidelines/CD/d iabetes/ Values obtained from A1C measurements can vary. For typical A1C assays, a reported value of 7.0 could actually be between 6.72 and 7.28 if measured by a reference method. A reported value of 9.0 could actually be between 8.73 and 9.27. Ref: https://ngsp.org /CAPdata.asp Ordering Provider: WASHINGTON GOODMAN Report Released Date/Time: Dec 20, 2022 01:42 PM Reporting Lab: [address] [address] Performing Lab: [address] [address] ALBUMIN 3.7 g/dL 3.5-5.0 TOT. BILIRUBIN 1.0 mg/dL 0.2-1.2 DIR. BILIRUBIN 0.4 mg/dL 0.0-0.5 ALKALINE PHOSPHATASE 67 U/L 40-150 ALT 34 U/L 7-52 AST 25 U/L 5-40 Dec 12, 2023 10:45 AM [facility] LIPOPROTEIN PROFILE Specimen Type: SERUM Comment: 5.7 - 6.4% Prediabetes >= 6.5% Diabetic range. If the patient has not yet been diagnosed with T2DM, see [place] Clinical Practice Guideline for Management of T2DM (dated 05/2016) for more guidance. For patients already diagnosed with T2DM, target HbA1c values should be individualized using a Shared Decision-Making process. Ref: https://www.[facility] hospitalality.vt.gov /guidelines/CD/d iabetes/ Values obtained from A1C measurements can vary. For typical A1C assays, a reported value of 7.0 could actually be between 6.72 and 7.28 if measured by a reference method. A reported value of 9.0 could actually be between 8.73 and 9.27. Ref: https://ngsp.org /CAPdata.asp Ordering Provider: WASHINGTON GOODMAN Report Released Date/Time: Dec 20, 2022 01:42 PM Reporting Lab: [address] [address] Performing Lab: [address] [address] CHOLESTEROL 128 mg/dL 0-199 TRIGLYCERIDE 51 mg/dL 0-199 HDL 45 mg/dL >=40 LDL 73 mg/dL 0-129 Dec 12, 2023 10:45 AM [facility] CALCIUM PROFILE Specimen Type: SERUM Comment: 5.7 - 6.4% Prediabetes >= 6.5% Diabetic range. If the patient has not yet been diagnosed with T2DM, see [place] Clinical Practice Guideline for Management of T2DM (dated 05/2016) for more guidance. For patients already diagnosed with T2DM, target HbA1c values should be individualized using a Shared Decision-Making process. Ref: https://www.[facility] hospitalality.vt.gov /guidelines/CD/d iabetes/ Values obtained from A1C measurements can vary. For typical A1C assays, a reported value of 7.0 could actually be between 6.72 and 7.28 if measured by a reference method. A reported value of 9.0 could actually be between 8.73 and 9.27. Ref: https://ngsp.org /CAPdata.asp Ordering Provider: WASHINGTON GOODMAN Report Released Date/Time: Dec 20, 2022 01:42 PM Reporting Lab: [place] [phone] Performing Lab: [address] CALCIUM 9.0 mg/dL 8.5-10.5 PO4,SERUM 3.1 mg/dL 2.5-5.0 PROTEIN,TOTAL 6.1 g/dL 6.0-8.5 ALBUMIN 3.7 g/dL 3.5-5.0 Dec 12, 2023 10:45 AM [facility] MAGNESIUM Specimen Type: SERUM No comment entered. Ordering Provider: WASHINGTON GOODMAN Report Released Date/Time: Dec 20, 2022 01:42 PM Reporting Lab: [place] [phone] Performing Lab: [place] [phone] MAGNESIUM 1.9 mg/dL 1.6-2.6 Dec 12, 2023 10:45 AM [facility] PO4,SERUM Specimen Type: SERUM No comment entered. Ordering Provider: WASHINGTON GOODMAN Report Released Date/Time: Dec 20, 2022 01:42 PM Reporting Lab: [address] [address] Performing Lab: [place] [phone] PO4,SERUM 3.1 mg/dL 2.5-5.0 Dec 12, 2023 10:45 AM [facility] TSH Specimen Type: SERUM Comment: For TSH [...] Dec 20, 2022 01:42 PM Reporting Lab: [address] [address] Performing Lab: [place] [address] TSH 1.92 m[IU]/mL 0.35-5.00 Dec 12, 2023 10:45 AM [facility] HEMOGLOBIN A1C PANEL Specimen Type: BLOOD Comment: 5.7 - 6.4% Prediabetes >= 6.5% Diabetic range. If the patient has not yet been diagnosed with T2DM, see [place] Clinical Practice Guideline for Management of T2DM (dated 05/2016) for more guidance. For patients already diagnosed with T2DM, target HbA1c values should be individualized using a Shared Decision-Making process. Ref: https://www.[facility] hospitalquality.vt.gov /guidelines/CD/d iabetes/ Values obtained from A1C measurements can vary. For typical A1C assays, a reported value of 7.0 could actually be between 6.72 and 7.28 if measured by a reference method. A reported value of 9.0 could actually be between 8.73 and 9.27. Ref: https://ngsp.org /CAPdata.asp Ordering Provider: WASHINGTON GOODMAN Report Released Date/Time: Dec 20, 2022 01:42 PM Reporting Lab: [address] [address] Performing Lab: [address] [address] HEMOGLOBIN A1C 5.6 <=5.6 EST.AVERAGE GLUCOSE 114 mg/dL Dec 12, 2023 10:45 AM [facility] PROSTATIC SPECIFIC ANTIGEN Specimen Typ e: SERUM [...] Dec 20, 2022 01:42 PM Reporting Lab: [address] [address] Performing Lab: [address] [address] PROSTATIC SPECIFIC ANTIGEN 1.05 ng/mL 0.00-4.00 Dec 12, 2023 10:45 AM [facility] B12 Specimen Type: SERUM Comment: For TSH [...] Dec 20, 2022 01:42 PM Reporting Lab: [address] [address] Performing Lab: [address] [address] B12 439 pg/mL 300-900 Dec 12, 2023 10:45 AM [facility] FOLATE,SERUM Specimen Type: SERUM Comment: For TSH [...] Dec 20, 2022 01:42 PM Reporting Lab: [address] [address] Performing Lab: [address] [address] FOLATE,SERUM 8.5 ng/mL >=5.2 Dec 12, 2023 10:45 AM [facility] VITAMIN D TOTAL(SCREEN) Specimen Type: SERUM Comment: [...] Dec 20, 2022 01:42 PM Reporting Lab: [address] [address] Performing Lab: [address] [address] VITAMIN D TOTAL(SCREEN) 47.6 ng/mL 20.0-50.0 Advance [...] this document. The data comes from all [place] facilities. Date Advance Directives Provider Source Nov 01, 2017 ADVANCE DIRECTIVE CHIKA RICHARDSON [facility] Encounter Notes: All associated encounter notes [...] care assist with renewal? /macho/ SHANTE THIBODEAUX [facility], [place]/Pharmacy Customer Care Signed: 01/03/2024 07:10 Receipt Acknowledged By: 01/03/2024 08:46 /es/ HOA ESQUIVEL, RN REGISTERED NURSE for EJ CUMMINSLEOLA 01/03/2024 08:32 /es/ [facility] --- Original Document --- 01/03/24 V1 PHARMACY CUSTOMER CARE MEDICATION RENEWAL: Date: Dec Division: [place] Pt referred by Pharmacy Call Center for medication renewal: Non-controlled/maintenance medication Medications requested: [id number] IBUPROFEN 800MG TAB Defer to primary care provider To be mailed . Please review and renew if appropriate. *This note was generated by [facility]/[place] Pharmacy Customer Care. If you have any questions or need assistance, do not contact this author. Please refer all questions to your local, on-site pharmacy departments. /harriett THIBODEAUX [facility], [place]/Pharmacy Customer Care Signed: 01/03/2024 07:09 Receipt Acknowledged By: 01/03/2024 08:45 /harriett ESQUIVEL RN REGISTERED NURSE for EJ Burt APOSTOLIDIS 01/03/2024 08:32 /macho/ [facility] SHANTE THIBODEAUX [facility] Jan 03, 2024 07:09 AM PHARMACY NOTE: LOCAL TITLE: V1 PHARMACY CUSTOMER CARE MEDICATION RENEWAL STANDARD TITLE: PHARMACY NOTE DATE OF NOTE: JAN 03, 2024@07:09 ENTRY DATE: JAN 03, 2024@07:09:12 AUTHOR: SHANTE THIBODEAUX EXP COSIGNER: URGENCY: STATUS: COMPLETED V1 PHARMACY CUSTOMER CARE MEDICATION RENEWAL Has ADDENDA Date: Dec Division: [place] Pt referred by Pharmacy Call Center for medication renewal: Non-controlled/maintenance medication Medications requested: [id number] IBUPROFEN 800MG TAB Defer to primary care provider To be mailed . Please review and renew if appropriate. *This note was generated by [facility]/[place] Pharmacy Customer Care. If you have any questions or need assistance, do not contact this author. Please refer all questions to your local, on-site pharmacy departments. /harriett THIBODEAUX [facility] [place]/Pharmacy Customer Care Signed: 01/03/2024 07:09 Receipt Acknowledged By: 01/03/2024 08:45 /harriett ESQUIVEL RN REGISTERED NURSE for EJ Burt APOSTOLIDIS 01/03/2024 08:32 /[facility] 01/03/2024 ADDENDUM STATUS: COMPLETED Patient received this medication from urgent care on 09/06/23 and would like to continue. Would primary care assist with renewal? /harriett THIBODEAUX [facility] [place]/Pharmacy Customer Care Signed: 01/03/2024 07:10 Receipt Acknowledged By: * AWAITING SIGNATURE * EJ NOEL 01/03/2024 08:32 /[facility] SHANTE THIBODEAUX [facility]
--- OUTSIDE RECORDS SUMMARY | 2024-02-03 09:52 | XMS_ITS | Encounter Summary ---
Author Name [facility] [place] Organization [facility] Address [address] [place] [address] Care Team Providers Care Test Puller Name Role Phone WASHINGTON GOODMAN Primary Care [...] BASIC SELF+ ONE Feb 22, 2020 113 [id number] [phone] SUHAIL BOLDEN SR PATIENT ISAAC BCBS CT FEDERAL PREFERRED PROVIDER ORGANIZAT ION (PPO) BASIC SELF Feb 27, 2005 111 [id number] SUHAIL BLODEN SR PATIENT BCBS [place] FEP PREFERRED PROVIDER ORGANIZAT ION (PPO) BASIC SELF PLUS ONE Feb 22, 2020 113 [id number] SUHAIL BOLDEN SR PATIENT BCBS JESSICA FEP PREFERRED PROVIDER ORGANIZAT ION (PPO) BASIC INDIV IDUAL Feb 27, 2005 [id number] SUHAIL BOLDEN SR PATIENT CAREMARK FEPRX PLAN PRESCRIPT ION CAREM ARK FEPRX Feb 21, 2010 [id number] SUHAIL BOLDEN SR PATIENT CAREWILDER-F EP BCBS PRESCRIPT ION FEP KELSEY ARK Feb 21, 2010 [id number] SUHAIL BOLDEN SR PATIENT Selected Encounter This section includes the information on record at [place] for the Encounter. Date/Time Encounter Type Encounter [...] care activities for the patient from all [place] treatmentfacilities. This section includes future appointments and future orders which are active, pending or scheduled. Future Appointments This section includes appointments that were scheduled to occur 6 months from the date of the Encounter, up to a maximum of 20 appointments. The data comes from all [place] treatment facilities. Appointment Date/Time Appointment Type Appointme nt Facility Name Dec 12, 2023 10:45 AM AMBULATORY - NONE [facility] Dec 12, 2023 11:00 AM AMBULATORY - MEDICINE [facility] Lab Results: +/- 30 days of the encounter This section includes the Chemistry and Hematology Lab Results on record with [place] for the patient. Radiology Reports and Pathology Reports are provided separately, in subsequent sections. Lab Results This section contains the Chemistry/Hematology Results that were resulted 30 days before or 30 daysafter the date of the Encounter. Date/Time Source Result Type Result - Unit Interpretation Reference Range Comment Dec 12, 2023 01:55 PM [facility] URINE ALBUMIN, SPOT PROFILE Specimen Ty pe: URINE No comment entered. Ordering Provider: WASHINGTON GOODMAN Report Released Date/Time: Dec 20, 2022 01:42 PM Reporting Lab: [address] [address] Performing Lab: [address] [address] Urine ALB/CRE,SPOT-R ATIO 5 mg/g{creat} 0-29 Urine ALBUMIN,SPOT-Q NT 0.6 mg/dL CREATININE, URINE RANDOM 128.7 mg/dL >=20.0 Dec 12, 2023 01:55 PM [facility] URINALYSIS,ROUTINE/ADMISSION Specimen T ype: URINE No comment entered. Ordering Provider: WASHINGTON GOODMAN Report Released Date/Time: Dec 20, 2022 01:42 PM Reporting Lab: [address] [address] Performing Lab: [address] [address] URINE COLOR Light-Yellow YELLOW SPECIFIC GRAVITY 1.020 1.001-1.035 UROBILINOGEN NORMAL mg/dL NORMAL URINE BILIRUBIN NEGATIVE Neg URINE KETONES NEGATIVE Neg URINE GLUCOSE NEGATIVE Neg URINE PROTEIN NEGATIVE Neg URINE pH 5.5 [pH] 5.0-8.0 APPEARANCE Clear CLEAR URINE BLOOD NEGATIVE Neg NITRITE, URINE NEGATIVE Neg LEUKOCYTE ESTERASE NEGATIVE Neg Dec 12, 2023 10:45 AM [facility] HEP B SURF AB Specimen Type: SERUM [...] Dec 20, 2022 01:42 PM Reporting Lab: [address] [address] Performing Lab: [address] [address] HEP B SURF AB GRAYZONE Non Reactive Dec 12, 2023 10:45 AM [facility] HEPATITIS C Ab Specimen Type: SERUM Comment: [...] Dec 20, 2022 01:42 PM Reporting Lab: [address] [address] Performing Lab: [address] [address] HEPATITIS C Ab Non Reactive No n Reactive Dec 12, 2023 10:45 AM [facility] HIV AB/ P24 AG COMBO(HIV SCREEN) Specim [...] Dec 20, 2022 01:42 PM Reporting Lab: [address] [address] Performing Lab: [address] [address] HIV AB/ P24 AG COMBO(HIV SCREEN) Non Reactive Non Reactive Dec 12, 2023 10:45 AM [facility] CBC W/ AUTO DIFF Specimen Type: BLOOD No comment entered. Ordering Provider: WASHINGTON GOODMAN Report Released Date/Time: Dec 20, 2022 01:42 PM Reporting Lab: [address] [address] Performing Lab: [address] [address] WBC 5.2 10*3/uL 4.5-11.0 RBC 4.70 10*6/uL [...] /100{WBCs} 0.0-0.0 Dec 12, 2023 10:45 AM [facility] CHEM 7 Specimen Type: SERUM Comment: 5.7 - 6.4% Prediabetes >= 6.5% Diabetic range. If the patient has not yet been diagnosed with T2DM, see [place]/[facility] Clinical Practice Guideline for Management of T2DM (dated 05/2016) for more guidance. For patients already diagnosed with T2DM, target HbA1c values should be individualized using a Shared Decision-Making process. Ref: https://www.[facility].ri.gov /guidelines/CD/d iabetes/ Values obtained from A1C measurements can vary. For typical A1C assays, a reported value of 7.0 could actually be between 6.72 and 7.28 if measured by a reference method. A reported value of 9.0 could actually be between 8.73 and 9.27. Ref: https://ngsp.org /CAPdata.asp Ordering Provider: WASHINGTON GOODMAN Report Released Date/Time: Dec 20, 2022 01:42 PM Reporting Lab: [address] [address] Performing Lab: [address] [address] CREATININE,SER UM 0.75 mg/dL 0.5-1.5 UREA NITROGEN, BLOOD 8 mg/dL 7-25 GLUCOSE,RANDOM 115 mg/dL H 65-100 SODIUM 141 mmol/L 135-145 POTASSIUM 4.3 mmol/L 3.5-5.0 CHLORIDE 110 mmol/L 100-110 CO2 24 meq/L 20-30 ANION GAP 7 meq/L 6-16 eGFR(CKD-EPI 2020) >90 mL/min >=60 Dec 12, 2023 10:45 AM [facility] LIVER PROFILE Specimen Type: SERUM Comment: 5.7 - 6.4% Prediabetes >= 6.5% Diabetic range. If the patient has not yet been diagnosed with T2DM, see [place] Clinical Practice Guideline for Management of T2DM (dated 05/2016) for more guidance. For patients already diagnosed with T2DM, target HbA1c values should be individualized using a Shared Decision-Making process. Ref: https://www.[facility].ri.gov /guidelines/CD/d iabetes/ Values obtained from A1C measurements can vary. For typical A1C assays, a reported value of 7.0 could actually be between 6.72 and 7.28 if measured by a reference method. A reported value of 9.0 could actually be between 8.73 and 9.27. Ref: https://ngsp.org /CAPdata.asp Ordering Provider: WASHINGTON GOODMAN Report Released Date/Time: Dec 20, 2022 01:42 PM Reporting Lab: [address] [address] Performing Lab: [address] [address] ALBUMIN 3.7 g/dL 3.5-5.0 TOT. BILIRUBIN 1.0 mg/dL 0.2-1.2 DIR. BILIRUBIN 0.4 mg/dL 0.0-0.5 ALKALINE PHOSPHATASE 67 U/L 40-150 ALT 34 U/L 7-52 AST 25 U/L 5-40 Dec 12, 2023 10:45 AM [facility] LIPOPROTEIN PROFILE Specimen Type: SERUM Comment: 5.7 - 6.4% Prediabetes >= 6.5% Diabetic range. If the patient has not yet been diagnosed with T2DM, see [place] Clinical Practice Guideline for Management of T2DM (dated 05/2016) for more guidance. For patients already diagnosed with T2DM, target HbA1c values should be individualized using a Shared Decision-Making process. Ref: https://www.[facility].ri.gov /guidelines/CD/d iabetes/ Values obtained from A1C measurements can vary. For typical A1C assays, a reported value of 7.0 could actually be between 6.72 and 7.28 if measured by a reference method. A reported value of 9.0 could actually be between 8.73 and 9.27. Ref: https://ngsp.org /CAPdata.asp Ordering Provider: WASHINGTON GOODMAN Report Released Date/Time: Dec 20, 2022 01:42 PM Reporting Lab: [address] [address] Performing Lab: [address] [address] CHOLESTEROL 128 mg/dL 0-199 TRIGLYCERIDE 51 mg/dL 0-199 HDL 45 mg/dL >=40 LDL 73 mg/dL 0-129 Dec 12, 2023 10:45 AM [facility] CALCIUM PROFILE Specimen Type: SERUM Comment: 5.7 - 6.4% Prediabetes >= 6.5% Diabetic range. If the patient has not yet been diagnosed with T2DM, see [place] Clinical Practice Guideline for Management of T2DM (dated 05/2016) for more guidance. For patients already diagnosed with T2DM, target HbA1c values should be individualized using a Shared Decision-Making process. Ref: https://www.[facility].ri.gov /guidelines/CD/d iabetes/ Values obtained from A1C measurements can vary. For typical A1C assays, a reported value of 7.0 could actually be between 6.72 and 7.28 if measured by a reference method. A reported value of 9.0 could actually be between 8.73 and 9.27. Ref: https://ngsp.org /CAPdata.asp Ordering Provider: WASHINGTON GOODMAN Report Released Date/Time: Dec 20, 2022 01:42 PM Reporting Lab: [address] [address] Performing Lab: [address] [address] CALCIUM 9.0 mg/dL 8.5-10.5 PO4,SERUM 3.1 mg/dL 2.5-5.0 PROTEIN,TOTAL 6.1 g/dL 6.0-8.5 ALBUMIN 3.7 g/dL 3.5-5.0 Dec 12, 2023 10:45 AM [facility] MAGNESIUM Specimen Type: SERUM No comment entered. Ordering Provider: WASHINGTON GOODMAN Report Released Date/Time: Dec 20, 2022 01:42 PM Reporting Lab: [address] [phone] Performing Lab: [address] [address] MAGNESIUM 1.9 mg/dL 1.6-2.6 Dec 12, 2023 10:45 AM [facility] PO4,SERUM Specimen Type: SERUM No comment entered. Ordering Provider: WASHINGTON GOODMAN Report Released Date/Time: Dec 20, 2022 01:42 PM Reporting Lab: [address] [address] Performing Lab: [address] [address] PO4,SERUM 3.1 mg/dL 2.5-5.0 Dec 12, 2023 10:45 AM [facility] TSH Specimen Type: SERUM Comment: For TSH [...] Dec 20, 2022 01:42 PM Reporting Lab: [address] [address] Performing Lab: [address] [address] TSH 1.92 m[IU]/mL 0.35-5.00 Dec 12, 2023 10:45 AM [facility] HEMOGLOBIN A1C PANEL Specimen Type: BLOOD Comment: 5.7 - 6.4% Prediabetes >= 6.5% Diabetic range. If the patient has not yet been diagnosed with T2DM, see [place] Clinical Practice Guideline for Management of T2DM (dated 05/2016) for more guidance. For patients already diagnosed with T2DM, target HbA1c values should be individualized using a Shared Decision-Making process. Ref: https://www.[facility].[place].gov /guidelines/CD/d iabetes/ Values obtained from A1C measurements can vary. For typical A1C assays, a reported value of 7.0 could actually be between 6.72 and 7.28 if measured by a reference method. A reported value of 9.0 could actually be between 8.73 and 9.27. Ref: https://ngsp.org /CAPdata.asp Ordering Provider: WASHINGTON GOODMAN Report Released Date/Time: Dec 20, 2022 01:42 PM Reporting Lab: [address] [address] Performing Lab: [address] [address] HEMOGLOBIN A1C 5.6 <=5.6 EST.AVERAGE GLUCOSE 114 mg/dL Dec 12, 2023 10:45 AM [facility] PROSTATIC SPECIFIC ANTIGEN Specimen Typ e: SERUM [...] Dec 20, 2022 01:42 PM Reporting Lab: [address] [address] Performing Lab: [address] [address] PROSTATIC SPECIFIC ANTIGEN 1.05 ng/mL 0.00-4.00 Dec 12, 2023 10:45 AM [facility] B12 Specimen Type: SERUM Comment: For TSH [...] Dec 20, 2022 01:42 PM Reporting Lab: [address] [address] Performing Lab: [address] [address] B12 439 pg/mL 300-900 Dec 12, 2023 10:45 AM [facility] FOLATE,SERUM Specimen Type: SERUM Comment: For TSH [...] Dec 20, 2022 01:42 PM Reporting Lab: [address] [address] Performing Lab: [address] [address] FOLATE,SERUM 8.5 ng/mL >=5.2 Dec 12, 2023 10:45 AM [facility] VITAMIN D TOTAL(SCREEN) Specimen Type: SERUM Comment: [...] Dec 20, 2022 01:42 PM Reporting Lab: [address] [address] Performing Lab: [address] [address] VITAMIN D TOTAL(SCREEN) 47.6 ng/mL 20.0-50.0 Vital [...] and tobacco- related health factors from the [place] facility where the Encounter took place. Current Smoking Status This section includes the most current smoking, or tobacco-related health factor, from the [place] facility where the Encounter took place. Date/Time Current Smoking Status Comment Ashley ity Nov 29, 2023 11:30 AM VA-TOBACCO NEVER USED [facility] Tobacco Use History This section includes a history of the smoking, or tobacco-related health factors, that were collected on or before the date of the Encounter. The data comes from the [place] facility where the Encounter took place. Date/Time Smoking Status/Tobacco Use Comment F acility Dec 20, 2022 01:00 PM VA-TOBACCO NEVER USED [facility] Nov 05, 2021 01:00 PM VA-TOBACCO FORMER USER [facility] Nov 05, 2021 01:00 PM VA-TOBACCO QUIT 15 YRS OR MORE [facility] Oct 09, 2020 01:00 PM VA-TOBACCO NEVER [...] this document. The data comes from all [place] facilities. Date Advance Directives Provider Source Nov 01, 2017 ADVANCE DIRECTIVE CHIKA RICHARDSON [facility] Encounter Notes: All associated encounter notes [...] detailed exam deferred due to nature of mobility manager appt. imp-lbp/ls radiculopathy. plan-schedule lumbar spine mri. [...] of active outpatient prescriptions dispensed from this [place] (local) and dispensed from another [place] or [facility] facility (remote) as well as inpatient orders [...] independent of and without assistance from this [place]. /macho/ washington goodman md college and career counselor Signed: 11/29/2023 12:11 WASHINGTON GOODMAN Nov 29, [...] an Advance Directive on file at another [facility] that may require updating with the [...] individual appropriately accessing your medical record or// [facility] // /macho/ KARINA TAVAREZ [employer] Signed: 11/29/2023 11:29 KARINA TAVAREZ
--- OUTSIDE RECORDS SUMMARY | 2024-02-03 09:52 | XMS_ITS | Encounter Summary ---
Author Name [facility] [place] [facility] [place] [facility] [place] Address [address] [place] [address] Care Team Providers Care Touch Up Painter Hand Name Role Phone JESSICA GOODMAN Primary Care [...] BASIC SELF+ ONE Feb 22, 2020 113 [id number] [phone] SUHAIL BOLDEN SR PATIENT ISAAC BCBS CT FEDERAL PREFERRED PROVIDER ORGANIZAT ION (PPO) BASIC SELF Feb 27, 2005 111 [id number] SUHAIL BOLDEN SR PATIENT BCBS [place] FEP PREFERRED PROVIDER ORGANIZAT ION (PPO) BASIC SELF PLUS ONE Feb 22, 2020 113 [id number] SUHAIL BOLDEN SR PATIENT BCBS JESSICA FEP PREFERRED PROVIDER ORGANIZAT ION (PPO) BASIC INDIV IDUAL Feb 27, 2005 [id number] SUHAIL BOLDEN SR PATIENT CAREMARK FEPRX PLAN PRESCRIPT ION CAREM ARK FEPRX Feb 21, 2010 [id number] SUHAIL BOLDEN SR PATIENT DANGELO-Judy EP BCBS PRESCRIPT ION FEP KELSEY ARK Feb 21, 2010 [id number] SUHAIL BOLDEN SR PATIENT Selected Encounter This section includes the information on record at [place] for the Encounter. Date/Time Encounter Type Encounter [...] 20 appointments. The data comes from all [place] treatment facilities. Appointment Date/Time Appointment Type Appointme nt Facility Name Sep 06, 2023 02:03 PM AMBULATORY - MEDICINE [facility] Nov 29, 2023 11:30 AM AMBULATORY - MEDICINE [facility] Dec 12, 2023 10:45 AM [facility] Dec 12, 2023 11:00 AM [facility] MEDICINE [facility] Social History: Smoking Status (Most current) and [...] 20, 2022 01:00 PM VA-TOBACCO NEVER USED [facility] Tobacco Use History This section includes a history of the smoking, or tobacco-related health factors, that were collected on or before the date of the Encounter. The data comes from the [place] facility where the Encounter took place. Date/Time Smoking Status/Tobacco Use Comment F acility Nov 05, 2021 01:00 PM VA-TOBACCO FORMER USER [place] Nov 05, 2021 01:00 PM VA-TOBACCO QUIT 15 YRS OR MORE [facility] Oct 09, 2020 01:00 PM VA-TOBACCO NEVER USED [facility] Advance Directives: All historical and current Section Date Range: From patient's date of to the date document was created. This section includes ALL of a patient's completed or amended [place] Advance and Rescinded Directives. The entries below indicate that a directive exists for the patient, but an actual copy is not included with this document. The data comes from all [place] facilities. Date Advance Directives Provider Source Nov 01, 2017 ADVANCE DIRECTIVE CHIKA RICHARDSON [facility] Radiology Reports: +/- 30 days [...] the Encounter. The data comes from all [place] treatment facilities. Date/Time Radiology Report Provider Source Sep 06, 2023 04:10 PM SPINE LUMBOSACRAL MIN 2 VIEWS: SUHAIL BOLDEN [id number] -[phone] M Exm Date: SEP 06, 2023@16:10 Req Phys: LEONARD CAMPOS Pat [facility]: [facility] (Req'g Loc) Img Loc: RADIOLOGY ([facility]) Service: Unknown NEIL , (Case [id number] COMPLETE) SPINE LUMBOSACRAL MIN 2 VIEWS (RAD Detailed) CPT:71825 Reason for Study: lower back pain Clinical History: PROVIDER CONTACT INFORMATION:6419 Report Status: Verified Date Reported: SEP 06, 2023 Date Verified: SEP 06, 2023 5Th Grade Teacher E-Sig:/ES/IAN ANGEL MD Report: LUMBOSACRAL SPINE, FRONTAL, [...] changes are seen, overall increased since prior, ecbawtao-ea-eljrzi at L3-L4, moderate at L4-L5, mild at other lumbar levels. Multilevel bridging enthesophytes/osteophytes are noted. Impression: No evidence of acute fracture or traumatic subluxation. Degenerative changes of the lumbar spine, qtcragxn-zw-xlwinu at L3-L4 and moderate at L4-L5, mildly increased since 2018. Primary Diagnostic Code: No Immediate Attention Required Primary Interpreting Staff: IAN ANGEL MD, Staff Neuroradiologist (5Th Grade Teacher) /IAN SAGASTUME Encounter Notes: All associated encounter [...] 8/10. AVG RNFL 93. AVG C/D 0.60. Byers RNFL (-)glaucomatous damage OS SS 8/10. AVG RNFL 92. AVG C/D 0.68. Byers RNFL (-)glaucomatous damage ASSESSMENT/PLAN: 1. Low risk POAG Suspect 2 to moderate cupping OU - IOP today 14/14. LIOP 01/30 - Tmax: Unknown - (-)FHx - Stable ONH cupping OU - RNFL OCT: BASELINE (09/13) OD AVG RNFL 93. AVG C/D 0.60. Byers RNFL (-)glaucomatous damage OS AVG RNFL 92. AVG C/D 0.68. Byers RNFL (-)glaucomatous damage - Pt educated on [...] this [place] (local) and dispensed from another [place] or [facility] facility (remote) as well as inpatient [...] COMPLETED Optometry Image can be viewed in [facility]. /macho/ TRACI BRITT ZIG ZAG SPRING MACHINE OPERATOR Signed: 08/30/2023 14:33 TRACI BRITT Aug 30, 2023 01:05 PM OPTOMETRY NOTE: LOCAL TITLE: BLACKSMITH HAMMER OPERATOR PROGRESS NOTE STANDARD TITLE: OPTOMETRY NOTE DATE [...] Dir: Prz2:0.00 Dir2: FITTING INFORMATION FPD:71 NPD:68 Will:R: L: SEG HT:R: L: Tint:None Shade:None [place] Billable Items FRAME: CHRISTIANA ZAMARRIPAMETRICKI Right Lens: POLY SINGLE VISION 1.586 POLY Left Lens: POLY SINGLE VISION 1.586 POLY KLEAR ANTI-REFLECTIVE COATING Delivery instructions: Deliver to [place]'s home address: [address] [place] [address] Pair #2 (DVO suns) The quote provided below is for informational purposes only. Please verify prior to the creation of a purchase order. SUHAIL BOLDEN 7720 RX INFORMATION OD +1.25 0.00 X Add:0.00 Pzm:0.00 Dir: Prz2:0.00 Dir2: OS +1.25 -0.75 X55 Add:0.00 Pzm:0.00 Dir: Prz2:0.00 Dir2: FITTING INFORMATION FPD:71 NPD:68 Will:R: L: SEG HT:R: L: Tint:VILLAL[place]O Shade:3 VA Billable Items FRAME: SUHAIL SANCHEZ Right Lens: TRIVEX SINGLE VISION TRIVEX Left Lens: TRIVEX SINGLE VISION TRIVEX SOLID TINT Delivery instructions: Deliver to 's home address: [address] [place] [address] Pair #3 (NVO) The quote provided below is for informational purposes only. Please verify prior to the creation of a purchase order. SUHAIL BOLDEN 7720 RX INFORMATION OD +3.75 0.00 X Add:0.00 Pzm:0.00 Dir: Prz2:0.00 Dir2: OS +3.75 -0.75 X55 Add:0.00 Pzm:0.00 Dir: Prz2:0.00 Dir2: FITTING INFORMATION FPD:68 NPD:65 Will:R: L: SEG HT:R: L: Tint:None Shade:None VA Billable Items FRAME: [id number] BLACK CRYSTAL Right Lens: POLY SINGLE VISION 1.586 POLY Left Lens: POLY SINGLE VISION 1.586 POLY KLEAR ANTI-REFLECTIVE COATING Delivery instructions: Deliver to 's home address: [address] [place] [address] /macho/ CADY ISAAC Civil Clerk Signed: 08/31/2023 09:08 /macho/ JACQUELINE MARCOS OD OPTOMETRY ATTENDING Cosigned: 09/06/2023 08:47 Receipt Acknowledged By: 09/06/2023 13:20 /macho/ YAO CA OPTOMETRY SEC ACCOUNTANT CADY ISAAC Aug 30, 2023 12:56 PM [...] of this patient. Please see the Optometry Attending/Barrel Planer note for this date which will be [...] 8/10. AVG RNFL 93. AVG C/D 0.60. Byers RNFL (-)glaucomatous damage OS SS 8/10. AVG RNFL 92. AVG C/D 0.68. Byers RNFL (-)glaucomatous damage ASSESSMENT/PLAN: 1. Low risk POAG Suspect 2 to moderate cupping OU - IOP today . LIOP 01/30 - Tmax: Unknown - (-)FHx - Stable ONH cupping OU - RNFL OCT: BASELINE (09/13) OD AVG RNFL 93. AVG C/D 0.60. Byers RNFL (-)glaucomatous damage OS AVG RNFL 92. AVG C/D 0.68. Byers RNFL (-)glaucomatous damage - Pt educated on [...] this [place] (local) and dispensed from another [place] or [facility] facility (remote) as well as inpatient [...] or non-VA provider. /macho/ YAO CA OPTOMETRY SEC ACCOUNTANT Signed: 08/30/2023 16:15 /macho/ JACQUELINE MARCOS OD OPTOMETRY ATTENDING Cosigned: 09/06/2023 08:47 YAO CA
--- OUTSIDE RECORDS SUMMARY | 2024-02-03 09:52 | XMS_ITS | Encounter Summary ---
Author Name [facility] [place] [facility] [place] Address [address] [place] [address] Care Team Providers Care Transmission Assembler Name Role Phone WASHINGTON GOODMAN Primary Care [...] BASIC SELF+ ONE Feb 22, 2020 113 [id number] [phone] SUHALI BOLDEN SR PATIENT ISAAC BCBS CT FEDERAL PREFERRED PROVIDER ORGANIZAT ION (PPO) BASIC SELF Feb 27, 2005 111 [id number] [phone] SUHAIL BOLDEN SR PATIENT BCBS [place] FEP PREFERRED PROVIDER ORGANIZAT ION (PPO) BASIC SELF PLUS ONE Feb 22, 2020 113 [id number] [phone] SUHAIL BOLDEN SR PATIENT BCBS JESSICA FEP PREFERRED PROVIDER ORGANIZAT ION (PPO) BASIC INDIV IDUAL Feb 27, 2005 [id number] SUHAIL BOLDEN SR PATIENT CAREMARK FEPRX PLAN PRESCRIPT ION KELSEY ARK FEPRX Feb 21, 2010 [id number] SUHAIL BOLDEN SR PATIENT DANGELO-F EP BCBS PRESCRIPT ION FEP KELSEY ARK Feb 21, 2010 [id number] [phone] SUHAIL BOLDEN SR PATIENT Selected Encounter This section includes the information on record at [place] for the Encounter. Date/Time Encounter Type Encounter Description Reason Pro vider Source Sep 15, 2023 10:23 AM Outpatient Encounter ADMIN PAT ACTIVTIES (MASNONCT) IHE Encounter Template Text not used by [place] Plan of Treatment: Future Appointments (+ 6 months) and Future Tests (+/- 45 days) The Plan of Treatment section includes future care activities for the patient from all [place] treatmentfacilities. This section includes future appointments and future orders which are active, pending or scheduled. Future Appointments This section includes appointments that were scheduled to occur 6 months from the date of the Encounter, up to a maximum of 20 appointments. The data comes from all [place] treatment facilities. Appointment Date/Time Appointment Type Appointme nt Facility Name Nov 29, 2023 11:30 AM [facility] Dec 12, 2023 10:45 [facility] Dec 12, 2023 11:00 AM [facility] - [facility]INE [facility] Advance Directives: All historical and current Section Date Range: From patient's date of to the date document was created. This section includes ALL of a patient's completed or amended [place] Advance and Rescinded Directives. The entries below indicate that a directive exists for the patient, but an actual copy is not included with this document. The data comes from all [place] facilities. Date Advance Directives Provider Source Nov 01, 2017 ADVANCE DIRECTIVE CHIKA RICHARDSON [facility] Radiology Reports: +/- 30 days of [...] the Encounter. The data comes from all [place] treatment facilities. Date/Time Radiology Report Provider Source Sep 06, 2023 04:10 PM SPINE LUMBOSACRAL MIN 2 VIEWS: SUHAIL BOLDEN [id number] -1955 M Exm Date: SEP 06, 2023@16:10 Req Phys: LEONARD CAMPOS Carmel Pat Loc: [facility] (Req'g Loc) Img Loc: RADIOLOGY ([facility]) Service: Unknown [place] , (Case 800 COMPLETE) SPINE LUMBOSACRAL MIN 2 VIEWS (RAD Detailed) CPT:13821 Reason for Study: lower back pain Clinical History: PROVIDER CONTACT INFORMATION:6419 Report Status: Verified Date Reported: SEP 06, 2023 Date Verified: SEP 06, 2023 Miner Pick E-Sig:/ES/IAN ANGEL MD Report: LUMBOSACRAL SPINE, FRONTAL, [...] changes are seen, overall increased since prior, krwohnod-vy-zcokog at L3-L4, moderate at L4-L5, mild at other lumbar levels. Multilevel bridging enthesophytes/osteophytes are noted. Impression: No evidence of acute fracture or traumatic subluxation. Degenerative changes of the lumbar spine, hponrrdj-jd-pwhrym at L3-L4 and moderate at L4-L5, mildly increased since 2018. Primary Diagnostic Code: No Immediate Attention Required Primary Interpreting Staff: IAN ANGEL MD, Staff Neuroradiologist (Miner Pick) /IAN SAGASTUME Encounter Notes: All associated encounter [...] Patient Name: SUHAIL BOLDEN Patient Primary Phone: [phone] Patient Primary Address: [address] [place] [address] Patient : 1955 Patient Age: 68 Caller/Recipient [...] will help manage this issue. Traveling to [place] though so if he could do PT closer to home he is agreeable to that. Please call him to discuss this and if/ when the MRI would be appropriate as well. /macho/ RITCHIE ALTAMIRANO 1 [facility] Signed: 09/15/2023 10:23 Receipt Acknowledged By: 09/16/2023 08:45 /macho/ EJ NOEL RN, MSN REGISTERED NURSE 09/16/2023 09:09 /es/ LILLY TURNER LPN LICENSED PRACTICAL NURSE 09/16/2023 13:45 /macho/ washington goodman md med care manager 09/16/2023 ADDENDUM STATUS: COMPLETED Spoke with pt regarding PT referral ?MRI Pt will seek out PT referral from nonVA PCP All questions addressed at this time /harriett NOEL RN, MSN REGISTERED NURSE Signed: 09/16/2023 08:45 RITCHIE ZENG [facility]
--- OUTSIDE RECORDS SUMMARY | 2024-02-03 09:52 | XMS_ITS | Encounter Summary ---
Author Name [facility] [place] [facility] [place] Address [address] [place] [address] Care Team Providers Care Research Laboratory Manager Name Role Phone JESSICA GOODMAN Primary [...] BASIC SELF+ ONE Feb 22, 2020 113 [id number] [phone] SUHAIL BOLDEN SR PATIENT ESTEBANEM BCBS CT FEDERAL PREFERRED PROVIDER ORGANIZAT ION (PPO) BASIC SELF Feb 27, 2005 111 [id number] [phone] BOLDEN SR,SUHAIL PATIENT BCBS [place] FEP PREFERRED PROVIDER ORGANIZAT ION (PPO) BASIC SELF PLUS ONE Feb 22, 2020 113 [id number] [phone] BOLDEN SUHAIL LING PATIENT BCBS JESSICA FEP PREFERRED PROVIDER ORGANIZAT ION (PPO) BASIC INDIV IDUAL Feb 27, 2005 [id number] [phone] SUHAIL BOLDEN SR PATIENT CAREMARK FEPRX PLAN PRESCRIPT ION CAREM ARK FEPRX Feb 21, 2010 [id number] SUHAIL BOLDEN SR PATIENT CAREWILDER-F EP BCBS PRESCRIPT ION SYED COLE ARK Feb 21, 2010 [id number] SUHAIL BOLDEN SR PATIENT Selected Encounter This section includes the information on record at [place] for the Encounter. Date/Time Encounter Type Encounter Description Reason Pro vider Source Sep 06, 2023 10:39 AM Outpatient Encounter TELEPHONE TRIAGE IHE Encounter Template Text not used by [place] Plan of Treatment: Future Appointments (+ 6 months) and Future Tests (+/- 45 days) The Plan of Treatment section includes future care activities for the patient from all [place] treatmentfacilities. This section includes future appointments and future orders which are active, pending or scheduled. Future Appointments This section includes appointments that were scheduled to occur 6 months from the date of the Encounter, up to a maximum of 20 appointments. The data comes from all [place] treatment facilities. Appointment Date/Time Appointment Type Appointme nt Facility Name Nov 29, 2023 11:30 AM AMBULATORY - MEDICINE [facility] Dec 12, 2023 10:45 AM AMBULATORY - NONE [facility] Dec 12, 2023 11:00 AM AMBULATORY - MEDICINE [facility] Advance Directives: All historical and current Section Date Range: From patient's date of to the date document was created. This section includes ALL of a patient's completed or amended [place] Advance and Rescinded Directives. The entries below indicate that a directive exists for the patient, but an actual copy is not included with this document. The data comes from all [place] facilities. Date Advance Directives Provider Source Nov 01, 2017 ADVANCE DIRECTIVE CHIKA RICHARDSON [facility] Radiology Reports: +/- 30 days of [...] the Encounter. The data comes from all [place] treatment facilities. Date/Time Radiology Report Provider Source Sep 06, 2023 04:10 PM SPINE LUMBOSACRAL MIN 2 VIEWS: SUHAIL BOLDEN [id number] -1955 M Exm Date: SEP 06, 2023@16:10 Req Phys: BETHLEONARD M Pat Loc: [facility] (Req'g Loc) Img Loc: RADIOLOGY ([facility]) Service: Unknown [place] , (Case 800 COMPLETE) SPINE LUMBOSACRAL MIN 2 VIEWS (RAD Detailed) CPT:26930 Reason for Study: lower back pain Clinical History: PROVIDER CONTACT INFORMATION:6419 Report Status: Verified Date Reported: SEP 06, 2023 Date Verified: SEP 06, 2023 Plug Grower E-Sig:/ES/IAN ANGEL MD Report: LUMBOSACRAL SPINE, FRONTAL, [...] changes are seen, overall increased since prior, uopouhcb-xl-sxwdfz at L3-L4, moderate at L4-L5, mild at other lumbar levels. Multilevel bridging enthesophytes/osteophytes are noted. Impression: No evidence of acute fracture or traumatic subluxation. Degenerative changes of the lumbar spine, ehponyyc-pi-ukzpwj at L3-L4 and moderate at L4-L5, mildly increased since 2018. Primary Diagnostic Code: No Immediate Attention Required Primary Interpreting Staff: IAN ANGEL MD, Staff Neuroradiologist (Plug Grower) /IAN SAGASTUME Encounter Notes: All associated encounter [...] Patient Primary Address: [address] [place] [address] Patient Primary Phone: [phone] Patient : 1955 Patient Age: 68 Caller/Recipient [...] msg to PACT/Provider Nurse Summary Nurse Summary: Farnam calls reporting back pain x1 month worsening over the past week after he bent over and stood up. Triaged. This RN recommends FRANCOISE: Neil PACT post follow-up call back requested for further guided plan of care. Verified Ph. [phone] Clinical Contact Center Codes Clinic/Location: V1 CT PHONE CCC RN TXCC Triage Complete Triage Date: 09/06/2023, 10:32 AM Triage Note: Phone Triage 06 Sep 2023 14:29:22 +0000 [facility] Demographics 68 y/o Male Results CC: Back [...] HPI: wound, skin penetration /macho/ MARKOS FONTENOT [id number] Signed: 09/06/2023 10:39 Receipt Acknowledged By: 09/07/2023 08:22 /macho/ EJ NOEL, RN, MSN REGISTERED NURSE 09/07/2023 08:35 /es/ LILLY TURNER LPN LICENSED PRACTICAL NURSE 09/07/2023 ADDENDUM STATUS: COMPLETED Pt presented to [facility] /macho/ EJ NOEL, RN, MSN REGISTERED NURSE Signed: 09/07/2023 08:22 [facility]
--- OUTSIDE RECORDS SUMMARY | 2024-02-03 09:52 | XMS_ITS ---
Author Organization [facility] Address [address] [place] [phone] Care Team Providers Care Ios Software Engineer Name Role Phone Ke Mcelroy Primary Care Provider Unavailab Ankur Chavez Jr [phone] ALLERGIES No Known Allergies REASON FOR VISIT [...] Hemorrhoids, unspecified hemorrhoid type (K64.9) Active confirmed [id number] VITAL SIGNS BMI 29.08 kg/m2 01/23/2024 Blood pressure systolic 000 mm Hg 01/23/20 24 Blood pressure diastolic 00 mm Hg 024 Height 68 in 01/23/2024 Temperature 97.5 degrees Fahrenheit 01/23/20 24 Weight 191 lb 4 oz lbs 01/23/2024 Encounters Encounter Location Date Provider Diagnosis [facility] [address] [place] [phone] 01/23/2024 Ankur Rodriguez Jr Colon cancer screening [...]
--- OUTSIDE RECORDS SUMMARY | 2024-02-03 09:52 | XMS_ITS | Patient Health Record ---
Author Organization [facility] Address [address] [place] [phone] Care Team Providers Care Special Needs Caregiver Name Role Phone Ke Mcelroy Primary Care Provider Ankur Hutchinson Jr Unavailable ALLERGIES No Known Allergies REASON FOR REFERRAL [...] Problem Colon cancer screening (Z12.11) Active confirmed 628238562 Problem Rectal bleeding (K62.5) Active confirmed 35347795 Problem Diverticulosis of colon without hemorrhage (K57.30) Active confirmed 277566520 Problem Hemorrhoids, unspecified hemorrhoid type (K64.9) Active confirmed 84993762 VITAL SIGNS Temperature 97.5 degrees Fahrenheit 01/23/2024 Blood pressure diastolic 00 mm Hg 01/23/2024 Height 68 in 01/23/2024 Blood pressure systolic 000 mm Hg 01/23/2024 Weight 191 lb 4 oz lbs 01/23/2024 BMI 29.08 kg/m2 01/23/2024 Encounters Encounter Location Date Provider Diagnosis [facility] [address] [place], [place] [phone] 02/01/2024 Ankur Rodriguez Jr Colon cancer screening Z12.11 ; Personal history of colonic polyps Z86.0100 and Colon polyps K63.5 [facility] [address] [place] [phone] 01/23/2024 Ankur Rodriguez Jr Colon cancer screening Z12.11 and Hemorrhoids, unspecified hemorrhoid type K64.9 [facility] [address] [place] [phone] 12/01/2023 Ankur Rodriguez Jr [facility] [address] [place] [phone] 01/05/2024 Ankur Rodriguez Jr [facility] [address] [place] [phone] 01/31/2024 Ankur Rodriguez Jr ASSESSMENTS Encounter Date Diagnosis Assessment Notes Treatment Notes Treatment Clinical Notes 02/01/2024 Colon cancer screening (ICD-10 - Z12.11) 02/01/2024 Personal history of colonic polyps (ICD-10 - Z86.0100) 01/23/2024 Colon cancer screening (ICD-10 - Z12.11) Colonoscopy material was printed 01/23/2024 Hemorrhoids, unspecified hemorrhoid type (ICD-10 - K64.9) 02/01/2024 Colon polyps (ICD-10 - K63.5) PLAN OF TREATMENT Pending Test Test Name Order Date COLONOSCOPY WITH BIOPSY 12/09/2010 COLONOSCOPY REMOVAL OF LESION SNARE NATHALY MONAE 12/09/2010 Future Test Test Name Order Date COLONOSCOPY 01/23/2024 Insurance Providers Payer Name Payer Address Payer Phone Subscriber Number Group Number Insured Name Patient Relationship to Insured Coverage Start Date Coverage End Date [facility] [address] [place], [place] [id number] KE BOLDEN Self - patient is the insured MEDICAL (GENERAL) HISTORY Medical History History ICD Code Colonoscopy 08/06, diverticul osis, five-year followup for personal history of adenomatous Back pain Degenerative joint disease Hyperlipidemia BPH Prediabetes Surgical History Surgery Date(Month/Year) knee surgery Carpal total repair, right
--- OUTSIDE RECORDS SUMMARY | 2024-02-03 09:52 | XMS_ITS | Continuity of Care Document ---
Author Name [facility] Organization [facility] Care Team Providers Care Senior Solutions Engineer Name Role Phone 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 It does not include entries that were removed or entered in error. Problem Status Onset Date Problem Type Date of Resolution Comments Source Backache Active Condition [place] Backache (SNOMED CT 359533771) Active Condition [place] Colonic Polyps (ICD-9-CM 211.3) Active Condition [facility] Diverticulosis, Colonic * (ICD-9-CM 562.10) Active Condition [facility] Hearing loss Active Condition [place] History of colonic polyp Active Condition [place] Hyperlipidemia Active Condition [facility] Hyperlipidemia (SNOMED CT 27522571) Active Condition [place] Low back pain [facility] * (ICD-9-CM 715.90) Active Condition [facility] Osteopenia Active [facility] [place] [facility] PMD Dr. 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 Diagnosis [place] Diagnosis: ICD-10-CM M54.50 Low back pain, unspecified Active Diagnosis [place] Diagnosis: ICD-10-CM H40.013 Open angle with borderline findings, low risk, bilateral Active Diagnosis [place] Diagnosis: ICD-10-CM H90.3 Sensorineural hearing loss, bilateral Active Diagnosis [place] Diagnosis: ICD-10-CM 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, left eye Active Diagnosis [place] Medications Combined list of outpatient medications from [...] HOURS NEEDED FOR PAIN ORAL ACTIVE 01/03/2025 [id number] ZOLTAN GOODMAN 2023 21 [place] IBUPROFEN 800MG TAB TAKE ONE TABLET BY MOUTH EVERY 8 HOURS NEEDED FOR PAIN ORAL DISCONT INUED 10/06/2023 [id number] LISA CAMPOS 2023 21 [place] LIDOCAINE 5% PATCH APPLY 2 PATCHES TO SKIN ONCE DAILY FOR PAIN *APPLY BY PRESSING FIRMLY 10-15 SECONDS( KEEP ON UP TO 12HOURS and REMOVE FOR 12HOURS) TRANSD ERMAL 10/06/2023 [id number] 4 LISA CAMPOS 2023 30 [place] ON [...] adverse reactions to drug (finding) active 2 [facility] Immunizations Combined list of available immunizations from the Department of Defense and Veterans Affairs facilities. Immunization Series Date Given Administered By Site Reaction Lot Number CVX Code Drug Filer And Sander Status Comments Source COVID-19 (MODERNA), MRNA, LNP-S, PF, 100 MCG/0.5 ML DOSE 2 2020 207 complet ed [facility] COVID-19 (MODERNA), MRNA, LNP-S, PF, 100 MCG/0.5 ML DOSE 1 2020 207 complet ed [facility] DTAP, UNSPECIFIED FORMULATION 2012 107 complet ed Site: Right [place] [place] Results Combined list of recent chemistry, hematology and other laboratory results from Department of Defense and Veterans Affairs, ranging from 15 months to all on record, depending upon the facility. Order Name Results Value Reference Range Date Interpretation Specimen Comments Source URINE ALBUMIN, SPOT PROFILE MICROALBUM IN/CREATIN INE [MASS RATIO] IN URINE 5 mg/g{cre at} 0 - 29 12/11 Specimen Type: URINE No comment entered. Ordering Provider: MARLENY GOODMAN Report Released Date/Time: Dec 20, 2022 01:42 PM Reporting Lab: [address] [address] Performing Lab: [address] URINE ALBUMIN, SPOT PROFILE MICROALBUM IN [MASS/VOLU ME] IN URINE 0.6 mg/dL 12/11 Specimen Type: URINE No comment entered. Ordering Provider: MARLENY GOODMAN Report Released Date/Time: Dec 20, 2022 01:42 PM Reporting Lab: [address] [address] Performing Lab: [address] [phone] [place] [address] URINE ALBUMIN, SPOT PROFILE CREATININE [MASS/VOLU ME] IN URINE 128.7 mg/dL 20.0 12/11 Specimen Type: URINE No comment entered. Ordering Provider: MARLENY GOODMAN Elidia Report Released Date/Time: Dec 20, 2022 01:42 PM Reporting Lab: [address] [address] Performing Lab: [place] [phone] [place] [address] URINALYS IS,ROUTI NE/ADMIS LETY COLOR OF URINE Light-Ye llow 12/11 Specimen Type: URINE No comment entered. Ordering Provider: MARLENY GOODMAN Report Released Date/Time: Dec 20, 2022 01:42 PM Reporting Lab: [address] [address] Performing Lab: [address] [phone] [place] [address] URINALYS IS,ROUTI NE/ADMIS LETY SPECIFIC GRAVITY OF URINE 1.020 1.001 - 1.035 12/11 Specimen Type: URINE No comment entered. Ordering Provider: MARLENY GOODMAN Report Released Date/Time: Dec 20, 2022 01:42 PM Reporting Lab: [place] [address] Performing Lab: [address] URINALYS IS,ROUTI NE/ADMIS LETY UROBILINOG EN [UNITS/VOL UME] IN URINE NORMALmg /dL 12/11 Specimen Type: URINE No comment entered. Ordering Provider: MARLENY GOODMAN Report Released Date/Time: Dec 20, 2022 01:42 PM Reporting Lab: [place] [address] Performing Lab: [address] URINALYS IS,ROUTI NE/ADMIS LETY BILIRUBIN. TOTAL [PRESENCE] IN URINE BY TEST STRIP NEGATIVE 12/11 Specimen Type: URINE No comment entered. Ordering Provider: MARLENY GOODMAN Report Released Date/Time: Dec 20, 2022 01:42 PM Reporting Lab: [place] [address] Performing Lab: [address] URINALYS IS,ROUTI NE/ADMIS LETY KETONES [PRESENCE] IN URINE NEGATIVE 12/11 Specimen Type: URINE No comment entered. Ordering Provider: MARLENY GOODMAN Report Released Date/Time: Dec 20, 2022 01:42 PM Reporting Lab: [place] [address] Performing Lab: [address] URINALYS IS,ROUTI NE/ADMIS LETY GLUCOSE [PRESENCE] IN URINE BY TEST STRIP NEGATIVE 12/11 Specimen Type: URINE No comment entered. Ordering Provider: MARLENY GOODMAN Report Released Date/Time: Dec 20, 2022 01:42 PM Reporting Lab: [place] [address] Performing Lab: [address] URINALYS IS,ROUTI NE/ADMIS LETY PROTEIN [MASS/VOLU ME] IN URINE BY TEST STRIP NEGATIVE 12/11 Specimen Type: URINE No comment entered. Ordering Provider: MARLENY GOODMAN Report Released Date/Time: Dec 20, 2022 01:42 PM Reporting Lab: [place] [address] Performing Lab: [address] URINALYS IS,ROUTI NE/ADMIS LETY PH OF BODY FLUID 5.5 [pH] 5.0 - 8.0 12/11 Specimen Type: URINE No comment entered. Ordering Provider: MARLENY GOODMAN Report Released Date/Time: Dec 20, 2022 01:42 PM Reporting Lab: [place] [address] Performing Lab: [address] URINALYS IS,ROUTI NE/ADMIS LETY APPEARANCE OF URINE Clear 12/11 Specimen Type: URINE No comment entered. Ordering Provider: MARLENY GOODMAN Report Released Date/Time: Dec 20, 2022 01:42 PM Reporting Lab: [place] [address] Performing Lab: [address] URINALYS IS,ROUTI NE/ADMIS [place]Y HEMOGLOBIN [PRESENCE] IN URINE BY TEST STRIP NEGATIVE 12/11 Specimen Type: URINE No comment entered. Ordering Provider: MARLENY GOODMAN Report Released Date/Time: Dec 20, 2022 01:42 PM Reporting Lab: [place] [address] Performing Lab: [address] URINALYS IS,ROUTI NE/ADMIS LETY NITRITE [PRESENCE] IN URINE BY TEST STRIP NEGATIVE 12/11 Specimen Type: URINE No comment entered. Ordering Provider: MARLENY GOODMAN Report Released Date/Time: Dec 20, 2022 01:42 PM Reporting Lab: [place] [address] Performing Lab: [address] URINALYS IS,ROUTI NE/ADMIS LETY LEUKOCYTE ESTERASE [PRESENCE] IN URINE BY TEST STRIP NEGATIVE 12/11 Specimen Type: URINE No comment entered. Ordering Provider: MARLENY GOODMAN Report Released Date/Time: Dec 20, 2022 01:42 PM Reporting Lab: [address] [address] Performing Lab: [address] [address] [place] HEP B SURF AB HEPATITIS B VIRUS [...] Dec 20, 2022 01:42 PM Reporting Lab: [address] [address] Performing Lab: [address] [address] [place] HEPATITI S C Ab HEPATITIS C VIRUS [...] viral load testing. Ordering Provider: MARLENY GOODMAN Elidia Report Released Date/Time: Dec 20, 2022 01:42 PM Reporting Lab: [address] [address] Performing Lab: [address] [address] [place] HIV AB/ P24 AG COMBO(HI V SCREEN) [...] Dec 20, 2022 01:42 PM Reporting Lab: [address] [address] Performing Lab: [address] [address] [place] CBC W/ AUTO DIFF LEUKOCYTES [#/VOLUME] IN BLOOD BY AUTOMATED COUNT 5.2 10*3/uL 4.5 - 11.0 12/11 Specimen Type: BLOOD No comment entered. Ordering Provider: MARLENY GOODMAN Report Released Date/Time: Dec 20, 2022 01:42 PM Reporting Lab: [address] [address] Performing Lab: [address] CBC W/ AUTO DIFF ERYTHROCYT ES [#/VOLUME] IN BLOOD BY AUTOMATED COUNT 4.70 10*6/uL 4.23 - 5.66 12/11 Specimen Type: BLOOD No comment entered. Ordering Provider: MARLENY GOODMAN Report Released Date/Time: Dec 20, 2022 01:42 PM Reporting Lab: [place] [phone] Performing Lab: [address] CBC W/ AUTO DIFF HEMOGLOBIN [MASS/VOLU ME] IN ARTERIAL BLOOD 13.7 g/dL 12.8 - 17.0 12/11 Specimen Type: BLOOD No comment entered. Ordering Provider: MARLENY GOODMAN Report Released Date/Time: Dec 20, 2022 01:42 PM Reporting Lab: [address] [phone] Performing Lab: [address] CBC W/ AUTO DIFF HEMATOCRIT [VOLUME FRACTION] OF BLOOD BY AUTOMATED COUNT 42.2 39.2 - 50.4 12/11 Specimen Type: BLOOD No comment entered. Ordering Provider: MARLENY GOODMAN Report Released Date/Time: Dec 20, 2022 01:42 PM Reporting Lab: [address] Performing Lab: [place] [phone] [place] [address] CBC W/ AUTO DIFF MCV [ENTITIC VOLUME] BY AUTOMATED COUNT 90 fL 82 - 99 12/11 Specimen Type: BLOOD No comment entered. Ordering Provider: MARLENY GOODMAN Report Released Date/Time: Dec 20, 2022 01:42 PM Reporting Lab: [place] [address] Performing Lab: [address] CBC W/ AUTO DIFF MCH [ENTITIC MASS] BY AUTOMATED COUNT 29.1 pg 26.2 - 32.6 12/11 Specimen Type: BLOOD No comment entered. Ordering Provider: MARLENY GOODMAN Report Released Date/Time: Dec 20, 2022 01:42 PM Reporting Lab: [place] [address] Performing Lab: [address] CBC W/ AUTO DIFF MCHC [MASS/VOLU ME] BY AUTOMATED COUNT 32.5 g/dL 30.8 - 35.1 12/11 Specimen Type: BLOOD No comment entered. Ordering Provider: MARLENY GOODMAN Report Released Date/Time: Dec 20, 2022 01:42 PM Reporting Lab: [place] [address] Performing Lab: [address] CBC W/ AUTO DIFF PLATELETS [#/VOLUME] IN BLOOD BY AUTOMATED COUNT 221 10*3/uL 140 - 360 12/11 Specimen Type: BLOOD No comment entered. Ordering Provider: MARLENY GOODMAN Report Released Date/Time: Dec 20, 2022 01:42 PM Reporting Lab: [address] Performing Lab: [address] CBC W/ AUTO DIFF PLATELET MEAN VOLUME [ENTITIC VOLUME] IN BLOOD BY AUTOMATED COUNT 10.1 fL 9.2 - 12.4 12/11 Specimen Type: BLOOD No comment entered. Ordering Provider: MARLENY GOODMAN Report Released Date/Time: Dec 20, 2022 01:42 PM Reporting Lab: [address] [address] Performing Lab: [place] [phone] [place] [address] CBC W/ AUTO DIFF ERYTHROCYT E DISTRIBUTI ON WIDTH [RATIO] BY AUTOMATED COUNT 13 12 - 16 12/11 Specimen Type: BLOOD No comment entered. Ordering Provider: MARLENY GOODMAN Report Released Date/Time: Dec 20, 2022 01:42 PM Reporting Lab: [address] Performing Lab: [place] [phone] [place] [address] CBC W/ AUTO DIFF LYMPHOCYTE S/100 LEUKOCYTES IN BLOOD BY AUTOMATED COUNT 24.3 14.0 - 42.3 12/11 Specimen Type: BLOOD No comment entered. Ordering Provider: MARLENY GOODMAN Report Released Date/Time: Dec 20, 2022 01:42 PM Reporting Lab: [address] Performing Lab: [address] CBC W/ AUTO DIFF NEUTROPHIL S/100 LEUKOCYTES IN BLOOD BY AUTOMATED COUNT 62.9 43.7 - 75.8 12/11 Specimen Type: BLOOD No comment entered. Ordering Provider: MARLENY GOODMAN Report Released Date/Time: Dec 20, 2022 01:42 PM Reporting Lab: [place] [phone] Performing Lab: [address] [place] [address] CBC W/ AUTO DIFF MONOCYTES/ 100 LEUKOCYTES IN BLOOD BY AUTOMATED COUNT 8.0 5.1 - 13.7 12/11 Specimen Type: BLOOD No comment entered. Ordering Provider: MARLENY GOODMAN Report Released Date/Time: Dec 20, 2022 01:42 PM Reporting Lab: [address] [address] Performing Lab: [address] [place] [address] CBC W/ AUTO DIFF EOSINOPHIL S/100 LEUKOCYTES IN BLOOD BY AUTOMATED COUNT 3.6 0.4 - 6.8 12/11 Specimen Type: BLOOD No comment entered. Ordering Provider: MARLENY GOODMAN Report Released Date/Time: Dec 20, 2022 01:42 PM Reporting Lab: [place] [address] Performing Lab: [address] CBC W/ AUTO DIFF BASOPHILS/ 100 LEUKOCYTES IN BLOOD BY AUTOMATED COUNT 1.0 0.1 - 2.0 12/11 Specimen Type: BLOOD No comment entered. Ordering Provider: MARLENY GOODMAN Report Released Date/Time: Dec 20, 2022 01:42 PM Reporting Lab: [place] [address] Performing Lab: [address] CBC W/ AUTO DIFF LYMPHOCYTE S [#/VOLUME] IN BLOOD BY AUTOMATED COUNT 1.3 10*3/uL 1.0 - 3.2 12/11 Specimen Type: BLOOD No comment entered. Ordering Provider: MARLENY GOODMAN Report Released Date/Time: Dec 20, 2022 01:42 PM Reporting Lab: [place] [address] Performing Lab: [address] CBC W/ AUTO DIFF NEUTROPHIL S [#/VOLUME] IN BLOOD BY AUTOMATED COUNT 3.3 10*3/uL 2.2 - 7.6 12/11 Specimen Type: BLOOD No comment entered. Ordering Provider: MARLENY GOODMAN Report Released Date/Time: Dec 20, 2022 01:42 PM Reporting Lab: [place] [address] Performing Lab: [address] CBC W/ AUTO DIFF IMMATURE GRANULOCYT ES/100 LEUKOCYTES IN BLOOD BY AUTOMATED COUNT 0.2 0.0 - 0.7 12/11 Specimen Type: BLOOD No comment entered. Ordering Provider: MARLENY GOODMAN Report Released Date/Time: Dec 20, 2022 01:42 PM Reporting Lab: [place] [address] Performing Lab: [address] CBC W/ AUTO DIFF NUCLEATED ERYTHROCYT ES/100 LEUKOCYTES [RATIO] IN BLOOD BY AUTOMATED COUNT 0.0 /100{WBC s} 0.0 - 0.0 12/11 Specimen Type: BLOOD No comment entered. Ordering Provider: MARLENY GOODMAN Report Released Date/Time: Dec 20, 2022 01:42 PM Reporting Lab: [address] [address] Performing Lab: [address] [address] [employer] CHEM 7 CREATININE [MASS/VOLU ME] IN SERUM OR PLASMA 0.75 mg/dL 0.5 - 1.5 12/11 Specimen Type: SERUM Comment: 5.7 - 6.4% Prediabetes >= 6.5% Diabetic range. If the patient has not yet been diagnosed with T2DM, see [place] Clinical Practice Guideline for Management of [...] Dec 20, 2022 01:42 PM Reporting Lab: [address] [phone] Performing Lab: [address] [phone] [employer] CHEM 7 UREA NITROGEN [MASS/VOLU ME] IN SERUM OR PLASMA 8 mg/dL 7 - 25 12/11 Specimen Type: SERUM Comment: 5.7 - 6.4% Prediabetes >= 6.5% Diabetic range. If the patient has not yet been diagnosed with T2DM, see [place] Clinical Practice Guideline for Management of [...] Dec 20, 2022 01:42 PM Reporting Lab: [address] [address] Performing Lab: [address] [address] [employer] CHEM 7 GLUCOSE [MASS/VOLU ME] IN SERUM OR PLASMA 115 mg/dL 65 - 100 12/11 H Specimen Type: SERUM Comment: 5.7 - 6.4% Prediabetes >= 6.5% Diabetic range. If the patient has not yet been diagnosed with T2DM, see [place] Clinical Practice Guideline for Management of T2DM (dated 05/2016) for more guidance. For patients already diagnosed with T2DM, target HbA1c values should be individuali zed using a Shared Decision-Ma bayron process. Ref: https://www .healthqual ity.in.gov/ guidelines/ CD/diabetes / Values obtained from A1C measurement s can vary. For typical A1C assays, a reported value of 7.0 could actually be between 6.72 and 7.28 if measured by a reference method. A reported value of 9.0 could actually be between 8.73 and 9.27. Ref: [email or web address] Ordering Provider: MARLENY GOODMAN Report Released Date/Time: Dec 20, 2022 01:42 PM Reporting Lab: [address] [address] Performing Lab: [address] [address] [employer] CHEM 7 SODIUM [MOLES/VOL UME] IN SERUM OR PLASMA 141 mmol/L 135 - 145 12/11 Specimen Type: SERUM Comment: 5.7 - 6.4% Prediabetes >= 6.5% Diabetic range. If the patient has not yet been diagnosed with T2DM, see [place] Clinical Practice Guideline for Management of T2DM (dated 05/2016) for more guidance. For patients already diagnosed with T2DM, target HbA1c values should be individuali zed using a Shared Decision-Ma bayron process. Ref: https://www .healthqual ity.in.gov/ guidelines/ CD/diabetes / Values obtained from A1C measurement s can vary. For typical A1C assays, a reported value of 7.0 could actually be between 6.72 and 7.28 if measured by a reference method. A reported value of 9.0 could actually be between 8.73 and 9.27. Ref: [email or web address] [email or web address] Ordering Provider: MARLENY GOODMAN Report Released Date/Time: Dec 20, 2022 01:42 PM Reporting Lab: [address] [address] Performing Lab: [address] [address] [place] CHEM 7 POTASSIUM [MOLES/VOL UME] IN SERUM OR PLASMA 4.3 mmol/L 3.5 - 5.0 12/11 Specimen Type: SERUM Comment: 5.7 - 6.4% Prediabetes >= 6.5% Diabetic range. If the patient has not yet been diagnosed with T2DM, see [place] Clinical Practice Guideline for Management of T2DM (dated 05/2016) for more guidance. For patients already diagnosed with T2DM, target HbA1c values should be individuali zed using a Shared Decision-Ma bayron process. Ref: https://www .healthqual ity.in.gov/ guidelines/ CD/diabetes / Values obtained from A1C measurement s can vary. For typical A1C assays, a reported value of 7.0 could actually be between 6.72 and 7.28 if measured by a reference method. A reported value of 9.0 could actually be between 8.73 and 9.27. Ref: [email or web address] Ordering Provider: MARLENY GOODMAN Report Released Date/Time: Dec 20, 2022 01:42 PM Reporting Lab: [address] [address] Performing Lab: [address] [address] [employer] CHEM 7 CHLORIDE [MOLES/VOL UME] IN SERUM OR PLASMA 110 mmol/L 100 - 110 12/11 Specimen Type: SERUM Comment: 5.7 - 6.4% Prediabetes >= 6.5% Diabetic range. If the patient has not yet been diagnosed with T2DM, see [place] Clinical Practice Guideline for Management of T2DM (dated 05/2016) for more guidance. For patients already diagnosed with T2DM, target HbA1c values should be individuali zed using a Shared Decision-Ma bayron process. Ref: https://www .[facility].in.gov/ guidelines/ CD/diabetes / Values obtained from A1C measurement s can vary. For typical A1C assays, a reported value of 7.0 could actually be between 6.72 and 7.28 if measured by a reference method. A reported value of 9.0 could actually be between 8.73 and 9.27. Ref: [email or web address] Ordering Provider: MARLENY GOODMAN Report Released Date/Time: Dec 20, 2022 01:42 PM Reporting Lab: [address] [address] Performing Lab: [address] [address] [employer] CHEM 7 CARBON DIOXIDE, TOTAL [MOLES/VOL UME] IN SERUM OR PLASMA 24 meq/L - 12/11 Specimen Type: SERUM Comment: 5.7 - 6.4% Prediabetes >= 6.5% Diabetic range. If the patient has not yet been diagnosed with T2DM, see [place] Clinical Practice Guideline for Management of T2DM (dated 05/2016) for more guidance. For patients already diagnosed with T2DM, target HbA1c values should be individuali zed using a Shared Decision-Ma bayron process. Ref: https://www .[facility] it[facility].in.gov/ guidelines/ CD/diabetes / Values obtained from A1C measurement s can vary. For typical A1C assays, a reported value of 7.0 could actually be between 6.72 and 7.28 if measured by a reference method. A reported value of 9.0 could actually be between 8.73 and 9.27. Ref: [email or web address] Ordering Provider: MARLENY GOODMAN Report Released Date/Time: Dec 20, 2022 01:42 PM Reporting Lab: [address] [address] Performing Lab: [address] [address] [employer] CHEM 7 ANION GAP IN SERUM OR PLASMA 7 meq/L 6 - 16 12/11 Specimen Type: SERUM Comment: 5.7 - 6.4% Prediabetes >= 6.5% Diabetic range. If the patient has not yet been diagnosed with T2DM, see [place] Clinical Practice Guideline for Management of T2DM (dated 05/2016) for more guidance. For patients already diagnosed with T2DM, target HbA1c values should be individuali zed using a Shared Decision-Ma bayron process. Ref: https://www .healthqual ity.in.gov/ guidelines/ CD/diabetes / Values obtained from A1C measurement s can vary. For typical A1C assays, a reported value of 7.0 could actually be between 6.72 and 7.28 if measured by a reference method. A reported value of 9.0 could actually be between 8.73 and 9.27. Ref: [email or web address] Ordering Provider: MARLENY GOODMAN Report Released Date/Time: Dec 20, 2022 01:42 PM Reporting Lab: [address] [address] Performing Lab: [address] [address] [employer] CHEM 7 GLOMERULAR FILTRATION RATE/1.73 SQ M.PREDICTE D [VOLUME RATE/AREA] IN SERUM, PLASMA OR BLOOD BY CREATININE -BASED FORMULA (CKD-EPI 2020) >90mL/mi n 60 12/11 Specimen Type: SERUM Comment: 5.7 - 6.4% Prediabetes >= 6.5% Diabetic range. If the patient has not yet been diagnosed with T2DM, see [place] Clinical Practice Guideline for Management of T2DM (dated 05/2016) for more guidance. For patients already diagnosed with T2DM, target HbA1c values should be individuali zed using a Shared Decision-Ma bayron process. Ref: https://www .healthqual ity.in.gov/ guidelines/ CD/diabetes / Values obtained from A1C measurement s can vary. For typical A1C assays, a reported value of 7.0 could actually be between 6.72 and 7.28 if measured by a reference method. A reported value of 9.0 could actually be between 8.73 and 9.27. Ref: [email or web address] Ordering Provider: MARLENY GOODMAN Elidia Report Released Date/Time: Dec 20, 2022 01:42 PM Reporting Lab: [place] [address] [facility] [address] Performing Lab: [address] [address] [place] LIVER PROFILE ALBUMIN [MASS/VOLU ME] IN SERUM OR PLASMA 3.7 g/dL 3.5 - 5.0 12/11 Specimen Type: SERUM Comment: 5.7 - 6.4% Prediabetes >= 6.5% Diabetic range. If the patient has not yet been diagnosed with T2DM, see [place] Clinical Practice Guideline for Management of T2DM (dated 05/2016) for more guidance. For patients already diagnosed with T2DM, target HbA1c values should be individuali zed using a Shared Decision-Ma bayron process. Ref: https://www .healthqual ity.in.gov/ guidelines/ CD/diabetes / Values obtained from A1C measurement s can vary. For typical A1C assays, a reported value of 7.0 could actually be between 6.72 and 7.28 if measured by a reference method. A reported value of 9.0 could actually be between 8.73 and 9.27. Ref: [email or web address] Ordering Provider: MARLENY GOODMAN Report Released Date/Time: Dec 20, 2022 01:42 PM Reporting Lab: [address] [address] Performing Lab: [address] [address] [place] LIVER PROFILE BILIRUBIN. TOTAL [MASS/VOLU ME] IN SERUM OR PLASMA 1.0 mg/dL 0.2 - 1.2 12/11 Specimen Type: SERUM Comment: 5.7 - 6.4% Prediabetes >= 6.5% Diabetic range. If the patient has not yet been diagnosed with T2DM, see [place] Clinical Practice Guideline for Management of T2DM (dated 05/2016) for more guidance. For patients already diagnosed with T2DM, target HbA1c values should be individuali zed using a Shared Decision-Ma bayron process. Ref: https://www .healthqual ity.in.gov/ guidelines/ CD/diabetes / Values obtained from A1C measurement s can vary. For typical A1C assays, a reported value of 7.0 could actually be between 6.72 and 7.28 if measured by a reference method. A reported value of 9.0 could actually be between 8.73 and 9.27. Ref: [email or web address] Ordering Provider: MARLENY GOODMAN Report Released Date/Time: Dec 20, 2022 01:42 PM Reporting Lab: [address] [address] Performing Lab: [address] [phone] [place] [address] LIVER PROFILE BILIRUBIN. DIRECT [MASS/VOLU ME] IN SERUM OR PLASMA 0.4 mg/dL 0.0 - 0.5 12/11 Specimen Type: SERUM Comment: 5.7 - 6.4% Prediabetes >= 6.5% Diabetic range. If the patient has not yet been diagnosed with T2DM, see [place] Clinical Practice Guideline for Management of T2DM (dated 05/2016) for more guidance. For patients already diagnosed with T2DM, target HbA1c values should be individuali zed using a Shared Decision-[place] process. Ref: https://www .healthqual ity.in.gov/ guidelines/ CD/diabetes / Values obtained from A1C measurement s can vary. For typical A1C assays, a reported value of 7.0 could actually be between 6.72 and 7.28 if measured by a reference method. A reported value of 9.0 could actually be between 8.73 and 9.27. Ref: [email or web address] Ordering Provider: MARLENY GOODMAN Report Released Date/Time: Dec 20, 2022 01:42 PM Reporting Lab: [address] [address] Performing Lab: [address] [address] [place] LIVER PROFILE ALKALINE PHOSPHATAS E [ENZYMATIC ACTIVITY/V OLUME] IN SERUM OR PLASMA 67 U/L 40 - 150 12/11 Specimen Type: SERUM Comment: 5.7 - 6.4% Prediabetes >= 6.5% Diabetic range. If the patient has not yet been diagnosed with T2DM, see [place] Clinical Practice Guideline for Management of T2DM (dated 05/2016) for more guidance. For patients already diagnosed with T2DM, target HbA1c values should be individuali zed using a Shared Decision-[place] process. Ref: https://www .[facility].in.gov/ guidelines/ CD/diabetes / Values obtained from A1C measurement s can vary. For typical A1C assays, a reported value of 7.0 could actually be between 6.72 and 7.28 if measured by a reference method. A reported value of 9.0 could actually be between 8.73 and 9.27. Ref: [email or web address] Ordering Provider: MARLENY GOODMAN Report Released Date/Time: Dec 20, 2022 01:42 PM Reporting Lab: [address] [address] Performing Lab: [phone] [place] [address] LIVER PROFILE ALANINE AMINOTRANS FERASE [ENZYMATIC ACTIVITY/V OLUME] IN SERUM OR PLASMA 34 U/L 7 - 52 12/11 Specimen Type: SERUM Comment: 5.7 - 6.4% Prediabetes >= 6.5% Diabetic range. If the patient has not yet been diagnosed with T2DM, see [place] Clinical Practice Guideline for Management of T2DM (dated 05/2016) for more guidance. For patients already diagnosed with T2DM, target HbA1c values should be individuali zed using a Shared Decision-[place]ron process. Ref: https://www .healthqual ity.in.gov/ guidelines/ CD/diabetes / Values obtained from A1C measurement s can vary. For typical A1C assays, a reported value of 7.0 could actually be between 6.72 and 7.28 if measured by a reference method. A reported value of 9.0 could actually be between 8.73 and 9.27. Ref: [email or web address] Ordering Provider: MARLENY GOODMAN Report Released Date/Time: Dec 20, 2022 01:42 PM Reporting Lab: [address] [address] Performing Lab: [address] [address] [place] LIVER PROFILE ASPARTATE AMINOTRANS FERASE [ENZYMATIC ACTIVITY/V OLUME] IN SERUM OR PLASMA 25 U/L 5 - 40 12/11 Specimen Type: SERUM Comment: 5.7 - 6.4% Prediabetes >= 6.5% Diabetic range. If the patient has not yet been diagnosed with T2DM, see [place] Clinical Practice Guideline for Management of T2DM (dated 05/2016) for more guidance. For patients already diagnosed with T2DM, target HbA1c values should be individuali zed using a Shared Decision-Ma bayron process. Ref: https://www .[facility].in.gov/ guidelines/ CD/diabetes / Values obtained from A1C measurement s can vary. For typical A1C assays, a reported value of 7.0 could actually be between 6.72 and 7.28 if measured by a reference method. A reported value of 9.0 could actually be between 8.73 and 9.27. Ref: [email or web address] Ordering Provider: MARLENY GOODMAN Report Released Date/Time: Dec 20, 2022 01:42 PM Reporting Lab: [address] [address] Performing Lab: [address] [address] [place] LIPOPROT EIN PROFILE CHOLESTERO L [MASS/VOLU ME] IN SERUM OR PLASMA 128 mg/dL 0 - 199 12/11 Specimen Type: SERUM Comment: 5.7 - 6.4% Prediabetes >= 6.5% Diabetic range. If the patient has not yet been diagnosed with T2DM, see [place] Clinical Practice Guideline for Management of T2DM (dated 05/2016) for more guidance. For patients already diagnosed with T2DM, target HbA1c values should be individuali zed using a Shared Decision-Ma bayron process. Ref: https://www .[facility].in.gov/ guidelines/ CD/diabetes / Values obtained from A1C measurement s can vary. For typical A1C assays, a reported value of 7.0 could actually be between 6.72 and 7.28 if measured by a reference method. A reported value of 9.0 could actually be between 8.73 and 9.27. Ref: [email or web address] Ordering Provider: MARLENY GOODMAN Report Released Date/Time: Dec 20, 2022 01:42 PM Reporting Lab: [address] [address] Performing Lab: [address] [address] [place] LIPOPROT EIN PROFILE TRIGLYCERI DE [MASS/VOLU ME] IN SERUM OR PLASMA 51 mg/dL 0 - 199 12/11 Specimen Type: SERUM Comment: 5.7 - 6.4% Prediabetes >= 6.5% Diabetic range. If the patient has not yet been diagnosed with T2DM, see [place] Clinical Practice Guideline for Management of T2DM (dated 05/2016) for more guidance. For patients already diagnosed with T2DM, target HbA1c values should be individuali zed using a Shared Decision-Ma bayron process. Ref: https://www .healthqual ity.in.gov/ guidelines/ CD/diabetes / Values obtained from A1C measurement s can vary. For typical A1C assays, a reported value of 7.0 could actually be between 6.72 and 7.28 if measured by a reference method. A reported value of 9.0 could actually be between 8.73 and 9.27. Ref: [email or web address] Ordering Provider: MARLENY GOODMAN Report Released Date/Time: Dec 20, 2022 01:42 PM Reporting Lab: [address] [address] Performing Lab: [address] [address] [place] LIPOPROT EIN PROFILE CHOLESTERO L IN HDL [MASS/VOLU ME] IN SERUM OR PLASMA 45 mg/dL 40 12/11 Specimen Type: SERUM Comment: 5.7 - 6.4% Prediabetes >= 6.5% Diabetic range. If the patient has not yet been diagnosed with T2DM, see [place] Clinical Practice Guideline for Management of T2DM (dated 05/2016) for more guidance. For patients already diagnosed with T2DM, target HbA1c values should be individuali zed using a Shared Decision-Ma bayron process. Ref: https://www .healthqual ity.in.gov/ guidelines/ CD/diabetes / Values obtained from A1C measurement s can vary. For typical A1C assays, a reported value of 7.0 could actually be between 6.72 and 7.28 if measured by a reference method. A reported value of 9.0 could actually be between 8.73 and 9.27. Ref: [email or web address] Ordering Provider: MARLENY GOODMAN Report Released Date/Time: Dec 20, 2022 01:42 PM Reporting Lab: [address] [address] Performing Lab: [address] [address] [place] LIPOPROT EIN PROFILE CHOLESTERO L IN LDL [MASS/VOLU ME] IN SERUM OR PLASMA 73 mg/dL 0 - 129 12/11 Specimen Type: SERUM Comment: 5.7 - 6.4% Prediabetes >= 6.5% Diabetic range. If the patient has not yet been diagnosed with T2DM, see [place] Clinical Practice Guideline for Management of [...] [email or web address] Ordering Provider: MARLENY GOODMAN Elidia Report Released Date/Time: Dec 20, 2022 01:42 PM Reporting Lab: [address] [address] Performing Lab: [address] [address] [place] CALCIUM PROFILE CALCIUM [MASS/VOLU ME] IN SERUM OR PLASMA 9.0 mg/dL 8.5 - 10.5 12/11 Specimen Type: SERUM Comment: 5.7 - 6.4% Prediabetes >= 6.5% Diabetic range. If the patient has not yet been diagnosed with T2DM, see [place] Clinical Practice Guideline for Management of [...] Ref: [email or web address] Ordering Provider: MARLENY GOODAMN Report Released Date/Time: Dec 20, 2022 01:42 PM Reporting Lab: [place] [address] [facility] [address] Performing Lab: [address] [address] [place] CALCIUM PROFILE PHOSPHATE [MASS/VOLU ME] IN SERUM OR PLASMA 3.1 mg/dL 2.5 - 5.0 12/11 Specimen Type: SERUM Comment: 5.7 - 6.4% Prediabetes >= 6.5% Diabetic range. If the patient has not yet been diagnosed with T2DM, see [place] Clinical Practice Guideline for Management of T2DM (dated 05/2016) for more guidance. For patients already diagnosed with T2DM, target HbA1c values should be individuali zed using a Shared Decision-Ma bayron process. Ref: https://www .healthqual ity.in.gov/ guidelines/ CD/diabetes / Values obtained from A1C measurement s can vary. For typical A1C assays, a reported value of 7.0 could actually be between 6.72 and 7.28 if measured by a reference method. A reported value of 9.0 could actually be between 8.73 and 9.27. Ref: [email or web address] Ordering Provider: MARLENY GOODMAN Report Released Date/Time: Dec 20, 2022 01:42 PM Reporting Lab: [address] [address] Performing Lab: [address] [address] [place] CALCIUM PROFILE PROTEIN [MASS/VOLU ME] IN SERUM OR PLASMA 6.1 g/dL 6.0 - 8.5 12/11 Specimen Type: SERUM Comment: 5.7 - 6.4% Prediabetes >= 6.5% Diabetic range. If the patient has not yet been diagnosed with T2DM, see [place] Clinical Practice Guideline for Management of T2DM (dated 05/2016) for more guidance. For patients already diagnosed with T2DM, target HbA1c values should be individuali zed using a Shared Decision-Ma bayron process. Ref: https://www .healthqual ity.in.gov/ guidelines/ CD/diabetes / Values obtained from A1C measurement s can vary. For typical A1C assays, a reported value of 7.0 could actually be between 6.72 and 7.28 if measured by a reference method. A reported value of 9.0 could actually be between 8.73 and 9.27. Ref: [email or web address] Ordering Provider: MARLENY GOODMAN Report Released Date/Time: Dec 20, 2022 01:42 PM Reporting Lab: [address] [address] Performing Lab: [address] [address] [facility] CALCIUM PROFILE ALBUMIN [MASS/VOLU ME] IN SERUM OR PLASMA 3.7 g/dL 3.5 - 5.0 12/11 Specimen Type: SERUM Comment: 5.7 - 6.4% Prediabetes >= 6.5% Diabetic range. If the patient has not yet been diagnosed with T2DM, see [place] Clinical Practice Guideline for Management of T2DM (dated 05/2016) for more guidance. For patients already diagnosed with T2DM, target HbA1c values should be individuali zed using a Shared Decision-Ma bayron process. Ref: https://www .healthqual ity.in.gov/ guidelines/ CD/diabetes / Values obtained from A1C measurement s can vary. For typical A1C assays, a reported value of 7.0 could actually be between 6.72 and 7.28 if measured by a reference method. A reported value of 9.0 could actually be between 8.73 and 9.27. 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
JUSTIN GOODMAN 12/20 [place] OFF[facility] O/P EST MOD 30 MIN [id number] Diagnos is: ICD-10- CM H40.013 Open angle with borderl ine finding s, low risk, bilater al
YENY MARCOS 08/29 [place] [facility] Outpatient Encounter [id number] 09/05 [facility] N[facility] /EVALUATN [id number] Diagnos is: ICD-10- CM M54.50 Low back pain, unspeci fied
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
JUSTIN GOODMAN 12/11 [place] [facility] Outpatient Encounter [id number] 01/02 [facility] Outpatient Encounter [id number] 01/05 [facility] Outpatient Encounter [id number] 01/[address] [facility] Social History Combined list of available smoking, tobacco, and other social history from Department of Defense and Veterans Affairs facilities. Social History Type Response Date Comment [facility] Tobacco smoking status [facility] VA-TOBACCO NEVER USED 11/29/2023 [place] History of tobacco use [place]-TOBACCO NEVER USED 12/20/2022 [place] History of tobacco use [place]-TOBACCO FORMER USER 11/05/2021 [place] History of tobacco use [place]-TOBACCO NEVER USED 10/09/2020 [place] History of tobacco use QUIT TOBACCO USE > 7 YEARS AGO 09/19/2017 quit 30 yeasr ago [facility] History of tobacco use QUIT TOBACCO USE > 7 YEARS AGO 07/15/2015 quit 30 yrs ago [facility] History of tobacco use QUIT TOBACCO USE > 7 YEARS AGO 09/03/2008 [facility] Advance Directives List of completed, amended, or rescinded Advance Directives on record at Department of Veterans Affairs facilities. An actual copy of the Directive is not included. Date Advance Directive Provider Source 11/01/2017 ADVANCE DIRECTIVE [facility]
--- OUTSIDE RECORDS SUMMARY | 2024-02-03 09:52 | XMS_ITS | Encounter Summary ---
Author Name [facility] [place] [facility] [place] Address [address] [place] [address] Care Team Providers Care Salon Leader Name Role Phone WASHINGTON GOODMAN Primary Care [...] BASIC SELF+ ONE Feb 22, 2020 113 [id number] [phone] SHADE BOLDEN SR PATIENT ISAAC BCBS CT FEDERAL PREFERRED PROVIDER ORGANIZAT ION (PPO) BASIC SELF Feb 27, 2005 111 [id number] [phone] SHADE BOLDEN SR PATIENT BCBS [place] FEP PREFERRED PROVIDER ORGANIZAT ION (PPO) BASIC SELF PLUS ONE Feb 22, 2020 113 [id number] SHADE BOLDEN SR PATIENT BCBS JESSICA FEP PREFERRED PROVIDER ORGANIZAT ION (PPO) BASIC INDIV IDUAL Feb 27, 2005 111 [id number] SHADE BOLDEN SR PATIENT CAREMARK FEPRX PLAN PRESCRIPT ION CAREM ARK FEPRX Feb 21, 2010 [id number] SHADE BOLDEN SR PATIENT CAREWILDER-F EP BCBS PRESCRIPT ION FEP CAREM ARK Feb 21, 2010 [id number] [phone] SHADE BOLDEN SR PATIENT Selected Encounter This [...] Range Comment Dec 12, 2023 01:55 PM [facility] URINE ALBUMIN, SPOT PROFILE Specimen Ty pe: URINE No comment entered. Ordering Provider: WASHINGTON GOODMAN Report Released Date/Time: Dec 20, 2022 01:42 PM Reporting Lab: [address] [address] Performing Lab: [address] [address] Urine ALB/CRE,SPOT-R ATIO 5 mg/g{creat} 0-29 Urine ALBUMIN,SPOT-Q NT 0.6 mg/dL CREATININE, URINE RANDOM 128.7 mg/dL >=20.0 Dec 12, 2023 01:55 PM [facility] URINALYSIS,ROUTINE/ADMISSION Specimen T ype: URINE No comment entered. Ordering Provider: WASHINGTON GOODMAN Report Released Date/Time: Dec 20, 2022 01:42 PM Reporting Lab: [address] [address] Performing Lab: [address] [address] URINE COLOR Light-Yellow YELLOW SPECIFIC GRAVITY 1.020 1.001-1.035 UROBILINOGEN NORMAL mg/dL NORMAL URINE BILIRUBIN NEGATIVE Neg URINE KETONES NEGATIVE Neg URINE GLUCOSE NEGATIVE Neg URINE PROTEIN NEGATIVE Neg URINE pH 5.5 [pH] 5.0-8.0 APPEARANCE Clear CLEAR URINE BLOOD NEGATIVE Neg NITRITE, URINE NEGATIVE Neg LEUKOCYTE ESTERASE NEGATIVE Neg Dec 12, 2023 10:45 AM [facility] HEP B SURF AB Specimen Type: SERUM [...] Dec 20, 2022 01:42 PM Reporting Lab: [address] [address] Performing Lab: [address] [address] HEP B SURF AB GRAYZONE Non Reactive Dec 12, 2023 10:45 AM [facility] HEPATITIS C Ab Specimen Type: SERUM Comment: [...] Dec 20, 2022 01:42 PM Reporting Lab: [address] [address] Performing Lab: [address] [address] HEPATITIS C Ab Non Reactive No n Reactive Dec 12, 2023 10:45 AM [facility] HIV AB/ P24 AG COMBO(HIV SCREEN) Specim [...] Dec 20, 2022 01:42 PM Reporting Lab: [facility] [address] [address] Performing Lab: [facility] [address] [facility] [address] HIV AB/ P24 AG COMBO(HIV SCREEN) Non Reactive Non Reactive Dec 12, 2023 10:45 AM [employer] CBC W/ AUTO DIFF Specimen Type: BLOOD No comment entered. Ordering Provider: WASHINGTON GOODMAN Report Released Date/Time: Dec 20, 2022 01:42 PM Reporting Lab: [address] [address] Performing Lab: [address] [address] WBC 5.2 10*3/uL 4.5-11.0 RBC 4.70 10*6/uL [...] /100{WBCs} 0.0-0.0 Dec 12, 2023 10:45 AM [employer] CHEM 7 Specimen Type: SERUM Comment: 5.7 - 6.4% Prediabetes >= 6.5% Diabetic range. If the patient has not yet been diagnosed with T2DM, see [place]/[facility] Clinical Practice Guideline for Management of T2DM (dated 05/2016) for more guidance. For patients already diagnosed with T2DM, target HbA1c values should be individualized using a Shared Decision-Making process. Ref: https://www.[facility] hospitalquality.il.gov /guidelines/CD/d iabetes/ Values obtained from A1C measurements can vary. For typical A1C assays, a reported value of 7.0 could actually be between 6.72 and 7.28 if measured by a reference method. A reported value of 9.0 could actually be between 8.73 and 9.27. Ref: [email or web address].org /CAPdata.[email or web address] Ordering Provider: WASHINGTON GOODMAN Report Released Date/Time: Dec 20, 2022 01:42 PM Reporting Lab: [address] [address] Performing Lab: [address] [address] CREATININE,SER UM 0.75 mg/dL 0.5-1.5 UREA NITROGEN, BLOOD 8 mg/dL 7-25 GLUCOSE,RANDOM 115 mg/dL H 65-100 SODIUM 141 mmol/L 135-145 POTASSIUM 4.3 mmol/L 3.5-5.0 CHLORIDE 110 mmol/L 100-110 CO2 24 meq/L 20-30 ANION GAP 7 meq/L 6-16 eGFR(CKD-EPI 2020) >90 mL/min >=60 Dec 12, 2023 10:45 AM [facility] LIVER PROFILE Specimen Type: SERUM Comment: 5.7 - 6.4% Prediabetes >= 6.5% Diabetic range. If the patient has not yet been diagnosed with T2DM, see [place] Clinical Practice Guideline for Management of T2DM (dated 05/2016) for more guidance. For patients already diagnosed with T2DM, target HbA1c values should be individualized using a Shared Decision-Making process. Ref: https://www.[facility].il.gov /guidelines/CD/d iabetes/ Values obtained from A1C measurements can vary. For typical A1C assays, a reported value of 7.0 could actually be between 6.72 and 7.28 if measured by a reference method. A reported value of 9.0 could actually be between 8.73 and 9.27. Ref: [email or web address].org /CAPdata.[email or web address] Ordering Provider: WASHINGTON GOODMAN Report Released Date/Time: Dec 20, 2022 01:42 PM Reporting Lab: [address] [address] Performing Lab: [address] [address] ALBUMIN 3.7 g/dL 3.5-5.0 TOT. BILIRUBIN 1.0 mg/dL 0.2-1.2 DIR. BILIRUBIN 0.4 mg/dL 0.0-0.5 ALKALINE PHOSPHATASE 67 U/L 40-150 ALT 34 U/L 7-52 AST 25 U/L 5-40 Dec 12, 2023 10:45 AM [facility] LIPOPROTEIN PROFILE Specimen Type: SERUM Comment: 5.7 - 6.4% Prediabetes >= 6.5% Diabetic range. If the patient has not yet been diagnosed with T2DM, see [place] Clinical Practice Guideline for Management of T2DM (dated 05/2016) for more guidance. For patients already diagnosed with T2DM, target HbA1c values should be individualized using a Shared Decision-Making process. Ref: https://www.[facility] hospitalquality.va.gov /guidelines/CD/d iabetes/ Values obtained from A1C measurements can vary. For typical A1C assays, a reported value of 7.0 could actually be between 6.72 and 7.28 if measured by a reference method. A reported value of 9.0 could actually be between 8.73 and 9.27. Ref: [email or web address].org /CAPdata.asp Ordering Provider: WASHINGTON GOODMAN Report Released Date/Time: Dec 20, 2022 01:42 PM Reporting Lab: [address] [address] Performing Lab: [address] [address] CHOLESTEROL 128 mg/dL 0-199 TRIGLYCERIDE 51 mg/dL 0-199 HDL 45 mg/dL >=40 LDL 73 mg/dL 0-129 Dec 12, 2023 10:45 AM [facility] CALCIUM PROFILE Specimen Type: SERUM Comment: 5.7 - 6.4% Prediabetes >= 6.5% Diabetic range. If the patient has not yet been diagnosed with T2DM, see [place] Clinical Practice Guideline for Management of T2DM (dated 05/2016) for more guidance. For patients already diagnosed with T2DM, target HbA1c values should be individualized using a Shared Decision-Making process. Ref: https://www.[facility] hospitalquality.va.gov /guidelines/CD/d iabetes/ Values obtained from A1C measurements can vary. For typical A1C assays, a reported value of 7.0 could actually be between 6.72 and 7.28 if measured by a reference method. A reported value of 9.0 could actually be between 8.73 and 9.27. Ref: [email or web address]://ngsp.org /CAPdata.asp Ordering Provider: WASHINGTON GOODMAN Report Released Date/Time: Dec 20, 2022 01:42 PM Reporting Lab: [address] [address] Performing Lab: [address] [address] CALCIUM 9.0 mg/dL 8.5-10.5 PO4,SERUM 3.1 mg/dL 2.5-5.0 PROTEIN,TOTAL 6.1 g/dL 6.0-8.5 ALBUMIN 3.7 g/dL 3.5-5.0 Dec 12, 2023 10:45 AM [facility] MAGNESIUM Specimen Type: SERUM No comment entered. Ordering Provider: WASHINGTON GOODMAN Report Released Date/Time: Dec 20, 2022 01:42 PM Reporting Lab: [address] [address] Performing Lab: [address] [address] MAGNESIUM 1.9 mg/dL 1.6-2.6 Dec 12, 2023 10:45 AM [facility] PO4,SERUM Specimen Type: SERUM No comment entered. Ordering Provider: WASHINGTON GOODMAN Report Released Date/Time: Dec 20, 2022 01:42 PM Reporting Lab: [address] [address] Performing Lab: [address] [address] PO4,SERUM 3.1 mg/dL 2.5-5.0 Dec 12, 2023 10:45 AM [facility] TSH Specimen Type: SERUM Comment: For TSH [...] Dec 20, 2022 01:42 PM Reporting Lab: [address] [address] Performing Lab: [address] [address] TSH 1.92 m[IU]/mL 0.35-5.00 Dec 12, 2023 10:45 AM [facility] HEMOGLOBIN A1C PANEL Specimen Type: BLOOD Comment: 5.7 - 6.4% Prediabetes >= 6.5% Diabetic range. If the patient has not yet been diagnosed with T2DM, see [place] Clinical Practice Guideline for Management of T2DM (dated 05/2016) for more guidance. For patients already diagnosed with T2DM, target HbA1c values should be individualized using a Shared Decision-Making process. Ref: https://www.[facility] hospitalquality.va.gov /guidelines/CD/d iabetes/ Values obtained from A1C measurements can vary. For typical A1C assays, a reported value of 7.0 could actually be between 6.72 and 7.28 if measured by a reference method. A reported value of 9.0 could actually be between 8.73 and 9.27. Ref: https://ngsp.org /CAPdata.asp Ordering Provider: WASHINGTON GOODMAN Report Released Date/Time: Dec 20, 2022 01:42 PM Reporting Lab: [address] [address] Performing Lab: [address] [address] HEMOGLOBIN A1C 5.6 <=5.6 EST.AVERAGE GLUCOSE 114 mg/dL Dec 12, 2023 10:45 AM [facility] PROSTATIC SPECIFIC ANTIGEN Specimen Typ e: SERUM [...] Dec 20, 2022 01:42 PM Reporting Lab: [address] [address] Performing Lab: [address] [address] PROSTATIC SPECIFIC ANTIGEN 1.05 ng/mL 0.00-4.00 Dec 12, 2023 10:45 AM [facility] B12 Specimen Type: SERUM Comment: For [...] Dec 20, 2022 01:42 PM Reporting Lab: [address] [address] Performing Lab: [address] [address] B12 439 pg/mL 300-900 Dec 12, 2023 10:45 AM [facility] FOLATE,SERUM Specimen Type: SERUM Comment: For TSH [...] Dec 20, 2022 01:42 PM Reporting Lab: [address] [address] Performing Lab: [address] [address] FOLATE,SERUM 8.5 ng/mL >=5.2 Dec 12, 2023 10:45 AM [facility] VITAMIN D TOTAL(SCREEN) Specimen Type: SERUM [...] Dec 20, 2022 01:42 PM Reporting Lab: [address] [address] Performing Lab: [address] [address] VITAMIN D TOTAL(SCREEN) 47.6 ng/mL 20.0-50.0 Vital [...] and tobacco- related health factors from the [place] facility where the Encounter took place. Current Smoking Status This section includes the most current smoking, or tobacco-related health factor, from the [place] facility where the Encounter took place. Date/Time Current Smoking Status Comment Facil ity Nov 29, 2023 11:30 AM VA-TOBACCO NEVER USED [facility] Tobacco Use History This section includes a history of the smoking, or tobacco-related health factors, that were collected on or before the date of the Encounter. The data comes from the [place] facility where the Encounter took place. Date/Time Smoking Status/Tobacco Use Comment F acility Dec 20, 2022 01:00 PM VA-TOBACCO NEVER USED [facility] Nov 05, 2021 01:00 PM VA-TOBACCO FORMER USER [facility] Nov 05, 2021 01:00 PM VA-TOBACCO QUIT 15 YRS OR MORE [facility] Oct 09, 2020 01:00 PM VA-TOBACCO NEVER USED [facility] Advance Directives: All historical and current Section [...] 2017 ADVANCE DIRECTIVE [facility] Encounter Notes: All associated encounter notes [...] hydrocelectomy ~06/2023 (details unknown) pcp-dr shade mcdowell ([phone]) gi-dr rod hand surg-dr lia noel. urol-dr lobo galeano pmhx-osteopenia,hlp,colonic polyps/diverticulosis of colon,lbp/anterolisthesis L4-5/djd,,compression fractures of thoracic spine/kyphosis,hearing loss/tinnitus,catarcts/glaucoma,pred iabetes,hydrocele,covid-19 infection~05/2019. 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 family hx-mother/brother-diab. brother -ca prostate in his 60's. hx-[employer] ([phone]) allerg/adr's-atorva(joint pains)-allegedly tolerating now. ros gen-no generalised [...] traumatic subluxation.degenerative changes of the lumbar spine, liirazpo-xe-wiwcgq at L3-L4 and moderate at L4-L5,mildly increased [...]
--- OUTSIDE RECORDS SUMMARY | 2024-02-03 09:52 | XMS_ITS | Encounter Summary ---
Author Name [facility] [place] [facility] [place] Address [address] [place] [address] Care Team Providers Care State Wildlife Officer Name Role Phone JESSICA GOODMAN Primary Care [...] BASIC SELF+ ONE Feb 22, 2020 113 [id number] [phone] SUHAIL BOLDEN SR PATIENT ISAAC BCBS CT FEDERAL PREFERRED PROVIDER ORGANIZAT ION (PPO) BASIC SELF Feb 27, 2005 111 [id number] [phone] SUHAIL BOLDEN SR PATIENT BCBS MA FEP PREFERRED PROVIDER ORGANIZAT ION (PPO) BASIC SELF PLUS ONE Feb 22, 2020 113 [id number] [phone] BOLDENSUHAIL Escobar SR PATIENT BCBS JESSICA FEP PREFERRED PROVIDER ORGANIZAT ION (PPO) BASIC INDIV IDUAL Feb 27, 2005 [id number] SUHAIL BOLDEN SR PATIENT CAR[employer]ARK FEPRX PLAN PRESCRIPT ION CAREM ARK FEPRX Feb 21, 2010 [id number] SUHAIL BOLDEN SR PATIENT CAREWILDER-F EP BCBS PRESCRIPT ION FEP KELSEY ARK Feb 21, 2010 [id number] SUHAIL BOLDEN SR PATIENT Selected Encounter [...] 12, 2023 10:45 AM [facility] Dec 12, 2023 11:00 AM AMBULATORY - MEDICINE [facility] Lab Results: +/- 30 days of the encounter This section includes the Chemistry and Hematology Lab Results on record with [place] for the patient. Radiology Reports and Pathology Reports are provided separately, in subsequent sections. Lab Results This section contains the Chemistry/Hematology Results that were resulted 30 days before or 30 daysafter the date of the Encounter. Date/Time Source Result Type Result - Unit Interpretation Reference Range Comment Dec 12, 2023 01:55 PM [facility] URINE ALBUMIN, SPOT PROFILE Specimen Ty pe: URINE No comment entered. Ordering Provider: JESSICA GOODMAN Report Released Date/Time: Dec 20, 2022 01:42 PM Reporting Lab: [address] [address] Performing Lab: [address] [address] Urine ALB/CRE,SPOT-R ATIO 5 mg/g{creat} 0-29 Urine ALBUMIN,SPOT-Q NT 0.6 mg/dL CREATININE, URINE RANDOM 128.7 mg/dL >=20.0 Dec 12, 2023 01:55 PM [facility] URINALYSIS,ROUTINE/ADMISSION Specimen T ype: URINE No comment entered. Ordering Provider: JESSICA GOODMAN Report Released Date/Time: Dec 20, 2022 01:42 PM Reporting Lab: [address] [address] Performing Lab: [address] [address] URINE COLOR Light-Yellow YELLOW SPECIFIC GRAVITY 1.020 1.001-1.035 UROBILINOGEN NORMAL mg/dL NORMAL URINE BILIRUBIN NEGATIVE Neg URINE KETONES NEGATIVE Neg URINE GLUCOSE NEGATIVE Neg URINE PROTEIN NEGATIVE Neg URINE pH 5.5 [pH] 5.0-8.0 APPEARANCE Clear CLEAR URINE BLOOD NEGATIVE Neg NITRITE, URINE NEGATIVE Neg LEUKOCYTE ESTERASE NEGATIVE Neg Dec 12, 2023 10:45 AM [facility] HEP B SURF AB Specimen Type: SERUM [...] Dec 20, 2022 01:42 PM Reporting Lab: [address] [address] Performing Lab: [address] [address] HEP B SURF AB GRAYZONE Non Reactive Dec 12, 2023 10:45 AM [facility] HEPATITIS C Ab Specimen Type: SERUM Comment: [...] Dec 20, 2022 01:42 PM Reporting Lab: [address] [address] Performing Lab: [address] [address] HEPATITIS C Ab Non Reactive No n Reactive Dec 12, 2023 10:45 AM [facility] HIV AB/ P24 AG COMBO(HIV SCREEN) Specim [...] Dec 20, 2022 01:42 PM Reporting Lab: [facility] [address] [facility] [address] Performing Lab: [facility] [address] [facility] [address] HIV AB/ P24 AG COMBO(HIV SCREEN) Non Reactive Non Reactive Dec 12, 2023 10:45 AM [facility] CBC W/ AUTO DIFF Specimen Type: BLOOD No comment entered. Ordering Provider: JESSICA GOODMAN Report Released Date/Time: Dec 20, 2022 01:42 PM Reporting Lab: [address] [address] Performing Lab: [address] [address] WBC 5.2 10*3/uL 4.5-11.0 RBC 4.70 10*6/uL [...] /100{WBCs} 0.0-0.0 Dec 12, 2023 10:45 AM [employer] CHEM 7 Specimen Type: SERUM Comment: 5.7 - 6.4% Prediabetes >= 6.5% Diabetic range. If the patient has not yet been diagnosed with T2DM, see [place]/[facility] Clinical Practice Guideline for Management of T2DM (dated 05/2016) for more guidance. For patients already diagnosed with T2DM, target HbA1c values should be individualized using a Shared Decision-Making process. Ref: https://www.[facility] hospital[facility].pr.gov /guidelines/CD/d iabetes/ Values obtained from A1C measurements can vary. For typical A1C assays, a reported value of 7.0 could actually be between 6.72 and 7.28 if measured by a reference method. A reported value of 9.0 could actually be between 8.73 and 9.27. Ref: https://ngsp.org /CAPdata.asp Ordering Provider: JESSICA GOODMAN Report Released Date/Time: Dec 20, 2022 01:42 PM Reporting Lab: [address] [address] Performing Lab: [address] [address] CREATININE,SER UM 0.75 mg/dL 0.5-1.5 UREA NITROGEN, BLOOD 8 mg/dL 7-25 GLUCOSE,RANDOM 115 mg/dL H 65-100 SODIUM 141 mmol/L 135-145 POTASSIUM 4.3 mmol/L 3.5-5.0 CHLORIDE 110 mmol/L 100-110 CO2 24 meq/L 20-30 ANION GAP 7 meq/L 6-16 eGFR(CKD-EPI 2020) >90 mL/min >=60 Dec 12, 2023 10:[address] [facility] LIVER PROFILE Specimen Type: SERUM Comment: 5.7 - 6.4% Prediabetes >= 6.5% Diabetic range. If the patient has not yet been diagnosed with T2DM, see [place] Clinical Practice Guideline for Management of T2DM (dated 05/2016) for more guidance. For patients already diagnosed with T2DM, target HbA1c values should be individualized using a Shared Decision-Making process. Ref: https://www.[facility] hospitalality.pr.gov /guidelines/CD/d iabetes/ Values obtained from A1C measurements can vary. For typical A1C assays, a reported value of 7.0 could actually be between 6.72 and 7.28 if measured by a reference method. A reported value of 9.0 could actually be between 8.73 and 9.27. Ref: https://ngsp.org /CAPdata.asp Ordering Provider: JESSICA GOODMAN Report Released Date/Time: Dec 20, 2022 01:42 PM Reporting Lab: [facility] [address] [facility] [address] Performing Lab: [address] [address] ALBUMIN 3.7 g/dL 3.5-5.0 TOT. BILIRUBIN 1.0 mg/dL 0.2-1.2 DIR. BILIRUBIN 0.4 mg/dL 0.0-0.5 ALKALINE PHOSPHATASE 67 U/L 40-150 ALT 34 U/L 7-52 AST 25 U/L 5-40 Dec 12, 2023 10:45 AM [facility] LIPOPROTEIN PROFILE Specimen Type: SERUM Comment: 5.7 - 6.4% Prediabetes >= 6.5% Diabetic range. If the patient has not yet been diagnosed with T2DM, see [place] Clinical Practice Guideline for Management of T2DM (dated 05/2016) for more guidance. For patients already diagnosed with T2DM, target HbA1c values should be individualized using a Shared Decision-Making process. Ref: https://www.[facility] hospitalquality.va.gov /guidelines/CD/d iabetes/ Values obtained from A1C measurements can vary. For typical A1C assays, a reported value of 7.0 could actually be between 6.72 and 7.28 if measured by a reference method. A reported value of 9.0 could actually be between 8.73 and 9.27. Ref: https://ngsp.org /CAPdata.asp Ordering Provider: JESSICA GOODMAN Report Released Date/Time: Dec 20, 2022 01:42 PM Reporting Lab: [facility] [address] [facility] [address] Performing Lab: [address] [address] CHOLESTEROL 128 mg/dL 0-199 TRIGLYCERIDE 51 mg/dL 0-199 HDL 45 mg/dL >=40 LDL 73 mg/dL 0-129 Dec 12, 2023 10:45 AM [facility] CALCIUM PROFILE Specimen Type: SERUM Comment: 5.7 - 6.4% Prediabetes >= 6.5% Diabetic range. If the patient has not yet been diagnosed with T2DM, see [place]/[facility] Clinical Practice Guideline for Management [...] Dec 20, 2022 01:42 PM Reporting Lab: [address] [address] Performing Lab: [address] [address] CALCIUM 9.0 mg/dL 8.5-10.5 PO4,SERUM 3.1 mg/dL 2.5-5.0 PROTEIN,TOTAL 6.1 g/dL 6.0-8.5 ALBUMIN 3.7 g/dL 3.5-5.0 Dec 12, 2023 10:45 AM [facility] MAGNESIUM Specimen Type: SERUM No comment entered. Ordering Provider: JESSICA GOODMAN Report Released Date/Time: Dec 20, 2022 01:42 PM Reporting Lab: [address] [address] Performing Lab: [address] [address] MAGNESIUM 1.9 mg/dL 1.6-2.6 Dec 12, 2023 10:45 AM [facility] PO4,SERUM Specimen Type: SERUM No comment entered. Ordering Provider: JESSICA GOODMAN Report Released Date/Time: Dec 20, 2022 01:42 PM Reporting Lab: [address] [address] Performing Lab: [address] [address] PO4,SERUM 3.1 mg/dL 2.5-5.0 Dec 12, 2023 10:45 AM [facility] TSH Specimen Type: SERUM Comment: For TSH [...] Dec 20, 2022 01:42 PM Reporting Lab: [address] [address] Performing Lab: [address] [address] TSH 1.92 m[IU]/mL 0.35-5.00 Dec 12, 2023 10:45 AM [facility] HEMOGLOBIN A1C PANEL Specimen Type: BLOOD Comment: 5.7 - 6.4% Prediabetes >= 6.5% Diabetic range. If the patient has not yet been diagnosed with T2DM, see [place] Clinical Practice Guideline for Management of T2DM (dated 05/2016) for more guidance. For patients already diagnosed with T2DM, target HbA1c values should be individualized using a Shared Decision-Making process. Ref: https://www.[facility] thquality.va.gov /guidelines/CD/d iabetes/ Values obtained from A1C measurements can vary. For typical A1C assays, a reported value of 7.0 could actually be between 6.72 and 7.28 if measured by a reference method. A reported value of 9.0 could actually be between 8.73 and 9.27. Ref: https://ngsp.org /CAPdata.asp Ordering Provider: JESSICA GOODMAN Report Released Date/Time: Dec 20, 2022 01:42 PM Reporting Lab: [address] [address] Performing Lab: [address] [address] HEMOGLOBIN A1C 5.6 <=5.6 EST.AVERAGE GLUCOSE 114 mg/dL Dec 12, 2023 10:45 AM [facility] PROSTATIC SPECIFIC ANTIGEN Specimen Typ e: SERUM [...] Dec 20, 2022 01:42 PM Reporting Lab: [address] [address] Performing Lab: [address] [address] PROSTATIC SPECIFIC ANTIGEN 1.05 ng/mL 0.00-4.00 Dec 12, 2023 10:45 AM [facility] B12 Specimen Type: SERUM Comment: For TSH [...] Dec 20, 2022 01:42 PM Reporting Lab: [address] [address] Performing Lab: [address] [address] B12 439 pg/mL 300-900 Dec 12, 2023 10:45 AM [facility] FOLATE,SERUM Specimen Type: SERUM Comment: For TSH [...] Dec 20, 2022 01:42 PM Reporting Lab: [address] [address] Performing Lab: [address] [address] FOLATE,SERUM 8.5 ng/mL >=5.2 Dec 12, 2023 10:45 AM [facility] VITAMIN D TOTAL(SCREEN) Specimen Type: SERUM Comment: [...] Dec 20, 2022 01:42 PM Reporting Lab: [address] [address] Performing Lab: [address] [address] VITAMIN D TOTAL(SCREEN) 47.6 ng/mL 20.0-50.0 Advance [...] Nov 01, 2017 ADVANCE DIRECTIVE [facility]
--- OUTSIDE RECORDS SUMMARY | 2024-02-03 09:52 | XMS_ITS | Encounter Summary ---
Author Name [facility] [place] Address [address] [place] [id number] Care Team Providers Care Organic Extractions Technician Name Role Phone JESSICA GOODMAN Primary Care [...] Duran's Name Patient's Relationship to Policy Duran ESTEBANMOLLY BCBS CT FEDERAL PREFERRED PROVIDER ORGANIZAT ION (PPO) BASIC SELF+ ONE Feb 22, 2020 113 [id number] [phone] SUHAIL BOLDEN SR PATIENT ISAAC BCBS CT FEDERAL PREFERRED PROVIDER ORGANIZAT ION (PPO) BASIC SELF Feb 27, 2005 111 [id number] [phone] SUHAIL BOLDEN SR PATIENT BCBS [place] FEP PREFERRED PROVIDER ORGANIZAT ION (PPO) BASIC SELF PLUS ONE Feb 22, 2020 113 [id number] [phone] SUHAIL BOLDEN SR PATIENT BCBS JESSICA FEP PREFERRED PROVIDER ORGANIZAT ION (PPO) BASIC INDIV IDUAL Feb 27, 2005 [id number] SUHAIL BOLDEN SR PATIENT [place] FEPRX PLAN PRESCRIPT ION CAREM ARK FEPRX Feb 21, 2010 [id number] SUHAIL BOLDEN SR PATIENT CAREMARK-F EP BCBS PRESCRIPT ION FEP KELSEY ARK Feb 21, 2010 [id number] [phone] [id number] SUHAIL BOLDEN SR PATIENT Selected Encounter This section includes the information on record at [place] for the Encounter. Date/Time Encounter Type Encounter [...] care activities for the patient from all [place] treatmentfacilities. This section includes future appointments and future orders which are active, pending or scheduled. Future Appointments This section includes appointments that were scheduled to occur 6 months from the date of the Encounter, up to a maximum of 20 appointments. The data comes from all [place] treatment facilities. Appointment Date/Time Appointment Type Appointme nt Facility Name Nov 29, 2023 11:30 AM AMBULATORY - MEDICINE [facility] Dec 12, 2023 10:45 AM [facility] Dec 12, 2023 11:00 AM AMBULATORY - MEDICINE [facility] Vital Signs: All taken on the encounter [...] and tobacco- related health factors from the [place] facility where the Encounter took place. Current Smoking Status This section includes the most current smoking, or tobacco-related health factor, from the [facility] facility where the Encounter took place. Date/Time Current Smoking Status Comment Facil ravi Dec 20, 2022 01:00 PM VA-TOBACCO NEVER USED [facility] Tobacco Use History This section includes a history of the smoking, or tobacco-related health factors, that were collected on or before the date of the Encounter. The data comes from the [place] facility where the Encounter took place. Date/Time Smoking Status/Tobacco Use Comment F acility Nov 05, 2021 01:00 PM VA-TOBACCO FORMER USER [facility] Nov 05, 2021 01:00 PM VA-TOBACCO QUIT 15 YRS OR MORE [facility] Oct 09, 2020 01:00 PM VA-TOBACCO NEVER USED [facility] Advance Directives: All historical and current Section Date Range: From patient's date of to the date document was created. This section includes ALL of a patient's completed or amended VA Advance and Rescinded Directives. The entries below indicate that a directive exists for the patient, but an actual copy is not included with this document. The data comes from all [place] facilities. Date Advance Directives Provider Source Nov [...] the Encounter. The data comes from all [place] treatment facilities. Date/Time Radiology Report Provider Source Sep 06, 2023 04:10 PM SPINE LUMBOSACRAL MIN 2 VIEWS: SUHAIL BOLDEN [id number] -[id number] M Exm Date: SEP 06, 2023@16:10 Req Phys: LEONARD CAMPOS Loc: NEW URGENT CARE (Req'g Loc) Img Loc: RADIOLOGY (NEWT) Service: Unknown NEIL , (Case [id number] COMPLETE) SPINE LUMBOSACRAL MIN 2 VIEWS (RAD Detailed) CPT:45067 Reason for Study: lower back pain Clinical History: PROVIDER CONTACT INFORMATION:6419 Report Status: Verified Date Reported: SEP 06, 2023 Date Verified: SEP 06, 2023 Livestock Laborer E-Sig:/ES/IAN ANGEL MD Report: LUMBOSACRAL SPINE, FRONTAL, [...] changes are seen, overall increased since prior, rymqndhj-fa-mhgzqp at L3-L4, moderate at L4-L5, mild at other lumbar levels. Multilevel bridging enthesophytes/osteophytes are noted. Impression: No evidence of acute fracture or traumatic subluxation. Degenerative changes of the lumbar spine, jqqsxlxd-of-cnknhh at L3-L4 and moderate at L4-L5, mildly increased since 2018. Primary Diagnostic Code: No Immediate Attention Required Primary Interpreting Staff: IAN ANGEL MD, Staff Neuroradiologist (Livestock Laborer) /IAN SAGASTUME Encounter Notes: All associated encounter [...] signs within normal limits? Yes [place] provided: [facility] [place] patient with discharge instructions. Discharge [...] changes are seen, overall increased since prior, kbddqrik-fk-wqoxjt at L3-L4, moderate at L4-L5, mild at other lumbar levels. Multilevel bridging enthesophytes/osteophytes are noted. Impression: No evidence of acute fracture or traumatic subluxation. Degenerative changes of the lumbar spine, tdxrnhoi-me-ikprnv at L3-L4 and moderate at L4-L5, mildly [...] medication from any source not filled at [facility] including: Another VA, Private, Over the [...] planned in continuing care instructions. /es/ LEONARD CAMPSO MD AOD Signed: 09/06/2023 16:56 LEONARD CAMPOS Sep 06, 2023 03:44 PM URGENT CARE NOTE: LOCAL TITLE: [facility] NOTE STANDARD TITLE: URGENT CARE NOTE DATE OF NOTE: SEP 06, 2023@15:44 ENTRY DATE: SEP 06, 2023@15:44:23 AUTHOR: LEOANRD CAMPOS EXP COSIGNER: URGENCY: STATUS: COMPLETED HEIGHT: [...] xray noted from [place] from 2018 in [facility] RADIOLOGY ORDERED AND REVIEWED FINDINGS: For numbering purposes, the caudal-most well-formed disc space is designated L5-S1, and there are rudimentary ribs at T12. There is grade 1 anterolisthesis of L4 on L5, likely degenerative, stable. There is no evidence of fracture or acute subluxation. Multilevel degenerative changes are seen, overall increased since prior, wilhluru-ck-olpuey at L3-L4, moderate at L4-L5, mild at other lumbar levels. Multilevel bridging enthesophytes/osteophytes are noted. Impression: No evidence of acute fracture or traumatic subluxation. Degenerative changes of the lumbar spine, vscoalgh-wx-imeweu at L3-L4 and moderate at L4-L5, mildly increased since 2018. IMPRESSION:back pain DISPOSITION:home CONDITION ON DISPOSITION:stable /es/ LEONARD CAMPOS MD AOD Signed: 09/09/2023 08:58 LEONARD CAMPSO Sep 06, 2023 02:10 PM NURSING NOTE: LOCAL TITLE: [facility]URSING PHASE ONE-URGENT CARE NOTE STANDARD TITLE: NURSING NOTE DATE OF NOTE: SEP 06, 2023@14:10 ENTRY DATE: SEP 06, 2023@14:27:34 AUTHOR: ADILIA ROMERO COSIGNER: URGENCY: STATUS: COMPLETED [facility]URSING PHASE ONE-URGENT CARE NOTE Has ADDENDA [...] No DOMESTIC VIOLENCE (DV)/INTIMATE PARTNER VIOLENCE (IVP): Family/custom ski maker/partner Not present at bed side. Has your family/custom ski maker/partner ever physically hurt you in the past 12 months? Never Has your family/custom ski maker/partner ever insulted you in the past 12 months? Never Has your family/custom ski maker/partner ever threatened to harm you in the past 12 months? Never Has your family/custom ski maker/partner ever screamed or cursed at you in the past 12 months? Never Has your family/custom ski maker/partner ever forced you to have sexual activities in the past 12 months? Never RESPIRATORY: Breathing easily without distress on room air? Yes Shortness of breath: No Breathing easily CARDIOVASCULAR: Heart Rate/radial pulse: Regular On telemetry, vehicle assembly inspector: rhythm: Patient's acceptable pain goal: 0 No [...] of wait, patient verbalized understanding. 1548 hrs: [facility] [place] at [place] bedside conducting assessment;/examination. 1605 hrs: Patient out of [facility] [place] to radiology dept. 1630 hrs: Patient returned to [facility] [place]. 1635 hrs: [facility] [place] at patient bedside. 1650 hrs: [facility] [place] provided patient with discharge instructions.patient education, reviewed plan of care, all patients questions/concerns answered/addressed, patients ID band removed/destroyed. patient discharged from [facility] [place] de[place] ambulating on own. /macho/ ADILIA ROMERO RN REGISTERED NURSE Signed: 09/06/2023 16:54 ADILIA ROMERO Sep 06, 2023 02:06 PM NURSING NOTE: LOCAL TITLE: NURSING [facility] [place] STANDARD TITLE: NURSING NOTE DATE [...] DAILY Current Problems: ACTIVE PROBLEMS Suicide Screen: [place] Suicide Severity Rating Scale (C-SSRS) screener 1. [...]
--- OUTSIDE RECORDS SUMMARY | 2024-02-03 09:52 | XMS_ITS | Encounter Summary ---
Author Name [facility] [place] [facility] [place] Address [address] [place] [address] Care Team Providers Care Stiff Leg Derrick Operator Name Role Phone JESSICA GOODMAN Primary [...] BASIC SELF+ ONE Feb 22, 2020 113 [id number] [phone] SUHAIL BOLDEN SR PATIENT ISAAC BCBS CT FEDERAL PREFERRED PROVIDER ORGANIZAT ION (PPO) BASIC SELF Feb 27, 2005 111 [id number] SUHAIL BOLDEN SR PATIENT BCBS [place] FEP PREFERRED PROVIDER ORGANIZAT ION (PPO) BASIC SELF PLUS ONE Feb 22, 2020 113 [id number] [phone] SUHAIL BOLDEN SR PATIENT BCBS JESSICA FEP PREFERRED PROVIDER ORGANIZAT ION (PPO) BASIC INDIV IDUAL Feb 27, 2005 111 [id number] [phone] SUHAIL BOLDEN SR PATIENT [employer] FEPRX PLAN PRESCRIPT ION KELSEY ARK FEPRX Feb 21, 2010 [id number] SUHAIL BOLDEN SR PATIENT DANGELO-F EP BCBS PRESCRIPT ION FEP CAREM ARK Feb 21, 2010 [id number] SUHAIL BOLDEN SR PATIENT Selected Encounter [...] Range Comment Dec 12, 2023 01:55 PM [facility] URINE ALBUMIN, SPOT PROFILE Specimen Ty pe: URINE No comment entered. Ordering Provider: JESSICA GOODMAN Report Released Date/Time: Dec 20, 2022 01:42 PM Reporting Lab: [address] [address] Performing Lab: [address] [address] Urine ALB/CRE,SPOT-R ATIO 5 mg/g{creat} 0-29 Urine ALBUMIN,SPOT-Q NT 0.6 mg/dL CREATININE, URINE RANDOM 128.7 mg/dL >=20.0 Dec 12, 2023 01:55 PM [facility] URINALYSIS,ROUTINE/ADMISSION Specimen T ype: URINE No comment entered. Ordering Provider: JESSICA GOODMAN Report Released Date/Time: Dec 20, 2022 01:42 PM Reporting Lab: [address] [address] Performing Lab: [address] [address] URINE COLOR Light-Yellow YELLOW SPECIFIC GRAVITY 1.020 1.001-1.035 UROBILINOGEN NORMAL mg/dL NORMAL URINE BILIRUBIN NEGATIVE Neg URINE KETONES NEGATIVE Neg URINE GLUCOSE NEGATIVE Neg URINE PROTEIN NEGATIVE Neg URINE pH 5.5 [pH] 5.0-8.0 APPEARANCE Clear CLEAR URINE BLOOD NEGATIVE Neg NITRITE, URINE NEGATIVE Neg LEUKOCYTE ESTERASE NEGATIVE Neg Dec 12, 2023 10:45 AM [facility] HEP B SURF AB Specimen Type: SERUM [...] Dec 20, 2022 01:42 PM Reporting Lab: [address] [address] Performing Lab: [address] [address] HEP B SURF AB GRAYZONE Non Reactive Dec 12, 2023 10:45 AM [facility] HEPATITIS C Ab Specimen Type: SERUM Comment: [...] Dec 20, 2022 01:42 PM Reporting Lab: [address] [address] Performing Lab: [address] [address] HEPATITIS C Ab Non Reactive No n Reactive Dec 12, 2023 10:45 AM [facility] HIV AB/ P24 AG COMBO(HIV SCREEN) Specim [...] Dec 20, 2022 01:42 PM Reporting Lab: [address] [address] Performing Lab: [address] [address] HIV AB/ P24 AG COMBO(HIV SCREEN) Non Reactive Non Reactive Dec 12, 2023 10:45 AM [employer] CBC W/ AUTO DIFF Specimen Type: BLOOD No comment entered. Ordering Provider: JESSICA GOODMAN Report Released Date/Time: Dec 20, 2022 01:42 PM Reporting Lab: [address] [address] Performing Lab: [address] [address] WBC 5.2 10*3/uL 4.5-11.0 RBC 4.70 10*6/uL [...] /100{WBCs} 0.0-0.0 Dec 12, 2023 10:45 AM [employer] CHEM 7 Specimen Type: SERUM Comment: 5.7 - 6.4% Prediabetes >= 6.5% Diabetic range. If the patient has not yet been diagnosed with T2DM, see [facility] Clinical Practice Guideline for Management of T2DM (dated 05/2016) for more guidance. For patients already diagnosed with T2DM, target HbA1c values should be individualized using a Shared Decision-Making process. Ref: https://www.[facility] thquality.[place].gov /guidelines/CD/d iabetes/ Values obtained from A1C measurements can vary. For typical A1C assays, a reported value of 7.0 could actually be between 6.72 and 7.28 if measured by a reference method. A reported value of 9.0 could actually be between 8.73 and 9.27. Ref: https://ngsp.org /CAPdata.asp Ordering Provider: JESSICA GOODMAN Report Released Date/Time: Dec 20, 2022 01:42 PM Reporting Lab: [address] [address] Performing Lab: [place] [address] CREATININE,SER UM 0.75 mg/dL 0.5-1.5 UREA NITROGEN, BLOOD 8 mg/dL 7-25 GLUCOSE,RANDOM 115 mg/dL H 65-100 SODIUM 141 mmol/L 135-145 POTASSIUM 4.3 mmol/L 3.5-5.0 CHLORIDE 110 mmol/L 100-110 CO2 24 meq/L 20-30 ANION GAP 7 meq/L 6-16 eGFR(CKD-EPI 2020) >90 mL/min >=60 Dec 12, 2023 10:45 AM [facility] LIVER PROFILE Specimen Type: SERUM Comment: 5.7 - 6.4% Prediabetes >= 6.5% Diabetic range. If the patient has not yet been diagnosed with T2DM, see [place] Clinical Practice Guideline for Management of T2DM (dated 05/2016) for more guidance. For patients already diagnosed with T2DM, target HbA1c values should be individualized using a Shared Decision-Making process. Ref: https://[facility].[place].gov /guidelines/CD/d iabetes/ Values obtained from A1C measurements can vary. For typical A1C assays, a reported value of 7.0 could actually be between 6.72 and 7.28 if measured by a reference method. A reported value of 9.0 could actually be between 8.73 and 9.27. Ref: https://ngsp.org /CAPdata.asp Ordering Provider: JESSICA GOODMAN Report Released Date/Time: Dec 20, 2022 01:42 PM Reporting Lab: [address] [address] Performing Lab: [address] [address] ALBUMIN 3.7 g/dL 3.5-5.0 TOT. BILIRUBIN 1.0 mg/dL 0.2-1.2 DIR. BILIRUBIN 0.4 mg/dL 0.0-0.5 ALKALINE PHOSPHATASE 67 U/L 40-150 ALT 34 U/L 7-52 AST 25 U/L 5-40 Dec 12, 2023 10:45 AM [facility] LIPOPROTEIN PROFILE Specimen Type: SERUM Comment: 5.7 - 6.4% Prediabetes >= 6.5% Diabetic range. If the patient has not yet been diagnosed with T2DM, see [place] Clinical Practice Guideline for Management of T2DM (dated 05/2016) for more guidance. For patients already diagnosed with T2DM, target HbA1c values should be individualized using a Shared Decision-Making process. Ref: https://www.[facility].[place].gov /guidelines/CD/d iabetes/ Values obtained from A1C measurements can vary. For typical A1C assays, a reported value of 7.0 could actually be between 6.72 and 7.28 if measured by a reference method. A reported value of 9.0 could actually be between 8.73 and 9.27. Ref: https://ngsp.org /CAPdata.asp Ordering Provider: JESSICA GOODMAN Report Released Date/Time: Dec 20, 2022 01:42 PM Reporting Lab: [address] [address] Performing Lab: [address] [address] CHOLESTEROL 128 mg/dL 0-199 TRIGLYCERIDE 51 mg/dL 0-199 HDL 45 mg/dL >=40 LDL 73 mg/dL 0-129 Dec 12, 2023 10:45 AM [place] CALCIUM PROFILE Specimen Type: SERUM Comment: 5.7 - 6.4% Prediabetes >= 6.5% Diabetic range. If the patient has not yet been diagnosed with T2DM, see [place] Clinical Practice Guideline for Management of T2DM (dated 05/2016) for more guidance. For patients already diagnosed with T2DM, target HbA1c values should be individualized using a Shared Decision-Making process. Ref: https://www.[facility]ality.[place].gov /guidelines/CD/d iabetes/ Values obtained from A1C measurements can vary. For typical A1C assays, a reported value of 7.0 could actually be between 6.72 and 7.28 if measured by a reference method. A reported value of 9.0 could actually be between 8.73 and 9.27. Ref: https://ngsp.org /CAPdata.asp Ordering Provider: JESSICA GOODMAN Report Released Date/Time: Dec 20, 2022 01:42 PM Reporting Lab: [place] [phone] Performing Lab: [address] CALCIUM 9.0 mg/dL 8.5-10.5 PO4,SERUM 3.1 mg/dL 2.5-5.0 PROTEIN,TOTAL 6.1 g/dL 6.0-8.5 ALBUMIN 3.7 g/dL 3.5-5.0 Dec 12, 2023 10:45 AM [place] MAGNESIUM Specimen Type: SERUM No comment entered. Ordering Provider: JESSICA GOODMAN Report Released Date/Time: Dec 20, 2022 01:42 PM Reporting Lab: [place] [phone] Performing Lab: [place] [phone] MAGNESIUM 1.9 mg/dL 1.6-2.6 Dec 12, 2023 10:45 AM [place] PO4,SERUM Specimen Type: SERUM No comment entered. Ordering Provider: JESSICA GOODMAN Report Released Date/Time: Dec 20, 2022 01:42 PM Reporting Lab: [address] [address] Performing Lab: [place] [phone] PO4,SERUM 3.1 mg/dL 2.5-5.0 Dec 12, 2023 10:45 AM [place] TSH Specimen Type: SERUM Comment: For TSH [...] Dec 20, 2022 01:42 PM Reporting Lab: [address] [address] Performing Lab: [place] [address] TSH 1.92 m[IU]/mL 0.35-5.00 Dec 12, 2023 10:45 AM [place] HEMOGLOBIN A1C PANEL Specimen Type: BLOOD Comment: 5.7 - 6.4% Prediabetes >= 6.5% Diabetic range. If the patient has not yet been diagnosed with T2DM, see [place] Clinical Practice Guideline for Management of T2DM (dated 05/2016) for more guidance. For patients already diagnosed with T2DM, target HbA1c values should be individualized using a Shared Decision-Making process. Ref: https://www.[facility].[place].gov /guidelines/CD/d iabetes/ Values obtained from A1C measurements can vary. For typical A1C assays, a reported value of 7.0 could actually be between 6.72 and 7.28 if measured by a reference method. A reported value of 9.0 could actually be between 8.73 and 9.27. Ref: https://ngsp.org /CAPdata.asp Ordering Provider: JESSICA GOODMAN Report Released Date/Time: Dec 20, 2022 01:42 PM Reporting Lab: [address] [address] Performing Lab: [address] [address] HEMOGLOBIN A1C 5.6 <=5.6 EST.AVERAGE GLUCOSE 114 mg/dL Dec 12, 2023 10:45 AM [place] PROSTATIC SPECIFIC ANTIGEN Specimen Typ e: SERUM [...] Dec 20, 2022 01:42 PM Reporting Lab: [address] [address] Performing Lab: [address] [address] PROSTATIC SPECIFIC ANTIGEN 1.05 ng/mL 0.00-4.00 Dec 12, 2023 10:45 AM [place] B12 Specimen Type: SERUM Comment: For TSH [...] Dec 20, 2022 01:42 PM Reporting Lab: [address] [address] Performing Lab: [address] [address] B12 439 pg/mL 300-900 Dec 12, 2023 10:45 AM [place] FOLATE,SERUM Specimen Type: SERUM Comment: For TSH [...] Dec 20, 2022 01:42 PM Reporting Lab: [address] [address] Performing Lab: [address] [address] FOLATE,SERUM 8.5 ng/mL >=5.2 Dec 12, 2023 10:45 AM [place] VITAMIN D TOTAL(SCREEN) Specimen Type: SERUM Comment: [...] Dec 20, 2022 01:42 PM Reporting Lab: [address] [address] Performing Lab: [address] [address] VITAMIN D TOTAL(SCREEN) 47.6 ng/mL 20.0-50.0 Advance [...] Nov 01, 2017 ADVANCE DIRECTIVE CHIKA RICHARDSON [facility] Encounter Notes: All associated encounter [...] REQUIRED Electronically Filed: 01/10/2024 by: MELVA DOAN [facility]
--- OUTSIDE RECORDS SUMMARY | 2024-02-03 09:52 | XMS_ITS | Encounter Summary ---
Author Name [facility] [facility] [place] Address [address] [place] [address] Care Team Providers Care Instrument Shop Supervisor Name Role Phone WASHINGTON GOODMAN Primary Care [...] BASIC SELF+ ONE Feb 22, 2020 113 [id number] [phone] SUHAIL BOLDEN SR PATIENT ISAAC BCBS CT FEDERAL PREFERRED PROVIDER ORGANIZAT ION (PPO) BASIC SELF Feb 27, 2005 111 [id number] [phone] SUHAIL BOLDEN SR PATIENT BCBS MA FEP PREFERRED PROVIDER ORGANIZAT ION (PPO) BASIC SELF PLUS ONE Feb 22, 2020 113 [id number] [phone] SUHAIL BOLDEN SR PATIENT BCBS JESSICA FEP PREFERRED PROVIDER ORGANIZAT ION (PPO) BASIC INDIV IDUAL Feb 27, 2005 [id number] SUHAIL BOLDEN SR PATIENT CAREMARK FEPRX PLAN PRESCRIPT CURTIS COLE ARK FEPRX Feb 21, 2010 [id number] SUHAIL BOLDEN SR PATIENT DANGELO-F EP BCBS PRESCRIPT ION FEP KELSEY ARK Feb 21, 2010 [id number] [phone] SUHAIL BOLDEN SR PATIENT Selected Encounter This section includes the information on record at [place] for the Encounter. Date/Time Encounter Type Encounter Description Reason Pro vider Source Jan 16, 2024 10:06 AM Outpatient Encounter ADMIN PAT ACTIVTIES (MASNONCT) IHE Encounter Template Text not used by [place] Advance Directives: All historical and current Section Date Range: From patient's date of to the date document was created. This section includes ALL of a patient's completed or amended [place] Advance and Rescinded Directives. The entries below indicate that a directive exists for the patient, but an actual copy is not included with this document. The data comes from all [place] facilities. Date Advance Directives Provider Source Nov 01, 2017 ADVANCE DIRECTIVE CHIKA RICHARDSON [facility] Encounter Notes: All associated encounter notes This section contains the clinical notes associated to the Encounter. Date/Time Encounter Note(s) Provider Source Jan 16, 2024 12:25 PM ADDENDUM: LOCAL TITLE: Addendum STANDARD TITLE: ADDENDUM DATE OF NOTE: JAN 16, 2024@12:25:17 ENTRY DATE: JAN 16, 2024@12:25:18 AUTHOR: WASHINGTON GOODMAN EXP COSIGNER: URGENCY: STATUS: COMPLETED pact rn to clarify/discuss w/ pt. /macho/ washington goodman md animal care assistant Signed: 01/16/2024 12:25 Receipt Acknowledged By: 01/16/2024 13:20 /macho/ EJ NOEL, KIRA, MSN REGISTERED NURSE --- Original Document --- 01/16/24 CCC: SCHEDULING ADMINISTRATION: Patient Demographics Patient Name: SUHAIL BOLDEN Patient Primary Phone: [phone] Patient Primary Address: [address] [place] [address] Patient : 1955 Patient Age: 68 Call [...] PAPERWORK HAS NOT BEEN RECEIVED. PATIENT REQUESTING/AUTHORIZING [facility] TO LEAVE DETAILED VOICEMAIL MESSAGE, IF PATIENT NOT AVAILABLE. . IMPORTANT: This note was created by [facility] Clinical Contact Center staff. Please do not alert the staff member by adding them as a signer for future communications. Alerts are not monitored by this user. /macho/ ADILIA ALTAMIRANO 1 [facility] AMSA Signed: 01/16/2024 10:06 Receipt Acknowledged By: 01/16/2024 13:20 /macho/ EJ NOEL, KIRA, MSN REGISTERED NURSE * AWAITING SIGNATURE * LILLY TURNER 01/16/2024 12:25 /macho/ washington goodman md animal care assistant 01/16/2024 ADDENDUM STATUS: COMPLETED Spoke with pt States he is having conference call with MRI ordering physican this afternoon regarding results Will request to have MRI results faxed to the [place] All questions addressed at this time /harriett NOEL, RN, MSN REGISTERED NURSE Signed: 01/16/2024 13:20 WASHINGTON GOODMAN [facility] Jan 16, 2024 10:06 AM ADMINISTRATIVE NOT E: LOCAL TITLE: CCC: SCHEDULING ADMINISTRATION STANDARD TITLE: ADMINISTRATIVE NOTE DATE OF NOTE: JAN 16, 2024@10:06:25 ENTRY DATE: JAN 16, 2024@10:06:25 AUTHOR: ADILIA CABRAL EXP COSIGNER: URGENCY: STATUS: COMPLETED CCC: SCHEDULING ADMINISTRATION Has ADDENDA Patient Demographics Patient Name: SUHAIL BOLDEN Patient Primary Phone: [phone] Patient Primary Address: [address] [place] [address] Patient : 1955 Patient Age: 68 Call [...] PAPERWORK HAS NOT BEEN RECEIVED. PATIENT REQUESTING/AUTHORIZING [facility] TO LEAVE DETAILED VOICEMAIL MESSAGE, IF PATIENT NOT AVAILABLE. . IMPORTANT: This note was created by [facility] Contact Center staff. Please do not alert the staff member by adding them as a signer for future communications. Alerts are not monitored by this user. /macho/ ADILIA HANCOCKN 1 [facility] Signed: 01/16/2024 10:06 Receipt Acknowledged By: 01/16/2024 13:20 /macho/ EJ NOEL, RN, MSN REGISTERED NURSE * AWAITING SIGNATURE * LILLY TURNER 01/16/2024 12:25 /macho/ washington goodman md animal care assistant 01/16/2024 ADDENDUM STATUS: COMPLETED pact rn to clarify/discuss w/ pt. /harriett goodman md animal care assistant Signed: 01/16/2024 12:25 Receipt Acknowledged By: 01/16/2024 13:20 /macho/ EJ NOEL, RN, MSN REGISTERED NURSE 01/16/2024 ADDENDUM STATUS: COMPLETED Spoke with pt States he is having conference call with MRI ordering physican this afternoon regarding results Will request to have MRI results faxed to the [place] All questions addressed at this time /harriett NOEL, RN, MSN REGISTERED NURSE Signed: 01/16/2024 13:20 ADILIA CABRALRI [facility]
--- OUTSIDE RECORDS SUMMARY | 2024-02-03 09:52 | XMS_ITS | Encounter Summary ---
Author Name [facility] [facility] [place] [facility] [place] Address [address] [place] [address] Care Team Providers Care [employer] Information Clerk Name Role Phone JESSICA GOODMAN Primary Care [...] BASIC SELF+ ONE Feb 22, 2020 113 [id number] [phone] SUHAIL BOLDEN SR PATIENT ISAAC BCBS CT FEDERAL PREFERRED PROVIDER ORGANIZAT ION (PPO) BASIC SELF Feb 27, 2005 111 [id number] [phone] SUHAIL BOLDEN SR PATIENT BCBS MA FEP PREFERRED PROVIDER ORGANIZAT ION (PPO) BASIC SELF PLUS ONE Feb 22, 2020 113 [id number] SUHAIL BOLDEN SR PATIENT BCBS JESSICA FEP PREFERRED PROVIDER ORGANIZAT ION (PPO) BASIC INDIV IDUAL Feb 27, 2005 111 [id number] SUHAIL BOLDEN SR PATIENT CAR[employer]ARK FEPRX PLAN PRESCRIPT ION KELSEY ARK FEPRX Feb 21, 2010 [id number] SUHAIL BOLDEN SR PATIENT DANGELO-F EP BCBS PRESCRIPT ION FEP KELSEY ARK Feb 21, 2010 [id number] SUHAIL BOLDEN SR PATIENT Selected Encounter This section includes the information on record at [place] for the Encounter. Date/Time Encounter Type Encounter Description Reason Pro vider Source Sep 07, 2023 01:30 PM Outpatient Encounter ADMIN PAT ACTIVTIES (MASNONCT) IHE Encounter Template Text not used by [place] Plan of Treatment: Future Appointments (+ 6 months) and Future Tests (+/- 45 days) The Plan of Treatment section includes future care activities for the patient from all [place] treatmentfacilities. This section includes future appointments and future orders which are active, pending or scheduled. Future Appointments This section includes appointments that were scheduled to occur 6 months from the date of the Encounter, up to a maximum of 20 appointments. The data comes from all [place] treatment facilities. Appointment Date/Time Appointment Type Appointme nt Facility Name Nov 29, 2023 11:30 AM AMBULATORY - MEDICINE [facility] Dec 12, 2023 10:45 AM [facility] Dec 12, 2023 11:00 AM AMBULATORY - MEDICINE [facility] Advance Directives: All historical and current Section Date Range: From patient's date of to the date document was created. This section includes ALL of a patient's completed or amended [place] Advance and Rescinded Directives. The entries below indicate that a directive exists for the patient, but an actual copy is not included with this document. The data comes from all [place] facilities. Date Advance Directives Provider Source Nov 01, 2017 ADVANCE DIRECTIVE CHIKA RICHARDSON [facility] Radiology Reports: +/- 30 days [...] the Encounter. The data comes from all [place] treatment facilities. Date/Time Radiology Report Provider Source Sep 06, 2023 04:10 PM SPINE LUMBOSACRAL MIN 2 VIEWS: SUHAIL BOLDEN [id number] -1955 M Exm Date: SEP 06, 2023@16:10 Req Phys: LEONARD CAMPOS [place] Pat Loc: NEW URGENT CARE (Req'g Loc) Img Loc: RADIOLOGY (NEWT) Service: Unknown [place] , (Case [id number] COMPLETE) SPINE LUMBOSACRAL MIN 2 VIEWS (RAD Detailed) CPT:35459 Reason for Study: lower back pain Clinical History: PROVIDER CONTACT INFORMATION:6419 Report Status: Verified Date Reported: SEP 06, 2023 Date Verified: SEP 06, 2023 Multi Spindle Operator E-Sig:/MACHO/IAN ANGEL MD Report: LUMBOSACRAL SPINE, FRONTAL, [...] changes are seen, overall increased since prior, vnolossv-og-sjklxj at L3-L4, moderate at L4-L5, mild at other lumbar levels. Multilevel bridging enthesophytes/osteophytes are noted. Impression: No evidence of acute fracture or traumatic subluxation. Degenerative changes of the lumbar spine, kpdbbufy-br-batycy at L3-L4 and moderate at L4-L5, mildly increased since 2018. Primary Diagnostic Code: No Immediate Attention Required Primary Interpreting Staff: IAN ANGEL MD, Staff Neuroradiologist (Multi Spindle Operator) /IAN SAGASTUME Encounter Notes: All associated encounter [...] By: 09/08/2023 10:40 /macho/ ROJAS NEWTON APRN PAINTER BARREL --- Original Document --- 09/07/23 CCC: SCHEDULING ADMINISTRATION: Patient Demographics Patient Name: SUHAIL BOLDEN Patient Primary Phone: [phone] Patient Primary [address]: [address] [place] [address] [place] [address] Patient : 1955 Patient Age: 68 Caller/Recipient Relation to Patient: Self Administrative Administrative Note Reason: Other Administrative Note Comments: IS REQ A CB TO DISCUSS DEGENERATIVE DISCS AND THE NEED FOR AN MRI. HE IS EXPERIENCING AN INCREASE IN DISCOMFORT AND WENT TO [facility] YESTERDAY WHERE HE WAS TOLD HE NEEDED AN MRI. PLEASE CALL TO ASSIST. Notes Notes & Information: IS REQ A CB TO DISCUSS DEGENERATIVE DISCS AND THE NEED FOR AN MRI. HE IS EXPERIENCING AN INCREASE IN DISCOMFORT AND WENT TO [facility] YESTERDAY WHERE HE WAS TOLD HE NEEDED AN MRI. PLEASE CALL TO ASSIST. /macho/ LILIA ALTAMIRANO 1 [facility] AMSA Signed: 09/07/2023 13:30 Receipt Acknowledged By: 09/07/2023 16:21 /harriett NOEL RN, MSN REGISTERED NURSE 09/07/2023 16:05 /macho/ ROJAS NEWTON APRN PAINTER BARREL 09/07/2023 ADDENDUM STATUS: COMPLETED would only advise MRI if pt considering surgery or epidural steroid injections or was experiencing significant radicular sx (leg pain, weakness, numbness tingling). Otherwise would recommend trial of PT prior to obtaining advanced imaging. /harriett NEWTON APRN PAINTER BARREL Signed: 09/07/2023 16:06 Receipt Acknowledged By: * AWAITING SIGNATURE * APOSTEJ HASKINS TSAMPIKA M [facility] Sep 07, 2023 04:05 PM ADDENDUM: LOCAL [...] obtaining advanced imaging. /es/ ROJAS NEWTON APRN PAINTER BARREL Signed: 09/07/2023 16:06 Receipt Acknowledged By: 09/08/2023 11:52 /macho/ EJ NOEL RN, MSN REGISTERED NURSE --- Original Document --- 09/07/23 CCC: SCHEDULING ADMINISTRATION: Patient Demographics Patient Name: SUHAIL BOLDEN Patient Primary Phone: [phone] Patient Primary [address]: [address] [place] [address] Patient : 1955 Patient Age: 68 Caller/Recipient Relation to Patient: Self Administrative Administrative Note Reason: Other Administrative Note Comments: IS REQ A CB TO DISCUSS DEGENERATIVE DISCS AND THE NEED FOR AN MRI. HE IS EXPERIENCING AN INCREASE IN DISCOMFORT AND WENT TO [facility] YESTERDAY WHERE HE WAS TOLD HE NEEDED AN MRI. PLEASE CALL TO ASSIST. Notes Notes & Information: IS REQ A CB TO DISCUSS DEGENERATIVE DISCS AND THE NEED FOR AN MRI. HE IS EXPERIENCING AN INCREASE IN DISCOMFORT AND WENT TO [facility] YESTERDAY WHERE HE WAS TOLD HE NEEDED AN MRI. PLEASE CALL TO ASSIST. /es/ LILIA ALTAMIRANO 1 [facility] AMSA Signed: 09/07/2023 13:30 Receipt Acknowledged By: 09/07/2023 16:21 /macho/ EJ NOEL RN, MSN REGISTERED NURSE 09/07/2023 16:05 /harriett NEWTON APRN PAINTER BARREL 09/08/2023 ADDENDUM STATUS: COMPLETED Spoke with pt and explained above Pt agreeable to PT referral /harriett NOEL RN, MSN REGISTERED NURSE Signed: 09/08/2023 10:19 Receipt Acknowledged By: 09/08/2023 10:40 /harriett NEWTON APRN PAINTER BARREL ROJAS NEWTON [facility] Sep 07, 2023 01:30 PM ADMINISTRATIVE NOT E: LOCAL TITLE: CCC: SCHEDULING ADMINISTRATION STANDARD TITLE: ADMINISTRATIVE NOTE DATE OF NOTE: SEP 07, 2023@13:30:20 ENTRY DATE: SEP 07, 2023@13:30:21 AUTHOR: LILIA KIDD MA COSIGNER: URGENCY: STATUS: COMPLETED CCC: SCHEDULING ADMINISTRATION Has ADDENDA Patient Demographics Patient Name: SUHAIL BOLDEN Patient Primary Phone: [phone] Patient Primary Address: [address] [place] [id number] Patient : 1955 Patient Age: 68 Caller/Recipient Relation to Patient: Self Administrative Administrative Note Reason: Other Administrative Note Comments: IS REQ A CB TO DISCUSS DEGENERATIVE DISCS AND THE NEED FOR AN MRI. HE IS EXPERIENCING AN INCREASE IN DISCOMFORT AND WENT TO [facility] YESTERDAY WHERE HE WAS TOLD HE NEEDED AN MRI. PLEASE CALL TO ASSIST. Notes Notes & Information: IS REQ A CB TO DISCUSS DEGENERATIVE DISCS AND THE NEED FOR AN MRI. HE IS EXPERIENCING AN INCREASE IN DISCOMFORT AND WENT TO [facility] YESTERDAY WHERE HE WAS TOLD HE NEEDED AN MRI. PLEASE CALL TO ASSIST. /macho/ LILIA KIDD [facility] A[facility]A Signed: 09/07/2023 13:30 Receipt Acknowledged By: 09/07/2023 16:21 /harriett NOEL RN, MSN REGISTERED NURSE 09/07/2023 16:05 /harriett NEWTON APRN PAINTER BARREL 09/07/2023 ADDENDUM STATUS: COMPLETED would only advise MRI if pt considering surgery or epidural steroid injections or was experiencing significant radicular sx (leg pain, weakness, numbness tingling). Otherwise would recommend trial of PT prior to obtaining advanced imaging. /macho/ ROJAS NEWTON APRN PAINTER BARREL Signed: 09/07/2023 16:06 Receipt Acknowledged By: * AWAITING SIGNATURE * EJ NOEL 09/08/2023 ADDENDUM STATUS: COMPLETED Spoke with pt and explained above Pt agreeable to PT referral /macho/ EJ NOEL, RN, MSN REGISTERED NURSE Signed: 09/08/2023 10:19 Receipt Acknowledged By: * AWAITING SIGNATURE * [facility]AS [facility]WTON [facility]
--- NOTE | 2024-02-03 10:45 | A.SPINEOV_ITS ---
Intake Visit Reasons: LBP Intake Note: Mr. Ford is here today c/o low back pain that radiates down to both legs causing numbness and tingling. Occupational Health Physiotherapist Required: No Allergies No Known Allergies Allergy (Verified 02/03/24 10:48) Assessment & Plan Assessment & Plan (1) Acquired spondylolisthesis of lumbosacral region: Code(s): M43.17 - Spondylolisthesis, lumbosacral region Category: Medical (2) Lumbar stenosis with neurogenic claudication: Code(s): M48.062 - Spinal stenosis, lumbar region with neurogenic claudication Category: Medical Plan Dear colleague Thank you for referring Ke Ford to the office today with a chief complaint of low back pain and bilateral leg numbness. HPI: This 68-year-old male had a traumatic injury 50 years ago in the we injured his back. He was put at bedrest to recover. It is unclear what the diagnosis was. Since that time he suffering from intermittent low back pain that would recovered by its own. However more recently the symptoms have changed. He now has a continuous low back pain and bilateral leg numbness and foot numbness with walking and standing. When he does yd work he only walks a certain part to make sure that he will be back in time to sit down. Standing in the kitchen doing dishes also elicits the symptoms. Sitting relieves the bilateral leg numbness but not the back pain. The following conservative treatment options were tried without success antiinflammatories, tylenol, chiropractic therapy, physical therapy. He had to discontinue the anti-inflammatory drugs due to an ulcer. PMH: Right knee replacement, carpal tunnel release, hernia repair Medications: Atorvastatin, Cialis Allergies: NKDA Social history: , 3 children. Nonsmoker Physical Exam: Pleasant male, height 5'8 weight 183 lb. Neurological exam is intact for motor sensation and reflexes. Straight leg raise is negative. There is increased back pain with flexion and extension. Radiological Studies: MRI done at [facility] shows a grade 1-2 L4-5 spondylolisthesis with severe central spinal stenosis and foraminal stenosis Impression/Plan: This 68-year-old male is suffering from back pain and neurogenic claudication due to a lumbar spondylolisthesis L4-5. The symptoms are constant and not improving with conservative care. I recommended an oblique lumbar interbody fusion, a minimally invasive technique to correct the spondylolisthesis and to indirectly decompress the nervous structures. I described the procedure in detail and expected postoperative course. His main concern was if he could still ski after this procedure and this should not be a problem if he recovers as expected. He will call my office if and when he wants to proceed. Thank you for allowing me to participate in your patients care. total time spent was 50 minutes in counseling ,coordination of plan, personal review of imaging, surgical decision making and subsequent plan Fahad Walls MD, PhD Spine Fellowship Trained Neurosurgeon Director, [facility] Coding Level of Care Code New Pt Level 4 (68357) Diagnoses Acquired spondylolisthesis of lumbosacral region M43.17 Lumbar stenosis with neurogenic claudication M48.062
== END 2024-02-03 11:39 | disposition home or self-care (01) ==
PROVIDERS: PCP Family Medicine; Referring Provider Family Medicine; Visit Provider Neurological Surgery
DX: M43.17 Spondylolisthesis, lumbosacral region (principal); M48.062 Spinal stenosis, lumbar region with neurogenic claudication
CPT/HCPCS: 99204

== ENCOUNTER 2024-04-10 16:25 | Outpatient (AMB) | payer BC, SELFPAY ==
--- NOTE | 2024-04-10 16:37 | MHC.PC.OV ---
Vital Signs 04/10/24 16:42 Height 5 ft 8 in Weight 192 lb 4 oz BMI 29.2 BP 110/60 Blood Pressure Location Rt brachial Position Sitting Respiration 12 Pulse 90 Pulse Source Pulse Oximeter Temp 98.2 F Temp Source Oral Pulse Oximetry (%) 96 Oxygen Delivery Method Room Air Intake Visit Reasons: MRI Results Intake Note: review mri results Allergies No Known Allergies Allergy (Verified 04/10/24 16:39) Tobacco use date assessed: 08/05/23 Dental Screening Dental Screen Date: 08/05/23 HPI MRI Results HPI Details 68 y/o male presents to review MRI. Lumbar spine MRI 12/13/23 had shown: Multilevel spondylosis resulting in grade 1 anterolisthesis L4-5 with central spinal canal and bilateral neuroforamina stenosis compressing the neural elements both thecal sac and the exiting nerve roots. Had seen [facility] 02/03/24 - they had recommended an oblique lumbar interbody fusion. [facility] Medical History Elevated cholesterol History of diverticulitis Surgical History H/O colonoscopy History of total right knee replacement History of carpal tunnel release History of dental surgery History of inguinal hernia Family History Father Unknown family medical history Mother Diabetes mellitus Brother No problems noted. Brother No problems noted. Sister No problems noted. Sister No problems noted. Sister No problems noted. Son No problems noted. Son No problems noted. Son No problems noted. 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 1. Little interest or pleasure in doing things: not at all 2. Feeling down, depressed, or hopeless: not at all 3. Trouble falling or staying asleep, or sleeping too much: several days 4. Feeling tired or having little energy: not at all 5. Poor appetite or overeating: not at all 6. Feeling bad about yourself - or that you are a failure or have let yourself or your family down: not at all 7. Trouble concentrating on things, such as reading the newspaper or watching television: not at all 8. Moving or speaking so slowly that other people could have noticed. Or the opposite - being so fidgety or restless that you have been moving around a lot more than usual: not at all 9. Thoughts that you would be better off or of hurting yourself in some way: not at all Total score: 1 Source: Developed by Drs. Pastor Arce, Bushra Mars, Weston Hinton and colleagues, with an educational stefano from [employer]. Thrive Questionnaire Date Thrive assessed: 04/10/24 I am a: Patient What is your living situation today?: I have a steady place to live Within the past 12 months, did the food you bought not last and you didn't have the money to get more?: Never true Within the past 12 months, did you worry whether your food would run out before you got money to buy more?: Never true Do you have trouble paying for medicines?: No Do you have trouble getting transportation to medical appointments?: No Do you have trouble paying your heating and electricity bill?: No Do you have trouble taking care of your child, family member or friend?: Yes Do you have trouble with day-to-day activities such as bathing, preparing meals, shopping, managing finances, etc.?: No Are you currently unemployed and looking for a job?: No Are you interested in more education?: No THRIVE Score: 0 NILDA-7 AMB Questionnaire NILDA-7 Date NILDA - 7 assessed: 08/05/23 Source: Developed by Drs. Pastor Arce, Bushra Mars, Weston Hinton and colleagues, with an educational stefano from [employer]. Review of Systems Const Denies chills, Denies fatigue, Denies fever(s), Denies headache(s) and Denies weakness ENT Denies dizziness and Denies headache(s) Card Denies dyspnea Resp Denies cough, Denies dyspnea, Denies wheezing and Denies other (shortness of breath) Musc Denies numbness and Denies tingling Neuro Denies dizziness, Denies headache(s), Denies numbness, Denies tingling and Denies weakness Psych Denies anxiety and Denies depression Endo Denies fatigue Aller/Immun Denies wheezing Physical exam (Primary Care) Vital Signs: Last Vital Signs Temp 98.2 F 04/10/24 16:42 Pulse 90 04/10/24 16:42 Resp 12 04/10/24 16:42 BP 110/60 04/10/24 16:42 Pulse Ox 96 04/10/24 16:42 Oxygen Delivery Method Room Air 04/10/24 16:42 BMI result Body Mass Index 29.2 Tobacco/Smoking Status: Tobacco use Status Tobacco use date assessed 08/05/23 04/10/24 16:37 Patient Tobacco Use Status Never used Tobacco 04/10/24 16:37 e-Cigarette/Vaping Use Never Used 04/10/24 16:37 PHQ-9: PHQ-9 Score PHQ-9: Total score 1 04/10/24 17:21 Thrive Assessment: Date of Thrive Assessment Date Thrive assessed 04/10/24 04/10/24 16:37 Const General: well developed; No acute distress Nutritional Appearance: well nourished Orientation/consciousness: patient oriented x3 HENMT Head: Yes normocephalic and Yes atraumatic Eyes General: appearance normal, both eyes and all related structures Pupils: Equal, round and reactive pupils present EOM: EOMs intact bilaterally Resp Effort & Inspection: normal respiratory effort Neuro General: patient oriented x3 and gait normal Cranial nerves: Yes Equal, round and reactive pupils present Psych Affect: normal affect Results AMB Hemoglobin A1c AMB Hemoglobin A1c 5.9 % Last Edit by Jesse Bonilla CMA on 04/10/24 17:33 Results Reviewed Results Reviewed: Laboratory Last Values Hgb A1c (Clinic) 5.9 % (4.0-6.0) 04/10/24 17:31 Coding Level of Care Code Est Pt Level 3 (15134) Diagnoses Acquired spondylolisthesis of lumbosacral region M43.17 Pre-diabetes R73.03 Assessment & Plan Assessment & Plan (1) Acquired spondylolisthesis of lumbosacral region: Code(s): M43.17 - Spondylolisthesis, lumbosacral region Category: Medical Plan: Patient?saw?neuro-spine?and?he?recommended an oblique lumbar interbody fusion, a minimally invasive technique to correct the spondylolisthesis and to indirectly decompress the nervous structures. Patient?had?gone?for?2nd?opinion?in?saw an?ortho?specialist?who?recommended?physical?therapy?1st. He?has?been?trying?visit?therapy?and?says?he?is?improving. He?can?continue?with?this.??We?discussed?that?if?he?does?not?get?100%?resolution?of?his?symptoms?or?is?getting?intermittent?symptoms,?I?will?refer?him?back??Kavita to?move?forward?with?the?above?procedure. (2) Pre-diabetes: Code(s): R73.03 - Prediabetes Category: Medical Plan: A1c?5.9%.??Pre?diabetes?range Continue?ongoing?diet?low?in?sugars?and?starches Control?weight Exercise?as?tolerated Orders: Orders AMB Hemoglobin A1c Today R73.03 - Prediabetes
[2024-04-10 16:42] VITALS: BP 110/60; PULSE 90; RESP 12; TEMP 36.8; O2SAT 96; BMI 29.2
--- OUTSIDE RECORDS SUMMARY | 2024-04-10 16:44 | XMS_ITS | Encounter Summary ---
Author Name [facility] Organization [facility] Address [address] [place] [id number] Care Team Providers Care Mold Swabber Name Role Phone JESSICA GOODMAN Primary Care [...] Name Patient's Relationship to Policy Duran ISAAC [facility] FEDERAL PREFERRED PROVIDER ORGANIZAT ION (PPO) BASIC SELF+ ONE Feb 22, 2020 [id number] [phone] BOLDEN SUHAIL LING PATIENT ISAAC [facility]ZEB CT FEDERAL PREFERRED PROVIDER ORGANIZAT ION (PPO) BASIC SELF Feb 27, 2005 [id number] [phone] KIMI SUHAIL LING PATIENT BCBS JESSICA FEP PREFERRED PROVIDER ORGANIZAT ION (PPO) PSHB BAS SELF PLUS 1 Feb 22, 2024 [id number] [phone] BOLDENLEONIDAS PATIENT BCBS [place] FEP PREFERRED PROVIDER ORGANIZAT ION (PPO) BASIC INDIV IDUAL Feb 27, 2005 111 [id number] [phone] SUHAIL BOLDEN SR PATIENT [place] FEPRX PLAN PRESCRIPT ION CAR[place] FEPRX Feb 21, 2010 [id number] SUHAIL BOLDEN SR PATIENT Selected Encounter This section includes the information on record at MD for the Encounter. Date/Time Encounter Type Encounter Description Reason Provider Source Mar 23, 2024 01:30 PM SELF CARE MNGMENT TRAINING PHYSICAL THERAPY ICD-10-CM M54.51 Vertebrogenic low back pain COMPA MORATAYA Luz Encounter Template Text not used by [facility] Assessments - Encounter Diagnoses This section includes the primary and secondary diagnoses documented for the Encounter. Date/Time Primary/Secondary Diagnosis Diagnosis Name Provider Source Mar 23, 2024 02:54 PM PRIMARY Vertebrogenic low back pain NADIA MORATAYA Plan of Treatment: Future Appointments (+ 6 months) and Future Tests (+/- 45 days) The Plan of Treatment section includes future care activities for the patient from all MD treatmentfacilities. This section includes future appointments and future orders which are active, pending or scheduled. Future Appointments This section includes appointments that were scheduled to occur 6 months from the date of the Encounter, up to a maximum of 20 appointments. The data comes from all MD treatment facilities. Appointment Date/Time Appointment Type Appointme nt Facility Name Aug 28, 2024 01:00 PM AMBULATORY - SURGERY [facility] Social History: Smoking Status (Most current) and Tobacco Use (All prior to encounter date) This section includes the most current, and the historical, smoking and tobacco- related health factors from the MD facility where the Encounter took place. Current Smoking Status This section includes the most current smoking, or tobacco-related health factor, from the MD facility where the Encounter took place. Date/Time Current Smoking Status Comment Ashley rodrigues Sep 19, 2017 12:52 PM QUIT TOBACCO USE > 7 YEARS AGO quit 30 yeasr ago [facility] Tobacco Use History This section includes a history of the smoking, or tobacco-related health factors, that were collected on or before the date of the Encounter. The data comes from the MD facility where the Encounter took place. Date/Time Smoking Status/Tobacco Use Comment Judy barron July 15, 2015 10:35 AM QUIT TOBACCO USE > 7 YEARS AGO quit 30 yrs ago [facility] Sep 03, 2008 02:52 PM QUIT TOBACCO USE > 7 YEARS AGO [facility] Advance Directives: All historical and current Section Date Range: From patient's date of to the date document was created. This section includes ALL of a patient's completed or amended [facility] Advance and Rescinded Directives. The entries below indicate that a directive exists for the patient, but an actual copy is not included with this document. The data comes from all MD facilities. Date Advance Directives Provider Source Nov 01, 2017 ADVANCE DIRECTIVE CHIKA RICHARDSON [facility]ELD Encounter Notes: All associated encounter notes This section contains the clinical notes associated to the Encounter. Date/Time Encounter Note(s) Provider Source Mar 23, 2024 01:29 PM PHYSICAL THERAPY C ONSULT: LOCAL TITLE: PHYSICAL THERAPY CONSULT STANDARD TITLE: PHYSICAL THERAPY CONSULT DATE OF NOTE: MAR 23, 2024@13:29 ENTRY DATE: MAR 23, 2024@13:29:39 AUTHOR: NADIA MORATAYAIGNER: URGENCY: STATUS: COMPLETED Initial Evaluation date: 03/23/23 Progress Note Date: Treatment #: eval Treatment time: 55 Diagnosis: Vertebrogenic low back pain(ICD-10-CM M54.51) Provider: Jessica Goodman PT Treatment Precautions: Patient identified by full name and date of goes by Riki Vitals: HR: 60 BP: 124/72 SUBJECTIVE: History of Current injury: Patient states they have had chronic long standing L sided lower back pain. Notes they also are getting referred symptoms into the LLE into the L glute, down the back of the L leg and into the lateral L foot. Patient notes exacerbation of this pain in April of 2023 after falling while working in their shed. Notes their symptoms have not improved much. Notes some pain and stiffness first thing in the morning. Patient states primary aggravating factors include prolonged walking, prolonged standing, lifting objects. Patient states primary alleviating factors include sitting, pushing cart in grocery store. Patient denies major trauma or past surgical procedures to the lower back or this hips. Patient denies saddle paresthesia, denies recent unexplained changes to bowel/bladder function. 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 Patient Goal: figure out what they can do to alleviate the pain and numbness/tingling in the LLE Number of days per week with pain: 08/27 SANE report Please rate your ability to use your injured area on a 0% to 100% scale, with 0% being unable to use the injured area and 100% being normal use of injured area in your daily activity: OBJECTIVE: Red flags: Recent Trauma- Age (50+)+ Hx of Cancer- Fever/chills/night sweats- Unexplained weight loss- Recent infection- Immunosuppression - Night pain- Saddle anesthesia- Bowel/bladder dysfunction - LE neurological deficit- Psychosocial flags: mental health dx- entrenched/unhelpful beliefs about pain- clinically relevant catastrophization- signs of kinesiophobia- Neuro: LE reflexes normal 2+ - clonus * = pain during testing ROM: Lumbar Flexion WNL Lumbar Extension 75% limitation* Lumbar Left side bend 75% limitation* Lumbar Right side bend 50% limitation Lumbar Left rotation 50% limitation Lumbar Right rotation 50% limitation Hip ROM: Hip flexion(120): L: 120 R: 120 Hip Abduction(40): L: R: Hip Internal rotation(30): L: 25 R: 25 Hip external rotation(30): L: 35 R: 35 Hip Extension(20): L: R: Lumbar/Hip Special Tests: SLR- Sign of the Buttock- ANDRY- Scour- FADDIR- ALEXANDRA VIVIENNE 90/90 HS LEG LENGTH SUHAIL Laslett battery SI joint: distraction- thigh thrust- Compression - sacral thrust- Strength: Hip flexion L: 5/5 R: 5/5 Knee extension: L: 5/5 R: 5/5 Knee flexion L: 5/5 R: 5/5 Ankle DF L: 5/5 R: 5/5 Ankle INV L: 5/5 R: 5/5 Ankle EV L: 5/5 R: 5/5 Hip ER L: 4+/5 R: 4+/5 Hip ABD L: 4/5 R: 4/5 Hip Extension L: /5 R: /5 Glute Max: L: /5 R: /5 Palpation: Joint Mobility: mod TTP CPA/UPA L3/4/5 Directional Preference: Extension bias (-) Symptoms distal to the buttock Symptoms centralize with lumbar extension Symptoms peripheralize with lumbar flexion Flexion bias (+) Older age >50 years Imaging evidence of spinal stenosis Symptoms worsen with lumbar extension Lumbar Traction Test Cluster (identified positive variables) (-) Pain in the leg Signs of nerve root compression Peripheralization of symptoms with lumbar extension movements Positive Crossed SLR Lumbar Stenosis Test Cluster (-) Bilateral symptoms Leg pain>back pain Pain during walking/standing Pain relief upon sitting >48 years old Sacroiliac joint dysfunction Van Finger Test (-) (-) Trendelenburg (-) (-) INTERVENTIONS: Therapeutic Exercise: Mins: Manual therapy: Mins: Neuro re-ed: Mins: Other: Mins: Modalities: Mins: [] contraindication screen completed prior to modality [] skin intact pre/post modality Access Code: [email or web address] URL: [email or web address] Date: 03/23/2024 Prepared by: Nadia Morataya Exercises - Hooklying Single Knee to Chest Stretch - 1 x daily - 7 x weekly - 3 sets - 30 hold - Supine Double Knee to Chest - 1 x daily - 7 x weekly - 3 sets - 30 hold - Supine Bridge with Resistance Band - 1 x daily - 7 x weekly - 2-3 sets - 10-20 reps - Clamshell with Resistance - 1 x daily - 7 x weekly - 2-3 sets - 10-20 reps - Supine Hamstring Stretch with Strap - 1 x daily - 7 x weekly - 3 sets - 30 hold - Standard Plank - 1 x daily - 7 x weekly - 2-3 sets - 20-30 hold Patient education: Mins: 25 Discussed potential etiology of symptoms with patient including potential structures involved and how this relates to exercises prescribed and POC discussing frequency and duration of services to be provided with patient verbalizing good understanding and agreement with POC. Provided written HEP to patient with therex from today reviewing proper form sets reps and frequency and safety precautions with patient verbalizing and demonstrating good understanding in clinic. Discussed the radiologist report from patient lumbar MRI using the MRI image and a spine model as a visual aid placing findings in layman's terms. Discussed the anatomy and mechanics of the spine in detail and how this could relate of patient symptoms and a proposed treatment plan. Discussed periperhalization vs centraliztion and flexion vs extension preference. Reviewed exercises they currently perform to continue, modify, or discontinue. ASSESSMENT: Patient is a 68yo seen for physical therapy evaluation following referral for Vertebrogenic low back pain(ICD-10-CM M54.51). PMH significant for: 1. Hyperlipidemia 2. Colonic Polyps 3. Diverticulosis, Colonic 4. Screening for Malignant Neoplasms of colon 5. Backache 6. Tinnitus 7. Osteoarthritis 8. PMD Dr. Weaver Patient presents with primary complaint of exacerbation of chronic L sided lower back pain with referred symptoms of numbness/tingling into the LLE extending into the lateral L foot at worst. Pain rated 6/10 at current and at best, 9/10 at worst on NPRS. Patient states primary aggravating factors include prolonged walking, prolonged standing, lifting objects. Patient states primary alleviating factors include sitting, pushing cart in grocery store. Patient denies major trauma or past surgical procedures to the lower back or this hips. Patient denies saddle paresthesia, denies recent unexplained changes to bowel/bladder function. On physical assessment, patient primary symptoms reproduced with repeated lumbar extension and L side bend. Additional impairments that may contribute to condition include impaired lumbar ROm, impaired LE flexibility, impaired abdominal and gluteal strength. Based on patient hx and findings of assessment, patient would benefit from flexion based therex program and progressive abdominal and gluteal strengtheing. Patient reports these symptoms impact their ability to complete their normal daily tasks like prolonged walking, prolonged standing, lifting objects. Patient requires skilled physical therapy services in order to address these impairments ad activity limitations and to achieve patient goal of figure out what they can do to alleviate the pain and numbness/tingling in the LLE . GOALS: in 4-6weeks, patient will demonstrate: consistent carryover of HEP 5/7 days per week with patient able to independently teach back 75% of exercises 2pt decrease in pain level at worst to improve patient ability to complete most symptomatic tasks decrease in total days with pain by 2 days to improve patient QOL 25% improvement in lumbar extension ROM 25% improvement in lumbar L side bend ROM 1/2 grade improvement in L hip ER MMT 1/2 grade improvement in L hip ABD MMT PLAN: Discussed POC with patient who states they do not want to book follow up visits at this time, was interested in eval only and HEP. Provided card for PT clinic, advised case will be left open [id number] for follow up if needed then be considered d/c. Patient verbalizes good understanding and agreement. [x]Low impact cardio: [x]Nustep []Recumbent bike []Recumbent elliptical []TM []Manual: []STM/DTM []METs/SCS []IASTM []Joint mobilizations [x]Therex: []Progressive UQ [x]Progressive Core [x]Progressive LQ []UQ flex [x] Lumbar flex [x]LQ flex []Foam rolling []Proprioception []Neuro Re-education: []Static []Dynamic []Dual-Task [x]Education: [x]Posture []Ergonomics [x]Bodymechanics [x]Self-care strategies []PNE []Modalities(PRN): []Heat/Ice []Estim/Tens []Mechanical traction []K-tape [] Biofreeze /es/ NADIA MORATAYA PT, DPT PHYSICAL THERAPIST Signed: 03/23/2024 14:54 NADIA MORATAYA [facility]
--- OUTSIDE RECORDS SUMMARY | 2024-04-10 16:44 | XMS_ITS | Encounter Summary ---
Author Name [facility] Organization [facility] [place] Address [address] [place] [address] Care Team Providers Care Hardware Developer Name Role Phone WASHINGTON GOODMAN Primary Care [...] Name Patient's Relationship to Policy Duran ISAAC STRAUSS CT FEDERAL PREFERRED PROVIDER ORGANIZAT ION (PPO) BASIC SELF+ ONE Feb 22, 2020 113 [id number] [phone] SHADE BOLDEN SR PATIENT ISAAC STRAUSS CT FEDERAL PREFERRED PROVIDER ORGANIZAT ION (PPO) BASIC SELF Feb 27, 2005 111 [id number] [phone] BOLD[address]ADE Escobar SR PATIENT BCBS JESSICA FEP PREFERRED PROVIDER ORGANIZAT ION (PPO) PSHB BAS SELF PLUS 1 Feb 22, 2024 [id number] [phone] LEONIDAS BOLDEN MAME PATIENT BCBS [place] FEP PREFERRED PROVIDER ORGANIZAT ION (PPO) BASIC INDIV IDUAL Feb 27, 2005 111 [id number] [phone] SHADE BOLDEN SR PATIENT [place] FEPRX PLAN PRESCRIPT CURTIS LIMA FEPRX Feb 21, 2010 [id number] SHADE BOLDEN SR PATIENT Selected Encounter This section includes the information on record at [place] for the Encounter. Date/Time Encounter Type Encounter Description Reason Provider Source Feb 08, 2024 11:00 AM OFFICE O/P EST SF 10 MIN PRIMARY CARE/MEDICINE ICD-10-CM M54.51 Vertebrogenic low back pain OCTAVIA GOODMAN Luz Encounter Template Text not used by [place] Assessments - Encounter Diagnoses This section includes the primary and secondary diagnoses documented for the Encounter. Date/Time Primary/Secondary Diagnosis Diagnosis Name Provider Source Feb 08, 2024 11:39 AM PRIMARY Vertebrogenic low back pain WASHINGTON GOODMAN Plan of Treatment: Future Appointments (+ 6 months) and Future Tests (+/- 45 days) The Plan of Treatment section includes future care activities for the patient from all [place] treatmentfacilities. This section includes future appointments and future orders which are active, pending or scheduled. Future Appointments This section includes appointments that were scheduled to occur 6 months from the date of the Encounter, up to a maximum of 20 appointments. The data comes from all [place] treatment facilities. Appointment Date/Time Appointment Type Appointme nt Facility Name Mar 05, 2024 11:30 AM AMBULATORY - SURGERY [facility] Mar 23, 2024 01:30 PM AMBULATORY - REHAB [facility] Vital Signs: All taken on the encounter date This section contains inpatient and outpatient Vital Signs collected on the date of the Encounter. Date/Time Temperature Pulse Blood Pressure Respiratory Rate SP02 Pain Height Weight Body Mass Index Source Feb 08, 2024 11:06 AM 97.4 63 128/74 98 6 69 192.9 29 [place] Social History: Smoking Status (Most [...] Encounter took place. Date/Time Current Smoking Status Lashanda rodrigues Nov 29, 2023 11:30 AM [place]-TOBACCO NEVER USED NEIL Tobacco Use History This section includes a history of the smoking, or tobacco-related health factors, that were collected on or before the date of the Encounter. The data comes from the [place] facility where the Encounter took place. Date/Time Smoking Status/Tobacco Use Comment F acility Dec 20, 2022 01:00 PM VA-TOBACCO NEVER USED [place] Nov 05, 2021 01:00 PM VA-TOBACCO FORMER USER [place] Nov 05, 2021 01:00 PM VA-TOBACCO QUIT 15 YRS OR MORE [place] Oct 09, 2020 01:00 PM VA-TOBACCO NEVER USED [place] Advance Directives: All historical and current Section Date Range: From patient's date of to the date document was created. This section includes ALL of a patient's completed or amended [place] Advance and Rescinded Directives. The entries below indicate that a directive exists for the patient, but an actual copy is not included with this document. The data comes from all [place] facilities. Date Advance Directives Provider Source Nov 01, 2017 ADVANCE DIRECTIVE CHIKA RICHARDSON [facility] Encounter Notes: All associated encounter notes This section contains the clinical notes associated to the Encounter. Date/Time Encounter Note(s) Provider Source Feb 08, 2024 11:16 AM PRIMARY CARE OUTPA TIENT NOTE: LOCAL TITLE: PRIMARY CARE CLINIC VISIT STANDARD TITLE: PRIMARY CARE OUTPATIENT NOTE DATE OF NOTE: FEB 08, 2024@11:16:38 ENTRY DATE: FEB 08, 2024@11:16:39 AUTHOR: WASHINGTON GOODMAN EXP COSIGNER: URGENCY: STATUS: COMPLETED interval visit. dual care pt-primarily managed in non-va setting. cc-discuss non-va mri report/formulate future rx plan (seeking 2nd opinion from neurosurg). exam-mri lumbar spine. pt brought his mri lumbar spine report (ordered by dr shade laguerre) and cd. date of service-12/13/2023. clinical information-low back w/ sciatica-unspecified site. imp-multilevel spondylosis resulting in grade 1 anterolisthesis L4-5 with central spinal canal and bilateral neuroforamina stenosis compressing the neural elements both thecal sac and the exiting nerve roots. ------- pt subsequently seen by neurosurg (dr vick-in [facility]),who advised him to have surgery.pt seemingly reluctant to have surgery done. non-va neurosurg progress note not available at this time. imp-chr lbp (grade 1 anterolisthesis L4-5) plan-ref to neurosurg (for 2nd opinion). rtc-11/2024.labs prior. Return to Clinic: No new return to clinic order needed. Will keep the future appointment/recall date. FIRM 1 On the date of the encounter, I spent - minutes on some or all of the following: chart review, history, physical examination, treatment planning, education and counseling of the patient/family/caregiver, placing orders, communicating with other healthcare providers, and documentation in the electronic health record. Influenza Immunization: Deferral / Refusal The patient declines to receive the recommended dose of seasonal influenza vaccine. Immunization: INFLUENZA, UNSPECIFIED FORMULATION Refusal Reason: PATIENT DECISION Patient refuses all immunization(s) in the FLU group Date Documented: 02/08/24 11:33 Pneumococcal Conjugate Vaccine (PCV15/PCV20): Refuses PCV vaccine Immunization: PNEUMOCOCCAL CONJUGATE, UNSPECIFIED FORMULATION Refusal Reason: PATIENT DECISION Patient refuses all immunization(s) in the PneumoPCV group Date Documented: 02/08/24 11:34 Tdap Immunization: The patient declines to receive the recommended dose of Tdap vaccine. Immunization: TDAP Refusal Reason: PATIENT DECISION Patient refuses all immunization(s) in the TDAP group Date Documented: 02/08/24 11:34 Medication Reconciliation: Outpatient: Has the patient been taking medications as documented in the EMLR? YES: The patient has been taking medications as documented in the EMLR. Essential Medication List for Review used to complete this medication reconciliation. INCLUDED IN THIS LIST: Alphabetical list of active outpatient prescriptions dispensed from this [facility] (local) and dispensed from another [place] or DoD facility (remote) as well as [...] whether with a VA or non-VA provider. COVID-19 Immunization: /es/ washington goodman md career development counselor Signed: 02/08/2024 11:39 WASHINGTON GOODMAN
--- OUTSIDE RECORDS SUMMARY | 2024-04-10 16:44 | XMS_ITS | Encounter Summary ---
Author Name [facility] [place] [facility] [place] Address [address] [place] [address] Care Team Providers Care Education Research Analyst Name Role Phone JESSICA GOODMAN Primary Care [...] BASIC SELF+ ONE Feb 22, 2020 113 [id number] [phone] KIMI LINGSUHAIL PATIENT ISAAC BCZEB CT FEDERAL PREFERRED PROVIDER ORGANIZAT ION (PPO) BASIC SELF Feb 27, 2005 111 [id number] [phone] SUHAIL BOLDEN SR PATIENT BCBS JESSICA FEP PREFERRED PROVIDER ORGANIZAT ION (PPO) PSHB BAS SELF PLUS 1 Feb 22, 2024 33C [id number] [phone] LEONIDAS BOLDEN PATIENT BCBS [place] FEP PREFERRED PROVIDER ORGANIZAT ION (PPO) BASIC INDIV IDUAL Feb 27, 2005 111 [id number] [phone] SUHAIL BOLDEN SR PATIENT [employer] FEPRX PLAN PRESCRIPT CURTIS LIMA FEPRX Feb 21, 2010 [id number] SUHAIL BOLDEN SR PATIENT Selected Encounter This section includes the information on record at [place] for the Encounter. Date/Time Encounter Type Encounter Description Reason Provider Source Mar 05, 2024 11:30 AM OFF/OP CNSLTJ NEW/EST MOD 40 NEUROSURGERY ICD-10-CM M48.062 Spinal stenosis, lumbar region with neurogenic claudication KATJA FERGUSON IHE Encounter Template Text not used by [place] Assessments - Encounter Diagnoses This section includes the primary and secondary diagnoses documented for the Encounter. Date/Time Primary/Secondary Diagnosis Diagnosis Name Provider Source Mar 05, 2024 12:03 PM PRIMARY Spinal stenosis, lumbar region with neurogenic claudication OTIS MADISON [facility] Plan of Treatment: Future Appointments (+ 6 months) and Future Tests (+/- 45 days) The Plan of Treatment section includes future care activities for the patient from all [place] treatmentfacilities. This section includes future appointments and future orders which are active, pending or scheduled. Future Appointments This section includes appointments that were scheduled to occur 6 months from the date of the Encounter, up to a maximum of 20 appointments. The data comes from all [place] treatment facilities. Appointment Date/Time Appointment Type Appointme nt Facility Name Mar 23, 2024 01:30 PM AMBULATORY - REHAB [facility] Aug 28, 2024 01:00 PM AMBULATORY - SURGERY [facility] Advance Directives: All historical and current Section Date Range: From patient's date of to the date document was created. This section includes ALL of a patient's completed or amended [place] Advance and Rescinded Directives. The entries below indicate that a directive exists for the patient, but an actual copy is not included with this document. The data comes from all [place] facilities. Date Advance Directives Provider Source Nov 01, 2017 ADVANCE DIRECTIVE CHIKA RICHARDSON [facility] Encounter Notes: All associated encounter notes This section contains the clinical notes associated to the Encounter. Date/Time Encounter Note(s) Provider Source Mar 05, 2024 11:51 AM NEUROSURGERY CONSU LT: LOCAL TITLE: NEUROSURGERY CONSULT STANDARD TITLE: NEUROSURGERY CONSULT DATE OF NOTE: MAR 05, 2024@11:51 ENTRY DATE: MAR 05, 2024@11:51:22 AUTHOR: GENNARO MADISON EXP COSIGNER: RENATA FERGUSON URGENCY: STATUS: COMPLETED NEUROSURGERY CONSULT Has ADDENDA NEUROSURGERY CLINIC CONSULT HPI: This is a 68yo gentleman with HLD, diverticulosis, prediabetes who is referred to Neurosurgery specialty clinic for evaluation of low back and BLE pain. He reports longstanding history of low back pain, however in the last 6 months or so he has started to developed BLE numbness, worse on the left. The numbness is mostly in the posterior aspect of his legs running down. It is relieved with bending forward and sitting down. He also endorses left 5th digit pain. He has low back pain that radiates into his buttocks. He has tried PT and is reluctant to continue hospice care consultant but has not had any KAVITHA. OSH MRI shows L4 on L5 grade I anterolisthesis with resultant severe canal stenosis at L4-5. He was reportedly offered surgery at OSH but presents to our clinic for second opinion. PAST MEDICAL HISTORY: Code Description M54.5 Backache ([facility] [id number]) H90.3 Hearing loss ([facility] [id number]) E78.5 Hyperlipidemia ([facility] [id number]) B35.3 Tinea pedis ([facility] [id number]) Z86.010 History of colonic polyp ([facility] [id number]) H93.13 Tinnitus ([facility] [id number]) M54.51 Low back pain ([facility] [id number]) PAST SURGICAL HISTORY: left inguinal hernia repair,circumcision,s/p tkr-right.s/p colonoscopy/polypectomy-2010. s/p glass injury-left ant wrist.s/p right ct release~06/2022.s/p right hydrocelectomy MEDICATIONS: Active Outpatient Medications (excluding Supplies): Active Outpatient Medications Status 1) IBUPROFEN 800MG TAB TAKE ONE TABLET BY MOUTH EVERY 8 HOURS ACTIVE NEEDED Indication: FOR PAIN Active Non-VA Medications Status 1) Non-VA ATORVASTATIN CALCIUM 40MG TAB 20MG MOUTH EVERY ACTIVE EVENING Indication: FOR HIGH CHOLESTEROL 2) Non-VA CHOLECALCIF 25MCG (D3-1,000UNIT) TAB 50MCG MOUTH ACTIVE EVERY MORNING Indication: FOR VITAMIN D SUPPLEMENTATION 3) Non-VA LIDOCAINE 5% PATCH 1 PATCH SKIN ONCE DAILY ACTIVE Indication: FOR PAIN 4 Total Medications ALLERGIES: ATORVASTATIN SOCIAL HISTORY: emote cig smoker-quit over 30 years ago (less than 5 pack years).occaisonal alcohol use. IMAGING: OSH MRI shows L4 on L5 grade I anterolisthesis with resultant severe canal stenosis at L4-5 PHYSICAL EXAM: Awake, no apparent distress Alert and oriented x3 R/L SA (C5) 5/5 R/L EF (C6) 5/5 R/L EE (C7) 5/5 R/L FG (C8) 5/5 Negative Reddy Brachioradialis reflex 2+/2+ SILT R/L HF (L2) 5/5 R/L KE (L3) 5/5 R/L DF (L4) 5/5 R/L EHL (L5) 5/5 R/L PF (S1) 5/5 Patellar Reflex 2+/2+ Sentation to light touch intact No ankle clonus noted ASSESSMENT: 68M presenting with neurogenic claudication in setting of L4-5 spinal stenosis. He was offered surgery at OSH but seeks second opinion. MRi does show severe stenosis at L4-5 however his primary complaint is numbness instead of pain and he is functional in ADLs. Other than PT he has not tried more nonsurgical therapy. Feel it is reasonable for him to trial nonsurgical management to see if he improves. PLAN: - Reasonable to trial nonsurgical management, to include PT, aquatherapy, interventional pain consult for possible epidural steroid injections, TENS unit, NSAIDs, neuropathic pain medications Discussed with Dr. Ferguson /macho/ Gennaro Madison MD Neurosurgery Resident, PGY-3 Signed: 03/05/2024 12:03 /macho/ RENATA FERGUSON Neurosurgeon Cosigned: 03/07/2024 14:28 03/07/2024 ADDENDUM STATUS: COMPLETED Patient seen and examined by me. Patient comes in for second opinion from quite a distance. Patient presents with mostly numbness and low back pain. He has undergone conservative measures. He denies any weakness. On examination he is neurologically intact. MRI shows the evidence of a grade 1 spondylolisthesis at the L4-5 junction with significant lateral recess and central canal stenosis that appears to be chronic in nature. I had a nice discussion with the patient. He is nervous about surgery and for this reason I recommend that he considers conservative measures including physical therapy and evaluation by pain management services as well as acupuncture and massage. He will follow-up with his surgeon in the event that surgery is entertained. /macho/ RENATA FERGUSON Neurosurgeon Signed: 03/07/2024 14:[address] [facility]
--- OUTSIDE RECORDS SUMMARY | 2024-04-10 16:44 | XMS_ITS ---
Author Organization [facility] Address [address] [place] [phone] Care Team Providers Care Color Television Console Monitor Name Role Phone Ke Mcelroy Primary Care Provider Unavailab Ankur Chavez Jr REASON FOR VISIT pathology Encounters Encounter Location Date Provider Diagnosis [facility] [address] [place] [phone] 02/07/2024 Ankur Rodriguez Jr PLAN OF TREATMENT No Information
--- OUTSIDE RECORDS SUMMARY | 2024-04-10 16:45 | XMS_ITS | Patient Health Record ---
Author Organization [facility] Address [address] [place] [phone] Care Team Providers Care Fence Installer Helper Name Role Phone Ke Mcelroy Primary Care Provider Ankur Hutchinson Jr Unavailable ALLERGIES No Known Allergies RESULTS Component Value Reference Range Notes Pathology Reviewed date:02/07/2024 03:58:03 PM Interpretation: Performing Lab:[facility], [address] [place] [id number] Notes/Report: REASON FOR REFERRAL No Information MEDICATIONS Medication [...] Problem Colon cancer screening (Z12.11) Active confirmed [id number] Problem Rectal bleeding (K62.5) Active confirmed 34864252 Problem Diverticulosis of colon without hemorrhage (K57.30) Active confirmed 111434920 Problem Hemorrhoids, unspecified hemorrhoid type (K64.9) Active confirmed 75423839 VITAL SIGNS Temperature 97.5 degrees Fahrenheit 01/23/2024 Blood pressure diastolic 00 mm Hg 01/23/2024 Height 68 in 01/23/2024 Blood pressure systolic 000 mm Hg 01/23/2024 Weight 191 lb 4 oz lbs 01/23/2024 BMI 29.08 kg/m2 01/23/2024 Encounters Encounter Location Date Provider Diagnosis [facility] Outpatient [address] [place], [place] [phone] 02/01/2024 Ankur Rodriguez Jr Colon cancer screening Z12.11 ; Personal history of colonic polyps Z86.0100 and Colon polyps K63.5 [facility] [address] [place] [phone] 01/23/2024 Ankur Rodriguez Jr Colon cancer screening Z12.11 and Hemorrhoids, unspecified hemorrhoid type K64.9 [facility] [address] [place] [phone] 12/01/2023 Ankur Rodriguez Jr [facility] [address] [place] [phone] 01/05/2024 Ankur Rodriguez Jr [facility] [address] [place] [phone] 01/31/2024 Ankur Rodriguez Jr [facility] [address] [place] [phone] 02/07/2024 Ankur Rodriguez Jr ASSESSMENTS Encounter Date Diagnosis [...] Insured Coverage Start Date Coverage End Date [facility] [id number] [place], [place] [id number] [phone] [id number] KE BOLDEN Self - patient is the insured MEDICAL (GENERAL) HISTORY Medical History History ICD Code Colonoscopy 08/06, diverticul osis, five-year followup for personal history of adenomatous Back pain Degenerative joint disease Hyperlipidemia BPH Prediabetes Surgical History Surgery Date(Month/Year) knee surgery Carpal total repair, right
--- OUTSIDE RECORDS SUMMARY | 2024-04-10 16:45 | XMS_ITS | Continuity of Care Document ---
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 It does not include entries that were removed or entered in error. Problem Status Onset Date Problem Type Date of Resolution Comments Source Backache Active Condition [facility] Backache (SNOMED CT 009981218) Active Condition [place] Colonic Polyps (ICD-9-CM 211.3) Active Condition [facility] Diverticulosis, Colonic * (ICD-9-CM 562.10) Active Condition [facility] Hearing loss Active Condition [place] History of colonic polyp Active Condition [place] Hyperlipidemia Active Condition [facility] ON Hyperlipidemia (SNOMED CT 35763306) Active Condition [place] Low back pain Active Condition [facility] Osteoarthritis * (ICD-9-CM 715.90) Active [facility] Osteopenia Active [facility] [place] [facility] PMD Dr. Weaver Active Condition [facility] LD Prediabetes (SNOMED CT 293843585) Active Condition July 16, 2010 Entered By: AUDREY HANEY Comment: 2008 + polyp repeat 5 yrsFeb 2011 Entered By: AUDREY HANEY Comment: 10/2010 colonoscopy + polyps [place] Tinea pedis Active Condition [facility] Tinnitus Active Condition [place] Tinnitus * (ICD-9-CM 388.30) Active Condition 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 Diagnosis [place] Diagnosis: ICD-10-CM M48.062 Spinal stenosis, lumbar region with neurogenic claudication Active Diagnosis [facility] Diagnosis: ICD-10-CM M54.50 Low back pain, unspecified Active Diagnosis [place] Diagnosis: ICD-10-CM H40.013 Open angle with borderline findings, low risk, bilateral Active Diagnosis [place] Diagnosis: ICD-10-CM H90.3 Sensorineural hearing loss, bilateral Active Diagnosis [facility] Medications Combined list of outpatient medications from [...] HOURS NEEDED FOR PAIN ORAL ACTIVE 01/03/2025 [id number] ZOLTAN GOODMAN 2023 21 [place] IBUPROFEN 800MG TAB TAKE ONE TABLET BY MOUTH EVERY 8 HOURS NEEDED FOR PAIN ORAL DISCONT INUED 10/06/2023 [id number] 4 LISA CAMPOS 2023 21 [place] LIDOCAINE 5% PATCH APPLY 2 PATCHES TO SKIN ONCE DAILY FOR PAIN *APPLY BY PRESSING FIRMLY 10-15 SECONDS( KEEP ON UP TO 12HOURS and REMOVE FOR 12HOURS) TRANSD ERMAL 10/06/2023 [id number] 4 LISA CAMPOS 2023 30 [place] ON [...] adverse reactions to drug (finding) active 2 [facility] Immunizations Combined list of available immunizations from the Department of Defense and Veterans Affairs facilities. 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 Ordering Provider: MARLENY GOODMAN Report Released Date/Time: Dec 20, 2022 01:42 PM Reporting Lab: [address] [address] Performing Lab: [address] [phone] [place] [address] URINE ALBUMIN, SPOT PROFILE CREATININE [MASS/VOLU ME] IN URINE 128.7 mg/dL 20.0 12/11 Specimen Type: URINE No comment entered. Ordering Provider: MARLENY GOODMAN Report Released Date/Time: Dec 20, 2022 01:42 PM Reporting Lab: [address] [address] Performing Lab: [address] [phone] [place] [address] URINALYS IS,ROUTI NE/ADMIS LETY COLOR OF URINE Light-Ye llow 12/11 Specimen Type: URINE No comment entered. Ordering Provider: MARLENY GOODMAN Report Released Date/Time: Dec 20, 2022 01:42 PM Reporting Lab: [address] [address] Performing Lab: [address] [phone] [place] [address] URINALYS IS,ROUTI NE/ADMIS LETY SPECIFIC GRAVITY OF URINE 1.020 1.001 - 1.035 12/11 Specimen Type: URINE No comment entered. Ordering Provider: MARLENY GOODMAN Report Released Date/Time: Dec 20, 2022 01:42 PM Reporting Lab: [place] [address] Performing Lab: [address] URINALYS IS,ROUTI NE/ADMIS LETY UROBILINOG EN [UNITS/VOL UME] IN URINE NORMALmg /dL 12/11 Specimen Type: URINE No comment entered. Ordering Provider: MARLENY GOODMAN Elidia Report Released Date/Time: Dec 20, 2022 01:42 PM Reporting Lab: [place] [address] Performing Lab: [address] URINALYS IS,ROUTI NE/ADMIS LETY BILIRUBIN. TOTAL [PRESENCE] IN URINE BY TEST STRIP NEGATIVE 12/11 Specimen Type: URINE No comment entered. Ordering Provider: MARLENY GOODMAN Report Released Date/Time: Dec 20, 2022 01:42 PM Reporting Lab: [place] [address] Performing Lab: [address] URINALYS IS,ROUTI NE/ADMIS LETY KETONES [PRESENCE] IN URINE NEGATIVE 12/11 Specimen Type: URINE No comment entered. Ordering Provider: MARLENY GOODMAN Report Released Date/Time: Dec 20, 2022 01:42 PM Reporting Lab: [place] [address] Performing Lab: [address] URINALYS IS,ROUTI NE/ADMIS LETY GLUCOSE [PRESENCE] IN URINE BY TEST STRIP NEGATIVE 12/11 Specimen Type: URINE No comment entered. Ordering Provider: MARLENY GOODMAN Report Released Date/Time: Dec 20, 2022 01:42 PM Reporting Lab: [place] [address] Performing Lab: [address] URINALYS IS,ROUTI NE/ADMIS LETY PROTEIN [MASS/VOLU ME] IN URINE BY TEST STRIP NEGATIVE 12/11 Specimen Type: URINE No comment entered. Ordering Provider: MARLENY GOODMAN Report Released Date/Time: Dec 20, 2022 01:42 PM Reporting Lab: [place] [address] Performing Lab: [address] URINALYS IS,ROUTI NE/ADMIS LETY PH OF BODY FLUID 5.5 [pH] 5.0 - 8.0 12/11 Specimen Type: URINE No comment entered. Ordering Provider: MARLENY GOODMAN Elidia Report Released Date/Time: Dec 20, 2022 01:42 PM Reporting Lab: [place] [address] Performing Lab: [address] URINALYS IS,ROUTI NE/ADMIS LETY APPEARANCE OF URINE Clear 12/11 Specimen Type: URINE No comment entered. Ordering Provider: MARLENY GOODMAN Report Released Date/Time: Dec 20, 2022 01:42 PM Reporting Lab: [place] [address] Performing Lab: [address] URINALYS IS,ROUTI NE/ADMIS LETY HEMOGLOBIN [PRESENCE] IN URINE BY TEST STRIP NEGATIVE 12/11 Specimen Type: URINE No comment entered. Ordering Provider: MARLENY GOODMAN Report Released Date/Time: Dec 20, 2022 01:42 PM Reporting Lab: [place] [address] Performing Lab: [address] URINALYS IS,ROUTI NE/ADMIS LETY NITRITE [PRESENCE] IN URINE BY TEST STRIP NEGATIVE 12/11 Specimen Type: URINE No comment entered. Ordering Provider: MARLENY GOODMAN Report Released Date/Time: Dec 20, 2022 01:42 PM Reporting Lab: [place] [address] Performing Lab: [address] URINALYS IS,ROUTI NE/ADMIS LETY LEUKOCYTE ESTERASE [PRESENCE] IN URINE BY TEST STRIP NEGATIVE 12/11 Specimen Type: URINE No comment entered. Ordering Provider: MARLENY GOODMAN Report Released Date/Time: Dec 20, 2022 01:42 PM Reporting Lab: [address] [address] Performing Lab: [address] [address] [place] HEPATITI S C Ab HEPATITIS C VIRUS [...] Dec 20, 2022 01:42 PM Reporting Lab: [address] [address] Performing Lab: [address] [address] [place] HEP B SURF AB HEPATITIS B VIRUS [...] diagnostic information . Ordering Provider: MARLENY GOODMAN Elidia Report Released Date/Time: Dec 20, 2022 01:42 PM Reporting Lab: [address] [address] Performing Lab: [address] [address] [place] HIV AB/ P24 AG COMBO(HI V SCREEN) [...] Dec 20, 2022 01:42 PM Reporting Lab: [facility] [address] [facility] [address] Performing Lab: [facility] [address] [facility] [address] [employer] CHEM 7 CREATININE [MASS/VOLU ME] IN SERUM OR PLASMA 0.75 mg/dL 0.5 - 1.5 12/11 Specimen Type: SERUM Comment: 5.7 - 6.4% Prediabetes >= 6.5% Diabetic range. If the patient has not yet been diagnosed with T2DM, see [place]/[facility] Clinical Practice Guideline for Management of T2DM (dated 05/2016) for more guidance. For patients already diagnosed with T2DM, target HbA1c values should be individuali zed using a Shared Decision-[place] process. Ref: https://www .healthqual ity.wa.gov/ guidelines/ CD/diabetes / Values obtained from A1C measurement s can vary. For typical A1C assays, a reported value of 7.0 could actually be between 6.72 and 7.28 if measured by a reference method. A reported value of 9.0 could actually be between 8.73 and 9.27. Ref: [email or web address] Ordering Provider: MARLENY GOODMAN Report Released Date/Time: Dec 20, 2022 01:42 PM Reporting Lab: [place] [address] [facility] [address] Performing Lab: [place] [address] [facility] [address] [employer] CHEM 7 UREA NITROGEN [MASS/VOLU ME] IN SERUM OR PLASMA 8 mg/dL 7 - 25 12/11 Specimen Type: SERUM Comment: 5.7 - 6.4% Prediabetes >= 6.5% Diabetic range. If the patient has not yet been diagnosed with T2DM, see [place]/[facility] Clinical Practice Guideline for Management of T2DM (dated 05/2016) for more guidance. For patients already diagnosed with T2DM, target HbA1c values should be individuali zed using a Shared Decision-[place] process. Ref: https://www .healthqual ity.wa.gov/ guidelines/ CD/diabetes / Values obtained from A1C measurement s can vary. For typical A1C assays, a reported value of 7.0 could actually be between 6.72 and 7.28 if measured by a reference method. A reported value of 9.0 could actually be between 8.73 and 9.27. Ref: [email or web address] Ordering Provider: MARLENY GOODMAN Report Released Date/Time: Dec 20, 2022 01:42 PM Reporting Lab: [address] [address] Performing Lab: [address] [address] [employer] CHEM 7 GLUCOSE [MASS/VOLU ME] IN SERUM OR PLASMA 115 mg/dL 65 - 100 12/11 H Specimen Type: SERUM Comment: 5.7 - 6.4% Prediabetes >= 6.5% Diabetic range. If the patient has not yet been diagnosed with T2DM, see [place]/[facility] Clinical Practice Guideline for Management of T2DM (dated 05/2016) for more guidance. For patients already diagnosed with T2DM, target HbA1c values should be individuali zed using a Shared Decision-[place] process. Ref: https://www .healthqual ity.wa.gov/ guidelines/ CD/diabetes / Values obtained from A1C measurement s can vary. For typical A1C assays, a reported value of 7.0 could actually be between 6.72 and 7.28 if measured by a reference method. A reported value of 9.0 could actually be between 8.73 and 9.27. Ref: [email or web address] Ordering Provider: MRALENY GOODMAN Report Released Date/Time: Dec 20, 2022 01:42 PM Reporting Lab: [address] [address] Performing Lab: [address] [address] [employer] CHEM 7 SODIUM [MOLES/VOL UME] IN SERUM OR PLASMA 141 mmol/L 135 - 145 12/11 Specimen Type: SERUM Comment: 5.7 - 6.4% Prediabetes >= 6.5% Diabetic range. If the patient has not yet been diagnosed with T2DM, see [place]/[facility] Clinical Practice Guideline for Management of T2DM (dated 05/2016) for more guidance. For patients already diagnosed with T2DM, target HbA1c values should be individuali zed using a Shared Decision-[place] process. Ref: https://www .[facility] ity.wa.gov/ guidelines/ CD/diabetes / Values obtained from A1C measurement s can vary. For typical A1C assays, a reported value of 7.0 could actually be between 6.72 and 7.28 if measured by a reference method. A reported value of 9.0 could actually be between 8.73 and 9.27. Ref: [email or web address] Ordering Provider: MARLENY GOODMAN Report Released Date/Time: Dec 20, 2022 01:42 PM Reporting Lab: [address] [address] Performing Lab: [address] [address] [employer] CHEM 7 POTASSIUM [MOLES/VOL UME] IN SERUM OR PLASMA 4.3 mmol/L 3.5 - 5.0 12/11 Specimen Type: SERUM Comment: 5.7 - 6.4% Prediabetes >= 6.5% Diabetic range. If the patient has not yet been diagnosed with T2DM, see [place]/[facility] Clinical Practice Guideline for Management of T2DM (dated 05/2016) for more guidance. For patients already diagnosed with T2DM, target HbA1c values should be individuali zed using a Shared Decision-[place] process. Ref: https://www .[facility] ity.wa.gov/ guidelines/ CD/diabetes / Values obtained from A1C measurement s can vary. For typical A1C assays, a reported value of 7.0 could actually be between 6.72 and 7.28 if measured by a reference method. A reported value of 9.0 could actually be between 8.73 and 9.27. Ref: [email or web address] Ordering Provider: MARLENY GOODMAN Report Released Date/Time: Dec 20, 2022 01:42 PM Reporting Lab: [address] [address] Performing Lab: [address] [address] [employer] CHEM 7 CHLORIDE [MOLES/VOL UME] IN SERUM OR PLASMA 110 mmol/L 100 - 110 12/11 Specimen Type: SERUM Comment: 5.7 - 6.4% Prediabetes >= 6.5% Diabetic range. If the patient has not yet been diagnosed with T2DM, see [place]/[facility] Clinical Practice Guideline for Management of T2DM (dated 05/2016) for more guidance. For patients already diagnosed with T2DM, target HbA1c values should be individuali zed using a Shared Decision-[place] process. Ref: https://www .healthqual ity.wa.gov/ guidelines/ CD/diabetes / Values obtained from A1C measurement s can vary. For typical A1C assays, a reported value of 7.0 could actually be between 6.72 and 7.28 if measured by a reference method. A reported value of 9.0 could actually be between 8.73 and 9.27. Ref: [email or web address] Ordering Provider: MARLENY GOODMAN Report Released Date/Time: Dec 20, 2022 01:42 PM Reporting Lab: [address] [address] Performing Lab: [address] [address] [place] CHEM 7 CARBON DIOXIDE, TOTAL [MOLES/VOL UME] IN SERUM OR PLASMA 24 meq/L 20 - 30 12/11 Specimen Type: SERUM Comment: 5.7 - 6.4% Prediabetes >= 6.5% Diabetic range. If the patient has not yet been diagnosed with T2DM, see [place]/[facility] Clinical Practice Guideline for Management of T2DM (dated 05/2016) for more guidance. For patients already diagnosed with T2DM, target HbA1c values should be individuali zed using a Shared Decision-[place] process. Ref: https://www .healthqual ity.wa.gov/ guidelines/ CD/diabetes / Values obtained from A1C measurement s can vary. For typical A1C assays, a reported value of 7.0 could actually be between 6.72 and 7.28 if measured by a reference method. A reported value of 9.0 could actually be between 8.73 and 9.27. Ref: [email or web address] Ordering Provider: MARLENY GOODMAN Report Released Date/Time: Dec 20, 2022 01:42 PM Reporting Lab: [address] [address] Performing Lab: [address] [address] [employer] CHEM 7 ANION GAP IN SERUM OR PLASMA 7 meq/L 6 - 16 12/11 Specimen Type: SERUM Comment: 5.7 - 6.4% Prediabetes >= 6.5% Diabetic range. If the patient has not yet been diagnosed with T2DM, see [place]/[facility] Clinical Practice Guideline for Management of T2DM (dated 05/2016) for more guidance. For patients already diagnosed with T2DM, target HbA1c values should be individuali zed using a Shared Decision-[place] process. Ref: https://www .[employer] ity.wa.gov/ guidelines/ CD/diabetes / Values obtained from A1C measurement s can vary. For typical A1C assays, a reported value of 7.0 could actually be between 6.72 and 7.28 if measured by a reference method. A reported value of 9.0 could actually be between 8.73 and 9.27. Ref: [email or web address] Ordering Provider: MARLENY GOODMAN Report Released Date/Time: Dec 20, 2022 01:42 PM Reporting Lab: [address] [address] Performing Lab: [address] [address] [employer] CHEM 7 GLOMERULAR FILTRATION RATE/1.73 SQ M.PREDICTE D [VOLUME RATE/AREA] IN SERUM, PLASMA OR BLOOD BY CREATININE -BASED FORMULA (CKD-EPI 2020) >90mL/mi n 60 12/11 Specimen Type: SERUM Comment: 5.7 - 6.4% Prediabetes >= 6.5% Diabetic range. If the patient has not yet been diagnosed with T2DM, see [place]/[facility] Clinical Practice Guideline for Management of T2DM (dated 05/2016) for more guidance. For patients already diagnosed with T2DM, target HbA1c values should be individuali zed using a Shared Decision-[place] process. Ref: https://www .[employer] ity.wa.gov/ guidelines/ CD/diabetes / Values obtained from A1C measurement s can vary. For typical A1C assays, a reported value of 7.0 could actually be between 6.72 and 7.28 if measured by a reference method. A reported value of 9.0 could actually be between 8.73 and 9.27. Ref: [email or web address] Ordering Provider: MARLENY GOODMAN Report Released Date/Time: Dec 20, 2022 01:42 PM Reporting Lab: [address] [address] Performing Lab: [address] [address] [place] LIVER PROFILE ALBUMIN [MASS/VOLU ME] IN SERUM OR PLASMA 3.7 g/dL 3.5 - 5.0 12/11 Specimen Type: SERUM Comment: 5.7 - 6.4% Prediabetes >= 6.5% Diabetic range. If the patient has not yet been diagnosed with T2DM, see [place]/[facility] Clinical Practice Guideline for Management of T2DM (dated 05/2016) for more guidance. For patients already diagnosed with T2DM, target HbA1c values should be individuali zed using a Shared Decision-[place] process. Ref: https://www .healthqual ity.wa.gov/ guidelines/ CD/diabetes / Values obtained from A1C measurement s can vary. For typical A1C assays, a reported value of 7.0 could actually be between 6.72 and 7.28 if measured by a reference method. A reported value of 9.0 could actually be between 8.73 and 9.27. Ref: [email or web address] Ordering Provider: MARLENY GOODMAN Report Released Date/Time: Dec 20, 2022 01:42 PM Reporting Lab: [address] [address] Performing Lab: [address] [address] [place] LIVER PROFILE BILIRUBIN. TOTAL [MASS/VOLU ME] IN SERUM OR PLASMA 1.0 mg/dL 0.2 - 1.2 12/11 Specimen Type: SERUM Comment: 5.7 - 6.4% Prediabetes >= 6.5% Diabetic range. If the patient has not yet been diagnosed with T2DM, see [place]/[facility] Clinical Practice Guideline for Management of T2DM (dated 05/2016) for more guidance. For patients already diagnosed with T2DM, target HbA1c values should be individuali zed using a Shared Decision-[place] process. Ref: https://www .[facility] ity.wa.gov/ guidelines/ CD/diabetes / Values obtained from A1C measurement s can vary. For typical A1C assays, a reported value of 7.0 could actually be between 6.72 and 7.28 if measured by a reference method. A reported value of 9.0 could actually be between 8.73 and 9.27. Ref: [email or web address] Ordering Provider: MARLENY GOODMAN Report Released Date/Time: Dec 20, 2022 01:42 PM Reporting Lab: [address] [address] Performing Lab: [address] [address] [place] LIVER PROFILE BILIRUBIN. DIRECT [MASS/VOLU ME] IN SERUM OR PLASMA 0.4 mg/dL 0.0 - 0.5 12/11 Specimen Type: SERUM Comment: 5.7 - 6.4% Prediabetes >= 6.5% Diabetic range. If the patient has not yet been diagnosed with T2DM, see [place]/[facility] Clinical Practice Guideline for Management of T2DM (dated 05/2016) for more guidance. For patients already diagnosed with T2DM, target HbA1c values should be individuali zed using a Shared Decision-[place] process. Ref: https://www .[facility] ity.wa.gov/ guidelines/ CD/diabetes / Values obtained from A1C measurement s can vary. For typical A1C assays, a reported value of 7.0 could actually be between 6.72 and 7.28 if measured by a reference method. A reported value of 9.0 could actually be between 8.73 and 9.27. Ref: [email or web address] Ordering Provider: MARLENY GOODMAN Report Released Date/Time: Dec 20, 2022 01:42 PM Reporting Lab: [address] [address] Performing Lab: [address] [address] [place] LIVER PROFILE ALKALINE PHOSPHATAS E [ENZYMATIC ACTIVITY/V OLUME] IN SERUM OR PLASMA 67 U/L 40 - 150 12/11 Specimen Type: SERUM Comment: 5.7 - 6.4% Prediabetes >= 6.5% Diabetic range. If the patient has not yet been diagnosed with T2DM, see [place]/[facility] Clinical Practice Guideline for Management of T2DM (dated 05/2016) for more guidance. For patients already diagnosed with T2DM, target HbA1c values should be individuali zed using a Shared Decision-[place] process. Ref: https://www .[facility] ity.wa.gov/ guidelines/ CD/diabetes / Values obtained from A1C measurement s can vary. For typical A1C assays, a reported value of 7.0 could actually be between 6.72 and 7.28 if measured by a reference method. A reported value of 9.0 could actually be between 8.73 and 9.27. Ref: [email or web address] Ordering Provider: MARLENY GOODMAN Report Released Date/Time: Dec 20, 2022 01:42 PM Reporting Lab: [address] [address] Performing Lab: [address] [phone] [place] [address] LIVER PROFILE ALANINE AMINOTRANS FERASE [ENZYMATIC ACTIVITY/V OLUME] IN SERUM OR PLASMA 34 U/L 7 - 52 12/11 Specimen Type: SERUM Comment: 5.7 - 6.4% Prediabetes >= 6.5% Diabetic range. If the patient has not yet been diagnosed with T2DM, see [place]/[facility] Clinical Practice Guideline for Management of T2DM (dated 05/2016) for more guidance. For patients already diagnosed with T2DM, target HbA1c values should be individuali zed using a Shared Decision-[place] process. Ref: https://www .[facility] ity.wa.gov/ guidelines/ CD/diabetes / Values obtained from A1C measurement s can vary. For typical A1C assays, a reported value of 7.0 could actually be between 6.72 and 7.28 if measured by a reference method. A reported value of 9.0 could actually be between 8.73 and 9.27. Ref: [email or web address] Ordering Provider: MARLENY GOODMAN Report Released Date/Time: Dec 20, 2022 01:42 PM Reporting Lab: [address] [address] Performing Lab: [address] [address] [facility] LIVER PROFILE ASPARTATE AMINOTRANS FERASE [ENZYMATIC ACTIVITY/V OLUME] IN SERUM OR PLASMA 25 U/L 5 - 40 12/11 Specimen Type: SERUM Comment: 5.7 - 6.4% Prediabetes >= 6.5% Diabetic range. If the patient has not yet been diagnosed with T2DM, see [place]/[facility] Clinical Practice Guideline for Management of T2DM (dated 05/2016) for more guidance. For patients already diagnosed with T2DM, target HbA1c values should be individuali zed using a Shared Decision-[place] process. Ref: https://www .healthqual ity.wa.gov/ guidelines/ CD/diabetes / Values obtained from A1C measurement s can vary. For typical A1C assays, a reported value of 7.0 could actually be between 6.72 and 7.28 if measured by a reference method. A reported value of 9.0 could actually be between 8.73 and 9.27. Ref: [email or web address] Ordering Provider: MARLENY GOODMAN Report Released Date/Time: Dec 20, 2022 01:42 PM Reporting Lab: [address] [address] Performing Lab: [address] [address] [place] LIPOPROT EIN PROFILE CHOLESTERO L [MASS/VOLU ME] IN SERUM OR PLASMA 128 mg/dL 0 - 199 12/11 Specimen Type: SERUM Comment: 5.7 - 6.4% Prediabetes >= 6.5% Diabetic range. If the patient has not yet been diagnosed with T2DM, see [place]/[facility] Clinical Practice Guideline for Management of T2DM (dated 05/2016) for more guidance. For patients already diagnosed with T2DM, target HbA1c values should be individuali zed using a Shared Decision-[place] process. Ref: https://www .healthqual ity.wa.gov/ guidelines/ CD/diabetes / Values obtained from A1C measurement s can vary. For typical A1C assays, a reported value of 7.0 could actually be between 6.72 and 7.28 if measured by a reference method. A reported value of 9.0 could actually be between 8.73 and 9.27. Ref: [email or web address] [email or web address]/CAPda [email or web address] Ordering Provider: MARLENY GOODMAN Report Released Date/Time: Dec 20, 2022 01:42 PM Reporting Lab: [address] [address] Performing Lab: [address] [address] [place] LIPOPROT EIN PROFILE TRIGLYCERI DE [MASS/VOLU ME] IN SERUM OR PLASMA 51 mg/dL 0 - 199 12/11 Specimen Type: SERUM Comment: 5.7 - 6.4% Prediabetes >= 6.5% Diabetic range. If the patient has not yet been diagnosed with T2DM, see [place]/[facility] Clinical Practice Guideline for Management [...] Dec 20, 2022 01:42 PM Reporting Lab: [address] [address] Performing Lab: [address] [address] [place] LIPOPROT EIN PROFILE CHOLESTERO L IN HDL [MASS/VOLU ME] IN SERUM OR PLASMA 45 mg/dL 40 12/11 Specimen Type: SERUM Comment: 5.7 - 6.4% Prediabetes >= 6.5% Diabetic range. If the patient has not yet been diagnosed with T2DM, see [place]/[facility] Clinical Practice Guideline for Management of T2DM (dated 05/2016) for more guidance. For patients already diagnosed with T2DM, target HbA1c values should be individuali zed using a Shared Decision-Ma bayron process. Ref: https://www .healthqual ity.wa.gov/ guidelines/ CD/diabetes / Values obtained from A1C measurement s can vary. For typical A1C assays, a reported value of 7.0 could actually be between 6.72 and 7.28 if measured by a reference method. A reported value of 9.0 could actually be between 8.73 and 9.27. Ref: [email or web address] [email or web address] Ordering Provider: MARLENY GOODMAN Report Released Date/Time: Dec 20, 2022 01:42 PM Reporting Lab: [place] [address] Performing Lab: [address] LIPOPROT EIN PROFILE CHOLESTERO L IN LDL [MASS/VOLU ME] IN SERUM OR PLASMA 73 mg/dL 0 - 129 12/11 Specimen Type: SERUM Comment: 5.7 - 6.4% Prediabetes >= 6.5% Diabetic range. If the patient has not yet been diagnosed with T2DM, see [place]/[facility] Clinical Practice Guideline for Management of T2DM (dated 05/2016) for more guidance. For patients already diagnosed with T2DM, target HbA1c values should be individuali zed using a Shared Decision-Ma bayron process. Ref: https://www .healthqual ity.wa.gov/ guidelines/ CD/diabetes / Values obtained from A1C measurement s can vary. For typical A1C assays, a reported value of 7.0 could actually be between 6.72 and 7.28 if measured by a reference method. A reported value of 9.0 could actually be between 8.73 and 9.27. Ref: [email or web address] [email or web address] Ordering Provider: MARLENY GOODMAN Report Released Date/Time: Dec 20, 2022 01:42 PM Reporting Lab: [address] [address] Performing Lab: [address] [place] [address] CBC W/ AUTO DIFF LEUKOCYTES [#/VOLUME] IN BLOOD BY AUTOMATED COUNT 5.2 10*3/uL 4.5 - 11.0 12/11 Specimen Type: BLOOD No comment entered. Ordering Provider: MARLENY GOODMAN Report Released Date/Time: Dec 20, 2022 01:42 PM Reporting Lab: [address] [address] Performing Lab: [address] [place] [address] CBC W/ AUTO DIFF ERYTHROCYT ES [#/VOLUME] IN BLOOD BY AUTOMATED COUNT 4.70 10*6/uL 4.23 - 5.66 12/11 Specimen Type: BLOOD No comment entered. Ordering Provider: MARLENY GOODMAN Report Released Date/Time: Dec 20, 2022 01:42 PM Reporting Lab: [address] Performing Lab: [address] CBC W/ AUTO DIFF HEMOGLOBIN [MASS/VOLU ME] IN ARTERIAL BLOOD 13.7 g/dL 12.8 - 17.0 12/11 Specimen Type: BLOOD No comment entered. Ordering Provider: MARLENY GOODMAN Report Released Date/Time: Dec 20, 2022 01:42 PM Reporting Lab: [place] [address] Performing Lab: [address] CBC W/ AUTO DIFF HEMATOCRIT [VOLUME FRACTION] OF BLOOD BY AUTOMATED COUNT 42.2 39.2 - 50.4 12/11 Specimen Type: BLOOD No comment entered. Ordering Provider: MARLENY GOODMAN Report Released Date/Time: Dec 20, 2022 01:42 PM Reporting Lab: [address] Performing Lab: [address] CBC W/ AUTO DIFF MCV [ENTITIC VOLUME] BY AUTOMATED COUNT 90 fL 82 - 99 12/11 Specimen Type: BLOOD No comment entered. Ordering Provider: MARLENY GOODMAN Elidia Report Released Date/Time: Dec 20, 2022 01:42 PM Reporting Lab: [place] [address] Performing Lab: [address] CBC W/ AUTO DIFF MCH [ENTITIC MASS] BY AUTOMATED COUNT 29.1 pg 26.2 - 32.6 12/11 Specimen Type: BLOOD No comment entered. Ordering Provider: MARLENY GOODMAN Report Released Date/Time: Dec 20, 2022 01:42 PM Reporting Lab: [address] Performing Lab: [address] CBC W/ AUTO DIFF MCHC [MASS/VOLU ME] BY AUTOMATED COUNT 32.5 g/dL 30.8 - 35.1 12/11 Specimen Type: BLOOD No comment entered. Ordering Provider: MARLENY GOODMAN Report Released Date/Time: Dec 20, 2022 01:42 PM Reporting Lab: [address] Performing Lab: [address] CBC W/ AUTO DIFF PLATELETS [#/VOLUME] IN BLOOD BY AUTOMATED COUNT 221 10*3/uL 140 - 360 12/11 Specimen Type: BLOOD No comment entered. Ordering Provider: MARLENY GOODMAN Report Released Date/Time: Dec 20, 2022 01:42 PM Reporting Lab: [place] [address] Performing Lab: [address] CBC W/ AUTO DIFF PLATELET MEAN VOLUME [ENTITIC VOLUME] IN BLOOD BY AUTOMATED COUNT 10.1 fL 9.2 - 12.4 12/11 Specimen Type: BLOOD No comment entered. Ordering Provider: MARLENY GOODMAN Report Released Date/Time: Dec 20, 2022 01:42 PM Reporting Lab: [address] Performing Lab: [address] CBC W/ AUTO DIFF ERYTHROCYT E DISTRIBUTI ON WIDTH [RATIO] BY AUTOMATED COUNT 13 12 - 16 12/11 Specimen Type: BLOOD No comment entered. Ordering Provider: MARLENY GOODMAN Report Released Date/Time: Dec 20, 2022 01:42 PM Reporting Lab: [address] Performing Lab: [address] CBC W/ AUTO DIFF LYMPHOCYTE S/100 LEUKOCYTES IN BLOOD BY AUTOMATED COUNT 24.3 14.0 - 42.3 12/11 Specimen Type: BLOOD No comment entered. Ordering Provider: MARLENY GOODMAN Elidia Report Released Date/Time: Dec 20, 2022 01:42 PM Reporting Lab: [place] [address] Performing Lab: [address] CBC W/ AUTO DIFF NEUTROPHIL S/100 LEUKOCYTES IN BLOOD BY AUTOMATED COUNT 62.9 43.7 - 75.8 12/11 Specimen Type: BLOOD No comment entered. Ordering Provider: MARLENY GOODMAN Report Released Date/Time: Dec 20, 2022 01:42 PM Reporting Lab: [address] Performing Lab: [address] CBC W/ AUTO DIFF MONOCYTES/ 100 LEUKOCYTES IN BLOOD BY AUTOMATED COUNT 8.0 5.1 - 13.7 12/11 Specimen Type: BLOOD No comment entered. Ordering Provider: MARLENY GOODMAN Report Released Date/Time: Dec 20, 2022 01:42 PM Reporting Lab: [place] [address] Performing Lab: [address] CBC W/ AUTO DIFF EOSINOPHIL S/100 LEUKOCYTES IN BLOOD BY AUTOMATED COUNT 3.6 0.4 - 6.8 12/11 Specimen Type: BLOOD No comment entered. Ordering Provider: MARLENY GOODMAN Report Released Date/Time: Dec 20, 2022 01:42 PM Reporting Lab: [place] [address] Performing Lab: [address] CBC W/ AUTO DIFF BASOPHILS/ 100 LEUKOCYTES IN BLOOD BY AUTOMATED COUNT 1.0 0.1 - 2.0 12/11 Specimen Type: BLOOD No comment entered. Ordering Provider: MARLENY GOODMAN Report Released Date/Time: Dec 20, 2022 01:42 PM Reporting Lab: [address] Performing Lab: [address] CBC W/ AUTO DIFF LYMPHOCYTE S [#/VOLUME] IN BLOOD BY AUTOMATED COUNT 1.3 10*3/uL 1.0 - 3.2 12/11 Specimen Type: BLOOD No comment entered. Ordering Provider: MARLENY GOODMAN Report Released Date/Time: Dec 20, 2022 01:42 PM Reporting Lab: [address] Performing Lab: [place] [id number] [place] [address] CBC W/ AUTO DIFF NEUTROPHIL S [#/VOLUME] IN BLOOD BY AUTOMATED COUNT 3.3 10*3/uL 2.2 - 7.6 12/11 Specimen Type: BLOOD No comment entered. Ordering Provider: MARLENY GOODMAN Report Released Date/Time: Dec 20, 2022 01:42 PM Reporting Lab: [address] [address] Performing Lab: [address] CBC W/ AUTO DIFF IMMATURE GRANULOCYT ES/100 LEUKOCYTES IN BLOOD BY AUTOMATED COUNT 0.2 0.0 - 0.7 12/11 Specimen Type: BLOOD No comment entered. Ordering Provider: MARLENY GOODMAN Report Released Date/Time: Dec 20, 2022 01:42 PM Reporting Lab: [address] [address] Performing Lab: [address] CBC W/ AUTO DIFF NUCLEATED ERYTHROCYT ES/100 LEUKOCYTES [RATIO] IN BLOOD BY AUTOMATED COUNT 0.0 /100{WBC s} 0.0 - 0.0 12/11 Specimen Type: BLOOD No comment entered. Ordering Provider: MARLENY GOODMAN Report Released Date/Time: Dec 20, 2022 01:42 PM Reporting Lab: [address] [address] Performing Lab: [place] [id number] [place] [address] CALCIUM PROFILE CALCIUM [MASS/VOLU ME] IN SERUM [...] Dec 20, 2022 01:42 PM Reporting Lab: [address] [address] Performing Lab: [address] [address] [place] CALCIUM PROFILE PHOSPHATE [MASS/VOLU ME] IN SERUM OR PLASMA 3.1 mg/dL 2.5 - 5.0 12/11 Specimen Type: SERUM Comment: 5.7 - 6.4% Prediabetes >= 6.5% Diabetic range. If the patient has not yet been diagnosed with T2DM, see [place]/[facility] Clinical Practice Guideline for Management of T2DM (dated 05/2016) for more guidance. For patients already diagnosed with T2DM, target HbA1c values should be individuali zed using a Shared Decision-Ma bayron process. Ref: https://www .healthqual ity.wa.gov/ guidelines/ CD/diabetes / Values obtained from A1C measurement s can vary. For typical A1C assays, a reported value of 7.0 could actually be between 6.72 and 7.28 if measured by a reference method. A reported value of 9.0 could actually be between 8.73 and 9.27. Ref: [email or web address] [email or web address] Ordering Provider: MARLENY GOODMAN Report Released Date/Time: Dec 20, 2022 01:42 PM Reporting Lab: [address] [address] Performing Lab: [address] [address] [place] CALCIUM PROFILE PROTEIN [MASS/VOLU ME] IN SERUM OR PLASMA 6.1 g/dL 6.0 - 8.5 12/11 Specimen Type: SERUM Comment: 5.7 - 6.4% Prediabetes >= 6.5% Diabetic range. If the patient has not yet been diagnosed with T2DM, see [place]/[facility] Clinical Practice Guideline for Management of T2DM (dated 05/2016) for more guidance. For patients already diagnosed with T2DM, target HbA1c values should be individuali zed using a Shared Decision-Ma bayron process. Ref: https://www .healthqual ity.wa.gov/ guidelines/ CD/diabetes / Values obtained from A1C measurement s can vary. For typical A1C assays, a reported value of 7.0 could actually be between 6.72 and 7.28 if measured by a reference method. A reported value of 9.0 could actually be between 8.73 and 9.27. Ref: [email or web address]/CAPda [email or web address] Ordering Provider: MARLENY GOODMAN Report Released Date/Time: Dec 20, 2022 01:42 PM Reporting Lab: [address] [address] Performing Lab: [address] [address] [place] CALCIUM PROFILE ALBUMIN [MASS/VOLU ME] IN SERUM [...] Shared Decision-Ma bayron process. Ref: https://www .healthqual ity.wa.gov/ guidelines/ CD/diabetes / Values obtained from A1C measurement s can vary. For typical A1C assays, a reported value of 7.0 could actually be between 6.72 and 7.28 if measured by a reference method. A reported value of 9.0 could actually be between 8.73 and 9.27. Ref: [email or web address]://ngs [email or web address] [email or web address] Ordering Provider: MARLENY GOODMAN Report Released Date/Time: Dec 20, 2022 01:42 PM Reporting Lab: [address] [address] Performing Lab: [address] [address] [place] Vital Signs Combined list of inpatient and outpatient Vital Signs from Department of Defense and Veterans Affairs, ranging from 12 months to all on record, depending upon the facility. Vital Sign Value Date Comments Source SYSTOLIC BLOOD PRESSURE 128 02/08/2024 11:06:37 [place] DIASTOLIC BLOOD PRESSURE 74 02/08/2024 11:06:37 [place] PULSE OXIMETRY 98 02/08/2024 11:06:37 [place] WEIGHT 192.9 02/08/2024 11:06:37 [place] BMI 29 kg/m2 02/08/2024 11:06:37 [place] PAIN 6 02/08/2024 11:06:37 [place] HEIGHT 69 02/08/2024 11:06:37 [place] TEMPERATURE 97.4 02/08/2024 11:06:37 [place] PULSE 63 02/08/2024 11:06:37 [place] SYSTOLIC BLOOD PRESSURE 119 12/12/2023 10:57:24 [place] DIASTOLIC BLOOD PRESSURE 72 12/12/2023 10:57:24 [place] PULSE OXIMETRY 99 12/12/2023 10:57:24 [place] WEIGHT 187 12/12/2023 10:57:24 [place] BMI 28 kg/m2 12/12/2023 10:57:24 [place] PAIN 8 12/12/2023 10:57:24 [place] TEMPERATURE 97 12/12/2023 10:57:24 [place] PULSE 58 12/12/2023 10:57:24 [place] RESPIRATION 18 12/12/2023 10:57:24 [place] SYSTOLIC BLOOD PRESSURE 132 11/29/2023 11:27:39 [place] DIASTOLIC BLOOD PRESSURE 50 11/29/2023 11:27:39 [place] PULSE OXIMETRY 99 11/29/2023 11:27:39 [place] WEIGHT 189 11/29/2023 11:27:39 [place] BMI 28 kg/m2 11/29/2023 11:27:39 [place] PAIN 7 11/29/2023 11:27:39 [place] HEIGHT 69 11/29/2023 11:27:39 [place] TEMPERATURE 98.2 11/29/2023 11:27:39 [place] PULSE 43 11/29/2023 11:27:39 [place] RESPIRATION 18 11/29/2023 11:27:39 [place] SYSTOLIC BLOOD PRESSURE 117 09/06/2023 14:06:00 [place] DIASTOLIC BLOOD PRESSURE 72 09/06/2023 14:06:00 [place] PAIN 8 09/06/2023 14:06:00 [place] TEMPERATURE 97.8 09/06/2023 14:06:00 [place] PULSE 57 09/06/2023 14:06:00 [place] RESPIRATION 16 09/06/2023 14:06:00 [place] Encounters Combined list of: 1) Encounters from Department of Veterans Affairs facilities going backup to the last 18 months, not all VA inpatient encounters are included; 2) Encounters from the Department of [facility] facilities going backup to 280 months. Location Location Details Encounter Type Encounter Number Reason For Visit Attending Provider ADM Date DC Date Status Disposition Source [facility] Outpatient Encounter [id number] 12/20 [facility] O/P EST LOW 20-29 MIN [id number] Diagnos is: ICD-10- CM H90.3 Sensori neural hearing loss, JUSTIN Qiu 12/20 [place] [facility] O/P EST MOD 30 MIN [id number] Diagnos is: ICD-10- CM H40.013 Open angle with borderl ine finding s, low risk, YENY Stapleton 08/29 [place] [facility] Outpatient Encounter [id number] 09/05 [facility] NURSING ASSESSMENT /EVALUATN [id number] Diagnos is: ICD-10- CM M54.50 Low back pain, unspeci fied COLTEN CAMPOS 09/05 [place] [facility] Outpatient Encounter [id number] 09/06 [facility] Outpatient Encounter [id number] 09/08 [facility] Outpatient Encounter [id number] 09/14 [facility] Outpatient Encounter [id number] 11/28 [place] [facility] O/P EST LOW 20 MIN [id number] Diagnos is: ICD-10- CM 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 JUSTIN GOODMAN Elidia 11/28 [place] [facility] O/P EST LOW 20 MIN [id number] Diagnos is: ICD-10- CM 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 JUSTIN GOODMAN Elidia 12/11 [place] [facility] Outpatient Encounter [id number] 01[facility] [id number] 01/05 [facility] Outpatient Encounter [id number] 01/15 [facility] Encounter [id number] 02/05 [facility] O/P EST SF 10 MIN [id number] Diagnos is: ICD-10- CM 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 JUSTIN GOODMAN Elidia 02/07 [place] [facility] Outpatient Encounter [id number] 02/07 [facility] Encounter [id number] 02/12 [facility] Encounter [id number] 02/26 [facility] OFF/OP CNSLTJ NEW/EST MOD 40 [id number] Diagnos is: ICD-10- CM 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 IELD [facility] Outpatient Encounter [id number] 04/06 [facility] Social History Combined list of available smoking, tobacco, and other social history from Department of Defense and Veterans Affairs facilities. Social History Type Response Date Comment Sourc e Tobacco smoking status [facility]-TOBACCO NEVER USED 11/29/2023 [place] History of tobacco use OR-TOBACCO NEVER USED 12/20/2022 [place] History of tobacco use OR-TOBACCO FORMER USER 11/05/2021 [place] History of tobacco use OR-TOBACCO NEVER USED 10/09/2020 [place] History of tobacco use QUIT TOBACCO USE > 7 YEARS AGO 09/19/2017 quit 30 yeasr ago [facility] History of tobacco use QUIT TOBACCO USE > 7 YEARS AGO 07/15/2015 quit 30 yrs ago [facility] History of tobacco use QUIT TOBACCO USE > 7 YEARS AGO 09/03/2008 [facility] Plan of Care List of future care activities from Department of Veterans Affairs facilities. Additional future care activities may be listed in the Assessment and Plan section. Date/Time Care Activity Care Activity Detail Facili ty 08/28/2024 AMBULATORY - SURGERY AMBULATORY - SURGERY [facility] Advance Directives List of completed, amended, or rescinded Advance Directives on record at Department of Veterans Affairs facilities. An actual copy of the Directive is not included. Date Advance Directive Provider Source 11/01/2017 ADVANCE DIRECTIVE CHIKA RICHARDSON [facility]
--- OUTSIDE RECORDS SUMMARY | 2024-04-10 16:45 | XMS_ITS | Encounter Summary ---
Author Name [facility] [place] [facility] Address [address] [place] [address] Care Team Providers Care Reed Dipper Name Role Phone JESSICA GOODMAN Primary Care [...] Name Patient's Relationship to Policy Duran ISAAC [facility] FEDERAL PREFERRED PROVIDER ORGANIZAT ION (PPO) BASIC SELF+ ONE Feb 22, 2020 [id number] [phone] PATIENT ISAAC [facility] CT FEDERAL PREFERRED PROVIDER ORGANIZAT ION (PPO) BASIC SELF Feb 27, 2005 [id number] [phone] PATIENT BCBS JESSICA FEP PREFERRED PROVIDER ORGANIZAT ION (PPO) PSHB BAS SELF PLUS 1 Feb 22, 2024 [id number] [phone] [place] PATIENT BCBS JESSICA FEP PREFERRED PROVIDER ORGANIZAT ION (PPO) BASIC INDIV IDUAL Feb 27, 2005 [id number] [phone] PATIENT [place] FEPRX PLAN PRESCRIPT ION CAR[place] ARK FEPRX Feb 21, 2010 [id number] PATIENT Selected Encounter This section includes the information on record at [place] for the Encounter. Date/Time Encounter Type Encounter Description Reason Pro vider Source Apr 06, 2024 02:57 PM Outpatient Encounter OPTOMETRY IHE Encounter Template Text not used by [...] 28, 2024 01:00 PM AMBULATORY - SURGERY [facility] Advance Directives: All historical and current [...] the Encounter. Date/Time Encounter Note(s) Provider Source Apr 06, 2024 02:57 PM ADMINISTRATIVE NOT E: LOCAL TITLE: SPECIALTY ALIGNED CONTACT TEAM NOTE STANDARD TITLE: ADMINISTRATIVE NOTE DATE OF NOTE: APR 06, 2024@14:57 ENTRY DATE: APR 06, 2024@14:57:23 AUTHOR: KAREN SPARROW EXP COSIGNER: URGENCY: STATUS: COMPLETED Specialty Aligned Contact Team/Call Center Note Service:Optometry Patient/caregiver/other called the clinic: Name of the caller: [place] Relationship to patient: self pt is requesting a replacement on readers, distant, and sunglasses. 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 IMPORTANT: THIS NOTE WAS CREATED BY THE SPECIALTY ALIGNED CONTACT TEAM STAFF. PLEASE DO NOT ALERT THE STAFF MEMBER BY ADDING THEM A SIGNER FOR FUTURE COMMUNICATIONS. ALERTS ARE NOT MONITORED BY THIS USER. /macho/ JOEL ALMEIDA ADVANCE SUPPORT CUSTOMS AND BORDER PROTECTION INSPECTOR Signed: 04/06/2024 14:59 Receipt Acknowledged By: * AWAITING SIGNATURE * RHONA LIU,KAREN [facility]
--- OUTSIDE RECORDS SUMMARY | 2024-04-10 16:45 | XMS_ITS ---
Author Organization [facility] Address [address] [place] [address] Care Team Providers Care Search Engine Optimization Consultant Name Role Phone Ke Mcelroy Primary Care Provider Unavailab Ankur Chavez Jr Unavailable [phone] REASON FOR VISIT screening MEDICATIONS Medication SIG [...] Active Encounters Encounter Location Date Provider Diagnosis [facility] Outpatient [address], [place] [phone] 02/01/2024 Ankur Rodriguez Jr Colon cancer screening [...]
--- OUTSIDE RECORDS SUMMARY | 2024-04-10 16:45 | XMS_ITS ---
Author Organization [facility] Address [address] [place] [address] Care Team Providers Care Manager Client Support Name Role Phone Ke Mcelroy Primary Care Provider Unavailab Ankur Chavez Jr REASON FOR VISIT H & P Encounters Encounter Location Date Provider Diagnosis [facility] [address] [place] [address] 01/31/2024 Ankur Rodriguez Jr PLAN OF TREATMENT No Information
== END 2024-04-10 17:05 ==
PROVIDERS: PCP Family Medicine; Visit Provider Family Medicine
DX: M43.17 Spondylolisthesis, lumbosacral region (principal); R73.03 Prediabetes

== ENCOUNTER → 2024-04-10 16:25 | Outpatient (BNVA) | payer BC, SELFPAY | PROVIDERS: PCP Family Medicine; Visit Provider Family Medicine | DX: M43.17 Spondylolisthesis, lumbosacral region (principal); R73.03 Prediabetes | CPT/HCPCS: 83036; 96127 ==